=== PATIENT | male | born 1960 | race African-American/Black ===

== ENCOUNTER 2016-07-03 08:18 | Emergency (ER) | payer OTHER ==
[~2016-07-03] VITALS: Ht 182.9 cm; Wt 104.3 kg
[~2016-07-03 08:18] MED LIST: LEVO500T38 PO
[2016-07-03] MEDS ORDERED: MORPHINE SULFATE 4 MG/ML DISP.SYRIN. IV ONE (08:45)
[2016-07-03] MEDS ORDERED: IV NORMAL SALINE 1000ML BAG 1,000 ML IV ONE (08:45)
--- NOTE | 2016-07-03 08:49 | PHYS DOC ---
Past Medical History Past Medical History: Other Additional Past Medical Histor: ? diebetes Past Surgical History: No Surgical History Alcohol Use: None Drug Use: Cocaine Adult General Chief Complaint Chief Complaint: rash, chest pain HPI HPI Patient is a 56 year old male who presents with rash and chest pain of 2 days. Feels "hot" but hasn't taken temperature. Pt states rash is painful and the chest pain is constant in nature. No increased sob, no cough. Pt denies CAD. Rash wraps from midline anterior and left to midline on the back. he states the pain is all across the chest. No h/o PE or dvt. Review of Systems Review of Systems Constitutional:per hpi Eyes: Denies change in visual acuity, redness, or eye pain [] HENT: Denies nasal congestion or sore throat [] Respiratory: Denies cough or shortness of breath [] Cardiovascular: No additional information not addressed in HPI [] GI: Denies abdominal pain, nausea, vomiting, bloody stools or diarrhea [] : Denies dysuria or hematuria [] Musculoskeletal: Denies back pain or joint pain [] Integument: per hpi Neurologic: Denies headache, focal weakness or sensory changes [] Current Medications Current Medications Current Medications Medications (Trade) Dose Ordered Sig/Sushma Start Time Stop Time Status Last Admin Dose Admin Morphine Sulfate 4 mg 1X ONCE 07/03/16 08:45 07/03/16 08:46 DC 07/03/16 09:03 4 MG Sodium Chloride 1,000 ml @ 1,000 mls/hr 1X ONCE 07/03/16 08:45 07/03/16 09:44 DC 07/03/16 09:03 1,000 MLS/HR Allergies Allergies Allergies Coded Allergies Type Severity Reaction Last Updated Verified No Known Drug Allergies 10/14/13 No Physical Exam Physical Exam Constitutional: Well developed, well nourished, no acute distress, non-toxic appearance. [] HENT: Normocephalic, atraumatic, bilateral external ears normal, oropharynx moist, no oral exudates, nose normal. [] Eyes: PERRLA, EOMI, conjunctiva normal, no discharge. [] Neck: Normal range of motion, no tenderness, supple, no stridor. [] Cardiovascular:Heart rate regular with regular rhythm, no murmur [] Lungs & Thorax: Bilateral breath sounds clear to auscultation, no wheeze or crackles Abdomen: Bowel sounds normal, soft, no tenderness, no masses, no pulsatile masses. [] Skin: vesicular erythematous rash along left torso dermatome from midline to midline, consistent with herpes zoster. Back: No tenderness, no CVA tenderness. [] Extremities: No tenderness, no cyanosis, no clubbing, ROM intact, no edema. [] Neurologic: Alert and oriented X 3, normal motor function, normal sensory function, no focal deficits noted. [] Psychologic: Affect normal, judgement normal, mood normal. [] Current Patient Data Vital Signs Vital Signs Date Time Temp Pulse Resp B/P (MAP) Pulse Ox O2 Delivery O2 Flow Rate FiO2 07/03/16 08:26 99.9 102 18 151/89 (109) 94 Room Air 99.9 Lab Values Laboratory Tests Test 07/03/16 08:47 White Blood Count 4.4 x10^3/uL (4.0-11.0) Red Blood Count 4.68 x10^6/uL (4.30-5.70) Hemoglobin 13.5 g/dL (13.0-17.5) Hematocrit 39.6 % (39.0-53.0) Mean Corpuscular Volume 85 fL (79-100) Mean Corpuscular Hemoglobin 29 pg (25-35) Mean Corpuscular Hemoglobin Concent 34 g/dL (31-37) Red Cell Distribution Width 14.1 % (11.5-14.5) Platelet Count 236 x10^3/uL (140-400) Neutrophils (%) (Auto) 64 % (31-73) Lymphocytes (%) (Auto) 22 % (24-48) L Monocytes (%) (Auto) 12 % (0-9) H Eosinophils (%) (Auto) 1 % (0-3) Basophils (%) (Auto) 1 % (0-3) Neutrophils # (Auto) 2.8 x10^3uL (1.8-7.7) Lymphocytes # (Auto) 1.0 x10^3/uL (1.0-4.8) Monocytes # (Auto) 0.5 x10^3/uL (0.0-1.1) Eosinophils # (Auto) 0.1 x10^3/uL (0.0-0.7) Basophils # (Auto) 0.0 x10^3/uL (0.0-0.2) Sodium Level 132 mmol/L (136-145) L Potassium Level 4.1 mmol/L (3.5-5.1) Chloride Level 99 mmol/L (98-107) Carbon Dioxide Level 27 mmol/L (21-32) Anion Gap 6 (6-14) Blood Urea Nitrogen 12 mg/dL (8-26) Creatinine 1.4 mg/dL (0.7-1.3) H Estimated GFR (Cockcroft-Gault) 63.2 BUN/Creatinine Ratio 9 (6-20) Glucose Level 101 mg/dL (70-99) H Calcium Level 9.0 mg/dL (8.5-10.1) Total Bilirubin 0.5 mg/dL (0.2-1.0) Aspartate Amino Transferase (AST) 29 U/L (15-37) Alanine Aminotransferase (ALT) 31 U/L (16-63) Alkaline Phosphatase 79 U/L (46-116) Troponin I Quantitative < 0.017 ng/mL (0.000-0.055) Total Protein 9.6 g/dL (6.4-8.2) H Albumin 3.7 g/dL (3.4-5.0) Albumin/Globulin Ratio 0.6 (1.0-1.7) L Laboratory Tests 07/03/16 08:47 Laboratory Tests 07/03/16 08:47 EKG EKG [] 97 bpm, sinus, normal axis, normal intervals, no ST elevation or depression, nonischemic T waves, interpreted by me Radiology/Procedures Radiology/Procedures Chest x-ray: Left basilar subsegmental atelectasis per Dr. Weeks, I was unable to view the images [] Course & Med Decision Making Course & Med Decision Making Pertinent Labs and Imaging studies reviewed. (See chart for details) Pt given morphine, labs obtained, CXR, ekg. Pt's tetanus updated 2 years ago. Symptoms very consistent with zoster. Will check for possible ACS, but pain more likely related to the rash. No significant findings on ED workup. Creatinine is 1.4, baseline is 1.3. Patient's blood pressure slightly elevated and I instructed patient follow-up with primary care physician. We'll discharge with foul acyclovir 3 times a day for 7 days, Ledbetter tablets as needed for breakthrough pain. If you ibuprofen tablets for mild pain. Patient to follow-up with Dr. Taylor Lugo Disclaimer Brittney Disclaimer This electronic medical record was generated, in whole or in part, using a voice recognition dictation system. Departure Departure Impression: Primary Impression: Herpes zoster Disposition: HOME, SELF-CARE Condition: STABLE Referrals: MORAIMA VERMA (PCP) Scripts Hydrocodone/Apap 5-325 (NORCO 5-325 TABLET) 1 Each Tablet 1-2 EACH PO PRN Q6HRS Y for PAIN, #24 TAB as needed for pain Prov: JOSEPH COLUNGA MD 07/03/16 Ibuprofen (IBUPROFEN) 400 Mg Tablet 400 MG PO PRN Q6HRS Y for PAIN, #20 TAB take with food or milk Prov: JOSEPH COLUNGA MD 07/03/16 Valacyclovir Hcl (VALACYCLOVIR) 1,000 Mg Tablet 1 TAB PO TID, #21 TAB Prov: JOSEPH COLUNGA MD 07/03/16 JOSEPH COLUNGA MD July 03, 2016 08:49
[2016-07-03 09:02] LABS: CREATININE 1.4 mg/dL (0.7-1.3); GFR 63.2; POTASSIUM 4.1 mmol/L (3.5-5.1)
[2016-07-03 09:10] LABS: ALBUMIN 3.7 g/dL (3.4-5.0); ALBUMIN/GLOBULIN RATIO 0.6 (1.0-1.7); BASO % 1 % (0-3); EOS % 1 % (0-3); HEMATOCRIT 39.6 % (39.0-53.0); HEMOGLOBIN 13.5 g/dL (13.0-17.5); LYMPH % 22 % (24-48); MEAN CORPUSCULAR HEMOGLOBIN 29 pg (25-35); MEAN CORPUSCULAR HGB CONC 34 g/dL (31-37); MEAN CORPUSCULAR VOLUME 85 fL (79-100); MONO % 12 % (0-9); NEUT % 64 % (31-73); PLATELET COUNT 236 x10^3/uL (140-400); RED BLOOD COUNT 4.68 x10^6/uL (4.30-5.70); RED CELL DISTRIBUTION WIDTH 14.1 % (11.5-14.5); TOTAL BILIRUBIN 0.5 mg/dL (0.2-1.0); TOTAL PROTEIN 9.6 g/dL (6.4-8.2); WHITE BLOOD COUNT 4.4 x10^3/uL (4.0-11.0)
[2016-07-03 09:30] VITALS: BP 161/90
[2016-07-03] MEDS ORDERED: VALA1000 PO (10:00)
[2016-07-03] MEDS ORDERED: IBUP-1027 PO (10:00)
[2016-07-03] MEDS ORDERED: HYDR-971 PO (10:00)
--- NOTE | 2016-07-03 10:20 | EKG ---
[facility] [address] [place] [address] Test Date: 2016-07-03 Test Time: 09:06:03 Pat Name: TAWNY MEDINA Department: Room: Gender: [employer] Facilitator: : 1960 Requested By: JOSEPH COLUNGA Order Number: [id number] Reading MD: Angel Agee Measurements Intervals [place] Rate: 97 P: 37 MI: 162 QRS: -23 QRSD: 96 T: 43 QT: 352 QTc: 451 Interpretive Statements SINUS RHYTHM Electronically Signed On 07-07-2016 9:30:31 CDT by Angel Agee
--- NOTE | 2016-07-03 13:05 | RAD ---
Ti Kush 2 View Chest on 07/03/2016 0852 hours Indication: Chest and upper back pain. Correlation is made with prior exam from 10/16/2013. The heart size is stable. There is subsegmental atelectasis in the lingula. Lungs are hyperinflated consistent with COPD. No infiltrate, effusion or pneumothorax is detected. Impression: Lingular subsegmental atelectasis and COPD. MTDD
== END 2016-07-03 10:20 | disposition home or self-care (01) ==
LOC: ER 08:18
DX: B02.9 Zoster without complications (principal); F14.10 Cocaine abuse, uncomplicated
CPT/HCPCS: 36415; 71020; 80053; 84484; 85027; 93005; 96361; 96374; 99285; J2270; J7030

== ENCOUNTER 2018-01-20 08:31 | Emergency (ER) | payer SELFPAY ==
[~2018-01-20] VITALS: Ht 177.8 cm; Wt 104.3 kg
[~2018-01-20 08:31] MED LIST changes: +HYDR-3164 PO; +IBUP-1027 PO; -LEVO500T38 PO; +LEVO500T59 PO; +VALA1000 PO
[2018-01-20] MEDS ORDERED: FLUORESCEIN OPHTH TEST STRIP. OD ONE (08:45)
[2018-01-20] MEDS ORDERED: TETRACAINE 0.5% OPHTH SOLUTION 4ML BOTTLE. OD ONE (08:45)
[2018-01-20 09:00] VITALS: BP 181/88
[2018-01-20] MEDS ORDERED: ERYT1OIN6 OP (09:28)
--- NOTE | 2018-01-20 09:29 | PHYS DOC ---
Past Medical History Past Medical History: No Pertinent History, Other Additional Past Medical Histor: ? diabetes Past Surgical History: No Surgical History Alcohol Use: None Drug Use: Cocaine Social History Narrative: clean x 1 month Adult General Chief Complaint Chief Complaint: EYE PROBLEMS HPI HPI Patient is a 57 year old [f__sex] who presents with [] Review of Systems Review of Systems Constitutional: Denies fever or chills [] Eyes: Denies change in visual acuity, redness, or eye pain [] HENT: Denies nasal congestion or sore throat [] Respiratory: Denies cough or shortness of breath [] Cardiovascular: No additional information not addressed in HPI [] GI: Denies abdominal pain, nausea, vomiting, bloody stools or diarrhea [] : Denies dysuria or hematuria [] Musculoskeletal: Denies back pain or joint pain [] Integument: Denies rash or skin lesions [] Neurologic: Denies headache, focal weakness or sensory changes [] Endocrine: Denies polyuria or polydipsia [] All other systems were reviewed and found to be within normal limits, except as documented in this note. Current Medications Current Medications Current Medications Medications (Trade) Dose Ordered Sig/Sushma Start Time Stop Time Status Last Admin Dose Admin Fluorescein Sodium (Ful-Terri) 1 strip 1X ONCE 01/20/18 08:45 01/20/18 08:49 DC 01/20/18 08:58 1 STRIP Tetracaine HCl (Tetracaine) 1 drop 1X ONCE 01/20/18 08:45 01/20/18 08:49 DC 01/20/18 08:58 1 DROP Allergies Allergies Allergies Coded Allergies Type Severity Reaction Last Updated Verified No Known Drug Allergies 10/14/13 No Physical Exam Physical Exam Constitutional: Well developed, well nourished, no acute distress, non-toxic appearance. [] HENT: Normocephalic, atraumatic, bilateral external ears normal, oropharynx moist, no oral exudates, nose normal. [] Eyes: PERRLA, EOMI, conjunctiva normal, no discharge. [] Neck: Normal range of motion, no tenderness, supple, no stridor. [] Cardiovascular:Heart rate regular rhythm, no murmur [] Lungs & Thorax: Bilateral breath sounds clear to auscultation [] Abdomen: Bowel sounds normal, soft, no tenderness, no masses, no pulsatile masses. [] Skin: Warm, dry, no erythema, no rash. [] Back: No tenderness, no CVA tenderness. [] Extremities: No tenderness, no cyanosis, no clubbing, ROM intact, no edema. [] Neurologic: Alert and oriented X 3, normal motor function, normal sensory function, no focal deficits noted. [] Psychologic: Affect normal, judgement normal, mood normal. [] Current Patient Data Vital Signs Vital Signs Date Time Temp Pulse Resp B/P (MAP) Pulse Ox O2 Delivery O2 Flow Rate FiO2 01/20/18 09:00 98.2 63 18 181/88 (119) 96 Room Air 98.2 Lab Values Laboratory Tests Test 01/20/18 09:15 Glucose (Fingerstick) 114 mg/dL (70-99) H EKG EKG [] Radiology/Procedures Radiology/Procedures Eye Exam w/ childers lamp: Visual Acuity: See nurse's notes Visual Massey: Intact in all four quadrants bilaterally Lac ducts/glands: No swelling Lids w/ evertion: Swelling to upper right eyelid, no foreign body Conj/Conley: Clear, negative Fluorescein Course & Med Decision Making Course & Med Decision Making Pertinent Labs and Imaging studies reviewed. (See chart for details) [] Dragon Disclaimer Dragon Disclaimer This electronic medical record was generated, in whole or in part, using a voice recognition dictation system. Departure Departure Impression: Primary Impression: Conjunctivitis Disposition: 01 HOME, SELF-CARE Condition: STABLE Referrals: MORAIMA VERMA (PCP) Patient Instructions: Conjunctivitis (Viral and Bacterial) Additional Instructions: Cool compress every 3-4 hours for 20-30 minutes to right eye- avoid rubbing eye. Follow-up with laborer airport maintenance in 2-3 days if symptoms persist or with any concerns. Your blood sugar was 114. Scripts Erythromycin Base (Erythromycin) 1 Gm Oint...g. 1 GM OP QID, #1 MISC 0 Refills 0.5% 1/2" ribbon to lower eyelid x7 days Prov: XUAN VILCHIS APRN 01/20/18 XUAN VILCHIS APRN Jan 20, 2018 09:29
[2018-01-20] MEDS ORDERED: ERYTHROMYCIN 0.5% OPHTH OINTMENT 1GM TUBE. OD ONE (09:30)
== END 2018-01-20 09:35 | disposition home or self-care (01) ==
LOC: ER 08:31
DX: H10.89 Other conjunctivitis (principal); E11.9 Type 2 diabetes mellitus without complications
CPT/HCPCS: 82962; 99283

== ENCOUNTER 2018-07-19 06:50 | Inpatient (IN) | payer BC, SELFPAY ==
[2018-07-18] MEDS: IV NORMAL SALINE 1000ML BAG 1,000 ML IV SCH (00:45)
[~2018-07-19] VITALS: Ht 182.9 cm; Wt 83.6 kg
[~2018-07-19 06:50] MED LIST changes: +ERYT1OIN6 OP
[2018-07-19] MEDS ORDERED: NITROGLYCERIN SUBLINGUAL 0.4 MG BOTTLE OF 25. SL PRN (07:15)
[2018-07-19] MEDS ORDERED: ASPIRIN CHEWABLE 81 MG TABLET. PO ONE (07:15)
[2018-07-19 07:33] LABS: BASO # 0.1 x10^3/uL (0.0-0.2); BASO % 1 % (0-3); EOS % 0 % (0-3); HEMATOCRIT 28.4 % (39.0-53.0); HEMOGLOBIN 9.1 g/dL (13.0-17.5); LYMPH % 16 % (24-48); MEAN CORPUSCULAR HEMOGLOBIN 25 pg (25-35); MEAN CORPUSCULAR HGB CONC 32 g/dL (31-37); MEAN CORPUSCULAR VOLUME 77 fL (79-100); MONO # 0.8 x10^3/uL (0.0-1.1); MONO % 12 % (0-9); NEUT # 4.6 x10^3uL (1.8-7.7); NEUT % 71 % (31-73); PLATELET COUNT 431 x10^3/uL (140-400); RED BLOOD COUNT 3.67 x10^6/uL (4.30-5.70); RED CELL DISTRIBUTION WIDTH 16.9 % (11.5-14.5); WHITE BLOOD COUNT 6.5 x10^3/uL (4.0-11.0)
--- NOTE | 2018-07-19 07:41 | PHYS DOC ---
Past Medical History Past Medical History: No Pertinent History, Hypertension, Other Additional Past Medical Histor: ? diabetes Past Surgical History: No Surgical History Alcohol Use: None Drug Use: Cocaine Adult General Chief Complaint Chief Complaint: CHEST PAIN [facility] HPI Patient is a 58 year old male who presents with complaining of chest pain. Patient complaining of gradual onset of substernal sharp chest pain 3 weeks ago as a constant pain that gradually getting worse. Patient states the pain radiated to his back and associated with shortness of breath and productive cough with clear sputum. Patient states the shortness of breath getting worse with supine position and light activity. Patient denies palpitation, fever and chills, sick contact, recent immobilization or history of DVT and PE, nausea and vomiting patient complaining of constipation and states he did not have any bowel movement for the last 5 days and usually he has had a bowel movement every day. Patient states he smoked 2 cigarettes a day and smoked cocaine 3 weeks ago. Patient denies using alcohol. Patient rated his pain 10 over 10 and states he took [id number] Tylenol and and Advil without change of his pain. Patient did not seek medical attention for his chest pain and states the pain became worse today and he decided to come to ER. Patient has history of hypertension and diabetes mellitus and denies coronary artery disease or family history of coronary artery disease. Review of Systems Review of Systems Constitutional: Denies fever or chills [] Eyes: Denies change in visual acuity, redness, or eye pain [] HENT: Denies nasal congestion or sore throat [] Respiratory: Reports cough and shortness of breath Cardiovascular: No additional information not addressed in HPI [] GI: Denies abdominal pain, nausea, vomiting, bloody stools or diarrhea [] : Denies dysuria or hematuria [] Musculoskeletal: Denies back pain or joint pain [] Integument: Denies rash or skin lesions [] Neurologic: Denies headache, focal weakness or sensory changes [] Endocrine: Denies polyuria or polydipsia [] All other systems were reviewed and found to be within normal limits, except as documented in this note. Current Medications Current Medications Current Medications Medications (Trade) Dose Ordered Sig/Sushma Start Time Stop Time Status Last Admin Dose Admin Aspirin (Children'S Aspirin) 324 mg 1X ONCE 07/19/18 07:15 07/19/18 07:16 DC 07/19/18 07:31 324 MG Info (CONTRAST GIVEN -- Rx MONITORING) 1 each PRN DAILY PRN 07/19/18 08:15 07/21/18 08:14 Iohexol (Omnipaque 350 Mg/ml) 90 ml 1X ONCE 07/19/18 08:00 07/19/18 08:01 DC 07/19/18 08:24 90 ML Nitroglycerin (Nitrostat) 0.4 mg PRN Q5MIN PRN 07/19/18 07:15 07/20/18 07:14 07/19/18 07:32 0.4 MG Allergies Allergies Allergies Coded Allergies Type Severity Reaction Last Updated Verified No Known Drug Allergies 10/14/13 No Physical Exam Physical Exam Constitutional: Well developed, well nourished, moderate distress, non-toxic appearance. [] HENT: Normocephalic, atraumatic, oropharynx moist. Eyes: PERRLA, EOMI, conjunctiva normal, no discharge. [] Neck: Normal range of motion, no tenderness, supple, no stridor, bilateral JVD. [] Cardiovascular: Tachycardia, no murmur [] Lungs & Thorax: Bilateral breath sounds clear to auscultation [] Abdomen: Bowel sounds normal, soft, no tenderness, no masses, no pulsatile masses. [] Skin: Warm, dry, no erythema, no rash. [] Back: No tenderness, no CVA tenderness. [] Extremities: No tenderness, no cyanosis, no clubbing, ROM intact, no edema. [] Neurologic: Alert and oriented X 3, normal motor function, normal sensory function, no focal deficits noted. [] Psychologic: Affect anxious, judgement normal, mood normal. [] Current Patient Data Vital Signs Vital Signs Date Time Temp Pulse Resp B/P (MAP) Pulse Ox O2 Delivery O2 Flow Rate FiO2 07/19/18 07:57 110 30 96/53 (67) 92 Room Air 07/19/18 06:52 98.3 98.3 Lab Values Laboratory Tests Test 07/19/18 07:20 White Blood Count 6.5 x10^3/uL (4.0-11.0) Red Blood Count 3.67 x10^6/uL (4.30-5.70) L Hemoglobin 9.1 g/dL (13.0-17.5) L Hematocrit 28.4 % (39.0-53.0) L Mean Corpuscular Volume 77 fL (79-100) L Mean Corpuscular Hemoglobin 25 pg (25-35) Mean Corpuscular Hemoglobin Concent 32 g/dL (31-37) Red Cell Distribution Width 16.9 % (11.5-14.5) H Platelet Count 431 x10^3/uL (140-400) H Neutrophils (%) (Auto) 71 % (31-73) Lymphocytes (%) (Auto) 16 % (24-48) L Monocytes (%) (Auto) 12 % (0-9) H Eosinophils (%) (Auto) 0 % (0-3) Basophils (%) (Auto) 1 % (0-3) Neutrophils # (Auto) 4.6 x10^3uL (1.8-7.7) Lymphocytes # (Auto) 1.0 x10^3/uL (1.0-4.8) Monocytes # (Auto) 0.8 x10^3/uL (0.0-1.1) Eosinophils # (Auto) 0.0 x10^3/uL (0.0-0.7) Basophils # (Auto) 0.1 x10^3/uL (0.0-0.2) D-Dimer (Caryn) 1.77 ug/mlFEU (0.00-0.50) H Sodium Level 134 mmol/L (136-145) L Potassium Level 4.5 mmol/L (3.5-5.1) Chloride Level 98 mmol/L (98-107) Carbon Dioxide Level 28 mmol/L (21-32) Anion Gap 8 (6-14) Blood Urea Nitrogen 8 mg/dL (8-26) Creatinine 1.0 mg/dL (0.7-1.3) Estimated GFR (Cockcroft-Gault) 92.5 BUN/Creatinine Ratio 8 (6-20) Glucose Level 106 mg/dL (70-99) H Lactic Acid Level 0.9 mmol/L (0.4-2.0) Calcium Level 9.2 mg/dL (8.5-10.1) Magnesium Level 1.8 mg/dL (1.8-2.4) Total Bilirubin 0.3 mg/dL (0.2-1.0) Aspartate Amino Transferase (AST) 32 U/L (15-37) Alanine Aminotransferase (ALT) 30 U/L (16-63) Alkaline Phosphatase 69 U/L (46-116) Creatine Kinase 48 U/L (39-308) Troponin I Quantitative < 0.017 ng/mL (0.000-0.055) WR-Tvg-[id number]-Type Natriuretic Peptide 71 pg/mL (0-124) Total Protein 9.1 g/dL (6.4-8.2) H Albumin 2.5 g/dL (3.4-5.0) L Albumin/Globulin Ratio 0.4 (1.0-1.7) L Lipase 76 U/L (73-393) Ethyl Alcohol Level < 10 mg/dL (0-10) Laboratory Tests 07/19/18 07:20 Laboratory Tests 07/19/18 07:20 EKG EKG EKG interpreted by me. EKG at 0 658 showed sinus tachycardia at rate of 123, normal TN and QT intervals, poor R-wave progress in anteroseptal leads, abnormal T waves in anteroseptal leads, no acute ST and T-wave abnormalities. Radiology/Procedures Radiology/Procedures [][facility] [address] [place] [address] IMAGING REPORT Signed PATIENT: TAWNY MEDINA ACCOUNT: [id number] : 1960 LOCATION: [address] [place] [address] AGE: 58 SEX: M EXAM STATUS: ADM IN ORD. PHYSICIAN: MARIA EUGENIA URIOSTEGUI MD REASON: mediastinal mass;SOA; OMNI 350, 90ML PROCEDURE: CT ANGIO CHEST ABD PELVIS CTA of the chest, abdomen and pelvis with contrast 07/19/2018 CLINICAL HISTORY: Chest pain and shortness of breath. Mediastinal mass seen on chest radiograph from earlier today. TECHNIQUE: After the intravenous administration of 75 cc of Omnipaque 300, contiguous, 0.625 mm axial sections were obtained through the chest, abdomen and pelvis. One or more of the following individualized dose reduction techniques were utilized for this study: 1. Automated exposure control. 2. Adjustment of the mA and/or kV according to patient size. 3. Use of iterative reconstruction technique. FINDINGS: Comparison is made to a portable chest radiograph performed earlier today. A large mass is seen occupying the majority of the anterior and middle mediastinum. This measures 11.9 x 10.8 x 9.1 cm in craniocaudal, AP and transverse dimensions. This mass extrinsically compresses the superior vena cava, the main pulmonary arteries, right greater than left and the ascending thoracic aorta along with the thoracic aortic arch. It displaces these structures laterally. This extrinsically compresses the anterior aspect of the distal trachea near the zay along with the left main bronchus. This mass is consistent with a neoplastic process (lymphoma, lung cancer, etc.). An enlarged right hilar lymph node is seen which measures 2.4 cm in size. An enlarged partially calcified subcarinal lymph node is seen which measures 3.6 cm in size. Additional prominent mediastinal lymph nodes are seen which measure 5 mm to 1 cm in size. Although extrinsically compressed by the mass, the thoracic aorta is otherwise within normal limits. It tapers normally. There is a common origin of the brachiocephalic and left common carotid artery from the thoracic aortic arch. This is a normal variation. This origin is patent. The origin of the left subclavian artery is patent. The pulmonary arteries are suboptimally opacified with contrast. No obvious filling defect is seen. No axillary lymphadenopathy is noted. Mild bullous emphysematous changes are seen involving both lungs. Dependent subsegmental atelectasis is seen involving both lower lobes. No area of consolidation is seen. No pleural effusion or pneumothorax is noted. No pulmonary mass or nodule is seen. The liver, spleen, pancreas, adrenal glands and kidneys are within normal limits. The abdominal aorta tapers normally. The gallbladder is slightly contracted. No free fluid or free air is seen within the abdomen. Air and stool seen throughout the colon. Mildly enlarged retroperitoneal lymph nodes are seen adjacent to the abdominal aorta. These measure 1 cm to 1.7 cm in size. Images through the pelvis demonstrate the bladder distended with urine. The prostate gland is enlarged likely related to BPH. No free fluid is seen. Prominent pelvic/inguinal lymph nodes are seen, left greater than right, which measure 1 cm to 2.9 cm in size. Minimal S-shaped curvature of the thoracolumbar spine is seen. Degenerative changes are seen involving the thoracic and lumbar spine along with both hips. CTA images of the abdominal aorta demonstrate the abdominal aorta to taper normally. There is a solitary right renal artery which immediately bifurcates past its origin. These arteries are patent. 2 left renal arteries are seen. There are patent. The origins of the celiac trunk, superior mesenteric artery and inferior mesenteric artery are patent. The common iliac arteries and their branches are patent. IMPRESSION: 1. 11.9 cm mediastinal mass is seen consistent with a neoplastic process as discussed above. 2. Negative CTA of the chest, abdomen and pelvis. Electronically signed by: Cm Ordoñez MD (07/19/2018 8:57 AM) [facility] DICTATED and SIGNED BY: CM ORDOÑEZ MD DATE: 07/19/18 0857 Course & Med Decision Making Course & Med Decision Making Pertinent Labs and Imaging studies reviewed. (See chart for details) Evaluation of patient in ER showed 58-year-old male patient with complaining of constant shortness of breath and chest pain for 3 weeks that gradually getting worse. Patient had O2 sat of 94% at room and at arrival to ER with history of COPD without home oxygen. Patient had tachycardia at 120 that gradually improved to 110. Patient rated his pain 10 over 10 that resolved with nitroglycerin 1 and aspirin and was able to fall asleep. Patient had bilateral JVD more in the right side door extremity edema. Chest x-ray showed mediastinal enlargement and CT of chest and abdomen and pelvis showed an 0.9 cm mediastinal mass with lymphadenopathy and possible malignancy. Patient states that he lost about 30 pounds for the last 3 weeks. Patient requiring admission for further evaluation and treatment. Discussed with Dr. Saenz who is in agreement with admission. Discussed findings and plan with patient and family, who acknowledge understanding and agreement. Dragon Disclaimer Dragon Disclaimer This electronic medical record was generated, in whole or in part, using a voice recognition dictation system. Departure Departure Impression: Primary Impression: Mediastinal mass Additional Impressions: Chest pain Shortness of breath Anemia Tachycardia Weight loss Disposition: 09 ADMITTED INPATIENT (at 0 825) Admitting Physician: Yen Saenz (accepted admission at 0 824) Condition: GUARDED Referrals: MORAIMA VERMA (PCP) Critical Care Time Critical care time was 60 minutes exclusive of procedures. Problem Qualifiers Additional Impressions: Chest pain Chest pain type: unspecified Qualified Codes: R07.9 - Chest pain, unspecified Anemia Anemia type: unspecified type Qualified Codes: D64.9 - Anemia, unspecified MARIA EUGENIA URIOSTEGUI MD July 19, 2018 07:41
[2018-07-19 07:42] LABS: CALCIUM 9.2 mg/dL (8.5-10.1); GFR 92.5; POTASSIUM 4.5 mmol/L (3.5-5.1)
[2018-07-19 07:49] LABS: ALBUMIN 2.5 g/dL (3.4-5.0); ALBUMIN/GLOBULIN RATIO 0.4 (1.0-1.7); MAGNESIUM 1.8 mg/dL (1.8-2.4); TOTAL BILIRUBIN 0.3 mg/dL (0.2-1.0); TOTAL PROTEIN 9.1 g/dL (6.4-8.2)
[2018-07-19] MEDS ORDERED: IOHEXOL 350 MG/ML 100 ML VIAL. IV ONE (08:00)
[2018-07-19] MEDS ORDERED: CONTRAST GIVEN. MC PRN (08:15)
--- NOTE | 2018-07-19 08:47 | RAD ---
PORTABLE CHEST 1V Clinical indications: Chest pain and shortness of breath. COMPARISON: July 03, 2016. Findings: Chronic scarring is seen within the left lung base. No acute lung infiltrate or pleural effusion or pulmonary edema or lung mass or pneumothorax is seen. There is a new finding of enlargement of the upper right mediastinum extending to the level of the right hilum. This could be due to lymphadenopathy/mass or thoracic aortic dissection. Recommend chest CT with IV contrast for further evaluation. The heart size is stable. Pulmonary vasculature is unremarkable. IMPRESSION: New finding of enlargement of the right mediastinum extending to the right hilum. This may be due to mediastinal lymphadenopathy or mass or thoracic aortic dissection. Recommend chest CT with IV for further evaluation. Electronically signed by: Eduardo Mccartney MD (07/19/2018 8:44 AM) [facility]
--- NOTE | 2018-07-19 09:00 | RAD ---
CTA of the chest, abdomen and pelvis with contrast 07/19/2018 CLINICAL HISTORY: Chest pain and shortness of breath. Mediastinal mass seen on chest radiograph from earlier today. TECHNIQUE: After the intravenous administration of 75 cc of Omnipaque 300, contiguous, 0.625 mm axial sections were obtained through the chest, abdomen and pelvis. One or more of the following individualized dose reduction techniques were utilized for this study: 1. Automated exposure control. 2. Adjustment of the mA and/or kV according to patient size. 3. Use of iterative reconstruction technique. FINDINGS: Comparison is made to a portable chest radiograph performed earlier today. A large mass is seen occupying the majority of the anterior and middle mediastinum. This measures 11.9 x 10.8 x 9.1 cm in craniocaudal, AP and transverse dimensions. This mass extrinsically compresses the superior vena cava, the main pulmonary arteries, right greater than left and the ascending thoracic aorta along with the thoracic aortic arch. It displaces these structures laterally. This extrinsically compresses the anterior aspect of the distal trachea near the zay along with the left main bronchus. This mass is consistent with a neoplastic process (lymphoma, lung cancer, etc.). An enlarged right hilar lymph node is seen which measures 2.4 cm in size. An enlarged partially calcified subcarinal lymph node is seen which measures 3.6 cm in size. Additional prominent mediastinal lymph nodes are seen which measure 5 mm to 1 cm in size. Although extrinsically compressed by the mass, the thoracic aorta is otherwise within normal limits. It tapers normally. There is a common origin of the brachiocephalic and left common carotid artery from the thoracic aortic arch. This is a normal variation. This origin is patent. The origin of the left subclavian artery is patent. The pulmonary arteries are suboptimally opacified with contrast. No obvious filling defect is seen. No axillary lymphadenopathy is noted. Mild bullous emphysematous changes are seen involving both lungs. Dependent subsegmental atelectasis is seen involving both lower lobes. No area of consolidation is seen. No pleural effusion or pneumothorax is noted. No pulmonary mass or nodule is seen. The liver, spleen, pancreas, adrenal glands and kidneys are within normal limits. The abdominal aorta tapers normally. The gallbladder is slightly contracted. No free fluid or free air is seen within the abdomen. Air and stool seen throughout the colon. Mildly enlarged retroperitoneal lymph nodes are seen adjacent to the abdominal aorta. These measure 1 cm to 1.7 cm in size. Images through the pelvis demonstrate the bladder distended with urine. The prostate gland is enlarged likely related to BPH. No free fluid is seen. Prominent pelvic/inguinal lymph nodes are seen, left greater than right, which measure 1 cm to 2.9 cm in size. Minimal S-shaped curvature of the thoracolumbar spine is seen. Degenerative changes are seen involving the thoracic and lumbar spine along with both hips. CTA images of the abdominal aorta demonstrate the abdominal aorta to taper normally. There is a solitary right renal artery which immediately bifurcates past its origin. These arteries are patent. 2 left renal arteries are seen. There are patent. The origins of the celiac trunk, superior mesenteric artery and inferior mesenteric artery are patent. The common iliac arteries and their branches are patent. IMPRESSION: 1. 11.9 cm mediastinal mass is seen consistent with a neoplastic process as discussed above. 2. Negative CTA of the chest, abdomen and pelvis. Electronically signed by: Cm Ordoñez MD (07/19/2018 8:57 AM) [facility]
--- NOTE | 2018-07-19 09:25 | NUR ---
The patient, TAWNY MEDINA, 58 y/o, M admitted by BARRY CARLIN MD, was given written information regarding hospital policies, unit procedures and contact persons. Valuables were checked and taken home with . Pt arrived to unit from ER via gurney. Pt ambulated to bed. at bedside. Pt c/o chest pain, back pain, and gas. Pt states no SOB at this time. VS stable. Pt resting in bed. Call light within reach. Will continue to monitor.
[2018-07-19 09:38] VITALS: BP 128/66
[2018-07-19] MEDS: IV NORMAL SALINE 1000ML BAG 1,000 ML IV SCH ×2 (09:53→16:49)
[2018-07-19] MEDS ORDERED: LISI1TAB3 PO (10:51)
[2018-07-19] MEDS ORDERED: RANI150T2 PO (10:51)
[2018-07-19 11:04] VITALS: BP 103/55
--- NOTE | 2018-07-19 12:22 | PDOC ---
Provider Note Provider Note 58 year old male, presented with chest pain. CT chest reviewed. Large anterior mediastinal mass encompassing ascending aorta, PA, SVC and airway. Given radiological findings, this is most likely a lymphoma, less likely non seminomatous germ cell tumor. Germ cell tumor can be excluded by obtaining serum a-FP, b-HCG and LDH. He will need radiation and chemotherapy. There is no role for surgical resection. Biopsy may not be needed, al least to begin radiation, but will leave this up to oncologist and radiation oncologist. Biopsy with mediastinoscopy is technically easy to perform but there would be a risk of circulatory collapse on induction of general anesthesia, given the significant compression of major vessels. Transbronchial biopsy or CT guides biopsy would be safer as an initial option. Full consult to follow. TARUN KING MD July 19, 2018 12:22
--- NOTE | 2018-07-19 12:33 | EKG ---
[facility] [address] [place] [address] Test Date: 2018-07-19 Test Time: 06:56:26 Pat Name: TAWNY MEDINA Department: Room: Gender: M Emergency Management System Director: : 1960 Requested By: MARIA EUGENIA URIOSTEGUI Order Number: [id number] Reading MD: Measurements Intervals Dorsey Rate: 123 P: 53 LA: 138 QRS: 4 QRSD: 94 T: 78 QT: 312 QTc: 452 Interpretive Statements SINUS TACHYCARDIA QRS(T) CONTOUR ABNORMALITY CONSISTENT WITH ANTEROSEPTAL INFARCT AGE UNDETERMINED T ABNORMALITY IN HIGH LATERAL LEADS NON SPECIFIC ST DEPRESSION ABNORMAL ECG No previous ECG available for comparison
[2018-07-19 13:07] LABS: BILIRUBIN,URINE NEGATIVE (NEG); CLARITY,URINE CLEAR; COLOR,URINE YELLOW; NITRITE,URINE NEGATIVE (NEG); PROTEIN,URINE NEGATIVE (NEG-TRACE); UROBILINOGEN,URINE 0.2 mg/dL (0.2 mg/dL)
[2018-07-19 13:15] LABS: AMPHETAMINE/METHAMPHETAMINE NEG (NEG); BARBITURATES NEG (NEG); BENZODIAZEPINES NEG (NEG); CANNABINOIDS NEG (NEG); COCAINE POS (NEG); METHADONE NEG (NEG); OPIATES NEG (NEG); PHENCYCLIDINE NEG (NEG)
[2018-07-19 13:26] LABS: HYALINE CASTS, URINE FEW /HPF; SQUAMOUS EPITHELIAL CELL,UR FEW /LPF
[2018-07-19 13:27] LABS: BACTERIA,URINE 0 /HPF (0-FEW); WBC,URINE 0 /HPF (0-4)
--- NOTE | 2018-07-19 14:38 | PDOC1 ---
History and Physical Date of Admission Date of Admission DATE: 07/19/18 TIME: 14:37 Identification/Chief Complaint Chief Complaint chest pain Source Source: Chart review, Patient History of Present Illness History of Present Illness Mr. Currie is a 58 year old male admit with chest pain and worsening chest pain. 3 weeks ago he first noticed a constant pain that gradually getting worse. P he complains of gas pain and constipation, and has not stooled for days, no cough, no new wheezing, Patient states the shortness of breath getting worse with supine position and light activity. Patient denies palpitation, fever and chills, sick contact, recent immobilization or history of DVT and PE, nausea and vomiting patient complaining of constipation and states he did not have any bowel movement for the last 5 days and usually he has had a bowel movement every day. Patient denies using alcohol. Patient rated his pain 10 over 10, but is better after meds givenin the ER a Past Medical History Cardiovascular: HTN Pulmonary: No pertinent hx GI: No pertinent hx Psych: Anxiety, Addictions Musculoskeletal: low back pain Rheumatologic: No pertinent hx Infectious disease: No pertinent hx Social History Smoke: <1 pack per day ALCOHOL: social Drugs: Cocaine, Marijuana Current Problem List Problem List Problems Medical Problems: (1) Anemia Status: Acute (2) Chest pain Status: Acute (3) Mediastinal mass Status: Acute (4) Shortness of breath Status: Acute (5) Tachycardia Status: Acute (6) Weight loss Status: Acute Current Medications Current Medications Current Medications Aspirin (Children'S Aspirin) 324 mg 1X ONCE PO Last administered on 07/19/18at 07:31; Start 07/19/18 at 07:15; Stop 07/19/18 at 07:16; Status DC Nitroglycerin (Nitrostat) 0.4 mg PRN Q5MIN PRN SL CP RATING > 1/10 Last administered on 07/19/18at 07:32; Start 07/19/18 at 07:15; Stop 07/20/18 at 07:14 Iohexol (Omnipaque 350 Mg/ml) 90 ml 1X ONCE IV Last administered on 07/19/18at 08:24; Start 07/19/18 at 08:00; Stop 07/19/18 at 08:01; Status DC Info (CONTRAST GIVEN -- Rx MONITORING) 1 each PRN DAILY PRN MC SEE COMMENTS; Start 07/19/18 at 08:15; Stop 07/21/18 at 08:14 Sodium Chloride 1,000 ml @ 150 mls/hr Q6H40M IV Last administered on 07/19/18at 09:53; Start 07/19/18 at 09:30; Stop 07/20/18 at 09:29 Active Scripts Active Erythromycin (Erythromycin Base) 1 Gm Oint...g. 1 Gm OP QID 0.5% 1/2" ribbon to lower eyelid x7 days Eagle 5-325 Tablet (Acetaminophen/Hydrocodone Bitart) 1 Each Tablet 1-2 Each PO PRN Q6HRS PRN as needed for pain Ibuprofen 400 Mg Tablet 400 Mg PO PRN Q6HRS PRN take with food or milk Valacyclovir (Valacyclovir Hcl) 1,000 Mg Tablet 1 Tab PO TID Reported Ranitidine Hcl 150 Mg Tablet 1 Tab PO BID Lisinopril-Hctz 10-12.5 Mg Tab (Lisinopril/Hydrochlorothiazide) 1 Each Tablet 1 Tab PO DAILY Allergies Allergies: Coded Allergies: No Known Drug Allergies (Unverified , 10/14/13) Physical Exam General: Alert, Oriented X3, Cooperative, mild distress HEENT: PERRLA, EOMI, Mucous membr. moist/pink Lungs: Clear to auscultation Heart: S1S2, RRR, no gallops, no murmurs Abdomen: Normal bowel sounds, Soft Extremities: No clubbing, No cyanosis, No edema, Normal pulses Skin: No breakdown, No significant lesion Neuro: Normal speech, Sensation intact, Cranial nerves 3-12 NL Psych/Mental Status: Mental status NL, Mood NL Vitals Vitals Vital Signs Date Time Temp Pulse Resp B/P (MAP) Pulse Ox O2 Delivery O2 Flow Rate FiO2 07/19/18 11:04 99.5 110 18 103/55 (71) 98 Room Air 99.5 Labs Labs Laboratory Tests Test 07/19/18 07:20 07/19/18 12:00 07/19/18 12:12 07/19/18 12:58 White Blood Count 6.5 x10^3/uL (4.0-11.0) Red Blood Count 3.67 x10^6/uL (4.30-5.70) Hemoglobin 9.1 g/dL (13.0-17.5) Hematocrit 28.4 % (39.0-53.0) Mean Corpuscular Volume 77 fL (79-100) Mean Corpuscular Hemoglobin 25 pg (25-35) Mean Corpuscular Hemoglobin Concent 32 g/dL (31-37) Red Cell Distribution Width 16.9 % (11.5-14.5) Platelet Count 431 x10^3/uL (140-400) Neutrophils (%) (Auto) 71 % (31-73) Lymphocytes (%) (Auto) 16 % (24-48) Monocytes (%) (Auto) 12 % (0-9) Eosinophils (%) (Auto) 0 % (0-3) Basophils (%) (Auto) 1 % (0-3) Neutrophils # (Auto) 4.6 x10^3uL (1.8-7.7) Lymphocytes # (Auto) 1.0 x10^3/uL (1.0-4.8) Monocytes # (Auto) 0.8 x10^3/uL (0.0-1.1) Eosinophils # (Auto) 0.0 x10^3/uL (0.0-0.7) Basophils # (Auto) 0.1 x10^3/uL (0.0-0.2) D-Dimer (Caryn) 1.77 ug/mlFEU (0.00-0.50) Sodium Level 134 mmol/L (136-145) Potassium Level 4.5 mmol/L (3.5-5.1) Chloride Level 98 mmol/L (98-107) Carbon Dioxide Level 28 mmol/L (21-32) Anion Gap 8 (6-14) Blood Urea Nitrogen 8 mg/dL (8-26) Creatinine 1.0 mg/dL (0.7-1.3) Estimated GFR (Cockcroft-Gault) 92.5 BUN/Creatinine Ratio 8 (6-20) Glucose Level 106 mg/dL (70-99) Lactic Acid Level 0.9 mmol/L (0.4-2.0) Calcium Level 9.2 mg/dL (8.5-10.1) Magnesium Level 1.8 mg/dL (1.8-2.4) Total Bilirubin 0.3 mg/dL (0.2-1.0) Aspartate Amino Transf (AST/SGOT) 32 U/L (15-37) Alanine Aminotransferase (ALT/SGPT) 30 U/L (16-63) Alkaline Phosphatase 69 U/L (46-116) Lactate Dehydrogenase 496 U/L (85-227) Creatine Kinase 48 U/L (39-308) Troponin I Quantitative < 0.017 ng/mL (0.000-0.055) < 0.017 ng/mL (0.000-0.055) HO-Nlt-N-Type Natriuretic Peptide 71 pg/mL (0-124) Total Protein 9.1 g/dL (6.4-8.2) Albumin 2.5 g/dL (3.4-5.0) Albumin/Globulin Ratio 0.4 (1.0-1.7) Lipase 76 U/L (73-393) Ethyl Alcohol Level < 10 mg/dL (0-10) Glucose (Fingerstick) 82 mg/dL (70-99) Urine Collection Type Unknown Urine Color Yellow Urine Clarity Clear Urine pH 7.0 Urine Specific [place] >=1.030 Urine Protein Negative mg/dL (NEG-TRACE) Urine Glucose (UA) Negative mg/dL (NEG) Urine Ketones (Stick) Negative mg/dL (NEG) Urine Blood Negative (NEG) Urine Nitrite Negative (NEG) Urine Bilirubin Negative (NEG) Urine Urobilinogen Dipstick 0.2 mg/dL (0.2 mg/dL) Urine Leukocyte Esterase Negative (NEG) Urine RBC 1-2 /HPF (0-2) Urine WBC 0 /HPF (0-4) Urine Squamous Epithelial Cells Few /LPF Urine Bacteria 0 /HPF (0-FEW) Urine Hyaline Casts Few /HPF Urine Mucus Slight /LPF Urine Opiates Screen Neg (NEG) Urine Methadone Screen Neg (NEG) Urine Barbiturates Neg (NEG) Urine Phencyclidine Screen Neg (NEG) Urine Amphetamine/Methamphetamine Neg (NEG) Urine Benzodiazepines Screen Neg (NEG) Urine Cocaine Screen Pos (NEG) Urine Cannabinoids Screen Neg (NEG) Urine Ethyl Alcohol Neg (NEG) Laboratory Tests Test 07/19/18 07:20 07/19/18 12:00 07/19/18 12:12 07/19/18 12:58 White Blood Count 6.5 x10^3/uL (4.0-11.0) Red Blood Count 3.67 x10^6/uL (4.30-5.70) Hemoglobin 9.1 g/dL (13.0-17.5) Hematocrit 28.4 % (39.0-53.0) Mean Corpuscular Volume 77 fL (79-100) Mean Corpuscular Hemoglobin 25 pg (25-35) Mean Corpuscular Hemoglobin Concent 32 g/dL (31-37) Red Cell Distribution Width 16.9 % (11.5-14.5) Platelet Count 431 x10^3/uL (140-400) Neutrophils (%) (Auto) 71 % (31-73) Lymphocytes (%) (Auto) 16 % (24-48) Monocytes (%) (Auto) 12 % (0-9) Eosinophils (%) (Auto) 0 % (0-3) Basophils (%) (Auto) 1 % (0-3) Neutrophils # (Auto) 4.6 x10^3uL (1.8-7.7) Lymphocytes # (Auto) 1.0 x10^3/uL (1.0-4.8) Monocytes # (Auto) 0.8 x10^3/uL (0.0-1.1) Eosinophils # (Auto) 0.0 x10^3/uL (0.0-0.7) Basophils # (Auto) 0.1 x10^3/uL (0.0-0.2) D-Dimer (Caryn) 1.77 ug/mlFEU (0.00-0.50) Sodium Level 134 mmol/L (136-145) Potassium Level 4.5 mmol/L (3.5-5.1) Chloride Level 98 mmol/L (98-107) Carbon Dioxide Level 28 mmol/L (21-32) Anion Gap 8 (6-14) Blood Urea Nitrogen 8 mg/dL (8-26) Creatinine 1.0 mg/dL (0.7-1.3) Estimated GFR (Cockcroft-Gault) 92.5 BUN/Creatinine Ratio 8 (6-20) Glucose Level 106 mg/dL (70-99) Lactic Acid Level 0.9 mmol/L (0.4-2.0) Calcium Level 9.2 mg/dL (8.5-10.1) Magnesium Level 1.8 mg/dL (1.8-2.4) Total Bilirubin 0.3 mg/dL (0.2-1.0) Aspartate Amino Transf (AST/SGOT) 32 U/L (15-37) Alanine Aminotransferase (ALT/SGPT) 30 U/L (16-63) Alkaline Phosphatase 69 U/L (46-116) Lactate Dehydrogenase 496 U/L (85-227) Creatine Kinase 48 U/L (39-308) Troponin I Quantitative < 0.017 ng/mL (0.000-0.055) < 0.017 ng/mL (0.000-0.055) CM-Axs-R-Type Natriuretic Peptide 71 pg/mL (0-124) Total Protein 9.1 g/dL (6.4-8.2) Albumin 2.5 g/dL (3.4-5.0) Albumin/Globulin Ratio 0.4 (1.0-1.7) Lipase 76 U/L (73-393) Ethyl Alcohol Level < 10 mg/dL (0-10) Glucose (Fingerstick) 82 mg/dL (70-99) Urine Collection Type Unknown Urine Color Yellow Urine Clarity Clear Urine pH 7.0 Urine Specific [place] >=1.030 Urine Protein Negative mg/dL (NEG-TRACE) Urine Glucose (UA) Negative mg/dL (NEG) Urine Ketones (Stick) Negative mg/dL (NEG) Urine Blood Negative (NEG) Urine Nitrite Negative (NEG) Urine Bilirubin Negative (NEG) Urine Urobilinogen Dipstick 0.2 mg/dL (0.2 mg/dL) Urine Leukocyte Esterase Negative (NEG) Urine RBC 1-2 /HPF (0-2) Urine WBC 0 /HPF (0-4) Urine Squamous Epithelial Cells Few /LPF Urine Bacteria 0 /HPF (0-FEW) Urine Hyaline Casts Few /HPF Urine Mucus Slight /LPF Urine Opiates Screen Neg (NEG) Urine Methadone Screen Neg (NEG) Urine Barbiturates Neg (NEG) Urine Phencyclidine Screen Neg (NEG) Urine Amphetamine/Methamphetamine Neg (NEG) Urine Benzodiazepines Screen Neg (NEG) Urine Cocaine Screen Pos (NEG) Urine Cannabinoids Screen Neg (NEG) Urine Ethyl Alcohol Neg (NEG) VTE Prophylaxis Ordered VTE Prophylaxis Devices: No VTE Pharmacological Prophylaxi: Yes Assessment/Plan Assessment/Plan chest pain chest wall mass - 11.9 cm mediastinal mass is seen consistent with a neoplastic process , likely ymphoma consult radonc and onc, CT surg has been called already mod/severe malnutrition substance abuse, cocaine constipation htn BARRY CARLIN MD July 19, 2018 14:38
[2018-07-19 15:02] VITALS: BP 114/70
[2018-07-19] MEDS: SIMETHICONE 80 MG TAB.CHEW PO PRN (15:27)
[2018-07-19] MEDS: HYDROcodone/APAP 5/325MG 1 TAB TABLET PO PRN (18:22)
[2018-07-19 19:29] VITALS: BP 122/69
[2018-07-19] MEDS: FAMOTIDINE 20 MG TABLET. PO SCH (22:19)
[2018-07-19] MEDS: ZOLPIDEM 5 MG TABLET. PO SCH (22:20)
[2018-07-19] MEDS: ENOXAPARIN 40 MG/0.4 ML SYRINGE. SQ SCH (22:20)
[2018-07-19 22:33] VITALS: BP 124/69
[2018-07-20 03:15] VITALS: BP 127/72
[2018-07-20 04:38] LABS: BASO % 1 % (0-3); EOS % 0 % (0-3); HEMATOCRIT 27.8 % (39.0-53.0); HEMOGLOBIN 8.8 g/dL (13.0-17.5); LYMPH % 15 % (24-48); MEAN CORPUSCULAR HEMOGLOBIN 25 pg (25-35); MEAN CORPUSCULAR HGB CONC 32 g/dL (31-37); MEAN CORPUSCULAR VOLUME 78 fL (79-100); MONO # 0.8 x10^3/uL (0.0-1.1); MONO % 12 % (0-9); NEUT # 4.7 x10^3uL (1.8-7.7); NEUT % 72 % (31-73); PLATELET COUNT 425 x10^3/uL (140-400); RED BLOOD COUNT 3.58 x10^6/uL (4.30-5.70); RED CELL DISTRIBUTION WIDTH 17.3 % (11.5-14.5); WHITE BLOOD COUNT 6.5 x10^3/uL (4.0-11.0)
[2018-07-20 04:56] LABS: CREATININE 0.8 mg/dL (0.7-1.3); GFR 119.7; POTASSIUM 4.3 mmol/L (3.5-5.1)
[2018-07-20 07:00] VITALS: BP 124/66
--- NOTE | 2018-07-20 08:14 | PDOC ---
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 possible SVC stenting per IR Trachea impingement - airway could be imminently compromised, appreciate pulm input mod/severe malnutrition substance abuse, cocaine constipation htn History of Present Illness History of Present Illness Mr. Currie is a 58 year old male admit with chest pain and worsening chest pain. 3 weeks ago he first noticed a constant pain that gradually getting worse. Also complains of gas pain and constipation, and has not stooled for days, new cough, stable wheezing, Patient states the shortness of breath getting worse with supine position and light activity. Patient denies palpitation, fever and chills, sick contact, recent immobilization or history of DVT and PE, nausea and vomiting patient complaining of constipation and states he did not have any bowel movement for the last 5 days and usually he has had a bowel movement every day. He notes some swelling of his neck as well. Discussed his large mediastinal mass and need for urgent biopsy as this is likely malignancy and is causing SVC syndrome as well as trachea impingement. Vitals Vitals Vital Signs Date Time Temp Pulse Resp B/P (MAP) Pulse Ox O2 Delivery O2 Flow Rate FiO2 07/20/18 07:00 98.0 115 12 124/66 (85) 94 Room Air 98.0 Physical Exam General: Alert, Oriented X3, Cooperative, mild distress Lungs: Wheezing Abdomen: Normal bowel sounds, Soft Extremities: No clubbing, No cyanosis, No edema, Normal pulses Skin: No breakdown, No significant lesion Labs LABS Laboratory Tests Test 07/19/18 12:00 07/19/18 12:12 07/19/18 12:58 07/19/18 15:05 Troponin I Quantitative < 0.017 ng/mL (0.000-0.055) < 0.017 ng/mL (0.000-0.055) Glucose (Fingerstick) 82 mg/dL (70-99) Urine Collection Type Unknown Urine Color Yellow Urine Clarity Clear Urine pH 7.0 Urine Specific [place] >=1.030 Urine Protein Negative mg/dL (NEG-TRACE) Urine Glucose (UA) Negative mg/dL (NEG) Urine Ketones (Stick) Negative mg/dL (NEG) Urine Blood Negative (NEG) Urine Nitrite Negative (NEG) Urine Bilirubin Negative (NEG) Urine Urobilinogen Dipstick 0.2 mg/dL (0.2 mg/dL) Urine Leukocyte Esterase Negative (NEG) Urine RBC 1-2 /HPF (0-2) Urine WBC 0 /HPF (0-4) Urine Squamous Epithelial Cells Few /LPF Urine Bacteria 0 /HPF (0-FEW) Urine Hyaline Casts Few /HPF Urine Mucus Slight /LPF Urine Opiates Screen Neg (NEG) Urine Methadone Screen Neg (NEG) Urine Barbiturates Neg (NEG) Urine Phencyclidine Screen Neg (NEG) Urine Amphetamine/Methamphetamine Neg (NEG) Urine Benzodiazepines Screen Neg (NEG) Urine Cocaine Screen Pos (NEG) Urine Cannabinoids Screen Neg (NEG) Urine Ethyl Alcohol Neg (NEG) Test 07/20/18 04:05 White Blood Count 6.5 x10^3/uL (4.0-11.0) Red Blood Count 3.58 x10^6/uL (4.30-5.70) Hemoglobin 8.8 g/dL (13.0-17.5) Hematocrit 27.8 % (39.0-53.0) Mean Corpuscular Volume 78 fL (79-100) Mean Corpuscular Hemoglobin 25 pg (25-35) Mean Corpuscular Hemoglobin Concent 32 g/dL (31-37) Red Cell Distribution Width 17.3 % (11.5-14.5) Platelet Count 425 x10^3/uL (140-400) Neutrophils (%) (Auto) 72 % (31-73) Lymphocytes (%) (Auto) 15 % (24-48) Monocytes (%) (Auto) 12 % (0-9) Eosinophils (%) (Auto) 0 % (0-3) Basophils (%) (Auto) 1 % (0-3) Neutrophils # (Auto) 4.7 x10^3uL (1.8-7.7) Lymphocytes # (Auto) 1.0 x10^3/uL (1.0-4.8) Monocytes # (Auto) 0.8 x10^3/uL (0.0-1.1) Eosinophils # (Auto) 0.0 x10^3/uL (0.0-0.7) Basophils # (Auto) 0.0 x10^3/uL (0.0-0.2) Sodium Level 133 mmol/L (136-145) Potassium Level 4.3 mmol/L (3.5-5.1) Chloride Level 98 mmol/L (98-107) Carbon Dioxide Level 26 mmol/L (21-32) Anion Gap 9 (6-14) Blood Urea Nitrogen 7 mg/dL (8-26) Creatinine 0.8 mg/dL (0.7-1.3) Estimated GFR (Cockcroft-Gault) 119.7 Glucose Level 89 mg/dL (70-99) Calcium Level 9.0 mg/dL (8.5-10.1) Iron Level 12 ug/dL (65-175) Total Iron Binding Capacity 153 ug/dL (250-450) Iron Saturation 8 % (15-34) Assessment and Plan Assessmemt and Plan Problems Medical Problems: (1) Anemia Status: Acute (2) Chest pain Status: Acute (3) Mediastinal mass Status: Acute (4) Shortness of breath Status: Acute (5) Tachycardia Status: Acute (6) Weight loss Status: Acute Comment Review of Relevant I have reviewed the following items karina (where applicable) has been applied. Labs Laboratory Tests Test 07/19/18 07:20 07/19/18 12:00 07/19/18 12:12 07/19/18 12:58 White Blood Count 6.5 x10^3/uL (4.0-11.0) Red Blood Count 3.67 x10^6/uL (4.30-5.70) Hemoglobin 9.1 g/dL (13.0-17.5) Hematocrit 28.4 % (39.0-53.0) Mean Corpuscular Volume 77 fL (79-100) Mean Corpuscular Hemoglobin 25 pg (25-35) Mean Corpuscular Hemoglobin Concent 32 g/dL (31-37) Red Cell Distribution Width 16.9 % (11.5-14.5) Platelet Count 431 x10^3/uL (140-400) Neutrophils (%) (Auto) 71 % (31-73) Lymphocytes (%) (Auto) 16 % (24-48) Monocytes (%) (Auto) 12 % (0-9) Eosinophils (%) (Auto) 0 % (0-3) Basophils (%) (Auto) 1 % (0-3) Neutrophils # (Auto) 4.6 x10^3uL (1.8-7.7) Lymphocytes # (Auto) 1.0 x10^3/uL (1.0-4.8) Monocytes # (Auto) 0.8 x10^3/uL (0.0-1.1) Eosinophils # (Auto) 0.0 x10^3/uL (0.0-0.7) Basophils # (Auto) 0.1 x10^3/uL (0.0-0.2) D-Dimer (Caryn) 1.77 ug/mlFEU (0.00-0.50) Sodium Level 134 mmol/L (136-145) Potassium Level 4.5 mmol/L (3.5-5.1) Chloride Level 98 mmol/L (98-107) Carbon Dioxide Level 28 mmol/L (21-32) Anion Gap 8 (6-14) Blood Urea Nitrogen 8 mg/dL (8-26) Creatinine 1.0 mg/dL (0.7-1.3) Estimated GFR (Cockcroft-Gault) 92.5 BUN/Creatinine Ratio 8 (6-20) Glucose Level 106 mg/dL (70-99) Lactic Acid Level 0.9 mmol/L (0.4-2.0) Calcium Level 9.2 mg/dL (8.5-10.1) Magnesium Level 1.8 mg/dL (1.8-2.4) Total Bilirubin 0.3 mg/dL (0.2-1.0) Aspartate Amino Transf (AST/SGOT) 32 U/L (15-37) Alanine Aminotransferase (ALT/SGPT) 30 U/L (16-63) Alkaline Phosphatase 69 U/L (46-116) Lactate Dehydrogenase 496 U/L (85-227) Creatine Kinase 48 U/L (39-308) Troponin I Quantitative < 0.017 ng/mL (0.000-0.055) < 0.017 ng/mL (0.000-0.055) QH-Fle-L-Type Natriuretic Peptide 71 pg/mL (0-124) Total Protein 9.1 g/dL (6.4-8.2) Albumin 2.5 g/dL (3.4-5.0) Albumin/Globulin Ratio 0.4 (1.0-1.7) Lipase 76 U/L (73-393) Tumor Marker HCG <1 mIU/mL (0-3) Ethyl Alcohol Level < 10 mg/dL (0-10) Glucose (Fingerstick) 82 mg/dL (70-99) Urine Collection Type Unknown Urine Color Yellow Urine Clarity Clear Urine pH 7.0 Urine Specific [place] >=1.030 Urine Protein Negative mg/dL (NEG-TRACE) Urine Glucose (UA) Negative mg/dL (NEG) Urine Ketones (Stick) Negative mg/dL (NEG) Urine Blood Negative (NEG) Urine Nitrite Negative (NEG) Urine Bilirubin Negative (NEG) Urine Urobilinogen Dipstick 0.2 mg/dL (0.2 mg/dL) Urine Leukocyte Esterase Negative (NEG) Urine RBC 1-2 /HPF (0-2) Urine WBC 0 /HPF (0-4) Urine Squamous Epithelial Cells Few /LPF Urine Bacteria 0 /HPF (0-FEW) Urine Hyaline Casts Few /HPF Urine Mucus Slight /LPF Urine Opiates Screen Neg (NEG) Urine Methadone Screen Neg (NEG) Urine Barbiturates Neg (NEG) Urine Phencyclidine Screen Neg (NEG) Urine Amphetamine/Methamphetamine Neg (NEG) Urine Benzodiazepines Screen Neg (NEG) Urine Cocaine Screen Pos (NEG) Urine Cannabinoids Screen Neg (NEG) Urine Ethyl Alcohol Neg (NEG) Test 07/19/18 15:05 07/20/18 04:05 Troponin I Quantitative < 0.017 ng/mL (0.000-0.055) White Blood Count 6.5 x10^3/uL (4.0-11.0) Red Blood Count 3.58 x10^6/uL (4.30-5.70) Hemoglobin 8.8 g/dL (13.0-17.5) Hematocrit 27.8 % (39.0-53.0) Mean Corpuscular Volume 78 fL (79-100) Mean Corpuscular Hemoglobin 25 pg (25-35) Mean Corpuscular Hemoglobin Concent 32 g/dL (31-37) Red Cell Distribution Width 17.3 % (11.5-14.5) Platelet Count 425 x10^3/uL (140-400) Neutrophils (%) (Auto) 72 % (31-73) Lymphocytes (%) (Auto) 15 % (24-48) Monocytes (%) (Auto) 12 % (0-9) Eosinophils (%) (Auto) 0 % (0-3) Basophils (%) (Auto) 1 % (0-3) Neutrophils # (Auto) 4.7 x10^3uL (1.8-7.7) Lymphocytes # (Auto) 1.0 x10^3/uL (1.0-4.8) Monocytes # (Auto) 0.8 x10^3/uL (0.0-1.1) Eosinophils # (Auto) 0.0 x10^3/uL (0.0-0.7) Basophils # (Auto) 0.0 x10^3/uL (0.0-0.2) Sodium Level 133 mmol/L (136-145) Potassium Level 4.3 mmol/L (3.5-5.1) Chloride Level 98 mmol/L (98-107) Carbon Dioxide Level 26 mmol/L (21-32) Anion Gap 9 (6-14) Blood Urea Nitrogen 7 mg/dL (8-26) Creatinine 0.8 mg/dL (0.7-1.3) Estimated GFR (Cockcroft-Gault) 119.7 Glucose Level 89 mg/dL (70-99) Calcium Level 9.0 mg/dL (8.5-10.1) Iron Level 12 ug/dL (65-175) Total Iron Binding Capacity 153 ug/dL (250-450) Iron Saturation 8 % (15-34) Laboratory Tests Test 07/19/18 12:00 07/19/18 12:12 07/19/18 12:58 07/19/18 15:05 Troponin I Quantitative < 0.017 ng/mL (0.000-0.055) < 0.017 ng/mL (0.000-0.055) Glucose (Fingerstick) 82 mg/dL (70-99) Urine Collection Type Unknown Urine Color Yellow Urine Clarity Clear Urine pH 7.0 Urine Specific [place] >=1.030 Urine Protein Negative mg/dL (NEG-TRACE) Urine Glucose (UA) Negative mg/dL (NEG) Urine Ketones (Stick) Negative mg/dL (NEG) Urine Blood Negative (NEG) Urine Nitrite Negative (NEG) Urine Bilirubin Negative (NEG) Urine Urobilinogen Dipstick 0.2 mg/dL (0.2 mg/dL) Urine Leukocyte Esterase Negative (NEG) Urine RBC 1-2 /HPF (0-2) Urine WBC 0 /HPF (0-4) Urine Squamous Epithelial Cells Few /LPF Urine Bacteria 0 /HPF (0-FEW) Urine Hyaline Casts Few /HPF Urine Mucus Slight /LPF Urine Opiates Screen Neg (NEG) Urine Methadone Screen Neg (NEG) Urine Barbiturates Neg (NEG) Urine Phencyclidine Screen Neg (NEG) Urine Amphetamine/Methamphetamine Neg (NEG) Urine Benzodiazepines Screen Neg (NEG) Urine Cocaine Screen Pos (NEG) Urine Cannabinoids Screen Neg (NEG) Urine Ethyl Alcohol Neg (NEG) Test 07/20/18 04:05 White Blood Count 6.5 x10^3/uL (4.0-11.0) Red Blood Count 3.58 x10^6/uL (4.30-5.70) Hemoglobin 8.8 g/dL (13.0-17.5) Hematocrit 27.8 % (39.0-53.0) Mean Corpuscular Volume 78 fL (79-100) Mean Corpuscular Hemoglobin 25 pg (25-35) Mean Corpuscular Hemoglobin Concent 32 g/dL (31-37) Red Cell Distribution Width 17.3 % (11.5-14.5) Platelet Count 425 x10^3/uL (140-400) Neutrophils (%) (Auto) 72 % (31-73) Lymphocytes (%) (Auto) 15 % (24-48) Monocytes (%) (Auto) 12 % (0-9) Eosinophils (%) (Auto) 0 % (0-3) Basophils (%) (Auto) 1 % (0-3) Neutrophils # (Auto) 4.7 x10^3uL (1.8-7.7) Lymphocytes # (Auto) 1.0 x10^3/uL (1.0-4.8) Monocytes # (Auto) 0.8 x10^3/uL (0.0-1.1) Eosinophils # (Auto) 0.0 x10^3/uL (0.0-0.7) Basophils # (Auto) 0.0 x10^3/uL (0.0-0.2) Sodium Level 133 mmol/L (136-145) Potassium Level 4.3 mmol/L (3.5-5.1) Chloride Level 98 mmol/L (98-107) Carbon Dioxide Level 26 mmol/L (21-32) Anion Gap 9 (6-14) Blood Urea Nitrogen 7 mg/dL (8-26) Creatinine 0.8 mg/dL (0.7-1.3) Estimated GFR (Cockcroft-Gault) 119.7 Glucose Level 89 mg/dL (70-99) Calcium Level 9.0 mg/dL (8.5-10.1) Iron Level 12 ug/dL (65-175) Total Iron Binding Capacity 153 ug/dL (250-450) Iron Saturation 8 % (15-34) Microbiology 07/19/18 Blood Culture - Preliminary, Resulted NO GROWTH AFTER 1 DAY Medications Current Medications Aspirin (Children'S Aspirin) 324 mg 1X ONCE PO Last administered on 07/19/18at 07:31; Start 07/19/18 at 07:15; Stop 07/19/18 at 07:16; Status DC Nitroglycerin (Nitrostat) 0.4 mg PRN Q5MIN PRN SL CP RATING > 1/10 Last ad ministered on 07/19/18at 07:32; Start 07/19/18 at 07:15; Stop 07/20/18 at 07:14; Status DC Iohexol (Omnipaque 350 Mg/ml) 90 ml 1X ONCE IV Last administered on 07/19/18at 08:24; Start 07/19/18 at 08:00; Stop 07/19/18 at 08:01; Status DC Info (CONTRAST GIVEN -- Rx MONITORING) 1 each PRN DAILY PRN MC SEE COMMENTS; Start 07/19/18 at 08:15; Stop 07/21/18 at 08:14 Sodium Chloride 1,000 ml @ 150 mls/hr Q6H40M IV Last administered on 07/19/18at 16:49; Start 07/19/18 at 09:30; Stop 07/20/18 at 09:29 Simethicone (Gas-X) 80 mg PRN AFTMEALHC PRN PO GAS / BLOATING Last administered on 07/19/18at 15:27; Start 07/19/18 at 14:45 Docusate Sodium (Colace) 100 mg DAILY PO ; Start 07/20/18 at 09:00 Polyethylene Glycol (miraLAX PACKET) 17 gm PRN DAILY PRN PO CONSTIPATION; Start 07/19/18 at 14:45 Zolpidem Tartrate (Ambien) 5 mg HS PO Last administered on 07/19/18at 22:20; Start 07/19/18 at 21:00 Acetaminophen/ Hydrocodone Bitart (Lortab 5/325) 1 tab PRN Q6HRS PRN PO MODERATE-SEVERE PAIN Last administered on 07/19/18at 18:22; Start 07/19/18 at 14:45 Ibuprofen (Motrin) 400 mg PRN Q6HRS PRN PO MILD PAIN 1-3; Start 07/19/18 at 14:45 Famotidine (Pepcid) 20 mg BID PO Last administered on 07/19/18at 22:19; Start 07/19/18 at 21:00 Enoxaparin Sodium (Lovenox 40mg Syringe) 40 mg Q24H SQ Last administered on 07/19/18at 22:20; Start 07/19/18 at 21:00 Active Scripts Active Erythromycin (Erythromycin Base) 1 Gm Oint...g. 1 Gm OP QID 0.5% 1/2" ribbon to lower eyelid x7 days [place] 5-325 Tablet (Acetaminophen/Hydrocodone Bitart) 1 Each Tablet 1-2 Each PO PRN Q6HRS PRN as needed for pain Ibuprofen 400 Mg Tablet 400 Mg PO PRN Q6HRS PRN take with food or milk Valacyclovir (Valacyclovir Hcl) 1,000 Mg Tablet 1 Tab PO TID Reported Ranitidine Hcl 150 Mg Tablet 1 Tab PO BID Lisinopril-Hctz 10-12.5 Mg Tab (Lisinopril/Hydrochlorothiazide) 1 Each Tablet 1 Tab PO DAILY Vitals/I & O Vital Sign - Last 24 Hours 07/19/18 07/19/18 07/19/18 07/19/18 08:27 09:38 10:13 11:04 Temp 98.8 99.5 98.8 99.5 Pulse 110 112 110 Resp 21 18 18 B/P (MAP) 90/54 (66) 128/66 (86) 103/55 (71) Pulse Ox 94 96 98 O2 Delivery Room Air Room Air Room Air Room Air 07/19/18 07/19/18 07/19/18 07/19/18 15:02 18:22 19:29 20:00 Temp 98.4 97.8 98.4 97.8 Pulse 120 121 Resp 20 19 B/P (MAP) 114/70 (85) 122/69 (86) Pulse Ox 96 96 96 O2 Delivery Room Air Room Air Room Air Room Air 07/19/18 07/20/18 07/20/18 22:33 03:15 07:00 Temp 98.2 98.5 98.0 98.2 98.5 98.0 Pulse 109 116 115 Resp 19 18 12 B/P (MAP) 124/69 (87) 127/72 (90) 124/66 (85) Pulse Ox 97 94 94 O2 Delivery Room Air Room Air Room Air Intake and Output 07/19/18 07/19/18 07/20/18 15:00 23:00 07:00 Intake Total 240 ml 1240 ml 1300 ml Output Total 300 ml 250 ml 325 ml Balance -60 ml 990 ml [address] Chest - 1. 11.9 cm mediastinal mass is seen consistent with a neoplastic process as discussed above. 2. Negative CTA of the chest, abdomen and pelvis. ROLAND JACOBS MD July 20, 2018 08:14
[2018-07-20] MEDS: DOCUSATE SODIUM 100 MG CAPSULE. PO SCH (09:01)
[2018-07-20] MEDS: FAMOTIDINE 20 MG TABLET. PO SCH ×2 (09:01→21:21)
[2018-07-20] MEDS: IV NORMAL SALINE 1000ML BAG 1,000 ML IV SCH (09:01)
[2018-07-20] MEDS: HYDROcodone/APAP 5/325MG 1 TAB TABLET PO PRN (09:04)
--- NOTE | 2018-07-20 09:23 | PDOC2 ---
CONSULT Date of Consult Date of Consult DATE: 07/20/18 TIME: 09:09 Reason for consultation: Mediastinal mass Consult: Hematology oncology, Dr. 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 Past medical history: Drug abuse Anemia Diabetes mellitus Polyclonal gammopathy B12 deficiency Asthma COPD Hypertension Hyperlipidemia Osteoarthritis GERD Mediastinal mass Past surgical history: Ortho injection Allergies: No known drug allergies Medications: See attached list Social history: Single, never , one son in [place] [facility] [place], cares for parents, works at [employer], quit tobacco February 2018, cocaine positive on admit, history of marijuana, tells me he's done with drugs, and alcohol Family history: Breast and lung cancer Review of systems: shoulder and chest pain, dyspnea, night sweats at night, weight loss about 30 pounds since he's seen me in May, constipation, gas, otherwise rest of 10 point review of systems including headaches and other neurologic symptoms and syncope and dizziness were negative Physical exam: Vitals reviewed Gen.: Well-nourished and well-developed in no acute distress, sitting in chair, not on O2 HEENT: mucous membranes moist, head normocephalic atraumatic Neck: Supple, no lymphadenopathy apprec Lymph nodes: No palpable lymphadenopathy neck or axilla or groin apprec Lungs: Breathing rather comfortably on room air, no respiratory distress Heart: Regular rate and rhythm Abdomen: Soft, nontender, nondistended Extremities: No cyanosis or edema Skin: No obvious rashes or skin breakdown Neuro: Alert and oriented 3 Psych: Normal mood and affect Testicular: He tells me recent exam was negative for any suspicious findings Lab reviewed: White count 6.5, hemoglobin 8.8, platelets 425 Blood culture neg 19 July UDS positive for cocaine D-dimer 1.77 Creatinine 0.8 iron sat 8% with recent ferritin of 519 and low TIBC LDH 496 elevated, hCG negative, alpha-fetoprotein ordered Rads reviewed: CTA c/a/p: no clots, 11.9 cm mediastinal mass, RP LNs to 1.7cm Case discussed with: Patient, his nurse, records reviewed in [facility] and [facility], including labs and radiology, please see note for summary details. Assessment and Plan: He is a 58-year-old man with a mediastinal mass concerning for lymphoma with elevated LDH, with anemia. 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: Clinically mild symptoms, do not think steroids needed now (could inhibit dx), would recommend biopsy first to make sure we know what we're dealing with, CT surgery has evaluated him and he is at risk for general anesthesia based on the mass encompassing his airway and ascending aorta and pulmonary artery and SVC, will order IR consult for biopsy of mediastinal mass and bone marrow for staging with anemia, can get treatment started as soon as diagnosis confirmed, radiation oncology consult pending, and alpha-fetoprotein has been ordered as well Anemia: Consistent with anemia of chronic disease, bone marrow biopsy for staging and to see if possible lymphoma in marrow contributing to anemia Shoulder pain: he can follow-up with Ortho as needed B12 deficiency: Ordered B12, he can continue oral replacement Polysubstance abuse: Have recommended avoiding all drugs tobacco and alcohol and he would like to be compliant Prophylaxis: On Lovenox 40 mg given nightly Disposition: After diagnosis made and treatment plan initiated Thank you kindly for this consultation, and please don't hesitate to call with any further questions. Past Medical History Cardiovascular: HTN Pulmonary: No pertinent hx GI: No pertinent hx Psych: Anxiety, Addictions Musculoskeletal: low back pain Rheumatologic: No pertinent hx Infectious disease: No pertinent hx Social History <1 pack per day ALCOHOL: social Drugs: Cocaine, Marijuana Current Problem List Problem List Problems Medical Problems: (1) Anemia Status: Acute (2) Chest pain Status: Acute (3) Mediastinal mass Status: Acute (4) Shortness of breath Status: Acute (5) Tachycardia Status: Acute (6) Weight loss Status: Acute Current Medications Current Medications Current Medications Aspirin (Children'S Aspirin) 324 mg 1X ONCE PO Last administered on 07/19/18at 07:31; Start 07/19/18 at 07:15; Stop 07/19/18 at 07:16; Status DC Nitroglycerin (Nitrostat) 0.4 mg PRN Q5MIN PRN SL CP RATING > 1/10 Last administered on 07/19/18at 07:32; Start 07/19/18 at 07:15; Stop 07/20/18 at 07:14; Status DC Iohexol (Omnipaque 350 Mg/ml) 90 ml 1X ONCE IV Last administered on 07/19/18at 08:24; Start 07/19/18 at 08:00; Stop 07/19/18 at 08:01; Status DC Info (CONTRAST GIVEN -- Rx MONITORING) 1 each PRN DAILY PRN MC SEE COMMENTS; Start 07/19/18 at 08:15; Stop 07/21/18 at 08:14 Sodium Chloride 1,000 ml @ 150 mls/hr Q6H40M IV Last administered on 07/20/18at 09:01; Start 07/19/18 at 09:30; Stop 07/20/18 at 09:29 Simethicone (Gas-X) 80 mg PRN AFTMEALHC PRN PO GAS / BLOATING Last administered on 07/19/18at 15:27; Start 07/19/18 at 14:45 Docusate Sodium (Colace) 100 mg DAILY PO Last administered on 07/20/18at 09:01; Start 07/20/18 at 09:00 Polyethylene Glycol (miraLAX PACKET) 17 gm PRN DAILY PRN PO CONSTIPATION; Start 07/19/18 at 14:45 Zolpidem Tartrate (Ambien) 5 mg HS PO Last administered on 07/19/18at 22:20; Start 07/19/18 at 21:00 Acetaminophen/ Hydrocodone Bitart (Lortab 5/325) 1 tab PRN Q6HRS PRN PO MODERATE-SEVERE PAIN Last administered on 07/20/18at 09:04; Start 07/19/18 at 14:45 Ibuprofen (Motrin) 400 mg PRN Q6HRS PRN PO MILD PAIN 1-3; Start 07/19/18 at 14:45 Famotidine (Pepcid) 20 mg BID PO Last administered on 07/20/18at 09:01; Start 07/19/18 at 21:00 Enoxaparin Sodium (Lovenox 40mg Syringe) 40 mg Q24H SQ Last administered on 07/19/18at 22:20; Start 07/19/18 at 21:00 Cyanocobalamin (Vitamin B-12) 1,000 mcg DAILY PO ; Start 07/21/18 at 09:00; Status UNV Active Scripts Active Erythromycin (Erythromycin Base) 1 Gm Oint...g. 1 Gm OP QID 0.5% 1/2" ribbon to lower eyelid x7 days Wilson 5-325 Tablet (Acetaminophen/Hydrocodone Bitart) 1 Each Tablet 1-2 Each PO PRN Q6HRS PRN as needed for pain Ibuprofen 400 Mg Tablet 400 Mg PO PRN Q6HRS PRN take with food or milk Valacyclovir (Valacyclovir Hcl) 1,000 Mg Tablet 1 Tab PO TID Reported Ranitidine Hcl 150 Mg Tablet 1 Tab PO BID Lisinopril-Hctz 10-12.5 Mg Tab (Lisinopril/Hydrochlorothiazide) 1 Each Tablet 1 Tab PO DAILY Allergies Allergies: Coded Allergies: No Known Drug Allergies (Unverified , 10/14/13) Vitals VITALS Vital Signs Date Time Temp Pulse Resp B/P (MAP) Pulse Ox O2 Delivery O2 Flow Rate FiO2 07/20/18 09:04 15 94 Room Air 07/20/18 07:00 98.0 115 124/66 (85) 98.0 Labs Labs Laboratory Tests Test 07/19/18 07:20 07/19/18 12:00 07/19/18 12:12 07/19/18 12:58 White Blood Count 6.5 x10^3/uL (4.0-11.0) Red Blood Count 3.67 x10^6/uL (4.30-5.70) Hemoglobin 9.1 g/dL (13.0-17.5) Hematocrit 28.4 % (39.0-53.0) Mean Corpuscular Volume 77 fL (79-100) Mean Corpuscular Hemoglobin 25 pg (25-35) Mean Corpuscular Hemoglobin Concent 32 g/dL (31-37) Red Cell Distribution Width 16.9 % (11.5-14.5) Platelet Count 431 x10^3/uL (140-400) Neutrophils (%) (Auto) 71 % (31-73) Lymphocytes (%) (Auto) 16 % (24-48) Monocytes (%) (Auto) 12 % (0-9) Eosinophils (%) (Auto) 0 % (0-3) Basophils (%) (Auto) 1 % (0-3) Neutrophils # (Auto) 4.6 x10^3uL (1.8-7.7) Lymphocytes # (Auto) 1.0 x10^3/uL (1.0-4.8) Monocytes # (Auto) 0.8 x10^3/uL (0.0-1.1) Eosinophils # (Auto) 0.0 x10^3/uL (0.0-0.7) Basophils # (Auto) 0.1 x10^3/uL (0.0-0.2) D-Dimer (Caryn) 1.77 ug/mlFEU (0.00-0.50) Sodium Level 134 mmol/L (136-145) Potassium Level 4.5 mmol/L (3.5-5.1) Chloride Level 98 mmol/L (98-107) Carbon Dioxide Level 28 mmol/L (21-32) Anion Gap 8 (6-14) Blood Urea Nitrogen 8 mg/dL (8-26) Creatinine 1.0 mg/dL (0.7-1.3) Estimated GFR (Cockcroft-Gault) 92.5 BUN/Creatinine Ratio 8 (6-20) Glucose Level 106 mg/dL (70-99) Lactic Acid Level 0.9 mmol/L (0.4-2.0) Calcium Level 9.2 mg/dL (8.5-10.1) Magnesium Level 1.8 mg/dL (1.8-2.4) Total Bilirubin 0.3 mg/dL (0.2-1.0) Aspartate Amino Transf (AST/SGOT) 32 U/L (15-37) Alanine Aminotransferase (ALT/SGPT) 30 U/L (16-63) Alkaline Phosphatase 69 U/L (46-116) Lactate Dehydrogenase 496 U/L (85-227) Creatine Kinase 48 U/L (39-308) Troponin I Quantitative < 0.017 ng/mL (0.000-0.055) < 0.017 ng/mL (0.000-0.055) FU-Chz-T-Type Natriuretic Peptide 71 pg/mL (0-124) Total Protein 9.1 g/dL (6.4-8.2) Albumin 2.5 g/dL (3.4-5.0) Albumin/Globulin Ratio 0.4 (1.0-1.7) Lipase 76 U/L (73-393) Tumor Marker HCG <1 mIU/mL (0-3) Ethyl Alcohol Level < 10 mg/dL (0-10) Glucose (Fingerstick) 82 mg/dL (70-99) Urine Collection Type Unknown Urine Color Yellow Urine Clarity Clear Urine pH 7.0 Urine Specific [place] >=1.030 Urine Protein Negative mg/dL (NEG-TRACE) Urine Glucose (UA) Negative mg/dL (NEG) Urine Ketones (Stick) Negative mg/dL (NEG) Urine Blood Negative (NEG) Urine Nitrite Negative (NEG) Urine Bilirubin Negative (NEG) Urine Urobilinogen Dipstick 0.2 mg/dL (0.2 mg/dL) Urine Leukocyte Esterase Negative (NEG) Urine RBC 1-2 /HPF (0-2) Urine WBC 0 /HPF (0-4) Urine Squamous Epithelial Cells Few /LPF Urine Bacteria 0 /HPF (0-FEW) Urine Hyaline Casts Few /HPF Urine Mucus Slight /LPF Urine Opiates Screen Neg (NEG) Urine Methadone Screen Neg (NEG) Urine Barbiturates Neg (NEG) Urine Phencyclidine Screen Neg (NEG) Urine Amphetamine/Methamphetamine Neg (NEG) Urine Benzodiazepines Screen Neg (NEG) Urine Cocaine Screen Pos (NEG) Urine Cannabinoids Screen Neg (NEG) Urine Ethyl Alcohol Neg (NEG) Test 07/19/18 15:05 07/20/18 04:05 Troponin I Quantitative < 0.017 ng/mL (0.000-0.055) White Blood Count 6.5 x10^3/uL (4.0-11.0) Red Blood Count 3.58 x10^6/uL (4.30-5.70) Hemoglobin 8.8 g/dL (13.0-17.5) Hematocrit 27.8 % (39.0-53.0) Mean Corpuscular Volume 78 fL (79-100) Mean Corpuscular Hemoglobin 25 pg (25-35) Mean Corpuscular Hemoglobin Concent 32 g/dL (31-37) Red Cell Distribution Width 17.3 % (11.5-14.5) Platelet Count 425 x10^3/uL (140-400) Neutrophils (%) (Auto) 72 % (31-73) Lymphocytes (%) (Auto) 15 % (24-48) Monocytes (%) (Auto) 12 % (0-9) Eosinophils (%) (Auto) 0 % (0-3) Basophils (%) (Auto) 1 % (0-3) Neutrophils # (Auto) 4.7 x10^3uL (1.8-7.7) Lymphocytes # (Auto) 1.0 x10^3/uL (1.0-4.8) Monocytes # (Auto) 0.8 x10^3/uL (0.0-1.1) Eosinophils # (Auto) 0.0 x10^3/uL (0.0-0.7) Basophils # (Auto) 0.0 x10^3/uL (0.0-0.2) Sodium Level 133 mmol/L (136-145) Potassium Level 4.3 mmol/L (3.5-5.1) Chloride Level 98 mmol/L (98-107) Carbon Dioxide Level 26 mmol/L (21-32) Anion Gap 9 (6-14) Blood Urea Nitrogen 7 mg/dL (8-26) Creatinine 0.8 mg/dL (0.7-1.3) Estimated GFR (Cockcroft-Gault) 119.7 Glucose Level 89 mg/dL (70-99) Calcium Level 9.0 mg/dL (8.5-10.1) Iron Level 12 ug/dL (65-175) Total Iron Binding Capacity 153 ug/dL (250-450) Iron Saturation 8 % (15-34) Laboratory Tests Test 07/19/18 12:00 07/19/18 12:12 07/19/18 12:58 07/19/18 15:05 Troponin I Quantitative < 0.017 ng/mL (0.000-0.055) < 0.017 ng/mL (0.000-0.055) Glucose (Fingerstick) 82 mg/dL (70-99) Urine Collection Type Unknown Urine Color Yellow Urine Clarity Clear Urine pH 7.0 Urine Specific [place] >=1.030 Urine Protein Negative mg/dL (NEG-TRACE) Urine Glucose (UA) Negative mg/dL (NEG) Urine Ketones (Stick) Negative mg/dL (NEG) Urine Blood Negative (NEG) Urine Nitrite Negative (NEG) Urine Bilirubin Negative (NEG) Urine Urobilinogen Dipstick 0.2 mg/dL (0.2 mg/dL) Urine Leukocyte Esterase Negative (NEG) Urine RBC 1-2 /HPF (0-2) Urine WBC 0 /HPF (0-4) Urine Squamous Epithelial Cells Few /LPF Urine Bacteria 0 /HPF (0-FEW) Urine Hyaline Casts Few /HPF Urine Mucus Slight /LPF Urine Opiates Screen Neg (NEG) Urine Methadone Screen Neg (NEG) Urine Barbiturates Neg (NEG) Urine Phencyclidine Screen Neg (NEG) Urine Amphetamine/Methamphetamine Neg (NEG) Urine Benzodiazepines Screen Neg (NEG) Urine Cocaine Screen Pos (NEG) Urine Cannabinoids Screen Neg (NEG) Urine Ethyl Alcohol Neg (NEG) Test 07/20/18 04:05 White Blood Count 6.5 x10^3/uL (4.0-11.0) Red Blood Count 3.58 x10^6/uL (4.30-5.70) Hemoglobin 8.8 g/dL (13.0-17.5) Hematocrit 27.8 % (39.0-53.0) Mean Corpuscular Volume 78 fL (79-100) Mean Corpuscular Hemoglobin 25 pg (25-35) Mean Corpuscular Hemoglobin Concent 32 g/dL (31-37) Red Cell Distribution Width 17.3 % (11.5-14.5) Platelet Count 425 x10^3/uL (140-400) Neutrophils (%) (Auto) 72 % (31-73) Lymphocytes (%) (Auto) 15 % (24-48) Monocytes (%) (Auto) 12 % (0-9) Eosinophils (%) (Auto) 0 % (0-3) Basophils (%) (Auto) 1 % (0-3) Neutrophils # (Auto) 4.7 x10^3uL (1.8-7.7) Lymphocytes # (Auto) 1.0 x10^3/uL (1.0-4.8) Monocytes # (Auto) 0.8 x10^3/uL (0.0-1.1) Eosinophils # (Auto) 0.0 x10^3/uL (0.0-0.7) Basophils # (Auto) 0.0 x10^3/uL (0.0-0.2) Sodium Level 133 mmol/L (136-145) Potassium Level 4.3 mmol/L (3.5-5.1) Chloride Level 98 mmol/L (98-107) Carbon Dioxide Level 26 mmol/L (21-32) Anion Gap 9 (6-14) Blood Urea Nitrogen 7 mg/dL (8-26) Creatinine 0.8 mg/dL (0.7-1.3) Estimated GFR (Cockcroft-Gault) 119.7 Glucose Level 89 mg/dL (70-99) Calcium Level 9.0 mg/dL (8.5-10.1) Iron Level 12 ug/dL (65-175) Total Iron Binding Capacity 153 ug/dL (250-450) Iron Saturation 8 % (15-34) AYSHA ALANIZ MD July 20, 2018 09:23
[2018-07-20] MEDS: CYANOCOBALAMIN (VITAMIN B-12) 1,000 MCG TABLET. PO SCH (09:26)
[2018-07-20 11:00] VITALS: BP 144/80
--- NOTE | 2018-07-20 12:53 | CONS ---
DATE OF CONSULTATION: ATTENDING PHYSICIAN: Dr. Saenz. REASON FOR CONSULTATION: Large mediastinal mass. HISTORY OF PRESENT ILLNESS: The patient is a 58-year-old -[place] male who has a history of anemia and polyclonal gammopathy. He also has history of tobacco use for 20 years. He presented to the hospital with a 2-month history of progressive mid chest pain and also some increasing shortness of breath. The pain was radiating to his back. He has some dysphagia with solid food as well. The patient has a cough which has been nonproductive. He was seen in the Emergency Room where a CT angiogram was performed, which was reviewed by me. The patient has 11.9 cm large mediastinal mass, which is causing extrinsic compression of the trachea and also the left mainstem. An enlarged right hilar lymph node is also seen. There is also a partially calcified subcarinal lymph node is seen as well, which is 3.6 cm in size. The thoracic aorta is also extrinsically compressed. The patient has no obvious filling defects consistent with pulmonary emboli. There are some mild bullous emphysematous changes. The patient's CT abdomen and pelvis was negative. I have been asked to see him for further evaluation. PAST MEDICAL HISTORY: Significant for history of tobacco use, suspect underlying chronic obstructive pulmonary disease, history of diabetes, history of polyclonal gammopathy, history of B12 deficiency, history of suspected COPD, hypertension, hyperlipidemia; osteoarthritis, GERD and now an enlarging mediastinal mass. PAST SURGICAL HISTORY: Ortho injections. ALLERGIES: None. MEDICATIONS: All reviewed as listed in the [facility] including Lovenox for DVT prophylaxis. REVIEW OF SYSTEMS: Twelve-point system obtained. Pertinent positives discussed in my history of present illness, otherwise noncontributory. All systems that were negative were reviewed as well. He has lost 30 pounds in the last 2 months. SOCIAL HISTORY: Smoker for 20 years, half pack per day. PHYSICAL EXAMINATION: VITAL SIGNS: Stable. Pulse ox 95% on room air. NECK: Supple. LUNGS: Slightly diminished breath sounds at the bases. CARDIOVASCULAR: Regular rate and rhythm. ABDOMEN: Soft, nontender. EXTREMITIES: With no pitting edema. LABORATORY DATA: Reviewed. White cell count 6.5, hemoglobin 8.8 and platelets are 425. BUN and creatinine 7 and 0.8. IMPRESSION: 1. Patient with 11.9 cm large mediastinal mass with extrinsic compression of the distal trachea and left mainstem bronchus. The mass is also extrinsically compressing the superior vena cava, main pulmonary arteries and also ascending thoracic aorta. This finding is highly suspicious for either lymphoma or a small cell lung cancer. There is no other pathological adenopathy seen in the abdomen and pelvis. 2. Tobaccoism, suspect underlying chronic obstructive pulmonary disease. 3. History of polyclonal gammopathy. RECOMMENDATIONS: 1. Discussed with RN. Discussed with Dr. Yee. At this time, there is no obvious endobronchial lesion and it is all extrinsic compression, as such bronchoscopy would not be helpful. I am also concerned that if we sedated for bronchoscopy the airway can collapse, which is significantly compressed by the tumor. I would recommend consulting Interventional Radiology for a CT-guided biopsy and if that cannot be done, the mediastinoscopy would be the next step. 2. Follow Hematology and Oncology. 3. The Radiation Oncology recommendation. 4. Further recommendations to follow after review of the biopsy. 5. Discussed with Dr. Yee./ IR and Thoracic surgery ALFONSO RUANO MD DR: IBLLY/andie JOB#: [id number] / [id number] MEGHAN
[2018-07-20 13:43] LABS: PROTHROMBIN TIME PATIENT 15.1 SEC (11.7-14.0)
--- NOTE | 2018-07-20 13:52 | NUR ---
SS following for discharge planning. SS reviewed pt chart. Pt is from home and is currently on room air. No discharge needs noted at this time. SS will continue to follow for discharge planning.
--- NOTE | 2018-07-20 14:05 | PDOC2 ---
CONSULT Date of Consult Date of Consult DATE: 07/20/18 TIME: 14:04 Reason for Consult Reason for Consult: Mediastinal mass Referring Physician Referring Physician: Dr Saenz Identification/Chief Complaint Chief Complaint Chest pain Source Source: Chart review, Patient History of Present Illness Reason for Visit: 58-year-old male with a history of lifelong heavy smoking, anemia/Polyclonal gammopathy and family history of lung cancer, who presents with worsening chest pain for several months, in conjunction with significant weight loss and night sweats. CT of the chest with IV contrast demonstrated a large anterior mediastinal mass which compresses the ascending aorta, SVC, pulmonary artery and airway. The CT chest findings are consistent with an early SVC syndrome, although clinically he does not have any obvious SVC syndrome symptoms. The tumor and the anterior chest wall are surrounded by an extensive vascular network of collaterals. Alpha-fetoprotein and beta hCG are negative. Past Medical History Cardiovascular: HTN Pulmonary: No pertinent hx GI: No pertinent hx Psych: Anxiety, Addictions Musculoskeletal: low back pain Rheumatologic: No pertinent hx Infectious disease: No pertinent hx Family History Family History: Cancer (Lung) Social History <1 pack per day ALCOHOL: social Drugs: Cocaine, Marijuana Current Problem List Problem List Problems Medical Problems: (1) Anemia Status: Acute (2) Chest pain Status: Acute (3) Mediastinal mass Status: Acute (4) Shortness of breath Status: Acute (5) Tachycardia Status: Acute (6) Weight loss Status: Acute Current Medications Current Medications Current Medications Aspirin (Children'S Aspirin) 324 mg 1X ONCE PO Last administered on 07/19/18at 07:31; Start 07/19/18 at 07:15; Stop 07/19/18 at 07:16; Status DC Nitroglycerin (Nitrostat) 0.4 mg PRN Q5MIN PRN SL CP RATING > 1/10 Last administered on 07/19/18at 07:32; Start 07/19/18 at 07:15; Stop 07/20/18 at 07:14; Status DC Iohexol (Omnipaque 350 Mg/ml) 90 ml 1X ONCE IV Last administered on 07/19/18at 08:24; Start 07/19/18 at 08:00; Stop 07/19/18 at 08:01; Status DC Info (CONTRAST GIVEN -- Rx MONITORING) 1 each PRN DAILY PRN MC SEE COMMENTS; Start 07/19/18 at 08:15; Stop 07/21/18 at 08:14 Sodium Chloride 1,000 ml @ 150 mls/hr Q6H40M IV Last administered on 07/20/18 09:01; Start 07/19/18 at 09:30; Stop 07/20/18 at 09:29; Status DC Simethicone (Gas-X) 80 mg PRN AFTMEALHC PRN PO GAS / BLOATING Last administered on 07/19/18at 15:27; Start 07/19/18 at 14:45 Docusate Sodium (Colace) 100 mg DAILY PO Last administered on 07/20/18 09:01; Start 07/20/18 at 09:00 Polyethylene Glycol (miraLAX PACKET) 17 gm PRN DAILY PRN PO CONSTIPATION; Start 07/19/18 at 14:45 Zolpidem Tartrate (Ambien) 5 mg HS PO Last administered on 07/19/18at 22:20; Start 07/19/18 at 21:00 Acetaminophen/ Hydrocodone Bitart (Lortab 5/325) 1 tab PRN Q6HRS PRN PO MODERATE-SEVERE PAIN Last administered on 07/20/18 09:04; Start 07/19/18 at 14:45 Ibuprofen (Motrin) 400 mg PRN Q6HRS PRN PO MILD PAIN 1-3; Start 07/19/18 at 14:45 Famotidine (Pepcid) 20 mg BID PO Last administered on 07/20/18 09:01; Start 07/19/18 at 21:00 Enoxaparin Sodium (Lovenox 40mg Syringe) 40 mg Q24H SQ Last administered on 07/19/18at 22:20; Start 07/19/18 at 21:00 Cyanocobalamin (Vitamin B-12) 1,000 mcg DAILY PO Last administered on 07/20/18at 09:26; Start 07/20/18 at 10:00 Albuterol/ Ipratropium (Duoneb) 3 ml PRN QID NEB ; Start 07/20/18 at 14:00; Status UNV Active Scripts Active Erythromycin (Erythromycin Base) 1 Gm Oint...g. 1 Gm OP QID 0.5% 1/2" ribbon to lower eyelid x7 days [place] 5-325 Tablet (Acetaminophen/Hydrocodone Bitart) 1 Each Tablet 1-2 Each PO PRN Q6HRS PRN as needed for pain Ibuprofen 400 Mg Tablet 400 Mg PO PRN Q6HRS PRN take with food or milk Valacyclovir (Valacyclovir Hcl) 1,000 Mg Tablet 1 Tab PO TID Reported Ranitidine Hcl 150 Mg Tablet 1 Tab PO BID Lisinopril-Hctz 10-12.5 Mg Tab (Lisinopril/Hydrochlorothiazide) 1 Each Tablet 1 Tab PO DAILY Allergies Allergies: Coded Allergies: No Known Drug Allergies (Unverified , 10/14/13) ROS General: YES: Night Sweats, Malaise; No: Chills, Fatigue, Appetite PSYCHOLOGICAL ROS: No: Anxiety, Behavioral Disorder, Concentration difficultie, Decreased libido, Depression, Disorientation, Hallucinations, Hostility, Irritablity, Memory difficulties, Mood Swings, Obsessive thoughts, Physical abuse, Sexual abuse, Sleep disturbances, Suicidal ideation Eyes: No Blurry vision, No Decreased vision, No Double vision, No Dry eyes, No Excessive tearing, No Eye Pain, No Itchy Eyes, No Loss of vision, No Photophobia, No Scotomata, No Uses contacts, No Uses glasses HEENT: No: Heacaches, Visual Changes, Hearing change, Nasal congestion, Nasal discharge, Oral lesions, Sinus pain, Sore Throat, Epistaxis, Sneezing, Snoring, Tinnitus, Vertigo, Vocal changes ALLERGY AND IMMUNOLOGY: No: Hives, Insect Bite Sensitivity, Itchy/Watery Eyes, Nasal Congestion, Post Nasal Drip, Seasonal Allergies Hematological and Lymphatic: YES: Night Sweats, Swollen Lymph Nodes; No: Bleeding Problems, Blood Clots, Blood Transfusions, Brusing, Pallor ENDOCRINE: YES: Unexpected Weight Changes; No: Breast Changes, Galactorrhea, Hair Pattern Changes, Hot Flashes, Malaise/lethargy, Mood Swings, Palpitations, Polydipsia/polyuria, Skin Changes, Temperature Intolerance Respiratory: No: Cough, Hemoptysis, Orthopnea, Pleuritic Pain, Shortness of b reath, SOB with excertion, Sputum Changes, Stridor, Tachypnea, Wheezing Cardiovascular: yes Chest Pain; No Palpitations, No Orthopnea, No Paroxysmal Noc. Dyspnea, No Edema, No Lt Headedness Gastrointestinal: No Nausea, No Vomiting, No Abdominal Pain, No Diarrhea, No Constipation, No Melena, No Hematochezia Genitourinary: No Dysuria, No Frequency, No Incontinence, No Hematuria, No Retention, No Discharge, No Urgency, No Pain, No Flank Pain Musculoskeletal: No Gait Disturbance, No Joint Pain, No Joint Stiffness, No Joint Swelling, No Muscle Pain, No Muscular Weakness, No Pain In:, No Swelling In: Neurological: No Behavorial Changes, No Bowel/Bladder ControlChng, No Confusion, No Dizziness, No Gait Disturbance, No Headaches, No Impaired Coord/balance, No Memory Loss, No Numbness/Tingling, No Seizures, No Speech Problems, No Tremors, No Visual Changes, No Weakness Skin: No Dry Skin, No Eczema, No Hair Changes, No Lumps, No Mole Changes, No Mottling, No Nail Changes, No Pruritus, No Rash, No Skin Lesion Changes, No Acne Physical Exam General: Alert, Oriented X3, Other (dilated venous network on the anterior chest wall) HEENT: Atraumatic, PERRLA Lungs: Other (wheeze) Heart: Regular rate, Normal S1, Normal S2 Abdomen: Soft, No tenderness Extremities: No edema Skin: No significant lesion Neuro: Normal gait, Normal speech, Strength at 5/5 X4 ext, Normal tone, Sensation intact, Cranial nerves 3-12 NL, Reflexes 2+ Psych/Mental Status: Mental status NL MUSCULOSKELETAL: No deformity Vitals VITALS Vital Signs Date Time Temp Pulse Resp B/P (MAP) Pulse Ox O2 Delivery O2 Flow Rate FiO2 07/20/18 11:00 97.9 117 16 144/80 (101) 95 Room Air 97.9 Labs Labs Laboratory Tests Test 07/19/18 07:20 07/19/18 12:00 07/19/18 12:12 07/19/18 12:58 White Blood Count 6.5 x10^3/uL (4.0-11.0) Red Blood Count 3.67 x10^6/uL (4.30-5.70) Hemoglobin 9.1 g/dL (13.0-17.5) Hematocrit 28.4 % (39.0-53.0) Mean Corpuscular Volume 77 fL (79-100) Mean Corpuscular Hemoglobin 25 pg (25-35) Mean Corpuscular Hemoglobin Concent 32 g/dL (31-37) Red Cell Distribution Width 16.9 % (11.5-14.5) Platelet Count 431 x10^3/uL (140-400) Neutrophils (%) (Auto) 71 % (31-73) Lymphocytes (%) (Auto) 16 % (24-48) Monocytes (%) (Auto) 12 % (0-9) Eosinophils (%) (Auto) 0 % (0-3) Basophils (%) (Auto) 1 % (0-3) Neutrophils # (Auto) 4.6 x10^3uL (1.8-7.7) Lymphocytes # (Auto) 1.0 x10^3/uL (1.0-4.8) Monocytes # (Auto) 0.8 x10^3/uL (0.0-1.1) Eosinophils # (Auto) 0.0 x10^3/uL (0.0-0.7) Basophils # (Auto) 0.1 x10^3/uL (0.0-0.2) D-Dimer (Caryn) 1.77 ug/mlFEU (0.00-0.50) Sodium Level 134 mmol/L (136-145) Potassium Level 4.5 mmol/L (3.5-5.1) Chloride Level 98 mmol/L (98-107) Carbon Dioxide Level 28 mmol/L (21-32) Anion Gap 8 (6-14) Blood Urea Nitrogen 8 mg/dL (8-26) Creatinine 1.0 mg/dL (0.7-1.3) Estimated GFR (Cockcroft-Gault) 92.5 BUN/Creatinine Ratio 8 (6-20) Glucose Level 106 mg/dL (70-99) Lactic Acid Level 0.9 mmol/L (0.4-2.0) Calcium Level 9.2 mg/dL (8.5-10.1) Magnesium Level 1.8 mg/dL (1.8-2.4) Total Bilirubin 0.3 mg/dL (0.2-1.0) Aspartate Amino Transf (AST/SGOT) 32 U/L (15-37) Alanine Aminotransferase (ALT/SGPT) 30 U/L (16-63) Alkaline Phosphatase 69 U/L (46-116) Lactate Dehydrogenase 496 U/L (85-227) Creatine Kinase 48 U/L (39-308) Troponin I Quantitative < 0.017 ng/mL (0.000-0.055) < 0.017 ng/mL (0.000-0.055) IE-Tty-B-Type Natriuretic Peptide 71 pg/mL (0-124) Total Protein 9.1 g/dL (6.4-8.2) Albumin 2.5 g/dL (3.4-5.0) Albumin/Globulin Ratio 0.4 (1.0-1.7) Lipase 76 U/L (73-393) Tumor Marker HCG <1 mIU/mL (0-3) Ethyl Alcohol Level < 10 mg/dL (0-10) Glucose (Fingerstick) 82 mg/dL (70-99) Urine Collection Type Unknown Urine Color Yellow Urine Clarity Clear Urine pH 7.0 Urine Specific [place] >=1.030 Urine Protein Negative mg/dL (NEG-TRACE) Urine Glucose (UA) Negative mg/dL (NEG) Urine Ketones (Stick) Negative mg/dL (NEG) Urine Blood Negative (NEG) Urine Nitrite Negative (NEG) Urine Bilirubin Negative (NEG) Urine Urobilinogen Dipstick 0.2 mg/dL (0.2 mg/dL) Urine Leukocyte Esterase Negative (NEG) Urine RBC 1-2 /HPF (0-2) Urine WBC 0 /HPF (0-4) Urine Squamous Epithelial Cells Few /LPF Urine Bacteria 0 /HPF (0-FEW) Urine Hyaline Casts Few /HPF Urine Mucus Slight /LPF Urine Opiates Screen Neg (NEG) Urine Methadone Screen Neg (NEG) Urine Barbiturates Neg (NEG) Urine Phencyclidine Screen Neg (NEG) Urine Amphetamine/Methamphetamine Neg (NEG) Urine Benzodiazepines Screen Neg (NEG) Urine Cocaine Screen Pos (NEG) Urine Cannabinoids Screen Neg (NEG) Urine Ethyl Alcohol Neg (NEG) Test 07/19/18 15:05 07/20/18 04:05 Troponin I Quantitative < 0.017 ng/mL (0.000-0.055) Tumor Marker Alpha Fetoprotein 1.5 ng/mL (0.0-8.3) White Blood Count 6.5 x10^3/uL (4.0-11.0) Red Blood Count 3.58 x10^6/uL (4.30-5.70) Hemoglobin 8.8 g/dL (13.0-17.5) Hematocrit 27.8 % (39.0-53.0) Mean Corpuscular Volume 78 fL (79-100) Mean Corpuscular Hemoglobin 25 pg (25-35) Mean Corpuscular Hemoglobin Concent 32 g/dL (31-37) Red Cell Distribution Width 17.3 % (11.5-14.5) Platelet Count 425 x10^3/uL (140-400) Neutrophils (%) (Auto) 72 % (31-73) Lymphocytes (%) (Auto) 15 % (24-48) Monocytes (%) (Auto) 12 % (0-9) Eosinophils (%) (Auto) 0 % (0-3) Basophils (%) (Auto) 1 % (0-3) Neutrophils # (Auto) 4.7 x10^3uL (1.8-7.7) Lymphocytes # (Auto) 1.0 x10^3/uL (1.0-4.8) Monocytes # (Auto) 0.8 x10^3/uL (0.0-1.1) Eosinophils # (Auto) 0.0 x10^3/uL (0.0-0.7) Basophils # (Auto) 0.0 x10^3/uL (0.0-0.2) Prothrombin Time 15.1 SEC (11.7-14.0) Prothromb Time International Ratio 1.2 (0.8-1.1) Activated Partial Thromboplast Time 46 SEC (24-38) Sodium Level 133 mmol/L (136-145) Potassium Level 4.3 mmol/L (3.5-5.1) Chloride Level 98 mmol/L (98-107) Carbon Dioxide Level 26 mmol/L (21-32) Anion Gap 9 (6-14) Blood Urea Nitrogen 7 mg/dL (8-26) Creatinine 0.8 mg/dL (0.7-1.3) Estimated GFR (Cockcroft-Gault) 119.7 Glucose Level 89 mg/dL (70-99) Calcium Level 9.0 mg/dL (8.5-10.1) Iron Level 12 ug/dL (65-175) Total Iron Binding Capacity 153 ug/dL (250-450) Iron Saturation 8 % (15-34) Laboratory Tests Test 07/19/18 15:05 07/20/18 04:05 Troponin I Quantitative < 0.017 ng/mL (0.000-0.055) Tumor Marker Alpha Fetoprotein 1.5 ng/mL (0.0-8.3) White Blood Count 6.5 x10^3/uL (4.0-11.0) Red Blood Count 3.58 x10^6/uL (4.30-5.70) Hemoglobin 8.8 g/dL (13.0-17.5) Hematocrit 27.8 % (39.0-53.0) Mean Corpuscular Volume 78 fL (79-100) Mean Corpuscular Hemoglobin 25 pg (25-35) Mean Corpuscular Hemoglobin Concent 32 g/dL (31-37) Red Cell Distribution Width 17.3 % (11.5-14.5) Platelet Count 425 x10^3/uL (140-400) Neutrophils (%) (Auto) 72 % (31-73) Lymphocytes (%) (Auto) 15 % (24-48) Monocytes (%) (Auto) 12 % (0-9) Eosinophils (%) (Auto) 0 % (0-3) Basophils (%) (Auto) 1 % (0-3) Neutrophils # (Auto) 4.7 x10^3uL (1.8-7.7) Lymphocytes # (Auto) 1.0 x10^3/uL (1.0-4.8) Monocytes # (Auto) 0.8 x10^3/uL (0.0-1.1) Eosinophils # (Auto) 0.0 x10^3/uL (0.0-0.7) Basophils # (Auto) 0.0 x10^3/uL (0.0-0.2) Prothrombin Time 15.1 SEC (11.7-14.0) Prothromb Time International Ratio 1.2 (0.8-1.1) Activated Partial Thromboplast Time 46 SEC (24-38) Sodium Level 133 mmol/L (136-145) Potassium Level 4.3 mmol/L (3.5-5.1) Chloride Level 98 mmol/L (98-107) Carbon Dioxide Level 26 mmol/L (21-32) Anion Gap 9 (6-14) Blood Urea Nitrogen 7 mg/dL (8-26) Creatinine 0.8 mg/dL (0.7-1.3) Estimated GFR (Cockcroft-Gault) 119.7 Glucose Level 89 mg/dL (70-99) Calcium Level 9.0 mg/dL (8.5-10.1) Iron Level 12 ug/dL (65-175) Total Iron Binding Capacity 153 ug/dL (250-450) Iron Saturation 8 % (15-34) Images Images CT chest with iv contrast: A large mass is seen occupying the majority of the anterior and middle mediastinum. This measures 11.9 x 10.8 x 9.1 cm in craniocaudal, AP and transverse dimensions. This mass extrinsically compresses the superior vena cava, the main pulmonary arteries, right greater than left and the ascending thoracic aorta along with the thoracic aortic arch. It displaces these structures laterally. This extrinsically compresses the anterior aspect of the distal trachea near the zay along with the left main bronchus. This mass is consistent with a neoplastic process (lymphoma, lung cancer, etc.). An enlarged right hilar lymph node is seen which measures 2.4 cm in size. An enlarged partially calcified subcarinal lymph node is seen which measures 3.6 cm in size. Additional prominent mediastinal lymph nodes are seen which measure 5 mm to 1 cm in size. Although extrinsically compressed by the mass, the thoracic aorta is otherwise within normal limits. It tapers normally. There is a common origin of the brachiocephalic and left common carotid artery from the thoracic aortic arch. This is a normal variation. This origin is patent. The origin of the left subclavian artery is patent. The pulmonary arteries are suboptimally opacified with contrast. No obvious filling defect is seen. No axillary lymphadenopathy is noted. Assessment/Plan Assessment/Plan 58-year-old male with a history of lifelong heavy smoking, anemia/Polyclonal gammopathy and family history of lung cancer, who presents with worsening chest pain for several months, in conjunction with significant weight loss and night sweats. CT of the chest with IV contrast demonstrated a large anterior mediastinal mass which compresses the ascending aorta, SVC, pulmonary artery and airway. The CT chest findings are consistent with an early SVC syndrome, although clinically he does not have any obvious SVC syndrome symptoms. The tumor and the anterior chest wall are surrounded by an extensive vascular network of collaterals. Alpha-fetoprotein and beta hCG are negative. Differential diagnosis includes lymphoma versus small cell lung cancer. Given that alpha-fetoprotein and beta hCG are negative, nonseminomatous germ cell tumor is excluded. Finally the tumor does not have radiological features of a thymoma. Given the extensive vascular network of the anterior chest wall and around the tumor, a surgical biopsy would be extremely risky for hemorrhage. I would also be concerned about giving him a general anesthetic which may result in complete circulatory collapse and inability to resuscitate. I think the safest option would be to proceed with a percutaneous CT-guided biopsy. No role for surgery. Treatment will be chemotherapy and radiation-based. TARUN KING MD July 20, 2018 14:05
[2018-07-20 15:00] VITALS: BP 117/75
[2018-07-20] MEDS: ALBUTEROL SULFATE 2.5 MG/3 ML NEBU. NEB PRN ×2 (15:49→20:36)
--- NOTE | 2018-07-20 17:17 | PDOC ---
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 2 to 3 mo difficulty with food stuck in central chest and 24 pound weight loss, 1 mo hx of severe constant chest pain. No headaches, breathing ok. able to lay down supine with no SOB. PE Alert appropriate in NAD. Facial fullness, no distended neck or chest veins. No adenopathy. No arm swelling. Impression: Large central mediastinal mass with narrowing of SVC, SVC syndrome is mild and fairly well compensated. 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 Agree with bronch and possible SVC stenting pre bronch. If NHL, I would consider obtaining completion of staging with PET/CT following DC. If Stage I disease with disease confined to the chest, then there may be a role for involved site consolidative radiation treatment following the conclusion of chemo. KAYLA WHEAT MD July 20, 2018 17:17
[2018-07-20 20:19] VITALS: BP 129/73
[2018-07-20] MEDS: ZOLPIDEM 5 MG TABLET. PO SCH (21:21)
[2018-07-20] MEDS: ENOXAPARIN 40 MG/0.4 ML SYRINGE. SQ SCH (21:21)
[2018-07-20 22:45] VITALS: BP 108/66
[2018-07-21] VITALS (15 sets, daily range): BP systolic 106–155; BP diastolic 52–84
[2018-07-21] MEDS: ALBUTEROL SULFATE 2.5 MG/3 ML NEBU. NEB PRN ×3 (07:27→16:45)
--- NOTE | 2018-07-21 08:05 | PDOC ---
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 possible SVC stenting per IR Trachea impingement - airway could be imminently compromised, appreciate pulm input mod/severe malnutrition substance abuse, cocaine constipation htn Shoulder pain History of Present Illness History of Present Illness Mr. Currie is a 58 year old male admit with chest pain and worsening chest pain. 3 weeks ago he first noticed a constant pain that gradually getting worse. Also complains of gas pain and constipation, and has not stooled for days, new cough, stable wheezing, Patient states the shortness of breath getting worse with supine position and light activity. Patient denies palpitation, fever and chills, sick contact, recent immobilization or history of DVT and PE, nausea and vomiting patient complaining of constipation and states he did not have any bowel movement for the last 5 days and usually he has had a bowel movement every day. He notes some swelling of his neck as well. Discussed his large mediastinal mass and need for urgent biopsy as this is likely malignancy and is causing SVC syndrome as well as trachea impingement. Has some right shoulder pain today. Feels a bit better after breathing treatments. S/p echo in anticipation of anthracycline treatment. Going for SVC stenting and bone marrow bx today. Vitals Vitals Vital Signs Date Time Temp Pulse Resp B/P (MAP) Pulse Ox O2 Delivery O2 Flow Rate FiO2 07/21/18 07:29 98 Room Air 07/21/18 03:25 98.4 123 18 124/79 (94) 3.0 98.4 Physical Exam General: Alert, Oriented X3, Other (dilated venous network on the anterior ches t wall) Heart: Regular rate, Normal S1, Normal S2 Lungs: Wheezing Abdomen: Soft, No tenderness Extremities: No edema Skin: No significant lesion Assessment and Plan Assessmemt and Plan Problems Medical Problems: (1) Anemia Status: Acute (2) Chest pain Status: Acute (3) Mediastinal mass Status: Acute (4) Shortness of breath Status: Acute (5) Tachycardia Status: Acute (6) Weight loss Status: Acute Comment Review of Relevant I have reviewed the following items karina (where applicable) has been applied. Labs Laboratory Tests Test 5/27/19 12:00 07/19/18 12:12 07/19/18 12:58 07/19/18 15:05 Troponin I Quantitative < 0.017 ng/mL (0.000-0.055) < 0.017 ng/mL (0.000-0.055) Glucose (Fingerstick) 82 mg/dL (70-99) Urine Collection Type Unknown Urine Color Yellow Urine Clarity Clear Urine pH 7.0 Urine Specific [place] >=1.030 Urine Protein Negative mg/dL (NEG-TRACE) Urine Glucose (UA) Negative mg/dL (NEG) Urine Ketones (Stick) Negative mg/dL (NEG) Urine Blood Negative (NEG) Urine Nitrite Negative (NEG) Urine Bilirubin Negative (NEG) Urine Urobilinogen Dipstick 0.2 mg/dL (0.2 mg/dL) Urine Leukocyte Esterase Negative (NEG) Urine RBC 1-2 /HPF (0-2) Urine WBC 0 /HPF (0-4) Urine Squamous Epithelial Cells Few /LPF Urine Bacteria 0 /HPF (0-FEW) Urine Hyaline Casts Few /HPF Urine Mucus Slight /LPF Urine Opiates Screen Neg (NEG) Urine Methadone Screen Neg (NEG) Urine Barbiturates Neg (NEG) Urine Phencyclidine Screen Neg (NEG) Urine Amphetamine/Methamphetamine Neg (NEG) Urine Benzodiazepines Screen Neg (NEG) Urine Cocaine Screen Pos (NEG) Urine Cannabinoids Screen Neg (NEG) Urine Ethyl Alcohol Neg (NEG) Tumor Marker Alpha Fetoprotein 1.5 ng/mL (0.0-8.3) Test 07/20/18 04:05 White Blood Count 6.5 x10^3/uL (4.0-11.0) Red Blood Count 3.58 x10^6/uL (4.30-5.70) Hemoglobin 8.8 g/dL (13.0-17.5) Hematocrit 27.8 % (39.0-53.0) Mean Corpuscular Volume 78 fL (79-100) Mean Corpuscular Hemoglobin 25 pg (25-35) Mean Corpuscular Hemoglobin Concent 32 g/dL (31-37) Red Cell Distribution Width 17.3 % (11.5-14.5) Platelet Count 425 x10^3/uL (140-400) Neutrophils (%) (Auto) 72 % (31-73) Lymphocytes (%) (Auto) 15 % (24-48) Monocytes (%) (Auto) 12 % (0-9) Eosinophils (%) (Auto) 0 % (0-3) Basophils (%) (Auto) 1 % (0-3) Neutrophils # (Auto) 4.7 x10^3uL (1.8-7.7) Lymphocytes # (Auto) 1.0 x10^3/uL (1.0-4.8) Monocytes # (Auto) 0.8 x10^3/uL (0.0-1.1) Eosinophils # (Auto) 0.0 x10^3/uL (0.0-0.7) Basophils # (Auto) 0.0 x10^3/uL (0.0-0.2) Prothrombin Time 15.1 SEC (11.7-14.0) Prothromb Time International Ratio 1.2 (0.8-1.1) Activated Partial Thromboplast Time 46 SEC (24-38) Sodium Level 133 mmol/L (136-145) Potassium Level 4.3 mmol/L (3.5-5.1) Chloride Level 98 mmol/L (98-107) Carbon Dioxide Level 26 mmol/L (21-32) Anion Gap 9 (6-14) Blood Urea Nitrogen 7 mg/dL (8-26) Creatinine 0.8 mg/dL (0.7-1.3) Estimated GFR (Cockcroft-Gault) 119.7 Glucose Level 89 mg/dL (70-99) Calcium Level 9.0 mg/dL (8.5-10.1) Iron Level 12 ug/dL (65-175) Total Iron Binding Capacity 153 ug/dL (250-450) Iron Saturation 8 % (15-34) Microbiology 07/19/18 Blood Culture - Preliminary, Resulted NO GROWTH AFTER 2 DAYS Medications Current Medications Aspirin (Children'S Aspirin) 324 mg 1X ONCE PO Last administered on 07/19/18at 07:31; Start 07/19/18 at 07:15; Stop 07/19/18 at 07:16; Status DC Nitroglycerin (Nitrostat) 0.4 mg PRN Q5MIN PRN SL CP RATING > 1/10 Last administered on 07/19/18at 07:32; Start 07/19/18 at 07:15; Stop 07/20/18 at 07:14; Status DC Iohexol (Omnipaque 350 Mg/ml) 90 ml 1X ONCE IV Last administered on 07/19/18 08:24; Start 07/19/18 at 08:00; Stop 07/19/18 at 08:01; Status DC Info (CONTRAST GIVEN -- Rx MONITORING) 1 each PRN DAILY PRN MC SEE COMMENTS; Start 07/19/18 at 08:15; Stop 07/21/18 at 08:14 Sodium Chloride 1,000 ml @ 150 mls/hr Q6H40M IV Last administered on 07/20/18 09:01; Start 07/19/18 at 09:30; Stop 07/20/18 at 09:29; Status DC Simethicone (Gas-X) 80 mg PRN AFTMEALHC PRN PO GAS / BLOATING Last administered on 07/19/18at 15:27; Start 07/19/18 at 14:45 Docusate Sodium (Colace) 100 mg DAILY PO Last administered on 07/20/18at 09:01; Start 07/20/18 at 09:00 Polyethylene Glycol (miraLAX PACKET) 17 gm PRN DAILY PRN PO CONSTIPATION; Start 07/19/18 at 14:45 Zolpidem Tartrate (Ambien) 5 mg HS PO Last administered on 07/20/18at 21:21; Start 07/19/18 at 21:00 Acetaminophen/ Hydrocodone Bitart (Lortab 5/325) 1 tab PRN Q6HRS PRN PO MODERATE-SEVERE PAIN Last administered on 07/20/18at 09:04; Start 07/19/18 at 14:45 Ibuprofen (Motrin) 400 mg PRN Q6HRS PRN PO MILD PAIN 1-3; Start 07/19/18 at 14:45 Famotidine (Pepcid) 20 mg BID PO Last administered on 07/20/18 21:21; Start 07/19/18 at 21:00 Enoxaparin Sodium (Lovenox 40mg Syringe) 40 mg Q24H SQ Last administered on 07/20/18 21:21; Start 07/19/18 at 21:00 Cyanocobalamin (Vitamin B-12) 1,000 mcg DAILY PO Last administered on 07/20/18 09:26; Start 07/20/18 at 10:00 Albuterol Sulfate (Ventolin Neb Soln) 2.5 mg PRN Q6HRS PRN NEB SHORTNESS OF BREATH Last administered on 07/21/18 07:27; Start 07/20/18 at 14:00 Active Scripts Active Erythromycin (Erythromycin Base) 1 Gm Oint...g. 1 Gm OP QID 0.5% 1/2" ribbon to lower eyelid x7 days [place] 5-325 Tablet (Acetaminophen/Hydrocodone Bitart) 1 Each Tablet 1-2 Each PO PRN Q6HRS PRN as needed for pain Ibuprofen 400 Mg Tablet 400 Mg PO PRN Q6HRS PRN take with food or milk Valacyclovir (Valacyclovir Hcl) 1,000 Mg Tablet 1 Tab PO TID Reported Ranitidine Hcl 150 Mg Tablet 1 Tab PO BID Lisinopril-Hctz 10-12.5 Mg Tab (Lisinopril/Hydrochlorothiazide) 1 Each Tablet 1 Tab PO DAILY Vitals/I & O Vital Sign - Last 24 Hours 07/20/18 07/20/18 07/20/18 07/20/18 09:04 10:41 11:00 15:00 Temp 97.9 98.0 97.9 98.0 Pulse 117 114 Resp 15 16 18 B/P (MAP) 144/80 (101) 117/75 (89) Pulse Ox 94 94 95 96 O2 Delivery Room Air Room Air Room Air Room Air 07/20/18 07/20/18 07/20/18 07/20/18 15:52 20:00 20:19 20:37 Temp 98.4 98.4 Pulse 113 Resp 18 B/P (MAP) 129/73 (91) Pulse Ox 95 94 O2 Delivery Room Air Room Air Room Air Room Air 07/20/18 07/21/18 07/21/18 22:45 03:25 07:29 Temp 98.0 98.4 98.0 98.4 Pulse 115 123 Resp 16 18 B/P (MAP) 108/66 (80) 124/79 (94) Pulse Ox 96 100 98 O2 Delivery Room Air Nasal Cannula Room Air O2 Flow Rate 3.0 Intake and Output 07/20/18 07/20/18 07/21/18 15:00 23:00 07:00 Intake Total 400 ml 200 ml Output Total 400 ml Balance -400 ml 400 ml 200 ml ROLAND JACOBS MD July 21, 2018 08:04
--- NOTE | 2018-07-21 08:19 | PDOC ---
SUBJECTIVE Subjective S: thirsty, o/duarte breathing fine O: Gen: NAD, resting in chair Psych: pleasant mood and affect Labs: HCG and AFP neg, LDH sl high A/P: He is a 58-year-old man with a mediastinal mass concerning for lymphoma with elevated LDH, with anemia. 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: pending SVC stent prior to IR biopsy and bone marrow for staging, can get treatment started as soon as diagnosis confirmed, radiation oncology/pulm/CTS opinions apprec, checking labs for poss lymphoma and ordering TTE for anticipated need for anthracycline Anemia: Consistent with anemia of chronic disease, bone marrow biopsy for staging and to see if possible lymphoma in marrow contributing to anemia Shoulder pain: he can follow-up with Ortho as needed B12 deficiency: he can continue oral replacement Polysubstance abuse: Have recommended avoiding all drugs tobacco and alcohol and he would like to be compliant Prophylaxis: On Lovenox 40 mg given nightly Disposition: After diagnosis made and treatment plan initiated Thank you kindly and please don't hesitate to call w/ ?s. OBJECTIVE Vital Signs Vital Signs Date Time Temp Pulse Resp B/P (MAP) Pulse Ox O2 Delivery O2 Flow Rate FiO2 07/21/18 07:29 98 Room Air 07/21/18 07:00 99.5 127 14 106/62 (77) 94 Room Air 99.5 07/21/18 03:25 98.4 123 18 124/79 (94) 100 Nasal Cannula 3.0 98.4 07/20/18 22:45 98.0 115 16 108/66 (80) 96 Room Air 98.0 07/20/18 20:37 Room Air 07/20/18 20:19 98.4 113 18 129/73 (91) 94 Room Air 98.4 07/20/18 20:00 Room Air 07/20/18 15:52 95 Room Air 07/20/18 15:00 98.0 114 18 117/75 (89) 96 Room Air 98.0 07/20/18 11:00 97.9 117 16 144/80 (101) 95 Room Air 97.9 07/20/18 10:41 94 Room Air 07/20/18 09:04 15 94 Room Air I & O Intake and Output 07/21/18 07:00 Intake Total 600 ml Output Total 400 ml Balance 200 ml Intake Oral 600 ml Output Urine Total 400 ml # Voids 1 AYSHA BERRY MD July 21, 2018 08:19
[2018-07-21] MEDS: HYDROcodone/APAP 5/325MG 1 TAB TABLET PO PRN ×2 (08:51→21:36)
[2018-07-21] MEDS: DOCUSATE SODIUM 100 MG CAPSULE. PO SCH (09:00)
--- NOTE | 2018-07-21 09:53 | CARD ---
MR#: [id number] Date of Study: 07/21/2018 Ordering Physician: AYSHA BERRY, Referring Physician: BARRY CARLIN Tech: Amanda Garcia RDCS APPROVED REPORT EXAM: Two-dimensional and M-mode echocardiogram with Doppler and color Doppler. Other Information Quality : Technically LimitedHR: 130bpm Rhythm : TachycardiaTechnically limited study due to heart rate. INDICATION Chest Pain 2D DIMENSIONS RVDd3.4 (2.9-3.5cm)Left Atrium(2D)3.9 (1.6-4.0cm) IVSd1.3 (0.7-1.1cm)Aortic Root(2D)3.2 (2.0-3.7cm) LVDd4.1 (3.9-5.9cm)LVOT Diameter2.3 (1.8-2.4cm) PWd1.0 (0.7-1.1cm)LVDs3.2 (2.5-4.0cm) FS (%) 22.1 %SV34.3 ml LVEF(%)45.0 (>50%) M-Mode DIMENSIONS Left Atrium(MM)3.24 (2.5-4.0cm)Aortic Root3.19 (2.2-3.7cm) Aortic Valve AoV Peak Edmundo.120.7cm/sAoV VTI13.6cm AO Peak GR.5.8mmHgLVOT Peak Edmundo.103.5cm/s AO Mean GR.3mmHgAVA (VMAX)3.56cm2 MASON (VTI)3.50cm2 Mitral Valve MV E Zxhmpdmz51.4cm/sMV DECEL QORF82xj MV A Jroyqcsv41.7cm/sE/A Ratio0.5 Pulmonary Valve PV Peak Emsbpuhd315.8cm/s Tricuspid Valve TR P. Wkzkxmlz246fk/sRAP AVCVRTXD3hxAj TR Peak Gr.39deAhGCAH14afCn LEFT VENTRICLE The left ventricle is normal size. Proximal septal thickening is noted. Left ventricle systolic funct ion is low normal. The Ejection Fraction is 45-50%. Likely related to tachycardia. Septal motion cons istent with conduction abnormality. Otherwise, grossly normal. Transmitral Doppler flow pattern is ab normal. RIGHT VENTRICLE The right ventricle is normal size. There is normal right ventricular wall thickness. The right ventr icular systolic function is normal. ATRIA The left atrium size is normal. The right atrium size is normal. The interatrial septum is intact wit h no evidence for an atrial septal defect or patent foramen ovale as noted on 2-D or Doppler imaging. AORTIC VALVE The aortic valve is normal in structure and function. The aortic valve is trileaflet. Doppler and Col or Flow revealed no significant aortic regurgitation. There is no significant aortic valvular stenosi s. There is no aortic valvular vegetation. MITRAL VALVE The mitral valve is normal in structure and function. There is no evidence of mitral valve prolapse. There is no mitral valve stenosis. Doppler and Color Flow revealed no mitral valve regurgitation note d. TRICUSPID VALVE The tricuspid valve is normal in structure and function. Doppler and Color Flow revealed trace to mil d tricuspid regurgitation. The PA pressure was estimated at 40 mmHg. There is no tricuspid valve prol apse or vegetation. There is no tricuspid valve stenosis. PULMONIC VALVE The pulmonic valve is not well visualized. GREAT VESSELS The aortic root is normal in size. The ascending aorta is normal in size. The IVC is normal in size a nd collapses >50% with inspiration. PERICARDIAL EFFUSION There is no evidence of significant pericardial effusion. Critical Notification Critical Value: No <Conclusion> Left ventricle systolic function is low normal. The Ejection Fraction is 45-50%. Likely related to ta chycardia. Septal motion consistent with conduction abnormality. Otherwise, grossly normal. Doppler and Color Flow revealed trace to mild tricuspid regurgitation. The PA pressure was estimated at 40 mmHg. Signed by : Angel Agee, Electronically Approved : 07/21/2018 09:52:39
--- NOTE | 2018-07-21 11:47 | PDOC ---
PULMONARY PROGRESS NOTES Subjective no soa Vitals Vital Signs Date Time Temp Pulse Resp B/P (MAP) Pulse Ox O2 Delivery O2 Flow Rate FiO2 07/21/18 11:24 Room Air 07/21/18 11:00 98.4 125 18 118/71 (87) 98 98.4 07/21/18 03:25 3.0 General: Alert, Oriented X4 Lungs: Clear Cardiovascular: S1, S2 Abdomen: Soft Neuro Exam: Alert Extremities: No Edema Labs Laboratory Tests Test 07/19/18 12:00 07/19/18 12:12 07/19/18 12:58 07/19/18 15:05 Troponin I Quantitative < 0.017 ng/mL (0.000-0.055) < 0.017 ng/mL (0.000-0.055) Glucose (Fingerstick) 82 mg/dL (70-99) Urine Collection Type Unknown Urine Color Yellow Urine Clarity Clear Urine pH 7.0 Urine Specific [place] >=1.030 Urine Protein Negative mg/dL (NEG-TRACE) Urine Glucose (UA) Negative mg/dL (NEG) Urine Ketones (Stick) Negative mg/dL (NEG) Urine Blood Negative (NEG) Urine Nitrite Negative (NEG) Urine Bilirubin Negative (NEG) Urine Urobilinogen Dipstick 0.2 mg/dL (0.2 mg/dL) Urine Leukocyte Esterase Negative (NEG) Urine RBC 1-2 /HPF (0-2) Urine WBC 0 /HPF (0-4) Urine Squamous Epithelial Cells Few /LPF Urine Bacteria 0 /HPF (0-FEW) Urine Hyaline Casts Few /HPF Urine Mucus Slight /LPF Urine Opiates Screen Neg (NEG) Urine Methadone Screen Neg (NEG) Urine Barbiturates Neg (NEG) Urine Phencyclidine Screen Neg (NEG) Urine Amphetamine/Methamphetamine Neg (NEG) Urine Benzodiazepines Screen Neg (NEG) Urine Cocaine Screen Pos (NEG) Urine Cannabinoids Screen Neg (NEG) Urine Ethyl Alcohol Neg (NEG) Tumor Marker Alpha Fetoprotein 1.5 ng/mL (0.0-8.3) Test 07/20/18 04:05 07/21/18 09:00 White Blood Count 6.5 x10^3/uL (4.0-11.0) Red Blood Count 3.58 x10^6/uL (4.30-5.70) Hemoglobin 8.8 g/dL (13.0-17.5) Hematocrit 27.8 % (39.0-53.0) Mean Corpuscular Volume 78 fL (79-100) Mean Corpuscular Hemoglobin 25 pg (25-35) Mean Corpuscular Hemoglobin Concent 32 g/dL (31-37) Red Cell Distribution Width 17.3 % (11.5-14.5) Platelet Count 425 x10^3/uL (140-400) Neutrophils (%) (Auto) 72 % (31-73) Lymphocytes (%) (Auto) 15 % (24-48) Monocytes (%) (Auto) 12 % (0-9) Eosinophils (%) (Auto) 0 % (0-3) Basophils (%) (Auto) 1 % (0-3) Neutrophils # (Auto) 4.7 x10^3uL (1.8-7.7) Lymphocytes # (Auto) 1.0 x10^3/uL (1.0-4.8) Monocytes # (Auto) 0.8 x10^3/uL (0.0-1.1) Eosinophils # (Auto) 0.0 x10^3/uL (0.0-0.7) Basophils # (Auto) 0.0 x10^3/uL (0.0-0.2) Prothrombin Time 15.1 SEC (11.7-14.0) Prothromb Time International Ratio 1.2 (0.8-1.1) Activated Partial Thromboplast Time 46 SEC (24-38) Sodium Level 133 mmol/L (136-145) Potassium Level 4.3 mmol/L (3.5-5.1) Chloride Level 98 mmol/L (98-107) Carbon Dioxide Level 26 mmol/L (21-32) Anion Gap 9 (6-14) Blood Urea Nitrogen 7 mg/dL (8-26) Creatinine 0.8 mg/dL (0.7-1.3) Estimated GFR (Cockcroft-Gault) 119.7 Glucose Level 89 mg/dL (70-99) Calcium Level 9.0 mg/dL (8.5-10.1) Iron Level 12 ug/dL (65-175) Total Iron Binding Capacity 153 ug/dL (250-450) Iron Saturation 8 % (15-34) Uric Acid 4.0 mg/dL (3.5-7.2) Laboratory Tests Test 07/21/18 09:00 Uric Acid 4.0 mg/dL (3.5-7.2) Medications Active Scripts Medications Dose Route/Sig Max Daily Dose Days Date Category Dose Instructions Ranitidine Hcl 150 Mg Tablet 1 Tab PO BID 07/19/18 Reported Lisinopril-Hctz 10-12.5 Mg Tab (Lisinopril/Hydrochlorothiazide) 1 Each Tablet 1 Tab PO DAILY 07/19/18 Reported Erythromycin (Erythromycin Base) 1 Gm Oint...g. 1 Gm OP QID 01/20/18 Rx 0.5% 1/2" ribbon to lower eyelid x7 days [place] 5-325 Tablet (Acetaminophen/Hydrocodone Bitart) 1 Each Tablet 1-2 Each PO PRN Q6HRS PRN 07/03/16 Rx as needed for pain Ibuprofen 400 Mg Tablet 400 Mg PO PRN Q6HRS PRN 07/03/16 Rx take with food or milk Valacyclovir (Valacyclovir Hcl) 1,000 Mg Tablet 1 Tab PO TID 07/03/16 Rx Impression . 1. Patient with 11.9 cm large mediastinal mass with extrinsic compression of the distal trachea and left mainstem bronchus. The mass is also extrinsically compressing the superior vena cava, main pulmonary arteries and also ascending thoracic aorta. This finding is highly suspicious for either lymphoma or a small cell lung cancer. There is no other pathological adenopathy seen in the abdomen and pelvis. 2. Tobaccoism, suspect underlying chronic obstructive pulmonary disease. 3. History of polyclonal gammopathy. Plan . 1. Discussed with RN. Discussed with Dr. Yee. At this time, there is no obvious endobronchial lesion and it is all extrinsic compression, as such bronchoscopy would not be helpful. I am also concerned that if we sedated for bronchoscopy the airway can collapse, which is significantly compressed by the tumor. I would recommend consulting Interventional Radiology for a CT-guided biopsy and if that cannot be done, the mediastinoscopy would be the next step. 2. Follow Hematology and Oncology. 3. The Radiation Oncology recommendation. 4. Further recommendations to follow after review of the biopsy. 5. Discussed with Dr. Yee./ IR and Thoracic surgery 6. Stenting of SVC today and bx in ALFONSO Hussein MD July 21, 2018 11:47
[2018-07-21] MEDS ORDERED: IOHEXOL 300 MG/ML 100ML VIAL. ONE (13:00)
[2018-07-21] MEDS ORDERED: LIDOCAINE WITH 8.4% SOD BICARB 3 ML DISP.SYRIN. ONE (13:01)
[2018-07-21] MEDS ORDERED: fentaNYL PF VIAL 100 MCG/2 ML VIAL ONE (13:07)
[2018-07-21] MEDS ORDERED: MIDAZOLAM HCL/PF 2 MG/2 ML VIAL. ONE (13:07)
[2018-07-21] MEDS ORDERED: IOHEXOL 240 MG/ML 50ML VIAL. ONE (13:09)
[2018-07-21] MEDS ORDERED: fentaNYL PF VIAL 100 MCG/2 ML VIAL IV ONE (14:15)
[2018-07-21] MEDS ORDERED: IODIXANOL 320 MG/ML 100 ML VIAL. IART ONE (14:15)
[2018-07-21] MEDS ORDERED: MIDAZOLAM HCL/PF 2 MG/2 ML VIAL. IV ONE (14:15)
[2018-07-21] MEDS ORDERED: LIDOCAINE WITH 8.4% SOD BICARB 3 ML DISP.SYRIN. IJ ONE (14:15)
[2018-07-21] MEDS ORDERED: HEPARIN for IV BOLUS 10,000 UNIT/10 ML VIAL. IV ONE (14:15)
[2018-07-21] MEDS ORDERED: CONTRAST GIVEN. MC PRN (14:30)
[2018-07-21] MEDS: FAMOTIDINE 20 MG TABLET. PO SCH ×2 (15:13→20:54)
[2018-07-21] MEDS: CYANOCOBALAMIN (VITAMIN B-12) 1,000 MCG TABLET. PO SCH (15:13)
--- NOTE | 2018-07-21 15:53 | RAD ---
Procedure: Superior venacavogram, superior vena cava stent placement Clinical Indication: 58-year-old with large mediastinal mass resulting in SVC compression and clinical SVC syndrome. Sedation: Conscious sedation was administered with a total intraprocedural ovva-pw-rdfw time of 41 minutes. The patient was monitored by a qualified independent observer throughout the time of sedation. Please refer to the medical record for exact doses of medications utilized to achieve moderate sedation. Antibiotics: None Exposure: Kerma-Area Product: 60 Gycm2 Contrast: 60 cc of Omnipaque 320 contrast media Sterility: All elements of maximal sterile barrier technique including the use of a cap, mask, sterile gown, sterile gloves, large sterile sheet, appropriate hand hygiene, and 2% chlorhexidine for cutaneous antisepsis (or acceptable alternative antiseptic per current guidelines) were followed for this procedure. If ultrasound guidance was utilized, sterile ultrasound techniques were followed including use of a sterile probe cover. Consent: The procedure was explained in its entirety to the patient or the patients designated architectural representative by a member of the treatment team, including a discussion of the risks, benefits and commonly accepted alternatives to the procedure, as well as the expected consequences of no therapy whatsoever. Discussion of the risks included, but was not limited to, those that are most frequent and those that are rare but possibly severe or life-threatening, as well as the possibility of unforeseen complications. Technique and Findings: Following informed consent, the patient was prepped and draped in usual sterile fashion. Ultrasound interrogation the right groin revealed patency of the right common femoral vein. A hardcopy ultrasound image was recorded as a 21-gauge micropuncture needle was used to gain access to this vessel. The needle was exchanged over wire for 5 [place] sheath. An angled catheter and Glidewire were then advanced into the right atrium and used to negotiate the severe SVC stenosis to gain access to the proximal SVC. Contrast venography was performed demonstrating a high-grade SVC stenosis, with a small amount of its proximal thrombus. The left innominate vein is entirely occluded. The patient was given 5000 units of heparin intravenously. The catheter and 5 [place] sheath were then exchanged for 10 [place] long sheath which was advanced to the right atrium. A 14 mm x 60 mm self-expanding nitinol bare-metal stent (VICI, [employer]) was then deployed across the area of stenosis. This was then postdilated using a 12 mm x 40 mm angioplasty balloon. A completion venogram demonstrated excellent radiographic appearance. The balloon and sheath were then removed and hemostasis was achieved with manual compression. Complications: No immediate Impression: 1. Severe SVC stenosis due to extrinsic compression from a mediastinal mass. 2. SVC stent placement resulting in markedly improved angiographic flow through the SVC.
[2018-07-21] MEDS: ZOLPIDEM 5 MG TABLET. PO SCH (20:54)
[2018-07-21] MEDS: ENOXAPARIN 40 MG/0.4 ML SYRINGE. SQ SCH (20:54)
--- NOTE | 2018-07-21 20:55 | NUR ---
Did not administer Ambien this evening because patient refusing med. Holding 2100 dose of Lovenox this evening for schedule biopsy procedures in the morning.
[2018-07-22] VITALS (23 sets, daily range): BP systolic 93–135; BP diastolic 54–81
[2018-07-22] MEDS: IBUPROFEN 400 MG TABLET. PO PRN (00:37)
--- NOTE | 2018-07-22 04:26 | CONS ---
DATE OF CONSULTATION: 07/20/2018 REFERRING PHYSICIAN: Zackary Yee MD. DIAGNOSIS: Large mediastinal mass with compromise of the SVC and mild compensated SVC syndrome. We were asked to see him regarding the role of radiation treatment in his care. He is scheduled to undergo bronchoscopy and biopsy for diagnosis. Clinically, this is most suggestive for primary lymphoma. ICD 10 C85.98 The patient is a 58-year-old gentleman who has noted a 2-3 month history of food getting hung up in his central chest and as a result, he would eat less and has lost weight from 234, down to 208 pounds. At that time, he also noted fatigue and then developed severe central chest pain over the last month. In the past, he was smoking modestly and using cocaine, both of which he has now stopped. His mother noted facial swelling. He did not notice this. He has had no significant headaches, nausea, vomiting. He is breathing well with no significant cough and no hemoptysis. He underwent CT scan of the chest, abdomen and pelvis on 07/19/2018. This revealed a large central mediastinal mass measuring up to 12 cm in size with extrinsic compression of the superior vena cava, which maintained some minimal patency, central pulmonary arteries, ascending thoracic aorta, distal trachea showed narrowing. There was right hilar adenopathy and small mediastinal lymph nodes associated with this. There were prominent pelvic and inguinal lymph nodes measuring up to 2.9 cm. Liver and adrenal glands were clear of any disease involvement. Currently, he is able to lie down and able to eat modestly. At this time, Interventional Radiology is considering possible superior vena cava stenting in possibly in combination with bronchoscopy on 07/21/2018 with biopsy to secure diagnosis. PAST MEDICAL HISTORY: Remarkable for hypertension and anxiety. anemia and polyclonal gammopathy followed by Dr. Alaniz in the past. He also has a history of COPD, hyperlipidemia, diabetes mellitus. ALLERGIES: No known allergies. MEDICATIONS: See hospital list. FAMILY HISTORY: Mother has had breast cancer, treated here in the past one year ago. Sister has had a history of breast cancer. 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 Quit at diagnosis. No alcohol use, cocaine use in the past. PHYSICAL EXAMINATION: GENERAL: Revealed a pleasant, minimally hoarse, conversant, somewhat teary eyed gentleman in no acute distress. HEENT: Revealed poor dentition. He had modest facial fullness and fullness of his neck. No distended veins seen. LYMPH NODES: He had no palpable cervical or supraclavicular adenopathy. LUNGS: Clear to auscultation. HEART: Regular, without murmur or gallop. ABDOMEN: Unremarkable. EXTREMITIES: Revealed no arm swelling. No clubbing, no cyanosis. LABORATORY STUDIES: In 07/20/2018, hemoglobin 8.8, white count 6500, platelet count 425,000. Chemistry panel from that date, sodium 133, creatinine 0.8, alpha fetoprotein normal at 1.5. Beta hCG less than 1. ASSESSMENT AND PLAN: In summary, my impression is that of a large mediastinal mass with compensated SVC syndrome. This appears most consistent with non-Hodgkin's lymphoma. Secondary diagnosis would be small cell carcinoma. Bronchoscopy and biopsy is planned, which is appropriate. Anticipating this is non-Hodgkin's lymphoma, it would be reasonable to pursue his first cycle of chemotherapy here and then following discharge consider PET CT scanning to confirm stage of disease. In the event, he has stage 1 non-Hodgkin's lymphoma with disease confined the mediastinum and right hilar regions, we would consider involved site mediastinal and hilar radiation following chemotherapy. I had a thorough discussion with the patient and reviewed this in general with Dr. Alaniz as well. Thank you for allowing us to participate in his evaluation. KAYLA WHEAT MD DR: PREETHI/andie JOB#: [id number] / [id number] Michell Reyes MD, Aman MD Tsiouris, Athanasios MD MTDD
[2018-07-22] MEDS: ALBUTEROL SULFATE 2.5 MG/3 ML NEBU. NEB PRN (07:15)
--- NOTE | 2018-07-22 07:49 | PDOC ---
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 possible SVC stenting per IR Trachea impingement - airway could be imminently compromised, appreciate pulm input mod/severe malnutrition substance abuse, cocaine constipation htn Shoulder pain History of Present Illness History of Present Illness Mr. Currie is a 58 year old male admit with chest pain and worsening chest pain. 3 weeks ago he first noticed a constant pain that gradually getting worse. Also complains of gas pain and constipation, and has not stooled for days, new cough, stable wheezing, Patient states the shortness of breath getting worse with supine position and light activity. Patient denies palpitation, fever and chills, sick contact, recent immobilization or history of DVT and PE, nausea and vomiting patient complaining of constipation and states he did not have any bowel movement for the last 5 days and usually he has had a bowel movement every day. S/P SVC stenting, bone marrow biopsy and left groin biopsy. He notes some swelling of his neck as well. Discussed his large mediastinal mass and need for urgent biopsy as this is likely malignancy and is causing SVC syndrome as well as trachea impingement. Has some right shoulder pain today. Feels a bit better after breathing treatments. S/p echo in anticipation of anthracycline treatment. Feeling better after SVC stenting and bone marrow bx. Vitals Vitals Vital Signs Date Time Temp Pulse Resp B/P (MAP) Pulse Ox O2 Delivery O2 Flow Rate FiO2 07/22/18 07:16 96 Room Air 07/22/18 06:26 98.8 128 22 96/60 (72) 98.8 07/21/18 22:36 2.0 Physical Exam General: Alert, Oriented X3, Other (dilated venous network on the anterior chest wall) Heart: Regular rate, Normal S1, Normal S2 Lungs: Clear Abdomen: Soft, No tenderness Extremities: No edema Skin: No significant lesion Labs LABS Laboratory Tests Test 07/21/18 09:00 Uric Acid 4.0 mg/dL (3.5-7.2) Hepatitis B Surface Antigen Nonreactive (Nonreactive) Hepatitis B Surface Antibody Nonreactive Hepatitis C IgG Antibody Nonreactive (Nonreactive) HIV (1&2) Antibody Screen Nonreactive (Nonreactive) Assessment and Plan Assessmemt and Plan Problems Medical Problems: (1) Anemia Status: Acute (2) Chest pain Status: Acute (3) Mediastinal mass Status: Acute (4) Shortness of breath Status: Acute (5) Tachycardia Status: Acute (6) Weight loss Status: Acute Comment Review of Relevant I have reviewed the following items karina (where applicable) has been applied. Labs Laboratory Tests Test 07/21/18 09:00 Uric Acid 4.0 mg/dL (3.5-7.2) Hepatitis B Surface Antigen Nonreactive (Nonreactive) Hepatitis B Surface Antibody Nonreactive Hepatitis C IgG Antibody Nonreactive (Nonreactive) HIV (1&2) Antibody Screen Nonreactive (Nonreactive) Laboratory Tests Test 07/21/18 09:00 Uric Acid 4.0 mg/dL (3.5-7.2) Hepatitis B Surface Antigen Nonreactive (Nonreactive) Hepatitis B Surface Antibody Nonreactive Hepatitis C IgG Antibody Nonreactive (Nonreactive) HIV (1&2) Antibody Screen Nonreactive (Nonreactive) Microbiology 07/19/18 Blood Culture - Preliminary, Resulted NO GROWTH AFTER 3 DAYS Medications Current Medications Aspirin (Children'S Aspirin) 324 mg 1X ONCE PO Last administered on 07/19/18at 07:31; Start 07/19/18 at 07:15; Stop 07/19/18 at 07:16; Status DC Nitroglycerin (Nitrostat) 0.4 mg PRN Q5MIN PRN SL CP RATING > 1/10 Last administered on 07/19/18at 07:32; Start 07/19/18 at 07:15; Stop 07/20/18 at 07:14; Status DC Iohexol (Omnipaque 350 Mg/ml) 90 ml 1X ONCE IV Last administered on 07/19/18at 08:24; Start 07/19/18 at 08:00; Stop 07/19/18 at 08:01; Status DC Info (CONTRAST GIVEN -- Rx MONITORING) 1 each PRN DAILY PRN MC SEE COMMENTS; Start 07/19/18 at 08:15; Stop 07/21/18 at 08:14; Status DC Sodium Chloride 1,000 ml @ 150 mls/hr Q6H40M IV Last administered on 07/20/18at 09:01; Start 07/19/18 at 09:30; Stop 07/20/18 at 09:29; Status DC Simethicone (Gas-X) 80 mg PRN AFTMEALHC PRN PO GAS / BLOATING Last administered on 07/19/18at 15:27; Start 07/19/18 at 14:45 Docusate Sodium (Colace) 100 mg DAILY PO Last administered on 07/20/18 09:01; Start 07/20/18 at 09:00 Polyethylene Glycol (miraLAX PACKET) 17 gm PRN DAILY PRN PO CONSTIPATION; Start 07/19/18 at 14:45 Zolpidem Tartrate (Ambien) 5 mg HS PO Last administered on 07/20/18 21:21; Start 07/19/18 at 21:00 Acetaminophen/ Hydrocodone Bitart (Lortab 5/325) 1 tab PRN Q6HRS PRN PO MODERATE-SEVERE PAIN Last administered on 07/21/18 21:36; Start 07/19/18 at 14:45 Ibuprofen (Motrin) 400 mg PRN Q6HRS PRN PO MILD PAIN 1-3 Last administered on 07/22/18 00:37; Start 07/19/18 at 14:45 Famotidine (Pepcid) 20 mg BID PO Last administered on 07/21/18 20:54; Start 07/19/18 at 21:00 Enoxaparin Sodium (Lovenox 40mg Syringe) 40 mg Q24H SQ Last administered on 07/20/18 21:21; Start 07/19/18 at 21:00 Cyanocobalamin (Vitamin B-12) 1,000 mcg DAILY PO Last administered on 07/21/18at 15:13; Start 07/20/18 at 10:00 Albuterol Sulfate (Ventolin Neb Soln) 2.5 mg PRN Q6HRS PRN NEB SHORTNESS OF BREATH Last administered on 07/22/18 07:15; Start 07/20/18 at 14:00 Iohexol (Omnipaque 300 Mg/ml) 100 ml STK-MED ONCE .ROUTE ; Start 07/21/18 at 13:00; Stop 07/21/18 at 13:01; Status DC Heparin Sodium/ Sodium Chloride 500 ml @ As Directed STK-MED ONCE .ROUTE ; Start 07/21/18 at 13:00; Stop 07/21/18 at 13:01; Status DC Lidocaine/Sodium Bicarbonate (Buffered Lidocaine 1%) 3 ml STK-MED ONCE .ROUTE ; Start 07/21/18 at 13:01; Stop 07/21/18 at 13:02; Status DC Midazolam HCl (Versed) 2 mg STK-MED ONCE .ROUTE ; Start 07/21/18 at 13:07; Stop 07/21/18 at 13:08; Status DC Fentanyl Citrate (Fentanyl 2ml Vial) 100 mcg STK-MED ONCE .ROUTE ; Start 07/21/18 at 13:07; Stop 07/21/18 at 13:08; Status DC Iohexol (Omnipaque 240 Mg/ml) 50 ml STK-MED ONCE .ROUTE ; Start 07/21/18 at 13:09; Stop 07/21/18 at 13:10; Status DC Heparin Sodium/ Sodium Chloride 500 ml @ As Directed STK-MED ONCE .ROUTE ; Start 07/21/18 at 13:32; Stop 07/21/18 at 13:33; Status DC Heparin Sodium/ Sodium Chloride (HEPARIN for ARTERIAL LINE FLUSH) 3,000 unit 1X ONCE IART Last administered on 07/21/18at 14:15; Start 07/21/18 at 14:15; Stop 07/21/18 at 14:21; Status DC Lidocaine/Sodium Bicarbonate (Buffered Lidocaine 1%) 4 ml 1X ONCE IJ Last administered on 07/21/18at 14:15; Start 07/21/18 at 14:15; Stop 07/21/18 at 14:22; Status DC Midazolam HCl (Versed) 2 mg 1X ONCE IV Last administered on 07/21/18at 14:16; Start 07/21/18 at 14:15; Stop 07/21/18 at 14:21; Status DC Fentanyl Citrate (Fentanyl 2ml Vial) 50 mcg 1X ONCE IV Last administered on 07/21/18at 14:16; Start 07/21/18 at 14:15; Stop 07/21/18 at 14:21; Status DC Iodixanol (Visipaque 320) 60 ml 1X ONCE IART Last administered on 07/21/18at 14:15; Start 07/21/18 at 14:15; Stop 07/21/18 at 14:21; Status DC Heparin Sodium (Porcine) (Heparin Sodium) 5,000 unit 1X ONCE IV Last administered on 07/21/18at 14:17; Start 07/21/18 at 14:15; Stop 07/21/18 at 14:21; Status DC Info (CONTRAST GIVEN -- Rx MONITORING) 1 each PRN DAILY PRN MC SEE COMMENTS; Start 07/21/18 at 14:30; Stop 07/23/18 at 14:29 Active Scripts Active Erythromycin (Erythromycin Base) 1 Gm Oint...g. 1 Gm OP QID 0.5% 1/2" ribbon to lower eyelid x7 days [place] 5-325 Tablet (Acetaminophen/Hydrocodone Bitart) 1 Each Tablet 1-2 Each PO PRN Q6HRS PRN as needed for pain Ibuprofen 400 Mg Tablet 400 Mg PO PRN Q6HRS PRN take with food or milk Valacyclovir (Valacyclovir Hcl) 1,000 Mg Tablet 1 Tab PO TID Reported Ranitidine Hcl 150 Mg Tablet 1 Tab PO BID Lisinopril-Hctz 10-12.5 Mg Tab (Lisinopril/Hydrochlorothiazide) 1 Each Tablet 1 Tab PO DAILY Vitals/I & O Vital Sign - Last 24 Hours 07/21/18 07/21/18 07/21/18 07/21/18 08:00 08:51 11:00 11:24 Temp 98.4 98.4 Pulse 125 Resp 12 18 B/P (MAP) 118/71 (87) Pulse Ox 98 98 O2 Delivery Room Air Room Air Room Air Room Air 07/21/18 07/21/18 07/21/18 07/21/18 14:16 14:18 14:28 14:45 Pulse 120 139 116 Resp 22 20 20 20 O2 Delivery Nasal Cannula Nasal Cannula Nasal Cannula O2 Flow Rate 2.0 2.0 2.0 07/21/18 07/21/18 07/21/18 07/21/18 14:58 15:00 15:13 15:38 Temp 97.9 97.9 Pulse 118 117 120 Resp 20 16 18 B/P (MAP) 139/83 (101) Pulse Ox 96 98 O2 Delivery Nasal Cannula Room Air Room Air Room Air O2 Flow Rate 2.0 2.0 07/21/18 07/21/18 07/21/18 07/21/18 15:43 16:13 16:46 17:13 Pulse 120 118 122 Resp 18 19 19 Pulse Ox 96 O2 Delivery Room Air Room Air Room Air Room Air 07/21/18 07/21/18 07/21/18 07/21/18 18:13 19:04 20:00 21:36 Temp 99.1 99.1 Pulse 124 123 Resp B/P (MAP) 115/59 (77) Pulse Ox 92 98 O2 Delivery Room Air Room Air Nasal Cannula Nasal Cannula O2 Flow Rate 2.0 2.0 07/21/18 07/21/18 07/22/18 07/22/18 22:34 22:36 03:44 06:26 Temp 99.0 98.8 98.8 99.0 98.8 98.8 Pulse 128 126 128 Resp 22 B/P (MAP) 112/55 (74) 113/69 (84) 96/60 (72) Pulse Ox 98 96 93 97 O2 Delivery Room Air Nasal Cannula Nasal Cannula Room Air O2 Flow Rate 2.0 07/22/18 07:16 Pulse Ox 96 O2 Delivery Room Air Intake and Output 07/21/18 07/21/18 07/22/18 14:59 22:59 06:59 Output Total 300 ml Balance -300 ml Nutrition Consultation Dietary Evaluation: Recommendations by RD: Increase Calorie Intake, Protein supplementation Comments: Continue w/cardiac/ADA diet as ordered, honor food preferences, and provide snacks as requested REC glucerna (strawberry) BID w/lunch and dinner Expected Outcomes/Goals: PO intake to meet >75% est needs Interpretation of weight loss: >7.5% in 3 months Malnutrition Findings: Food and Nutrition Intake (Mod: <75% est energy req 7days Weight Status: Overweight ROLAND JACBOS MD July 22, 2018 07:49
[2018-07-22] MEDS: HYDROcodone/APAP 5/325MG 1 TAB TABLET PO PRN ×2 (08:43→17:19)
[2018-07-22] MEDS ORDERED: LIDOCAINE WITH 8.4% SOD BICARB 3 ML DISP.SYRIN. ONE (09:06)
[2018-07-22] MEDS ORDERED: MIDAZOLAM HCL/PF 2 MG/2 ML VIAL. ONE ×2 (09:21→09:30)
[2018-07-22] MEDS ORDERED: fentaNYL PF VIAL 100 MCG/2 ML VIAL ONE ×2 (09:21→09:30)
[2018-07-22] MEDS ORDERED: LIDOCAINE WITH 8.4% SOD BICARB 3 ML DISP.SYRIN. IJ ONE (10:00)
[2018-07-22] MEDS ORDERED: MIDAZOLAM HCL/PF 2 MG/2 ML VIAL. IV ONE (10:00)
[2018-07-22] MEDS ORDERED: fentaNYL PF VIAL 100 MCG/2 ML VIAL IV ONE (10:00)
[2018-07-22 10:23] LABS: BASO # 0.1 x10^3/uL (0.0-0.2); BASO % 1 % (0-3); EOS % 0 % (0-3); HEMATOCRIT 28.1 % (39.0-53.0); HEMOGLOBIN 9.1 g/dL (13.0-17.5); LYMPH # 0.9 x10^3/uL (1.0-4.8); LYMPH % 11 % (24-48); MEAN CORPUSCULAR HEMOGLOBIN 25 pg (25-35); MEAN CORPUSCULAR HGB CONC 32 g/dL (31-37); MEAN CORPUSCULAR VOLUME 77 fL (79-100); MONO # 0.9 x10^3/uL (0.0-1.1); MONO % 11 % (0-9); NEUT # 6.6 x10^3uL (1.8-7.7); NEUT % 78 % (31-73); PLATELET COUNT 389 x10^3/uL (140-400); RED BLOOD COUNT 3.65 x10^6/uL (4.30-5.70); WHITE BLOOD COUNT 8.5 x10^3/uL (4.0-11.0)
--- NOTE | 2018-07-22 10:25 | NUR ---
Patient to IR for Bone Biopsy and Lymph node biopsy. Patient o2 sat decreased when laying flat, changed from 2 L/NC to 100% Non-rebreather with increase of 02 sat. Heart rate remained in 120's throughout case, patient has non-productive cough. Vitals remained stable through case. Report called to ANNMARIE Lan on .
--- NOTE | 2018-07-22 10:40 | PDOC ---
MODERATE SEDATION ASSESSMENT RISKS/ALTERNATIVES Risks/Alternatives Risks and alternatives of this type of sedation and procedure discussed with: RISK/ALTERNATIVES: Patient H & P ON CHART H & P H & P on chart and reviewed for co-morbid conditions and appropriate labs. H&P ON CHART: Yes STATUS PREG STATUS ASSESSED: Yes MEDS/ALLERGIES REVIEWED Meds/Allergies Reviewed Medications and Allergies including time and route of recently administered narcotics and sedatives. MEDS/ALLERGIES REVIEWED: Yes ASA RATING ASA RATING: III AIRWAY ASSESSMENT Airway Assessment Airway patency, oral function limitations, presence of caps, crowns, dentures, partials, and ability to extend neck assessed. AIRWAY ASSESSMENT: Yes MALLAMPATI SCORE MALLAMPATI SCORE: II PRE-SEDATION ASSESSMENT PRE-SEDATION ASSESSMENT: Yes RADHA ALANIZ MD July 22, 2018 10:40
--- NOTE | 2018-07-22 10:43 | PDOC ---
BRIEF OPERATIVE NOTE Pre-Op Diagnosis mediastinal mass and inginual lymphadenopathy Post-Op Diagnosis same Procedure Performed CT bone marrow biopsy and CT left inginual lymph node biopsy Surgeon Nisha Anesthesia Type: Conscious Sedation Specimens Obtained 2 x 3cc bone marrow aspirates and 1 x 10g bone marrow core. 6 x 20g lynph node cores divided between RPMI and formalin Complications No immediate RADHA ALANIZ MD July 22, 2018 10:43
[2018-07-22] MEDS: CYANOCOBALAMIN (VITAMIN B-12) 1,000 MCG TABLET. PO SCH (11:05)
[2018-07-22] MEDS: FAMOTIDINE 20 MG TABLET. PO SCH ×2 (11:05→21:01)
[2018-07-22] MEDS: DOCUSATE SODIUM 100 MG CAPSULE. PO SCH (11:05)
--- NOTE | 2018-07-22 13:46 | PDOC ---
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 2 to 3 mo difficulty with food stuck in central chest and 24 pound weight loss, 1 mo hx of severe constant chest pain. No headaches, breathing ok. Now s/p SVC stent , inguinal LN and BM biopsy done today. Feeling better overall. Tolerated biopsies well. PE Alert appropriate in NAD. Facial fullness now improved , no distended neck or chest veins. No adenopathy. No arm swelling. Impression: Large central mediastinal mass with narrowing of SVC, SVC syndrome is mild and fairly well compensated. 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 Now doing better following SVC stent placement. BMBX and inguinal LN bx just done with results likely by 07/26/2018. KAYLA WHEAT MD July 22, 2018 13:46
--- NOTE | 2018-07-22 15:54 | NUR ---
SS following up with discharge planning. Pt currently requiring oxygen. No orders for PT/OT at this time. SS will continue to follow for discharge planning.
[2018-07-22] MEDS: DICLOFENAC SODIUM 1% TOPICAL GEL 100GM TUBE. TP PRN ×2 (16:35→21:03)
--- NOTE | 2018-07-22 16:49 | RAD ---
Procedure: CT-guided bone marrow aspiration and biopsy Clinical Indication: Adult male with metastatic malignancy Sedation: Conscious sedation was administered with a total intraprocedural [id number] time of 32 minutes. The patient was monitored by a qualified independent observer throughout the time of sedation. Please refer to the medical record for exact doses of medications utilized to achieve moderate sedation. Antibiotics: None Fluoro Time: Not applicable Contrast: None Sterility: The procedure was performed in its entirety using appropriate elements of sterile technique. Consent: The procedure was explained in its entirety to the patient or the patients designated leasing representative by a member of the treatment team, including a discussion of the risks, benefits and commonly accepted alternatives to the procedure, as well as the expected consequences of no therapy whatsoever. Discussion of the risks included, but was not limited to, those that are most frequent and those that are rare but possibly severe or life-threatening, as well as the possibility of unforeseen complications. Technique and Findings: Following informed consent, the patient was prepped and draped in usual sterile fashion. Preliminary CT scan of the area of interest was performed. 1% Lidocaine was used to achieve local anesthesia. Under periodic CT surveillance, an 11-gauge needle was advanced through the cortex of the posterior superior iliac spine and 2 separate 2 mL marrow aspirates were obtained and preserved on site by the middle school assistant principal. A single 11-gauge core biopsy specimen was then obtained and preserved in formalin. The needle was then removed and hemostasis was achieved with manual compression. Complications: No immediate Impression: 1. CT-guided bone marrow aspiration and biopsy as described PQRS Compliance Statement: One or more of the following individualized dose reduction techniques were utilized for this examination: 1. Automated exposure control 2. Adjustment of the mA and/or kV according to patient size 3. Use of iterative reconstruction technique
--- NOTE | 2018-07-22 16:53 | RAD ---
Procedure: Ultrasound-guided left inguinal lymph node biopsy Clinical Indication: 58-year-old with metastatic cancer, left inguinal lymph nodes. Sedation: Conscious sedation was administered with a total intraprocedural [id number] time of 8 minutes. The patient was monitored by a qualified independent observer throughout the time of sedation. Please refer to the medical record for exact doses of medications utilized to achieve moderate sedation. Antibiotics: None Consent: The procedure was explained in its entirety to the patient or the patients designated arborist representative by a member of the treatment team, including a discussion of the risks, benefits and commonly accepted alternatives to the procedure, as well as the expected consequences of no therapy whatsoever. Discussion of the risks included, but was not limited to, those that are most frequent and those that are rare but possibly severe or life-threatening, as well as the possibility of unforeseen complications. Technique and Findings: Following informed consent, the patient was prepped and draped in usual sterile fashion. Ultrasound interrogation of the left groin revealed several lymph nodes, without discrete suspicious features. The largest lymph node was targeted. 1% lidocaine was used to achieve local anesthesia. A small dermatotomy was made. Under ultrasound guidance, a 17-gauge needle guide was advanced to the margin of this lymph node and 5 separate 18-gauge core biopsy specimens were obtained and divided between RPMI and formalin. The needle was removed and hemostasis was achieved with manual compression. Complications: No immediate Impression: 1. Ultrasound-guided left inguinal lymph node biopsy as described
[2018-07-22] MEDS: ZOLPIDEM 5 MG TABLET. PO SCH ×2 (21:00→21:01)
[2018-07-22] MEDS: ACETAMINOPHEN 325 MG TABLET. PO PRN (21:01)
[2018-07-22] MEDS: ENOXAPARIN 40 MG/0.4 ML SYRINGE. SQ SCH (21:01)
[2018-07-22] MEDS: cefTRIAXone IV Push 1 GM VIAL. IVP SCH (21:02)
--- NOTE | 2018-07-22 21:16 | NUR ---
TEMP 101, NOTIFIED DR CHARLES, CONSULTED A AUTUMN. ORDERS FROM BOTH. PT HAS MODERATE COUGH, CLEAR SPUTUM. RT TX ARE Q 6. RT GIVING AN RT TREATMENT. LCRN
--- NOTE | 2018-07-22 21:18 | NUR ---
PT DOESNT WANT HIS AMBIEN. LCRN
[2018-07-23 03:14] VITALS: BP 100/55
[2018-07-23 07:00] VITALS: BP 110/64
[2018-07-23] MEDS: HYDROcodone/APAP 5/325MG 1 TAB TABLET PO PRN ×3 (07:34→23:40)
[2018-07-23] MEDS: DICLOFENAC SODIUM 1% TOPICAL GEL 100GM TUBE. TP PRN ×2 (07:37→20:38)
--- NOTE | 2018-07-23 08:06 | PDOC ---
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 possible SVC stenting per IR Trachea impingement - airway could be imminently compromised, appreciate pulm input mod/severe malnutrition substance abuse, cocaine constipation htn Shoulder pain History of Present Illness History of Present Illness Mr. Currie is a 58 year old male admit with chest pain and worsening chest pain. 3 weeks ago he first noticed a constant pain that gradually getting worse. Also complains of gas pain and constipation, and has not stooled for days, new cough, stable wheezing, Patient states the shortness of breath getting worse with supine position and light activity. Patient denies palpitation, fever and chills, sick contact, recent immobilization or history of DVT and PE, nausea and vomiting patient complaining of constipation and states he did not have any bowel movement for the last 5 days and usually he has had a bowel movement every day. S/P SVC stenting, bone marrow biopsy and left groin biopsy. He notes some swelling of his neck as well. Discussed his large mediastinal mass and need for urgent biopsy as this is likely malignancy and is causing SVC syndrome as well as trachea impingement. Has some right shoulder pain today. Feels a bit better after breathing treatments. S/p echo in anticipation of anthracycline treatment. Feeling better after SVC stenting and bone marrow bx. ECHO with 45% EF, likely 2/2 tachycardia/cocaine use. BB should not be given with positive cocaine. He is asking for cough syrup. Spiked a fever, started on antibiotics. Vitals Vitals Vital Signs Date Time Temp Pulse Resp B/P (MAP) Pulse Ox O2 Delivery O2 Flow Rate FiO2 07/23/18 07:34 13 97 Nasal Cannula 2.0 07/23/18 03:14 99.5 109 100/55 (70) 99.5 Physical Exam General: Alert, Oriented X3, Other (dilated venous network on the anterior chest wall) Heart: Regular rate, Normal S1, Normal S2 Lungs: Clear Abdomen: Soft, No tenderness Extremities: No edema Skin: No significant lesion Labs LABS Laboratory Tests Test 07/22/18 09:25 White Blood Count 8.5 x10^3/uL (4.0-11.0) Red Blood Count 3.65 x10^6/uL (4.30-5.70) Hemoglobin 9.1 g/dL (13.0-17.5) Hematocrit 28.1 % (39.0-53.0) Mean Corpuscular Volume 77 fL (79-100) Mean Corpuscular Hemoglobin 25 pg (25-35) Mean Corpuscular Hemoglobin Concent 32 g/dL (31-37) Red Cell Distribution Width 17.0 % (11.5-14.5) Platelet Count 389 x10^3/uL (140-400) Neutrophils (%) (Auto) 78 % (31-73) Lymphocytes (%) (Auto) 11 % (24-48) Monocytes (%) (Auto) 11 % (0-9) Eosinophils (%) (Auto) 0 % (0-3) Basophils (%) (Auto) 1 % (0-3) Neutrophils # (Auto) 6.6 x10^3uL (1.8-7.7) Lymphocytes # (Auto) 0.9 x10^3/uL (1.0-4.8) Monocytes # (Auto) 0.9 x10^3/uL (0.0-1.1) Eosinophils # (Auto) 0.0 x10^3/uL (0.0-0.7) Basophils # (Auto) 0.1 x10^3/uL (0.0-0.2) Assessment and Plan Assessmemt and Plan Problems Medical Problems: (1) Anemia Status: Acute (2) Chest pain Status: Acute (3) Mediastinal mass Status: Acute (4) Shortness of breath Status: Acute (5) Tachycardia Status: Acute (6) Weight loss Status: Acute Comment Review of Relevant I have reviewed the following items karina (where applicable) has been applied. Labs Laboratory Tests Test 07/21/18 09:00 07/22/18 09:25 Uric Acid 4.0 mg/dL (3.5-7.2) [id number] 2.1 mg/L (0.6-2.4) Hepatitis B Surface Antigen Nonreactive (Nonreactive) Hepatitis B Surface Antibody Nonreactive Hepatitis B Core Total Antibody Negative (Negative) Hepatitis C IgG Antibody Nonreactive (Nonreactive) HIV (1&2) Antibody Screen Nonreactive (Nonreactive) White Blood Count 8.5 x10^3/uL (4.0-11.0) Red Blood Count 3.65 x10^6/uL (4.30-5.70) Hemoglobin 9.1 g/dL (13.0-17.5) Hematocrit 28.1 % (39.0-53.0) Mean Corpuscular Volume 77 fL (79-100) Mean Corpuscular Hemoglobin 25 pg (25-35) Mean Corpuscular Hemoglobin Concent 32 g/dL (31-37) Red Cell Distribution Width 17.0 % (11.5-14.5) Platelet Count 389 x10^3/uL (140-400) Neutrophils (%) (Auto) 78 % (31-73) Lymphocytes (%) (Auto) 11 % (24-48) Monocytes (%) (Auto) 11 % (0-9) Eosinophils (%) (Auto) 0 % (0-3) Basophils (%) (Auto) 1 % (0-3) Neutrophils # (Auto) 6.6 x10^3uL (1.8-7.7) Lymphocytes # (Auto) 0.9 x10^3/uL (1.0-4.8) Monocytes # (Auto) 0.9 x10^3/uL (0.0-1.1) Eosinophils # (Auto) 0.0 x10^3/uL (0.0-0.7) Basophils # (Auto) 0.1 x10^3/uL (0.0-0.2) Laboratory Tests Test 07/22/18 09:25 White Blood Count 8.5 x10^3/uL (4.0-11.0) Red Blood Count 3.65 x10^6/uL (4.30-5.70) Hemoglobin 9.1 g/dL (13.0-17.5) Hematocrit 28.1 % (39.0-53.0) Mean Corpuscular Volume 77 fL (79-100) Mean Corpuscular Hemoglobin 25 pg (25-35) Mean Corpuscular Hemoglobin Concent 32 g/dL (31-37) Red Cell Distribution Width 17.0 % (11.5-14.5) Platelet Count 389 x10^3/uL (140-400) Neutrophils (%) (Auto) 78 % (31-73) Lymphocytes (%) (Auto) 11 % (24-48) Monocytes (%) (Auto) 11 % (0-9) Eosinophils (%) (Auto) 0 % (0-3) Basophils (%) (Auto) 1 % (0-3) Neutrophils # (Auto) 6.6 x10^3uL (1.8-7.7) Lymphocytes # (Auto) 0.9 x10^3/uL (1.0-4.8) Monocytes # (Auto) 0.9 x10^3/uL (0.0-1.1) Eosinophils # (Auto) 0.0 x10^3/uL (0.0-0.7) Basophils # (Auto) 0.1 x10^3/uL (0.0-0.2) Microbiology 07/19/18 Blood Culture - Preliminary, Resulted NO GROWTH AFTER 4 DAYS Medications Current Medications Aspirin (Children'S Aspirin) 324 mg 1X ONCE PO Last administered on 07/19/18at 07:31; Start 07/19/18 at 07:15; Stop 07/19/18 at 07:16; Status DC Nitroglycerin (Nitrostat) 0.4 mg PRN Q5MIN PRN SL CP RATING > 1/10 Last administered on 07/19/18at 07:32; Start 07/19/18 at 07:15; Stop 07/20/18 at 07:14; Status DC Iohexol (Omnipaque 350 Mg/ml) 90 ml 1X ONCE IV Last administered on 07/19/18at 08:24; Start 07/19/18 at 08:00; Stop 07/19/18 at 08:01; Status DC Info (CONTRAST GIVEN -- Rx MONITORING) 1 each PRN DAILY PRN MC SEE COMMENTS; Start 07/19/18 at 08:15; Stop 07/21/18 at 08:14; Status DC Sodium Chloride 1,000 ml @ 150 mls/hr Q6H40M IV Last administered on 07/20/18at 09:01; Start 07/19/18 at 09:30; Stop 07/20/18 at 09:29; Status DC Simethicone (Gas-X) 80 mg PRN AFTMEALHC PRN PO GAS / BLOATING Last administered on 07/19/18at 15:27; Start 07/19/18 at 14:45 Docusate Sodium (Colace) 100 mg DAILY PO Last administered on 07/22/18 11:05; Start 07/20/18 at 09:00 Polyethylene Glycol (miraLAX PACKET) 17 gm PRN DAILY PRN PO CONSTIPATION; Start 07/19/18 at 14:45 Zolpidem Tartrate (Ambien) 5 mg HS PO Last administered on 07/20/18at 21:21; Start 07/19/18 at 21:00 Acetaminophen/ Hydrocodone Bitart (Lortab 5/325) 1 tab PRN Q6HRS PRN PO MODER ATE-SEVERE PAIN Last administered on 07/23/18 07:34; Start 07/19/18 at 14:45 Ibuprofen (Motrin) 400 mg PRN Q6HRS PRN PO MILD PAIN 1-3 Last administered on 07/22/18 00:37; Start 07/19/18 at 14:45 Famotidine (Pepcid) 20 mg BID PO Last administered on 07/22/18at 21:01; Start 07/19/18 at 21:00 Enoxaparin Sodium (Lovenox 40mg Syringe) 40 mg Q24H SQ Last administered on 07/22/18 21:01; Start 07/19/18 at 21:00 Cyanocobalamin (Vitamin B-12) 1,000 mcg DAILY PO Last administered on 07/22/18 11:05; Start 07/20/18 at 10:00 Albuterol Sulfate (Ventolin Neb Soln) 2.5 mg PRN Q6HRS PRN NEB SHORTNESS OF BREATH Last administered on 07/22/18at 07:15; Start 07/20/18 at 14:00 Iohexol (Omnipaque 300 Mg/ml) 100 ml STK-MED ONCE .ROUTE ; Start 07/21/18 at 13:00; Stop 07/21/18 at 13:01; Status DC Heparin Sodium/ Sodium Chloride 500 ml @ As Directed STK-MED ONCE .ROUTE ; Start 07/21/18 at 13:00; Stop 07/21/18 at 13:01; Status DC Lidocaine/Sodium Bicarbonate (Buffered Lidocaine 1%) 3 ml STK-MED ONCE .ROUTE ; Start 07/21/18 at 13:01; Stop 07/21/18 at 13:02; Status DC Midazolam HCl (Versed) 2 mg STK-MED ONCE .ROUTE ; Start 07/21/18 at 13:07; Stop 07/21/18 at 13:08; Status DC Fentanyl Citrate (Fentanyl 2ml Vial) 100 mcg STK-MED ONCE .ROUTE ; Start 07/21/18 at 13:07; Stop 07/21/18 at 13:08; Status DC Iohexol (Omnipaque 240 Mg/ml) 50 ml STK-MED ONCE .ROUTE ; Start 07/21/18 at 13:09; Stop 07/21/18 at 13:10; Status DC Heparin Sodium/ Sodium Chloride 500 ml @ As Directed STK-MED ONCE .ROUTE ; Start 07/21/18 at 13:32; Stop 07/21/18 at 13:33; Status DC Heparin Sodium/ Sodium Chloride (HEPARIN for ARTERIAL LINE FLUSH) 3,000 unit 1X ONCE IART Last administered on 07/21/18at 14:15; Start 07/21/18 at 14:15; Stop 07/21/18 at 14:21; Status DC Lidocaine/Sodium Bicarbonate (Buffered Lidocaine 1%) 4 ml 1X ONCE IJ Last administered on 07/21/18at 14:15; Start 07/21/18 at 14:15; Stop 07/21/18 at 14:22; Status DC Midazolam HCl (Versed) 2 mg 1X ONCE IV Last administered on 07/21/18 14:16; Start 07/21/18 at 14:15; Stop 07/21/18 at 14:21; Status DC Fentanyl Citrate (Fentanyl 2ml Vial) 50 mcg 1X ONCE IV Last administered on 07/21/18at 14:16; Start 07/21/18 at 14:15; Stop 07/21/18 at 14:21; Status DC Iodixanol (Visipaque 320) 60 ml 1X ONCE IART Last administered on 07/21/18at 14:15; Start 07/21/18 at 14:15; Stop 07/21/18 at 14:21; Status DC Heparin Sodium (Porcine) (Heparin Sodium) 5,000 unit 1X ONCE IV Last adminis tered on 07/21/18at 14:17; Start 07/21/18 at 14:15; Stop 07/21/18 at 14:21; Status DC Info (CONTRAST GIVEN -- Rx MONITORING) 1 each PRN DAILY PRN MC SEE COMMENTS; Start 07/21/18 at 14:30; Stop 07/23/18 at 14:29 Lidocaine/Sodium Bicarbonate (Buffered Lidocaine 1%) 3 ml STK-MED ONCE .ROUTE ; Start 07/22/18 at 09:06; Stop 07/22/18 at 09:07; Status DC Midazolam HCl (Versed) 2 mg STK-MED ONCE .ROUTE ; Start 07/22/18 at 09:21; Stop 07/22/18 at 09:22; Status DC Fentanyl Citrate (Fentanyl 2ml Vial) 100 mcg STK-MED ONCE .ROUTE ; Start 07/22/18 at 09:21; Stop 07/22/18 at 09:22; Status DC Midazolam HCl (Versed) 2 mg STK-MED ONCE .ROUTE ; Start 07/22/18 at 09:30; Stop 07/22/18 at 09:31; Status DC Fentanyl Citrate (Fentanyl 2ml Vial) 100 mcg STK-MED ONCE .ROUTE ; Start 07/22/18 at 09:30; Stop 07/22/18 at 09:31; Status DC Lidocaine/Sodium Bicarbonate (Buffered Lidocaine 1%) 3 ml 1X ONCE IJ Last administered on 07/22/18at 10:00; Start 07/22/18 at 10:00; Stop 07/22/18 at 10:01; Status DC Midazolam HCl (Versed) 2 mg 1X ONCE IV Last administered on 07/22/18at 10:00; Start 07/22/18 at 10:00; Stop 07/22/18 at 10:01; Status DC Fentanyl Citrate (Fentanyl 2ml Vial) 100 mcg 1X ONCE IV Last administered on 07/22/18at 10:00; Start 07/22/18 at 10:00; Stop 07/22/18 at 10:01; Status DC Diclofenac Sodium (Voltaren) 1 estephanie PRN BID PRN TP PAIN Last administered on 07/23/18at 07:37; Start 07/22/18 at 16:00 Ceftriaxone Sodium (Rocephin) 1 gm Q24H IVP Last administered on 07/22/18at 21:02; Start 07/22/18 at 21:00 Acetaminophen (Tylenol) 650 mg PRN Q6HRS PRN PO FEVER Last administered on 07/22/18at 21:01; Start 07/22/18 at 19:45 Active Scripts Active Erythromycin (Erythromycin Base) 1 Gm Oint...g. 1 Gm OP QID 0.5% 1/2" ribbon to lower eyelid x7 days [place] 5-325 Tablet (Acetaminophen/Hydrocodone Bitart) 1 Each Tablet 1-2 Each PO PRN Q6HRS PRN as needed for pain Ibuprofen 400 Mg Tablet 400 Mg PO PRN Q6HRS PRN take with food or milk Valacyclovir (Valacyclovir Hcl) 1,000 Mg Tablet 1 Tab PO TID Reported Ranitidine Hcl 150 Mg Tablet 1 Tab PO BID Lisinopril-Hctz 10-12.5 Mg Tab (Lisinopril/Hydrochlorothiazide) 1 Each Tablet 1 Tab PO DAILY Vitals/I & O Vital Sign - Last 24 Hours 07/22/18 07/22/18 07/22/18 07/22/18 08:43 09:40 09:45 09:50 Pulse 123 121 125 Resp 20 20 18 24 Pulse Ox 100 100 90 O2 Delivery Room Air Nasal Cannula Nasal Cannula Nasal Cannula O2 Flow Rate 2.0 2.0 5.0 07/22/18 07/22/18 07/22/18 07/22/18 09:55 10:00 10:00 10:05 Pulse 124 124 123 Resp 17 19 22 26 Pulse Ox 100 99 98 95 O2 Delivery NonRebreather Mask NonRebreather Mask NonRebreather Mask NonRebreather Mask O2 Flow Rate 10.0 10.0 10.0 10.0 07/22/18 07/22/18 07/22/18 07/22/18 10:10 10:15 10:20 10:20 Pulse 122 123 125 123 Resp 18 26 26 26 Pulse Ox 93 96 91 92 O2 Delivery NonRebreather Mask NonRebreather Mask NonRebreather Mask NonRebreather Mask O2 Flow Rate 10.0 10.0 10.0 10.0 07/22/18 07/22/18 07/22/18 07/22/18 10:43 10:58 11:00 11:13 Temp 98.5 98.5 Pulse 118 118 119 114 Resp 18 18 18 18 B/P (MAP) 132/76 (94) 127/81 (96) 132/76 (94) 126/73 (90) Pulse Ox 94 94 100 100 O2 Delivery Nasal Cannula Nasal Cannula Nasal Cannula Nasal Cannula O2 Flow Rate 2.0 2.0 2.0 2.0 07/22/18 07/22/18 07/22/18 07/22/18 11:28 11:58 12:28 13:28 Pulse 116 116 117 113 Resp 18 18 18 18 B/P (MAP) 118/69 (85) 115/59 (77) 93/54 (67) 117/60 (79) Pulse Ox 100 98 97 98 O2 Delivery Nasal Cannula Nasal Cannula Nasal Cannula Nasal Cannula O2 Flow Rate 2.0 2.0 2.0 2.0 07/22/18 07/22/18 07/22/18 07/22/18 14:28 15:00 17:19 19:29 Temp 98.5 101.0 98.5 101.0 Pulse 113 115 125 Resp 18 14 18 20 B/P (MAP) 119/74 (89) 135/80 (98) 111/64 (80) Pulse Ox 98 97 93 O2 Delivery Nasal Cannula Nasal Cannula Nasal Cannula Room Air O2 Flow Rate 2.0 2.0 2.0 07/22/18 07/22/18 07/23/18 07/23/18 20:00 22:47 03:14 07:34 Temp 98.9 99.5 98.9 99.5 Pulse 111 109 Resp 18 18 13 B/P (MAP) 105/55 (72) 100/55 (70) Pulse Ox 95 97 97 O2 Delivery Nasal Cannula Room Air Room Air Nasal Cannula O2 Flow Rate 2.0 2.0 Intake and Output 07/22/18 07/22/18 07/23/18 14:59 22:59 06:59 Intake Total 180 ml 700 ml 250 ml Output Total 225 ml 500 ml Balance -45 ml 200 ml 250 ml Nutrition Consultation Dietary Evaluation: Recommendations by RD: Increase Calorie Intake, Protein supplementation Comments: Continue w/cardiac/ADA diet as ordered, honor food preferences, and provide snacks as requested REC glucerna (strawberry) BID w/lunch and dinner Expected Outcomes/Goals: PO intake to meet >75% est needs Interpretation of weight loss: >7.5% in 3 months Malnutrition Findings: Food and Nutrition Intake (Mod: <75% est energy req 7days Weight Status: Overweight ROLAND JACOBS MD July 23, 2018 08:06
[2018-07-23] MEDS: ALBUTEROL SULFATE 2.5 MG/3 ML NEBU. NEB PRN ×4 (08:34→19:51)
--- NOTE | 2018-07-23 09:05 | PDOC ---
SUBJECTIVE Subjective S: doing better after SVC stent, path pending, though Temp to 101, started on Abx O: Gen: NAD, resting in bed, decreased facial plethora Psych: pleasant mood and affect Labs: HCG and AFP neg, LDH sl high BMBx and ing LN bx pending path Hb 9.1 uric ac 4.0 b2mg 2.1 hep ABC neg HIV neg TTE: EF 45-50% 2/2 tachy likely A/P: He is a 58-year-old man with a mediastinal mass concerning for lymphoma with elevated LDH, with anemia, s/p BMBx and inguinal LN bx (safer than mediastinal). SVC syndrome: better post SVC stent, ing and bone marrow bx's pending, can get treatment started as soon as diagnosis confirmed, radiation oncology/pulm/CTS opinions apprec, will start allopurinol to prevent poss TLS once tx is initiated tachycardia: defer to primary, may benefit from low dose beta blockade? w/ sl dec EF (but ok for chemo) (apprec primary assistance) fever: on Abx Anemia: Consistent with anemia of chronic disease, bone marrow biopsy for staging pending Shoulder pain: he can follow-up with Ortho as needed B12 deficiency: he can continue oral replacement Polysubstance abuse: Have recommended avoiding all drugs tobacco and alcohol and he would like to be compliant Prophylaxis: On Lovenox 40 mg given nightly Disposition: After diagnosis made and treatment plan initiated, would prefer to keep in house til dx confirmed (maybe Thursday?) and poss 1st cycle of chemo Thank you kindly and please don't hesitate to call w/ ?s over the weekend. OBJECTIVE Vital Signs Vital Signs Date Time Temp Pulse Resp B/P (MAP) Pulse Ox O2 Delivery O2 Flow Rate FiO2 07/23/18 08:34 94 Room Air 07/23/18 07:34 13 97 Nasal Cannula 2.0 07/23/18 07:00 99.4 114 18 110/64 (79) 95 Room Air 99.4 07/23/18 03:14 99.5 109 18 100/55 (70) 97 Room Air 99.5 07/22/18 22:47 98.9 111 18 105/55 (72) 95 Room Air 98.9 07/22/18 20:00 Nasal Cannula 2.0 07/22/18 19:29 101.0 125 20 111/64 (80) 93 Room Air 101.0 07/22/18 17:19 18 Nasal Cannula 2.0 07/22/18 15:00 98.5 115 14 135/80 (98) 97 Nasal Cannula 2.0 98.5 07/22/18 14:28 113 18 119/74 (89) 98 Nasal Cannula 2.0 07/22/18 13:28 113 18 117/60 (79) 98 Nasal Cannula 2.0 07/22/18 12:28 117 18 93/54 (67) 97 Nasal Cannula 2.0 07/22/18 11:58 116 18 115/59 (77) 98 Nasal Cannula 2.0 07/22/18 11:28 116 18 118/69 (85) 100 Nasal Cannula 2.0 07/22/18 11:13 114 18 126/73 (90) 100 Nasal Cannula 2.0 07/22/18 11:00 98.5 119 18 132/76 (94) 100 Nasal Cannula 2.0 98.5 07/22/18 10:58 118 18 127/81 (96) 94 Nasal Cannula 2.0 07/22/18 10:43 118 18 132/76 (94) 94 Nasal Cannula 2.0 07/22/18 10:20 123 26 92 NonRebreather Mask 10.0 07/22/18 10:20 125 26 91 NonRebreather Mask 10.0 07/22/18 10:15 123 26 96 NonRebreather Mask 10.0 07/22/18 10:10 122 18 93 NonRebreather Mask 10.0 07/22/18 10:05 123 26 95 NonRebreather Mask 10.0 07/22/18 10:00 124 22 98 NonRebreather Mask 10.0 07/22/18 10:00 19 99 NonRebreather Mask 10.0 07/22/18 09:55 124 17 100 NonRebreather Mask 10.0 07/22/18 09:50 125 24 90 Nasal Cannula 5.0 07/22/18 09:45 121 18 100 Nasal Cannula 2.0 07/22/18 09:40 123 20 100 Nasal Cannula 2.0 I & O Intake and Output 07/23/18 06:59 Intake Total 1130 ml Output Total 725 ml Balance 405 ml Intake Oral 1130 ml Output Urine Total 725 ml # Voids 2 # Bowel Movements 1 COMMENT Lab Laboratory Tests Test 07/22/18 09:25 White Blood Count 8.5 x10^3/uL (4.0-11.0) Red Blood Count 3.65 x10^6/uL (4.30-5.70) Hemoglobin 9.1 g/dL (13.0-17.5) Hematocrit 28.1 % (39.0-53.0) Mean Corpuscular Volume 77 fL (79-100) Mean Corpuscular Hemoglobin 25 pg (25-35) Mean Corpuscular Hemoglobin Concent 32 g/dL (31-37) Red Cell Distribution Width 17.0 % (11.5-14.5) Platelet Count 389 x10^3/uL (140-400) Neutrophils (%) (Auto) 78 % (31-73) Lymphocytes (%) (Auto) 11 % (24-48) Monocytes (%) (Auto) 11 % (0-9) Eosinophils (%) (Auto) 0 % (0-3) Basophils (%) (Auto) 1 % (0-3) Neutrophils # (Auto) 6.6 x10^3uL (1.8-7.7) Lymphocytes # (Auto) 0.9 x10^3/uL (1.0-4.8) Monocytes # (Auto) 0.9 x10^3/uL (0.0-1.1) Eosinophils # (Auto) 0.0 x10^3/uL (0.0-0.7) Basophils # (Auto) 0.1 x10^3/uL (0.0-0.2) Nutrition Consultation Dietary Evaluation: Recommendations by RD: Increase Calorie Intake, Protein supplementation Comments: Continue w/cardiac/ADA diet as ordered, honor food preferences, and provide snacks as requested REC glucerna (strawberry) BID w/lunch and dinner Expected Outcomes/Goals: PO intake to meet >75% est needs Interpretation of weight loss: >7.5% in 3 months Malnutrition Findings: Food and Nutrition Intake (Mod: <75% est energy req 7days Weight Status: Overweight AYSHA BERRY MD July 23, 2018 09:05
--- NOTE | 2018-07-23 09:05 | PDOC ---
Infectious Disease Note Vital Signs: Vital Signs Vital Signs Date Time Temp Pulse Resp B/P (MAP) Pulse Ox O2 Delivery O2 Flow Rate FiO2 07/23/18 08:34 94 Room Air 07/23/18 07:34 13 2.0 07/23/18 07:00 99.4 114 110/64 (79) 99.4 Medications: Inpatient Meds: Current Medications Medications (Trade) Dose Ordered Sig/Sushma Start Time Stop Time Status Last Admin Dose Admin Acetaminophen (Tylenol) 650 mg PRN Q6HRS PRN 07/22/18 19:45 07/22/18 21:01 650 MG Acetaminophen/ Hydrocodone Bitart (Lortab 5/325) 1 tab PRN Q6HRS PRN 07/19/18 14:45 07/23/18 07:34 1 TAB Albuterol Sulfate (Ventolin Neb Soln) 2.5 mg PRN Q6HRS PRN 07/20/18 14:00 07/23/18 08:34 2.5 MG Aspirin (Children'S Aspirin) 324 mg 1X ONCE 07/19/18 07:15 07/19/18 07:16 DC 07/19/18 07:31 324 MG Ceftriaxone Sodium (Rocephin) 1 gm Q24H 07/22/18 21:00 07/22/18 21:02 1 GM Cyanocobalamin (Vitamin B-12) 1,000 mcg DAILY 07/20/18 10:00 07/22/18 11:05 1,000 MCG Diclofenac Sodium (Voltaren) 1 estephanie PRN BID PRN 07/22/18 16:00 07/23/18 07:37 1 ESTEPHANIE Docusate Sodium (Colace) 100 mg DAILY 07/20/18 09:00 07/22/18 11:05 100 MG Enoxaparin Sodium (Lovenox 40mg Syringe) 40 mg Q24H 07/19/18 21:00 07/22/18 21:01 40 MG Famotidine (Pepcid) 20 mg BID 07/19/18 21:00 07/22/18 21:01 20 MG Fentanyl Citrate (Fentanyl 2ml Vial) 100 mcg 1X ONCE 07/22/18 10:00 07/22/18 10:01 DC 07/22/18 10:00 50 MCG Heparin Sodium (Porcine) (Heparin Sodium) 5,000 unit 1X ONCE 07/21/18 14:15 07/21/18 14:21 DC 07/21/18 14:17 5,000 UNIT Heparin Sodium/ Sodium Chloride (HEPARIN for ARTERIAL LINE FLUSH) 3,000 unit 1X ONCE 07/21/18 14:15 07/21/18 14:21 DC 07/21/18 14:15 3,000 UNIT Ibuprofen (Motrin) 400 mg PRN Q6HRS PRN 07/19/18 14:45 07/22/18 00:37 400 MG Info (CONTRAST GIVEN -- Rx MONITORING) 1 each PRN DAILY PRN 07/21/18 14:30 07/23/18 14:29 Iodixanol (Visipaque 320) 60 ml 1X ONCE 07/21/18 14:15 07/21/18 14:21 DC 07/21/18 14:15 60 ML Iohexol (Omnipaque 240 Mg/ml) 50 ml STK-MED ONCE 07/21/18 13:09 07/21/18 13:10 DC Iohexol (Omnipaque 300 Mg/ml) 100 ml STK-MED ONCE 07/21/18 13:00 07/21/18 13:01 DC Iohexol (Omnipaque 350 Mg/ml) 90 ml 1X ONCE 07/19/18 08:00 07/19/18 08:01 DC 07/19/18 08:24 90 ML Lidocaine/Sodium Bicarbonate (Buffered Lidocaine 1%) 3 ml 1X ONCE 07/22/18 10:00 07/22/18 10:01 DC 07/22/18 10:00 8 ML Midazolam HCl (Versed) 2 mg 1X ONCE 07/22/18 10:00 07/22/18 10:01 DC 07/22/18 10:00 1 MG Nitroglycerin (Nitrostat) 0.4 mg PRN Q5MIN PRN 07/19/18 07:15 07/20/18 07:14 DC 07/19/18 07:32 0.4 MG Polyethylene Glycol (miraLAX PACKET) 17 gm PRN DAILY PRN 07/19/18 14:45 Simethicone (Gas-X) 80 mg PRN AFTMEALHC PRN 07/19/18 14:45 07/19/18 15:27 80 MG Sodium Chloride 1,000 ml @ 150 mls/hr Q6H40M 07/19/18 09:30 07/20/18 09:29 DC 07/20/18 09:01 150 MLS/HR Zolpidem Tartrate (Ambien) 5 mg HS 07/19/18 21:00 07/20/18 21:21 5 MG Labs: Lab Laboratory Tests Test 07/22/18 09:25 White Blood Count 8.5 x10^3/uL (4.0-11.0) Red Blood Count 3.65 x10^6/uL (4.30-5.70) Hemoglobin 9.1 g/dL (13.0-17.5) Hematocrit 28.1 % (39.0-53.0) Mean Corpuscular Volume 77 fL (79-100) Mean Corpuscular Hemoglobin 25 pg (25-35) Mean Corpuscular Hemoglobin Concent 32 g/dL (31-37) Red Cell Distribution Width 17.0 % (11.5-14.5) Platelet Count 389 x10^3/uL (140-400) Neutrophils (%) (Auto) 78 % (31-73) Lymphocytes (%) (Auto) 11 % (24-48) Monocytes (%) (Auto) 11 % (0-9) Eosinophils (%) (Auto) 0 % (0-3) Basophils (%) (Auto) 1 % (0-3) Neutrophils # (Auto) 6.6 x10^3uL (1.8-7.7) Lymphocytes # (Auto) 0.9 x10^3/uL (1.0-4.8) Monocytes # (Auto) 0.9 x10^3/uL (0.0-1.1) Eosinophils # (Auto) 0.0 x10^3/uL (0.0-0.7) Basophils # (Auto) 0.1 x10^3/uL (0.0-0.2) Objective: Assessment: Fever ? could be from underlying mediastinal mass Large mediastinal mass suspect NHL SVC s/p stent S/P BM bx Polyclonal gammopathy Plan: Plan of Care zosyn f/u bc results f/u labs in am thank you [id number] BRENDEN LEYVA MD July 23, 2018 09:05
[2018-07-23] MEDS: CYANOCOBALAMIN (VITAMIN B-12) 1,000 MCG TABLET. PO SCH (09:43)
[2018-07-23] MEDS: FAMOTIDINE 20 MG TABLET. PO SCH ×2 (09:44→20:41)
[2018-07-23] MEDS: DOCUSATE SODIUM 100 MG CAPSULE. PO SCH (09:44)
[2018-07-23] MEDS: ALLOPURINOL 300 MG TABLET. PO SCH (10:28)
[2018-07-23 11:22] VITALS: BP 92/56
--- NOTE | 2018-07-23 12:12 | PDOC ---
PULMONARY PROGRESS NOTES Subjective no soa s/p SVC stent fever Vitals Vital Signs Date Time Temp Pulse Resp B/P (MAP) Pulse Ox O2 Delivery O2 Flow Rate FiO2 07/23/18 11:43 94 Room Air 07/23/18 11:22 99.0 99 18 92/56 (68) 99.0 07/23/18 09:43 2.0 General: Alert, Oriented X4 Lungs: Clear Cardiovascular: S1, S2 Abdomen: Soft Neuro Exam: Alert Extremities: No Edema Labs Laboratory Tests Test 07/22/18 09:25 White Blood Count 8.5 x10^3/uL (4.0-11.0) Red Blood Count 3.65 x10^6/uL (4.30-5.70) Hemoglobin 9.1 g/dL (13.0-17.5) Hematocrit 28.1 % (39.0-53.0) Mean Corpuscular Volume 77 fL (79-100) Mean Corpuscular Hemoglobin 25 pg (25-35) Mean Corpuscular Hemoglobin Concent 32 g/dL (31-37) Red Cell Distribution Width 17.0 % (11.5-14.5) Platelet Count 389 x10^3/uL (140-400) Neutrophils (%) (Auto) 78 % (31-73) Lymphocytes (%) (Auto) 11 % (24-48) Monocytes (%) (Auto) 11 % (0-9) Eosinophils (%) (Auto) 0 % (0-3) Basophils (%) (Auto) 1 % (0-3) Neutrophils # (Auto) 6.6 x10^3uL (1.8-7.7) Lymphocytes # (Auto) 0.9 x10^3/uL (1.0-4.8) Monocytes # (Auto) 0.9 x10^3/uL (0.0-1.1) Eosinophils # (Auto) 0.0 x10^3/uL (0.0-0.7) Basophils # (Auto) 0.1 x10^3/uL (0.0-0.2) Medications Active Scripts Medications Dose Route/Sig Max Daily Dose Days Date Category Dose Instructions Ranitidine Hcl 150 Mg Tablet 1 Tab PO BID 07/19/18 Reported Lisinopril-Hctz 10-12.5 Mg Tab (Lisinopril/Hydrochlorothiazide) 1 Each Tablet 1 Tab PO DAILY 07/19/18 Reported Erythromycin (Erythromycin Base) 1 Gm Oint...g. 1 Gm OP QID 01/20/18 Rx 0.5% 1/2" ribbon to lower eyelid x7 days [place] 5-325 Tablet (Acetaminophen/Hydrocodone Bitart) 1 Each Tablet 1-2 Each PO PRN Q6HRS PRN 07/03/16 Rx as needed for pain Ibuprofen 400 Mg Tablet 400 Mg PO PRN Q6HRS PRN 07/03/16 Rx take with food or milk Valacyclovir (Valacyclovir Hcl) 1,000 Mg Tablet 1 Tab PO TID 07/03/16 Rx Impression . 1. Patient with 11.9 cm large mediastinal mass with extrinsic compression of the distal trachea and left mainstem bronchus. The mass is also extrinsically compressing the superior vena cava, main pulmonary arteries and also ascending thoracic aorta. This finding is highly suspicious for either lymphoma or a small cell lung cancer. There is no other pathological adenopathy seen in the abdomen and pelvis. 2. Tobaccoism, suspect underlying chronic obstructive pulmonary disease. 3. History of polyclonal gammopathy. 4. New fever post SVC stent, on Abx Plan . 1. Discussed with RN. Discussed with Dr. Yee. At this time, there is no obvious endobronchial lesion and it is all extrinsic compression, as such bronchoscopy would not be helpful. I am also concerned that if we sedated for bronchoscopy the airway can collapse, which is significantly compressed by the tumor. 2. Follow Hematology rec 3. The Radiation Oncology recommendation. 4. Further recommendations to follow after review of the BM biopsy. If non- diagnostic, Interventional Radiology will proceed with CT-guided biopsy and if that cannot be done, the mediastinoscopy would be the next step. 5. Discussed with Dr. Yee./ IR and Thoracic surgery 6. Stenting of SVC done 7. ALFONSO Ty MD July 23, 2018 12:12
[2018-07-23 15:00] VITALS: BP 116/59
[2018-07-23] MEDS: guaiFENesin DM 200MG/20MG 10 ML SYRUP PO PRN ×2 (15:40→23:39)
[2018-07-23] MEDS: ACETAMINOPHEN 325 MG TABLET. PO PRN (15:40)
[2018-07-23 19:15] VITALS: BP 104/64
[2018-07-23] MEDS: ZOLPIDEM 5 MG TABLET. PO SCH (20:36)
[2018-07-23] MEDS: cefTRIAXone IV Push 1 GM VIAL. IVP SCH (20:36)
[2018-07-23] MEDS: ENOXAPARIN 40 MG/0.4 ML SYRINGE. SQ SCH (20:37)
[2018-07-23 23:33] VITALS: BP 137/67
--- NOTE | 2018-07-24 03:18 | CONS ---
DATE OF CONSULTATION: 07/23/2018 REFERRING PHYSICIAN: Dr. Jade. REASON FOR CONSULTATION: Fever. HISTORY OF PRESENT ILLNESS: A 58-year-old male who presented to the ER on 07/19/2018 with complaints of chest pain, which gradually got worse, 3 weeks prior to admission, becoming constant, associated with shortness of breath, pain over the back, left shoulder with productive cough, clear sputum, no hemoptysis. The patient denied any fevers, chills, sick contact, recent hospitalization. He took tsuy-pxr-yjeuana pain medication without any relief. White count was normal with normal lactate. He had a chest x-ray, which showed enlargement of right mediastinum extending to the right hilum. This may be due to mediastinal lymphadenopathy or mass or thoracic aortic dissection. The patient underwent CT abdomen and pelvis, which showed a 11.9 cm mediastinal mass consistent with neoplastic process, negative CTA otherwise. 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 Pulmonary was consulted. He is not a candidate for bronchoscopy due to tracheal impingement and airway being imminently compromised. The patient underwent a bone marrow biopsy, has also been followed by Radiation Oncology and Oncology. The patient has history of substance abuse with cocaine, no IVDU, has ybjhhtjk-vv-euvbxc malnutrition. The patient had a fever of 101 last night. He denied any symptoms of fever, chills, has intermittent night sweats. The patient has lost about 20 pounds for the last couple of months. He also continues to have back pain, shoulder pain. He continues to have cough, but no hemoptysis. No colored sputum. He denies any symptoms, headache, sore throat, rash. He has complaints of constipation with some gas. PAST MEDICAL HISTORY: Hypertension, anxiety, chronic low back pain, substance dependence. SOCIAL HISTORY: He smokes less than 1 pack per day. Alcohol, social. Drugs, cocaine and marijuana. No IVDU. Lives with his parents. CURRENT MEDICATIONS: Zosyn. Other medications reviewed in medication list. ALLERGIES: No known drug allergies. REVIEW OF SYSTEMS: Negative except for above in HPI. PHYSICAL EXAMINATION: VITAL SIGNS: Temperature 99.4, T-max 101, pulse 114, respiratory rate 18, blood pressure 110/64, oxygen saturation 97% on 2 liters. GENERAL: Alert, oriented x 3 male sitting in bed, in no acute distress. HEENT: Normocephalic, atraumatic, anicteric. No thrush. Oral mucosa moist. NECK: Supple. LUNGS: Decreased breath sounds at bases. HEART: S1, S2, tachycardia. No murmurs. ABDOMEN: Soft, nontender, nondistended. EXTREMITIES: No edema, no cyanosis. DERMATOLOGIC: Warm, dry, no generalized rash. CENTRAL NERVOUS SYSTEM: Alert and oriented x 3. Grossly nonfocal. PSYCHIATRIC: Cooperative, appropriate mood and affect. LABORATORY DATA: WBC 8.5, hemoglobin 9.1, hematocrit 28.1, platelets 389. Sodium 134, potassium 4.5, chloride 98, bicarbonate 28, BUN 8, creatinine 1.0, glucose 106, lactate 0.9, calcium 9.2, magnesium 1.8. LFTs within normal limits. Total protein 9.1, albumin 2.5, lipase 76. BNP 71. Troponin within normal limits. UA negative. Hepatitis profile negative. HIV negative. IMAGING: CT chest, abdomen and pelvis as above. Chest x-ray as above. Status post bone marrow biopsy. Status post stent placement, IVC by IR. [place], blood culture 07/19/2018 negative. IMPRESSION: 1. Fever, etiology unclear, could be post-procedural. 2. A 11.9 cm large mediastinal mass with extrinsic compression of distal trachea and left mainstem bronchus, extrinsic status post stent placement in superior vena cava. 3. SVC syndrome. 4. Anemia. 5. Chronic back pain. 6. Shoulder pain. 7. History of substance use. 8. Human immunodeficiency virus, hepatitis panel negative. 9. Bupgztog-pt-hujnsg malnutrition. 10. Polyclonal gammopathy. 11. Tobaccoism. RECOMMENDATIONS: 1. Continue empiric Zosyn. 2. Follow up blood culture results. 3. Follow up labs in a.m. and cultures. 4. Continue supportive care. Thank you, Dr. Jade for consulting Infectious Disease. We will follow along with you. BRENDEN LEYVA MD DR: SARAH/andie JOB#: [id number] / [id number]
[2018-07-24 03:28] VITALS: BP 139/61
[2018-07-24] MEDS: ALBUTEROL SULFATE 2.5 MG/3 ML NEBU. NEB PRN ×4 (07:15→20:00)
[2018-07-24 07:50] VITALS: BP 109/75
[2018-07-24] MEDS: ALLOPURINOL 300 MG TABLET. PO SCH (08:04)
[2018-07-24] MEDS: FAMOTIDINE 20 MG TABLET. PO SCH ×2 (08:04→20:56)
[2018-07-24] MEDS: DOCUSATE SODIUM 100 MG CAPSULE. PO SCH (08:04)
[2018-07-24] MEDS: CYANOCOBALAMIN (VITAMIN B-12) 1,000 MCG TABLET. PO SCH (08:04)
[2018-07-24] MEDS: HYDROcodone/APAP 5/325MG 1 TAB TABLET PO PRN ×3 (08:05→21:44)
[2018-07-24 10:38] VITALS: BP 106/60
--- NOTE | 2018-07-24 11:11 | PDOC ---
Infectious Disease Note Subjective Subjective Feeling a little hungry + cough No fever since yesterday Denies pain/N/V/D/SOA ROS ROS per HPI otherwise neg Vital Sign Vital Signs Vital Signs Date Time Temp Pulse Resp B/P (MAP) Pulse Ox O2 Delivery O2 Flow Rate FiO2 07/24/18 10:38 98.7 85 18 106/60 (75) 97 Room Air 98.7 07/24/18 00:40 2.0 Physical Exam PHYSICAL EXAM GENERAL: Sitting in the chair, alert, NAD HEENT: left pupil dilated, oral mucosa moist. NECK: Supple. LUNGS: Decreased breath sounds at bases. Harsh cough HEART: S1, S2 ABDOMEN: Soft, nontender, nondistended. EXTREMITIES: No edema, no cyanosis. DERMATOLOGIC: Warm, dry, no generalized rash. CENTRAL NERVOUS SYSTEM: Alert and oriented x 3. Grossly nonfocal. PIV Labs Micro Microbiology 07/22/18 Blood Culture - Preliminary, Resulted NO GROWTH AFTER 1 DAY Objective Assessment Fever ? could be from underlying mediastinal mass Large mediastinal mass suspect NHL SVC s/p stent, 07/21 S/P BM bx, 07/22 Polyclonal gammopathy Plan Plan of Care Rocephin BC neg so far Monitor temp/labs Has Reflux currently . D/w nursing - will check with primary Attending Co-Sign Attending Co-Sign The patient was seen and interviewed as well as examined at the bedside. The chart was reviewed. The case was discussed. Agree with the plan of care. GABI MCMILLAN APRN Jul 24, 2018 11:11 MARIAJOSE OLIVEIRA MD Jul 24, 2018 18:28
--- NOTE | 2018-07-24 11:18 | PDOC ---
PULMONARY PROGRESS NOTES Subjective no soa s/p SVC stent fever RESOLVED Vitals Vital Signs Date Time Temp Pulse Resp B/P (MAP) Pulse Ox O2 Delivery O2 Flow Rate FiO2 07/24/18 10:38 98.7 85 18 106/60 (75) 97 Room Air 98.7 07/24/18 00:40 2.0 General: Alert, Oriented X4 Lungs: Clear Cardiovascular: S1, S2 Abdomen: Soft Neuro Exam: Alert Extremities: No Edema Medications Active Scripts Medications Dose Route/Sig Max Daily Dose Days Date Category Dose Instructions Ranitidine Hcl 150 Mg Tablet 1 Tab PO BID 07/19/18 Reported Lisinopril-Hctz 10-12.5 Mg Tab (Lisinopril/Hydrochlorothiazide) 1 Each Tablet 1 Tab PO DAILY 07/19/18 Reported Erythromycin (Erythromycin Base) 1 Gm Oint...g. 1 Gm OP QID 01/20/18 Rx 0.5% 1/2" ribbon to lower eyelid x7 days [place] 5-325 Tablet (Acetaminophen/Hydrocodone Bitart) 1 Each Tablet 1-2 Each PO PRN Q6HRS PRN 07/03/16 Rx as needed for pain Ibuprofen 400 Mg Tablet 400 Mg PO PRN Q6HRS PRN 07/03/16 Rx take with food or milk Valacyclovir (Valacyclovir Hcl) 1,000 Mg Tablet 1 Tab PO TID 07/03/16 Rx Impression . 1. Patient with 11.9 cm large mediastinal mass with extrinsic compression of the distal trachea and left mainstem bronchus. The mass is also extrinsically compressing the superior vena cava, main pulmonary arteries and also ascending thoracic aorta. This finding is highly suspicious for either lymphoma or a small cell lung cancer. There is no other pathological adenopathy seen in the abdomen and pelvis. 2. Tobaccoism, suspect underlying chronic obstructive pulmonary disease. 3. History of polyclonal gammopathy. 4. New fever post SVC stent, on Abx, Fever resolved Plan . 1. Discussed with RN. Discussed with Dr. Yee. At this time, there is no obvious endobronchial lesion and it is all extrinsic compression, as such bronchoscopy would not be helpful. I am also concerned that if we sedated for bronchoscopy the airway can collapse, which is significantly compressed by the tumor. 2. Follow Hematology rec 3. The Radiation Oncology recommendation. 4. d/w pathologist . review of the BM biopsy and LN non-diagnostic, I nterventional Radiology will proceed with CT-guided biopsy Thursday. Moderate risk for mediastinoscopy 5. Discussed with Dr. Yee./ IR and Thoracic surgery 6. Stenting of SVC done 7. ALFONSO Ty MD Jul 24, 2018 11:18
[2018-07-24] MEDS: guaiFENesin DM 200MG/20MG 10 ML SYRUP PO PRN (12:30)
--- NOTE | 2018-07-24 12:57 | PDOC ---
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 possible SVC stenting per IR Trachea impingement - airway could be imminently compromised, appreciate pulm input mod/severe malnutrition substance abuse, cocaine constipation htn Shoulder pain History of Present Illness History of Present Illness Mr. Currie is a 58 year old male admit with chest pain and worsening chest pain. 3 weeks prior to admission he first noticed a constant pain that gradually getting worse. Also complains of gas pain and constipation, and has not stooled for days, new cough, stable wheezing, Patient states the shortness of breath getting worse with supine position and light activity. Patient denies palpitation, fever and chills, sick contact, recent immobilization or history of DVT and PE, nausea and vomiting patient complaining of constipation and states he did not have any bowel movement for the 5 days preceding his ED visit and usually he has had a bowel movement every day. He was notably positive for cocaine and found with 11.9 CM mediastinal mass on CT chest. See by pulm, CT surgery, IR, Heme/Onc, RadOnc S/P SVC stenting, bone marrow biopsy and left groin biopsy. D/w pathologist - the review of the BM biopsy and LN non-diagnostic. Neck swelling improved, still with strong cough. Has some right shoulder pain today. Feels a bit better after breathing treatments. S/p echo in anticipation of anthracycline treatment. Feeling better after SVC stenting and bone marrow bx. ECHO with 45% EF, likely 2/2 tachycardia/cocaine use. BB should not be given with positive cocaine. He is asking for cough syrup. Spiked a fever, started on antibiotics, seen by ID now as well. Plan: Interventional Radiology will proceed with CT-guided biopsy Wednesday 07/26. Moderate risk for mediastinoscopy post-procedure, likely will have left pneum othorax as well. He is aware Vitals Vitals Vital Signs Date Time Temp Pulse Resp B/P (MAP) Pulse Ox O2 Delivery O2 Flow Rate FiO2 07/24/18 11:56 Room Air 07/24/18 10:38 98.7 85 18 106/60 (75) 97 98.7 07/24/18 00:40 2.0 Physical Exam Physical Exam GENERAL: Sitting in the chair, alert, NAD HEENT: left pupil dilated, oral mucosa moist. NECK: Supple. LUNGS: Decreased breath sounds at bases. Harsh cough HEART: S1, S2 ABDOMEN: Soft, nontender, nondistended. EXTREMITIES: No edema, no cyanosis. DERMATOLOGIC: Warm, dry, no generalized rash. CENTRAL NERVOUS SYSTEM: Alert and oriented x 3. Grossly nonfocal. PIV General: Alert, Oriented X3, Other (dilated venous network on the anterior chest wall) Heart: Regular rate, Normal S1, Normal S2 Lungs: Clear Abdomen: Soft, No tenderness Extremities: No edema Skin: No significant lesion Assessment and Plan Assessmemt and Plan Problems Medical Problems: (1) Anemia Status: Acute (2) Chest pain Status: Acute (3) Mediastinal mass Status: Acute (4) Shortness of breath Status: Acute (5) Tachycardia Status: Acute (6) Weight loss Status: Acute Comment Review of Relevant I have reviewed the following items karina (where applicable) has been applied. Labs Microbiology 07/22/18 Blood Culture - Preliminary, Resulted NO GROWTH AFTER 1 DAY Medications Current Medications Aspirin (Children'S Aspirin) 324 mg 1X ONCE PO Last administered on 07/19/18at 07:31; Start 07/19/18 at 07:15; Stop 07/19/18 at 07:16; Status DC Nitroglycerin (Nitrostat) 0.4 mg PRN Q5MIN PRN SL CP RATING > 1/10 Last administered on 07/19/18at 07:32; Start 07/19/18 at 07:15; Stop 07/20/18 at 07:1 4; Status DC Iohexol (Omnipaque 350 Mg/ml) 90 ml 1X ONCE IV Last administered on 07/19/18at 08:24; Start 07/19/18 at 08:00; Stop 07/19/18 at 08:01; Status DC Info (CONTRAST GIVEN -- Rx MONITORING) 1 each PRN DAILY PRN MC SEE COMMENTS; Start 07/19/18 at 08:15; Stop 07/21/18 at 08:14; Status DC Sodium Chloride 1,000 ml @ 150 mls/hr Q6H40M IV Last administered on 07/20/18at 09:01; Start 07/19/18 at 09:30; Stop 07/20/18 at 09:29; Status DC Simethicone (Gas-X) 80 mg PRN AFTMEALHC PRN PO GAS / BLOATING Last administered on 07/19/18 15:27; Start 07/19/18 at 14:45 Docusate Sodium (Colace) 100 mg DAILY PO Last administered on 07/24/18 08:04; Start 07/20/18 at 09:00 Polyethylene Glycol (miraLAX PACKET) 17 gm PRN DAILY PRN PO CONSTIPATION; Start 07/19/18 at 14:45 Zolpidem Tartrate (Ambien) 5 mg HS PO Last administered on 07/20/18 21:21; Start 07/19/18 at 21:00 Acetaminophen/ Hydrocodone Bitart (Lortab 5/325) 1 tab PRN Q6HRS PRN PO MODERATE-SEVERE PAIN Last administered on 07/24/18 08:05; Start 07/19/18 at 14:45 Ibuprofen (Motrin) 400 mg PRN Q6HRS PRN PO MILD PAIN 1-3 Last administered on 07/22/18 00:37; Start 07/19/18 at 14:45 Famotidine (Pepcid) 20 mg BID PO Last administered on 07/24/18 08:04; Start 07/19/18 at 21:00 Enoxaparin Sodium (Lovenox 40mg Syringe) 40 mg Q24H SQ Last administered on 07/23/18 20:37; Start 07/19/18 at 21:00 Cyanocobalamin (Vitamin B-12) 1,000 mcg DAILY PO Last administered on 07/24/18 08:04; Start 07/20/18 at 10:00 Albuterol Sulfate (Ventolin Neb Soln) 2.5 mg PRN Q6HRS PRN NEB SHORTNESS OF BREATH Last administered on 07/24/18 11:54; Start 07/20/18 at 14:00 Iohexol (Omnipaque 300 Mg/ml) 100 ml STK-MED ONCE .ROUTE ; Start 07/21/18 at 13:00; Stop 07/21/18 at 13:01; Status DC Heparin Sodium/ Sodium Chloride 500 ml @ As Directed STK-MED ONCE .ROUTE ; Start 07/21/18 at 13:00; Stop 07/21/18 at 13:01; Status DC Lidocaine/Sodium Bicarbonate (Buffered Lidocaine 1%) 3 ml STK-MED ONCE .ROUTE ; Start 07/21/18 at 13:01; Stop 07/21/18 at 13:02; Status DC Midazolam HCl (Versed) 2 mg STK-MED ONCE .ROUTE ; Start 07/21/18 at 13:07; Stop 07/21/18 at 13:08; Status DC Fentanyl Citrate (Fentanyl 2ml Vial) 100 mcg STK-MED ONCE .ROUTE ; Start 07/21/18 at 13:07; Stop 07/21/18 at 13:08; Status DC Iohexol (Omnipaque 240 Mg/ml) 50 ml STK-MED ONCE .ROUTE ; Start 07/21/18 at 13:09; Stop 07/21/18 at 13:10; Status DC Heparin Sodium/ Sodium Chloride 500 ml @ As Directed STK-MED ONCE .ROUTE ; Start 07/21/18 at 13:32; Stop 07/21/18 at 13:33; Status DC Heparin Sodium/ Sodium Chloride (HEPARIN for ARTERIAL LINE FLUSH) 3,000 unit 1X ONCE IART Last administered on 07/21/18at 14:15; Start 07/21/18 at 14:15; Stop 07/21/18 at 14:21; Status DC Lidocaine/Sodium Bicarbonate (Buffered Lidocaine 1%) 4 ml 1X ONCE IJ Last administered on 07/21/18at 14:15; Start 07/21/18 at 14:15; Stop 07/21/18 at 14:22; Status DC Midazolam HCl (Versed) 2 mg 1X ONCE IV Last administered on 07/21/18at 14:16; Start 07/21/18 at 14:15; Stop 07/21/18 at 14:21; Status DC Fentanyl Citrate (Fentanyl 2ml Vial) 50 mcg 1X ONCE IV Last administered on 07/21/18at 14:16; Start 07/21/18 at 14:15; Stop 07/21/18 at 14:21; Status DC Iodixanol (Visipaque 320) 60 ml 1X ONCE IART Last administered on 07/21/18at 14:15; Start 07/21/18 at 14:15; Stop 07/21/18 at 14:21; Status DC Heparin Sodium (Porcine) (Heparin Sodium) 5,000 unit 1X ONCE IV Last administered on 07/21/18at 14:17; Start 07/21/18 at 14:15; Stop 07/21/18 at 14:21; Status DC Info (CONTRAST GIVEN -- Rx MONITORING) 1 each PRN DAILY PRN MC SEE COMMENTS; Start 07/21/18 at 14:30; Stop 07/23/18 at 14:29; Status DC Lidocaine/Sodium Bicarbonate (Buffered Lidocaine 1%) 3 ml STK-MED ONCE .ROUTE ; Start 07/22/18 at 09:06; Stop 07/22/18 at 09:07; Status DC Midazolam HCl (Versed) 2 mg STK-MED ONCE .ROUTE ; Start 07/22/18 at 09:21; Stop 07/22/18 at 09:22; Status DC Fentanyl Citrate (Fentanyl 2ml Vial) 100 mcg STK-MED ONCE .ROUTE ; Start 07/22/18 at 09:21; Stop 07/22/18 at 09:22; Status DC Midazolam HCl (Versed) 2 mg STK-MED ONCE .ROUTE ; Start 07/22/18 at 09:30; Stop 07/22/18 at 09:31; Status DC Fentanyl Citrate (Fentanyl 2ml Vial) 100 mcg STK-MED ONCE .ROUTE ; Start 07/22/18 at 09:30; Stop 07/22/18 at 09:31; Status DC Lidocaine/Sodium Bicarbonate (Buffered Lidocaine 1%) 3 ml 1X ONCE IJ Last administered on 07/22/18at 10:00; Start 07/22/18 at 10:00; Stop 07/22/18 at 10:01; Status DC Midazolam HCl (Versed) 2 mg 1X ONCE IV Last administered on 07/22/18at 10:00; Start 07/22/18 at 10:00; Stop 07/22/18 at 10:01; Status DC Fentanyl Citrate (Fentanyl 2ml Vial) 100 mcg 1X ONCE IV Last administered on 07/22/18at 10:00; Start 07/22/18 at 10:00; Stop 07/22/18 at 10:01; Status DC Diclofenac Sodium (Voltaren) 1 estephanie PRN BID PRN TP PAIN Last administered on 07/23/18at 20:38; Start 07/22/18 at 16:00 Ceftriaxone Sodium (Rocephin) 1 gm Q24H IVP Last administered on 07/23/18at 20:36; Start 07/22/18 at 21:00 Acetaminophen (Tylenol) 650 mg PRN Q6HRS PRN PO FEVER Last administered on 07/23/18at 15:40; Start 07/22/18 at 19:45 Allopurinol (Zyloprim) 300 mg DAILY PO Last administered on 07/24/18at 08:04; Start 07/23/18 at 09:15 Guaifenesin (Robitussin Dm) 10 ml PRN Q6HRS PRN PO COUGH Last administered on 07/24/18at 12:30; Start 07/23/18 at 11:45 Active Scripts Active Erythromycin (Erythromycin Base) 1 Gm Oint...g. 1 Gm OP QID 0.5% 1/2" ribbon to lower eyelid x7 days [place] 5-325 Tablet (Acetaminophen/Hydrocodone Bitart) 1 Each Tablet 1-2 Each PO PRN Q6HRS PRN as needed for pain Ibuprofen 400 Mg Tablet 400 Mg PO PRN Q6HRS PRN take with food or milk Valacyclovir (Valacyclovir Hcl) 1,000 Mg Tablet 1 Tab PO TID Reported Ranitidine Hcl 150 Mg Tablet 1 Tab PO BID Lisinopril-Hctz 10-12.5 Mg Tab (Lisinopril/Hydrochlorothiazide) 1 Each Tablet 1 Tab PO DAILY Vitals/I & O Vital Sign - Last 24 Hours 07/23/18 07/23/18 07/23/18 07/23/18 15:00 16:07 18:01 19:15 Temp 101.3 97.4 101.3 97.4 Pulse 119 101 Resp 18 16 17 B/P (MAP) 116/59 (78) 104/64 (77) Pulse Ox 96 96 96 O2 Delivery Room Air Room Air Room Air Room Air O2 Flow Rate 2.0 07/23/18 07/23/18 07/23/18 07/24/18 20:00 23:33 23:40 00:40 Temp 99.1 99.1 Pulse 108 Resp 16 18 B/P (MAP) 137/67 (90) Pulse Ox 96 96 96 O2 Delivery Room Air Room Air Room Air O2 Flow Rate 2.0 2.0 2.0 07/24/18 07/24/18 07/24/18 07/24/18 03:28 07:15 07:50 08:00 Temp 98.7 98.6 98.7 98.6 Pulse 103 114 Resp 16 24 B/P (MAP) 139/61 (87) 109/75 (86) Pulse Ox 96 94 100 O2 Delivery Room Air Room Air Room Air Room Air 07/24/18 07/24/18 07/24/18 07/24/18 08:05 10:38 10:38 11:56 Temp 98.7 98.7 Pulse 85 Resp 18 B/P (MAP) 106/60 (75) Pulse Ox 97 O2 Delivery Room Air Room Air Room Air Room Air Intake and Output 07/23/18 07/23/18 07/24/18 15:00 23:00 07:00 Intake Total 360 ml 640 ml Output Total 350 ml Balance 10 ml 640 ml Nutrition Consultation Dietary Evaluation: Recommendations by RD: Increase Calorie Intake, Protein supplementation Comments: Continue w/cardiac/ADA diet as ordered, honor food preferences, and provide snacks as requested REC glucerna (strawberry) BID w/lunch and dinner Expected Outcomes/Goals: PO intake to meet >75% est needs Interpretation of weight loss: >7.5% in 3 months Malnutrition Findings: Food and Nutrition Intake (Mod: <75% est energy req 7days Weight Status: Overweight ROLAND JACOBS MD Jul 24, 2018 12:57
[2018-07-24 15:04] VITALS: BP 120/66
[2018-07-24 18:40] VITALS: BP 133/69
[2018-07-24] MEDS: LIDO:MAALOX 1:1 20 ML SINGLE DOSE. PO PRN (18:45)
[2018-07-24] MEDS: ZOLPIDEM 5 MG TABLET. PO SCH (20:56)
[2018-07-24] MEDS: cefTRIAXone IV Push 1 GM VIAL. IVP SCH (20:56)
[2018-07-24] MEDS: DICLOFENAC SODIUM 1% TOPICAL GEL 100GM TUBE. TP PRN (20:57)
[2018-07-24] MEDS: ENOXAPARIN 40 MG/0.4 ML SYRINGE. SQ SCH (20:57)
[2018-07-24 22:52] VITALS: BP 116/87
--- NOTE | 2018-07-25 01:00 | NUR ---
Patient used call light to notify RN he was vomiting. RN checked patient & MAR for prn meds. Paged Dr Yee reproductive surgeon. New orders received.
[2018-07-25] MEDS ORDERED: ONDANSETRON PF 4 MG/2 ML VIAL. IV PRN (01:15)
[2018-07-25] MEDS: METOCLOPRAMIDE HCL 10 MG/2 ML VIAL. IV PRN (01:39)
[2018-07-25 02:50] VITALS: BP 137/67
[2018-07-25] MEDS: guaiFENesin DM 200MG/20MG 10 ML SYRUP PO PRN ×3 (03:48→17:03)
[2018-07-25] MEDS: HYDROcodone/APAP 5/325MG 1 TAB TABLET PO PRN ×3 (03:49→17:03)
[2018-07-25 07:00] VITALS: BP 133/86
--- NOTE | 2018-07-25 07:59 | PDOC ---
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 possible SVC stenting per IR Trachea impingement - airway could be imminently compromised, appreciate pulm input mod/severe malnutrition substance abuse, cocaine constipation htn Shoulder pain History of Present Illness History of Present Illness Mr. Currie is a 58 year old male admit with chest pain and worsening chest pain. 3 weeks prior to admission he first noticed a constant pain that gradually getting worse. Also complains of gas pain and constipation, and has not stooled for days, new cough, stable wheezing, Patient states the shortness of breath getting worse with supine position and light activity. Patient denies palpitation, fever and chills, sick contact, recent immobilization or history of DVT and PE, nausea and vomiting patient complaining of constipation and states he did not have any bowel movement for the 5 days preceding his ED visit and usually he has had a bowel movement every day. He was notably positive for cocaine and found with 11.9 CM mediastinal mass on CT chest. See by pulm, CT surgery, IR, Heme/Onc, RadOnc S/P SVC stenting, bone marrow biopsy and left groin biopsy. D/w pathologist - the review of the BM biopsy and LN non-diagnostic. 07/24: Neck swelling improved, still with strong cough. Has some right shoulder pain today. Feels a bit better after breathing treatments. S/p echo in anticipation of anthracycline treatment. Feeling better after SVC stenting and bone marrow bx. ECHO with 45% EF, likely 2/2 tachycardia/cocaine use. BB should not be given with positive cocaine. He is asking for cough syrup. Spiked a fever, started on antibiotics, seen by ID now as well. Vomiting overnight, now with a sore throat. He is a bit anxious about biopsy tomorrow. No fevers, still on rocephin. Still with violent sounding cough. Plan: Interventional Radiology will proceed with CT-guided biopsy Wednesday 07/26. Moderate risk for mediastinoscopy post-procedure, likely will have left pneumothorax as well. He is aware Vitals Vitals Vital Signs Date Time Temp Pulse Resp B/P (MAP) Pulse Ox O2 Delivery O2 Flow Rate FiO2 07/25/18 04:49 18 98 Room Air 2.0 07/25/18 02:50 98.1 106 137/67 (90) 98.1 Physical Exam Physical Exam GENERAL: Sitting in the chair, alert, NAD HEENT: left pupil dilated, oral mucosa moist. NECK: Supple. LUNGS: Decreased breath sounds at bases. Harsh cough HEART: S1, S2 ABDOMEN: Soft, nontender, nondistended. EXTREMITIES: No edema, no cyanosis. DERMATOLOGIC: Warm, dry, no generalized rash. CENTRAL NERVOUS SYSTEM: Alert and oriented x 3. Grossly nonfocal. PIV General: Alert, Oriented X3, Other (dilated venous network on the anterior chest wall) Heart: Regular rate, Normal S1, Normal S2 Lungs: Clear Abdomen: Soft, No tenderness Extremities: No edema Skin: No significant lesion Assessment and Plan Assessmemt and Plan Problems Medical Problems: (1) Anemia Status: Acute (2) Chest pain Status: Acute (3) Mediastinal mass Status: Acute (4) Shortness of breath Status: Acute (5) Tachycardia Status: Acute (6) Weight loss Status: Acute Comment Review of Relevant I have reviewed the following items karina (where applicable) has been applied. Labs Microbiology 07/22/18 Blood Culture - Preliminary, Resulted NO GROWTH AFTER 2 DAYS Medications Current Medications Aspirin (Children'S Aspirin) 324 mg 1X ONCE PO Last administered on 07/19/18at 07:31; Start 07/19/18 at 07:15; Stop 07/19/18 at 07:16; Status DC Nitroglycerin (Nitrostat) 0.4 mg PRN Q5MIN PRN SL CP RATING > 1/10 Last administered on 07/19/18at 07:32; Start 07/19/18 at 07:15; Stop 07/20/18 at 07:14; Status DC Iohexol (Omnipaque 350 Mg/ml) 90 ml 1X ONCE IV Last administered on 07/19/18at 08:24; Start 07/19/18 at 08:00; Stop 07/19/18 at 08:01; Status DC Info (CONTRAST GIVEN -- Rx MONITORING) 1 each PRN DAILY PRN MC SEE COMMENTS; Start 07/19/18 at 08:15; Stop 07/21/18 at 08:14; Status DC Sodium Chloride 1,000 ml @ 150 mls/hr Q6H40M IV Last administered on 07/20/18 09:01; Start 07/19/18 at 09:30; Stop 07/20/18 at 09:29; Status DC Simethicone (Gas-X) 80 mg PRN AFTMEALHC PRN PO GAS / BLOATING Last administered on 07/19/18 15:27; Start 07/19/18 at 14:45 Docusate Sodium (Colace) 100 mg DAILY PO Last administered on 07/24/18 08:04; Start 07/20/18 at 09:00 Polyethylene Glycol (miraLAX PACKET) 17 gm PRN DAILY PRN PO CONSTIPATION; Start 07/19/18 at 14:45 Zolpidem Tartrate (Ambien) 5 mg HS PO Last administered on 07/20/18 21:21; Start 07/19/18 at 21:00 Acetaminophen/ Hydrocodone Bitart (Lortab 5/325) 1 tab PRN Q6HRS PRN PO MODERATE-SEVERE PAIN Last administered on 07/25/18 03:49; Start 07/19/18 at 14:45 Ibuprofen (Motrin) 400 mg PRN Q6HRS PRN PO MILD PAIN 1-3 Last administered on 07/22/18 00:37; Start 07/19/18 at 14:45 Famotidine (Pepcid) 20 mg BID PO Last administered on 07/24/18 20:56; Start 07/19/18 at 21:00 Enoxaparin Sodium (Lovenox 40mg Syringe) 40 mg Q24H SQ Last administered on 07/24/18 20:57; Start 07/19/18 at 21:00 Cyanocobalamin (Vitamin B-12) 1,000 mcg DAILY PO Last administered on 07/24/18 08:04; Start 07/20/18 at 10:00 Albuterol Sulfate (Ventolin Neb Soln) 2.5 mg PRN Q6HRS PRN NEB SHORTNESS OF BREATH Last administered on 07/24/18 20:00; Start 07/20/18 at 14:00 Iohexol (Omnipaque 300 Mg/ml) 100 ml STK-MED ONCE .ROUTE ; Start 07/21/18 at 13:00; Stop 07/21/18 at 13:01; Status DC Heparin Sodium/ Sodium Chloride 500 ml @ As Directed STK-MED ONCE .ROUTE ; Start 07/21/18 at 13:00; Stop 07/21/18 at 13:01; Status DC Lidocaine/Sodium Bicarbonate (Buffered Lidocaine 1%) 3 ml STK-MED ONCE .ROUTE ; Start 07/21/18 at 13:01; Stop 07/21/18 at 13:02; Status DC Midazolam HCl (Versed) 2 mg STK-MED ONCE .ROUTE ; Start 07/21/18 at 13:07; Stop 07/21/18 at 13:08; Status DC Fentanyl Citrate (Fentanyl 2ml Vial) 100 mcg STK-MED ONCE .ROUTE ; Start 07/21/18 at 13:07; Stop 07/21/18 at 13:08; Status DC Iohexol (Omnipaque 240 Mg/ml) 50 ml STK-MED ONCE .ROUTE ; Start 07/21/18 at 13:09; Stop 07/21/18 at 13:10; Status DC Heparin Sodium/ Sodium Chloride 500 ml @ As Directed STK-MED ONCE .ROUTE ; Start 07/21/18 at 13:32; Stop 07/21/18 at 13:33; Status DC Heparin Sodium/ Sodium Chloride (HEPARIN for ARTERIAL LINE FLUSH) 3,000 unit 1X ONCE IART Last administered on 07/21/18at 14:15; Start 07/21/18 at 14:15; Stop 07/21/18 at 14:21; Status DC Lidocaine/Sodium Bicarbonate (Buffered Lidocaine 1%) 4 ml 1X ONCE IJ Last administered on 07/21/18at 14:15; Start 07/21/18 at 14:15; Stop 07/21/18 at 14:22; Status DC Midazolam HCl (Versed) 2 mg 1X ONCE IV Last administered on 07/21/18at 14:16; Start 07/21/18 at 14:15; Stop 07/21/18 at 14:21; Status DC Fentanyl Citrate (Fentanyl 2ml Vial) 50 mcg 1X ONCE IV Last administered on 07/21/18at 14:16; Start 07/21/18 at 14:15; Stop 07/21/18 at 14:21; Status DC Iodixanol (Visipaque 320) 60 ml 1X ONCE IART Last administered on 07/21/18at 14:15; Start 07/21/18 at 14:15; Stop 07/21/18 at 14:21; Status DC Heparin Sodium (Porcine) (Heparin Sodium) 5,000 unit 1X ONCE IV Last administered on 07/21/18at 14:17; Start 07/21/18 at 14:15; Stop 07/21/18 at 14:21; Status DC Info (CONTRAST GIVEN -- Rx MONITORING) 1 each PRN DAILY PRN MC SEE COMMENTS; Start 07/21/18 at 14:30; Stop 07/23/18 at 14:29; Status DC Lidocaine/Sodium Bicarbonate (Buffered Lidocaine 1%) 3 ml STK-MED ONCE .ROUTE ; Start 07/22/18 at 09:06; Stop 07/22/18 at 09:07; Status DC Midazolam HCl (Versed) 2 mg STK-MED ONCE .ROUTE ; Start 07/22/18 at 09:21; Stop 07/22/18 at 09:22; Status DC Fentanyl Citrate (Fentanyl 2ml Vial) 100 mcg STK-MED ONCE .ROUTE ; Start 07/22/18 at 09:21; Stop 07/22/18 at 09:22; Status DC Midazolam HCl (Versed) 2 mg STK-MED ONCE .ROUTE ; Start 07/22/18 at 09:30; Stop 07/22/18 at 09:31; Status DC Fentanyl Citrate (Fentanyl 2ml Vial) 100 mcg STK-MED ONCE .ROUTE ; Start 07/22/18 at 09:30; Stop 07/22/18 at 09:31; Status DC Lidocaine/Sodium Bicarbonate (Buffered Lidocaine 1%) 3 ml 1X ONCE IJ Last administered on 07/22/18at 10:00; Start 07/22/18 at 10:00; Stop 07/22/18 at 10:01; Status DC Midazolam HCl (Versed) 2 mg 1X ONCE IV Last administered on 07/22/18at 10:00; Start 07/22/18 at 10:00; Stop 07/22/18 at 10:01; Status DC Fentanyl Citrate (Fentanyl 2ml Vial) 100 mcg 1X ONCE IV Last administered on 07/22/18at 10:00; Start 07/22/18 at 10:00; Stop 07/22/18 at 10:01; Status DC Diclofenac Sodium (Voltaren) 1 estephanie PRN BID PRN TP PAIN Last administered on 07/24/18at 20:57; Start 07/22/18 at 16:00 Ceftriaxone Sodium (Rocephin) 1 gm Q24H IVP Last administered on 07/24/18at 20:56; Start 07/22/18 at 21:00 Acetaminophen (Tylenol) 650 mg PRN Q6HRS PRN PO FEVER Last administered on at 15:40; Start 07/22/18 at 19:45 Allopurinol (Zyloprim) 300 mg DAILY PO Last administered on 07/24/18at 08:04; Start 07/23/18 at 09:15 Guaifenesin (Robitussin Dm) 10 ml PRN Q6HRS PRN PO COUGH Last administered on 07/25/18at 03:48; Start 07/23/18 at 11:45 Multi-Ingredient Mouthwash/Gargle (Gi Cocktail) 20 ml PRN QID PRN PO CHEST PAIN Last administered on 07/24/18at 18:45; Start 07/24/18 at 18:45 Ondansetron HCl (Zofran) 8 mg PRN Q6HRS PRN IV NAUSEA/VOMITING, 1ST CHOICE; Start 07/25/18 at 01:15 Metoclopramide HCl (Reglan Vial) 5 mg PRN Q6HRS PRN IV NAUSEA/VOMITING, 2ND CHOICE Last administered on 07/25/18at 01:39; Start 07/25/18 at 01:15 Active Scripts Active Erythromycin (Erythromycin Base) 1 Gm Oint...g. 1 Gm OP QID 0.5% 1/2" ribbon to lower eyelid x7 days [place] 5-325 Tablet (Acetaminophen/Hydrocodone Bitart) 1 Each Tablet 1-2 Each PO PRN Q6HRS PRN as needed for pain Ibuprofen 400 Mg Tablet 400 Mg PO PRN Q6HRS PRN take with food or milk Valacyclovir (Valacyclovir Hcl) 1,000 Mg Tablet 1 Tab PO TID Reported Ranitidine Hcl 150 Mg Tablet 1 Tab PO BID Lisinopril-Hctz 10-12.5 Mg Tab (Lisinopril/Hydrochlorothiazide) 1 Each Tablet 1 Tab PO DAILY Vitals/I & O Vital Sign - Last 24 Hours 07/24/18 07/24/18 07/24/18 07/24/18 08:00 08:05 10:38 11:56 Temp 98.7 98.7 Pulse 85 Resp 18 B/P (MAP) 106/60 (75) Pulse Ox 97 O2 Delivery Room Air Room Air Room Air Room Air 07/24/18 07/24/18 07/24/18 07/24/18 15:04 15:33 15:36 18:40 Temp 99.0 98.7 99.0 98.7 Pulse 113 112 Resp 16 16 B/P (MAP) 120/66 (84) 133/69 (90) Pulse Ox 93 97 O2 Delivery Room Air Room Air Room Air Room Air 07/24/18 07/24/18 07/24/18 07/24/18 20:01 20:18 21:44 22:52 Temp 98.3 98.3 Pulse 112 Resp 18 17 B/P (MAP) 116/87 (97) Pulse Ox 97 96 O2 Delivery Room Air Room Air Room Air Room Air O2 Flow Rate 2.0 2.0 07/25/18 07/25/18 07/25/18 02:50 03:49 04:49 Temp 98.1 98.1 Pulse 106 Resp 19 18 18 B/P (MAP) 137/67 (90) Pulse Ox 98 98 98 O2 Delivery Room Air Room Air Room Air O2 Flow Rate 2.0 2.0 Intake and Output 07/24/18 07/24/18 07/25/18 14:59 22:59 06:59 Intake Total 940 ml Output Total 250 ml 150 ml Balance 940 ml -250 ml -150 ml Nutrition Consultation Dietary Evaluation: Recommendations by RD: Increase Calorie Intake, Protein supplementation Comments: Continue w/cardiac/ADA diet as ordered, honor food preferences, and provide snacks as requested REC glucerna (strawberry) BID w/lunch and dinner Expected Outcomes/Goals: PO intake to meet >75% est needs Interpretation of weight loss: >7.5% in 3 months Malnutrition Findings: Food and Nutrition Intake (Mod: <75% est energy req 7days Weight Status: Overweight ROLAND JACOBS MD Jul 25, 2018 07:59
[2018-07-25] MEDS: ALLOPURINOL 300 MG TABLET. PO SCH (08:44)
[2018-07-25] MEDS: DOCUSATE SODIUM 100 MG CAPSULE. PO SCH (08:44)
[2018-07-25] MEDS: CYANOCOBALAMIN (VITAMIN B-12) 1,000 MCG TABLET. PO SCH (08:44)
[2018-07-25] MEDS: FAMOTIDINE 20 MG TABLET. PO SCH ×2 (08:44→21:52)
[2018-07-25 10:27] LABS: BASO % 0 % (0-3); EOS # 0.1 x10^3/uL (0.0-0.7); EOS % 1 % (0-3); HEMATOCRIT 26.9 % (39.0-53.0); HEMOGLOBIN 8.5 g/dL (13.0-17.5); LYMPH # 0.9 x10^3/uL (1.0-4.8); LYMPH % 16 % (24-48); MEAN CORPUSCULAR HEMOGLOBIN 24 pg (25-35); MEAN CORPUSCULAR HGB CONC 32 g/dL (31-37); MEAN CORPUSCULAR VOLUME 77 fL (79-100); MONO # 0.5 x10^3/uL (0.0-1.1); MONO % 10 % (0-9); NEUT % 73 % (31-73); PLATELET COUNT 369 x10^3/uL (140-400); WHITE BLOOD COUNT 5.5 x10^3/uL (4.0-11.0)
--- NOTE | 2018-07-25 10:27 | PDOC ---
Infectious Disease Note Subjective Subjective c/o sore throat and ongoing reflux Tired, didn't sleep too well last night N/V earlier Less cough No fevers last 24 hours No BM Vital Sign Vital Signs Vital Signs Date Time Temp Pulse Resp B/P (MAP) Pulse Ox O2 Delivery O2 Flow Rate FiO2 07/25/18 08:00 Room Air 07/25/18 07:00 98.7 103 19 133/86 (102) 98 98.7 07/25/18 04:49 2.0 Physical Exam PHYSICAL EXAM GENERAL: Sitting in the chair, alert, NAD HEENT: oral cavity clear NECK: Supple. LUNGS: Decreased breath sounds at bases. HEART: S1, S2 ABDOMEN: Soft, nontender EXTREMITIES: No edema, no cyanosis. DERMATOLOGIC: Warm, dry, no generalized rash. CENTRAL NERVOUS SYSTEM: Alert and oriented x 3. Grossly nonfocal. PIV Labs Micro Microbiology 07/22/18 Blood Culture - Preliminary, Resulted NO GROWTH AFTER 2 DAY Objective Assessment Fever ? could be from underlying mediastinal mass, better Large mediastinal mass suspect NHL SVC s/p stent, 07/21 S/P BM bx, 07/22 Polyclonal gammopathy Gastric reflux N/V Plan Plan of Care Rocephin BC neg so far Monitor temp/labs Awaiting biopsy report Antiemetic and Maalox as directed per primary D/w mother Attending Co-Sign Attending Co-Sign The patient was seen and interviewed as well as examined at the bedside. The chart was reviewed. The case was discussed. Agree with the plan of care. GABI MCMILLAN APRN Jul 25, 2018 10:27 MARIAJOSE OLIVEIRA MD Jul 25, 2018 15:09
[2018-07-25 10:29] LABS: ALBUMIN 2.1 g/dL (3.4-5.0); ALBUMIN/GLOBULIN RATIO 0.3 (1.0-1.7); CALCIUM 9.3 mg/dL (8.5-10.1); CREATININE 0.8 mg/dL (0.7-1.3); GFR 119.7; POTASSIUM 4.3 mmol/L (3.5-5.1); TOTAL BILIRUBIN 0.3 mg/dL (0.2-1.0)
[2018-07-25] MEDS: BENZOCAINE/MENTHOL LOZENGE. PO PRN (10:44)
[2018-07-25 11:00] VITALS: BP 125/72
[2018-07-25 15:00] VITALS: BP 134/77
[2018-07-25] MEDS: ALBUTEROL SULFATE 2.5 MG/3 ML NEBU. NEB PRN (15:34)
[2018-07-25] MEDS: DICLOFENAC SODIUM 1% TOPICAL GEL 100GM TUBE. TP PRN ×2 (17:04→21:53)
[2018-07-25] MEDS: LIDO:MAALOX 1:1 20 ML SINGLE DOSE. PO PRN (17:29)
[2018-07-25 19:30] VITALS: BP 130/89
[2018-07-25] MEDS: ZOLPIDEM 5 MG TABLET. PO SCH (21:00)
[2018-07-25] MEDS: IBUPROFEN 400 MG TABLET. PO PRN (21:51)
[2018-07-25] MEDS: ENOXAPARIN 40 MG/0.4 ML SYRINGE. SQ SCH (21:52)
[2018-07-25] MEDS: cefTRIAXone IV Push 1 GM VIAL. IVP SCH (21:53)
[2018-07-25 22:55] VITALS: BP 106/68
[2018-07-26 03:51] VITALS: BP 106/72
[2018-07-26 07:00] VITALS: BP 118/74
--- NOTE | 2018-07-26 08:14 | PDOC ---
Infectious Disease Note Subjective Subjective sore throat some better and less reflux Frustrated procedure was cancelled No N/V Less cough No fevers last 24 hours No BM Vital Sign Vital Signs Vital Signs Date Time Temp Pulse Resp B/P (MAP) Pulse Ox O2 Delivery O2 Flow Rate FiO2 07/26/18 07:00 97.5 99 18 118/74 (89) 100 Room Air 97.5 07/25/18 20:21 2.0 Physical Exam PHYSICAL EXAM GENERAL: Sitting on side of bed, alert, NAD HEENT: oral cavity clear NECK: Supple. LUNGS: Decreased breath sounds at bases. HEART: S1, S2 ABDOMEN: Soft, nontender EXTREMITIES: No edema, no cyanosis. DERMATOLOGIC: Warm, dry, no generalized rash. CENTRAL NERVOUS SYSTEM: Alert and oriented x 3. Grossly nonfocal. PIV Labs Lab Laboratory Tests Test 07/25/18 09:30 White Blood Count 5.5 x10^3/uL (4.0-11.0) Red Blood Count 3.50 x10^6/uL (4.30-5.70) Hemoglobin 8.5 g/dL (13.0-17.5) Hematocrit 26.9 % (39.0-53.0) Mean Corpuscular Volume 77 fL (79-100) Mean Corpuscular Hemoglobin 24 pg (25-35) Mean Corpuscular Hemoglobin Concent 32 g/dL (31-37) Red Cell Distribution Width 17.0 % (11.5-14.5) Platelet Count 369 x10^3/uL (140-400) Neutrophils (%) (Auto) 73 % (31-73) Lymphocytes (%) (Auto) 16 % (24-48) Monocytes (%) (Auto) 10 % (0-9) Eosinophils (%) (Auto) 1 % (0-3) Basophils (%) (Auto) 0 % (0-3) Neutrophils # (Auto) 4.0 x10^3uL (1.8-7.7) Lymphocytes # (Auto) 0.9 x10^3/uL (1.0-4.8) Monocytes # (Auto) 0.5 x10^3/uL (0.0-1.1) Eosinophils # (Auto) 0.1 x10^3/uL (0.0-0.7) Basophils # (Auto) 0.0 x10^3/uL (0.0-0.2) Sodium Level 132 mmol/L (136-145) Potassium Level 4.3 mmol/L (3.5-5.1) Chloride Level 95 mmol/L (98-107) Carbon Dioxide Level 29 mmol/L (21-32) Anion Gap 8 (6-14) Blood Urea Nitrogen 8 mg/dL (8-26) Creatinine 0.8 mg/dL (0.7-1.3) Estimated GFR (Cockcroft-Gault) 119.7 BUN/Creatinine Ratio 10 (6-20) Glucose Level 122 mg/dL (70-99) Calcium Level 9.3 mg/dL (8.5-10.1) Total Bilirubin 0.3 mg/dL (0.2-1.0) Aspartate Amino Transf (AST/SGOT) 108 U/L (15-37) Alanine Aminotransferase (ALT/SGPT) 125 U/L (16-63) Alkaline Phosphatase 70 U/L (46-116) Total Protein 9.0 g/dL (6.4-8.2) Albumin 2.1 g/dL (3.4-5.0) Albumin/Globulin Ratio 0.3 (1.0-1.7) Lipase 117 U/L (73-393) Micro Microbiology 07/22/18 Blood Culture - Preliminary, Resulted NO GROWTH AFTER 3 DAYS Objective Assessment Fever ? 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
--- NOTE | 2018-07-26 08:22 | PDOC ---
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 possible SVC stenting per IR Trachea impingement - airway could be imminently compromised, appreciate pulm input mod/severe malnutrition substance abuse, cocaine constipation htn Shoulder pain History of Present Illness History of Present Illness Mr. Currie is a 58 year old male admit with chest pain and worsening chest pain. 3 weeks prior to admission he first noticed a constant pain that gradually getting worse. Also complains of gas pain and constipation, and has not stooled for days, new cough, stable wheezing, Patient states the shortness of breath getting worse with supine position and light activity. Patient denies palpitation, fever and chills, sick contact, recent immobilization or history of DVT and PE, nausea and vomiting patient complaining of constipation and states he did not have any bowel movement for the 5 days preceding his ED visit and usually he has had a bowel movement every day. He was notably positive for cocaine and found with 11.9 CM mediastinal mass on CT chest. See by pulm, CT surgery, IR, Heme/Onc, RadOnc S/P SVC stenting, bone marrow biopsy and left groin biopsy. D/w pathologist - the review of the BM biopsy and LN non-diagnostic. 6: Neck swelling improved, still with strong cough. Has some right shoulder pain today. Feels a bit better after breathing treatments. S/p echo in anticipation of anthracycline treatment. Feeling better after SVC stenting and bone marrow bx. ECHO with 45% EF, likely 2/2 tachycardia/cocaine use. BB should not be given with positive cocaine. He is asking for cough syrup. Spiked a fever, started on antibiotics, seen by ID now as well. 07/25: Vomiting overnight, now with a sore throat. He is a bit anxious about biopsy tomorrow. No fevers, still on rocephin. Still with violent sounding cough. Apparently his lovenox was given late yesterday, will delay biopsy until tomorrow. Otherwise, still with cough Plan: Interventional Radiology will proceed with CT-guided biopsy tomorrow off anticoagulants. Moderate risk for mediastinoscopy post-procedure, likely will have left pneumothorax as well. He is aware Vitals Vitals Vital Signs Date Time Temp Pulse Resp B/P (MAP) Pulse Ox O2 Delivery O2 Flow Rate FiO2 07/26/18 07:00 97.5 99 18 118/74 (89) 100 Room Air 97.5 07/25/18 20:21 2.0 Physical Exam Physical Exam GENERAL: Sitting in the chair, alert, NAD HEENT: oral cavity clear NECK: Supple. LUNGS: Decreased breath sounds at bases. HEART: S1, S2 ABDOMEN: Soft, nontender EXTREMITIES: No edema, no cyanosis. DERMATOLOGIC: Warm, dry, no generalized rash. CENTRAL NERVOUS SYSTEM: Alert and oriented x 3. Grossly nonfocal. PIV General: Alert, Oriented X3, Other (dilated venous network on the anterior chest wall) Heart: Regular rate, Normal S1, Normal S2 Lungs: Clear Abdomen: Soft, No tenderness Extremities: No edema Skin: No significant lesion Labs LABS Laboratory Tests Test 07/25/18 09:30 White Blood Count 5.5 x10^3/uL (4.0-11.0) Red Blood Count 3.50 x10^6/uL (4.30-5.70) Hemoglobin 8.5 g/dL (13.0-17.5) Hematocrit 26.9 % (39.0-53.0) Mean Corpuscular Volume 77 fL (79-100) Mean Corpuscular Hemoglobin 24 pg (25-35) Mean Corpuscular Hemoglobin Concent 32 g/dL (31-37) Red Cell Distribution Width 17.0 % (11.5-14.5) Platelet Count 369 x10^3/uL (140-400) Neutrophils (%) (Auto) 73 % (31-73) Lymphocytes (%) (Auto) 16 % (24-48) Monocytes (%) (Auto) 10 % (0-9) Eosinophils (%) (Auto) 1 % (0-3) Basophils (%) (Auto) 0 % (0-3) Neutrophils # (Auto) 4.0 x10^3uL (1.8-7.7) Lymphocytes # (Auto) 0.9 x10^3/uL (1.0-4.8) Monocytes # (Auto) 0.5 x10^3/uL (0.0-1.1) Eosinophils # (Auto) 0.1 x10^3/uL (0.0-0.7) Basophils # (Auto) 0.0 x10^3/uL (0.0-0.2) Sodium Level 132 mmol/L (136-145) Potassium Level 4.3 mmol/L (3.5-5.1) Chloride Level 95 mmol/L (98-107) Carbon Dioxide Level 29 mmol/L (21-32) Anion Gap 8 (6-14) Blood Urea Nitrogen 8 mg/dL (8-26) Creatinine 0.8 mg/dL (0.7-1.3) Estimated GFR (Cockcroft-Gault) 119.7 BUN/Creatinine Ratio 10 (6-20) Glucose Level 122 mg/dL (70-99) Calcium Level 9.3 mg/dL (8.5-10.1) Total Bilirubin 0.3 mg/dL (0.2-1.0) Aspartate Amino Transf (AST/SGOT) 108 U/L (15-37) Alanine Aminotransferase (ALT/SGPT) 125 U/L (16-63) Alkaline Phosphatase 70 U/L (46-116) Total Protein 9.0 g/dL (6.4-8.2) Albumin 2.1 g/dL (3.4-5.0) Albumin/Globulin Ratio 0.3 (1.0-1.7) Lipase 117 U/L (73-393) Assessment and Plan Assessmemt and Plan Problems Medical Problems: (1) Anemia Status: Acute (2) Chest pain Status: Acute (3) Mediastinal mass Status: Acute (4) Shortness of breath Status: Acute (5) Tachycardia Status: Acute (6) Weight loss Status: Acute Comment Review of Relevant I have reviewed the following items karina (where applicable) has been applied. Labs Laboratory Tests Test 07/25/18 09:30 White Blood Count 5.5 x10^3/uL (4.0-11.0) Red Blood Count 3.50 x10^6/uL (4.30-5.70) Hemoglobin 8.5 g/dL (13.0-17.5) Hematocrit 26.9 % (39.0-53.0) Mean Corpuscular Volume 77 fL (79-100) Mean Corpuscular Hemoglobin 24 pg (25-35) Mean Corpuscular Hemoglobin Concent 32 g/dL (31-37) Red Cell Distribution Width 17.0 % (11.5-14.5) Platelet Count 369 x10^3/uL (140-400) Neutrophils (%) (Auto) 73 % (31-73) Lymphocytes (%) (Auto) 16 % (24-48) Monocytes (%) (Auto) 10 % (0-9) Eosinophils (%) (Auto) 1 % (0-3) Basophils (%) (Auto) 0 % (0-3) Neutrophils # (Auto) 4.0 x10^3uL (1.8-7.7) Lymphocytes # (Auto) 0.9 x10^3/uL (1.0-4.8) Monocytes # (Auto) 0.5 x10^3/uL (0.0-1.1) Eosinophils # (Auto) 0.1 x10^3/uL (0.0-0.7) Basophils # (Auto) 0.0 x10^3/uL (0.0-0.2) Sodium Level 132 mmol/L (136-145) Potassium Level 4.3 mmol/L (3.5-5.1) Chloride Level 95 mmol/L (98-107) Carbon Dioxide Level 29 mmol/L (21-32) Anion Gap 8 (6-14) Blood Urea Nitrogen 8 mg/dL (8-26) Creatinine 0.8 mg/dL (0.7-1.3) Estimated GFR (Cockcroft-Gault) 119.7 BUN/Creatinine Ratio 10 (6-20) Glucose Level 122 mg/dL (70-99) Calcium Level 9.3 mg/dL (8.5-10.1) Total Bilirubin 0.3 mg/dL (0.2-1.0) Aspartate Amino Transf (AST/SGOT) 108 U/L (15-37) Alanine Aminotransferase (ALT/SGPT) 125 U/L (16-63) Alkaline Phosphatase 70 U/L (46-116) Total Protein 9.0 g/dL (6.4-8.2) Albumin 2.1 g/dL (3.4-5.0) Albumin/Globulin Ratio 0.3 (1.0-1.7) Lipase 117 U/L (73-393) Laboratory Tests Test 07/25/18 09:30 White Blood Count 5.5 x10^3/uL (4.0-11.0) Red Blood Count 3.50 x10^6/uL (4.30-5.70) Hemoglobin 8.5 g/dL (13.0-17.5) Hematocrit 26.9 % (39.0-53.0) Mean Corpuscular Volume 77 fL (79-100) Mean Corpuscular Hemoglobin 24 pg (25-35) Mean Corpuscular Hemoglobin Concent 32 g/dL (31-37) Red Cell Distribution Width 17.0 % (11.5-14.5) Platelet Count 369 x10^3/uL (140-400) Neutrophils (%) (Auto) 73 % (31-73) Lymphocytes (%) (Auto) 16 % (24-48) Monocytes (%) (Auto) 10 % (0-9) Eosinophils (%) (Auto) 1 % (0-3) Basophils (%) (Auto) 0 % (0-3) Neutrophils # (Auto) 4.0 x10^3uL (1.8-7.7) Lymphocytes # (Auto) 0.9 x10^3/uL (1.0-4.8) Monocytes # (Auto) 0.5 x10^3/uL (0.0-1.1) Eosinophils # (Auto) 0.1 x10^3/uL (0.0-0.7) Basophils # (Auto) 0.0 x10^3/uL (0.0-0.2) Sodium Level 132 mmol/L (136-145) Potassium Level 4.3 mmol/L (3.5-5.1) Chloride Level 95 mmol/L (98-107) Carbon Dioxide Level 29 mmol/L (21-32) Anion Gap 8 (6-14) Blood Urea Nitrogen 8 mg/dL (8-26) Creatinine 0.8 mg/dL (0.7-1.3) Estimated GFR (Cockcroft-Gault) 119.7 BUN/Creatinine Ratio 10 (6-20) Glucose Level 122 mg/dL (70-99) Calcium Level 9.3 mg/dL (8.5-10.1) Total Bilirubin 0.3 mg/dL (0.2-1.0) Aspartate Amino Transf (AST/SGOT) 108 U/L (15-37) Alanine Aminotransferase (ALT/SGPT) 125 U/L (16-63) Alkaline Phosphatase 70 U/L (46-116) Total Protein 9.0 g/dL (6.4-8.2) Albumin 2.1 g/dL (3.4-5.0) Albumin/Globulin Ratio 0.3 (1.0-1.7) Lipase 117 U/L (73-393) Microbiology 07/22/18 Blood Culture - Preliminary, Resulted NO GROWTH AFTER 3 DAYS Medications Current Medications Aspirin (Children'S Aspirin) 324 mg 1X ONCE PO Last administered on 07/19/18at 07:31; Start 07/19/18 at 07:15; Stop 07/19/18 at 07:16; Status DC Nitroglycerin (Nitrostat) 0.4 mg PRN Q5MIN PRN SL CP RATING > 1/10 Last administered on 07/19/18at 07:32; Start 07/19/18 at 07:15; Stop 07/20/18 at 07:14; Status DC Iohexol (Omnipaque 350 Mg/ml) 90 ml 1X ONCE IV Last administered on 07/19/18at 08:24; Start 07/19/18 at 08:00; Stop 07/19/18 at 08:01; Status DC Info (CONTRAST GIVEN -- Rx MONITORING) 1 each PRN DAILY PRN MC SEE COMMENTS; Start 07/19/18 at 08:15; Stop 07/21/18 at 08:14; Status DC Sodium Chloride 1,000 ml @ 150 mls/hr Q6H40M IV Last administered on 07/20/18at 09:01; Start 07/19/18 at 09:30; Stop 07/20/18 at 09:29; Status DC Simethicone (Gas-X) 80 mg PRN AFTMEALHC PRN PO GAS / BLOATING Last administered on 07/19/18at 15:27; Start 07/19/18 at 14:45 Docusate Sodium (Colace) 100 mg DAILY PO Last administered on 07/25/18at 08:44; Start 07/20/18 at 09:00 Polyethylene Glycol (miraLAX PACKET) 17 gm PRN DAILY PRN PO CONSTIPATION; Start 07/19/18 at 14:45 Zolpidem Tartrate (Ambien) 5 mg HS PO Last administered on 07/20/18 21:21; Start 07/19/18 at 21:00 Acetaminophen/ Hydrocodone Bitart (Lortab 5/325) 1 tab PRN Q6HRS PRN PO MODERATE-SEVERE PAIN Last administered on 07/25/18 17:03; Start 07/19/18 at 14:45 Ibuprofen (Motrin) 400 mg PRN Q6HRS PRN PO MILD PAIN 1-3 Last administered on 07/25/18 21:51; Start 07/19/18 at 14:45 Famotidine (Pepcid) 20 mg BID PO Last administered on 07/25/18 21:52; Start 07/19/18 at 21:00 Enoxaparin Sodium (Lovenox 40mg Syringe) 40 mg Q24H SQ Last administered on 07/25 21:52; Start 07/19/18 at 21:00 Cyanocobalamin (Vitamin B-12) 1,000 mcg DAILY PO Last administered on 07/25/18 08:44; Start 07/20/18 at 10:00 Albuterol Sulfate (Ventolin Neb Soln) 2.5 mg PRN Q6HRS PRN NEB SHORTNESS OF BREATH Last administered on 07/25/18 15:34; Start 07/20/18 at 14:00 Iohexol (Omnipaque 300 Mg/ml) 100 ml STK-MED ONCE .ROUTE ; Start 07/21/18 at 13:00; Stop 07/21/18 at 13:01; Status DC Heparin Sodium/ Sodium Chloride 500 ml @ As Directed STK-MED ONCE .ROUTE ; Start 07/21/18 at 13:00; Stop 07/21/18 at 13:01; Status DC Lidocaine/Sodium Bicarbonate (Buffered Lidocaine 1%) 3 ml STK-MED ONCE .ROUTE ; Start 07/21/18 at 13:01; Stop 07/21/18 at 13:02; Status DC Midazolam HCl (Versed) 2 mg STK-MED ONCE .ROUTE ; Start 07/21/18 at 13:07; Stop 07/21/18 at 13:08; Status DC Fentanyl Citrate (Fentanyl 2ml Vial) 100 mcg STK-MED ONCE .ROUTE ; Start 07/21/18 at 13:07; Stop 07/21/18 at 13:08; Status DC Iohexol (Omnipaque 240 Mg/ml) 50 ml STK-MED ONCE .ROUTE ; Start 07/21/18 at 13:09; Stop 07/21/18 at 13:10; Status DC Heparin Sodium/ Sodium Chloride 500 ml @ As Directed STK-MED ONCE .ROUTE ; Start 07/21/18 at 13:32; Stop 07/21/18 at 13:33; Status DC Heparin Sodium/ Sodium Chloride (HEPARIN for ARTERIAL LINE FLUSH) 3,000 unit 1X ONCE IART Last administered on 07/21/18at 14:15; Start 07/21/18 at 14:15; Stop 07/21/18 at 14:21; Status DC Lidocaine/Sodium Bicarbonate (Buffered Lidocaine 1%) 4 ml 1X ONCE IJ Last administered on 07/21/18at 14:15; Start 07/21/18 at 14:15; Stop 07/21/18 at 14:22; Status DC Midazolam HCl (Versed) 2 mg 1X ONCE IV Last administered on 07/21/18at 14:16; Start 07/21/18 at 14:15; Stop 07/21/18 at 14:21; Status DC Fentanyl Citrate (Fentanyl 2ml Vial) 50 mcg 1X ONCE IV Last administered on 07/21/18at 14:16; Start 07/21/18 at 14:15; Stop 07/21/18 at 14:21; Status DC Iodixanol (Visipaque 320) 60 ml 1X ONCE IART Last administered on 07/21/18at 14:15; Start 07/21/18 at 14:15; Stop 07/21/18 at 14:21; Status DC Heparin Sodium (Porcine) (Heparin Sodium) 5,000 unit 1X ONCE IV Last administered on 07/21/18at 14:17; Start 07/21/18 at 14:15; Stop 07/21/18 at 14:21; Status DC Info (CONTRAST GIVEN -- Rx MONITORING) 1 each PRN DAILY PRN MC SEE COMMENTS; Start 07/21/18 at 14:30; Stop 07/23/18 at 14:29; Status DC Lidocaine/Sodium Bicarbonate (Buffered Lidocaine 1%) 3 ml STK-MED ONCE .ROUTE ; Start 07/22/18 at 09:06; Stop 07/22/18 at 09:07; Status DC Midazolam HCl (Versed) 2 mg STK-MED ONCE .ROUTE ; Start 07/22/18 at 09:21; Stop 07/22/18 at 09:22; Status DC Fentanyl Citrate (Fentanyl 2ml Vial) 100 mcg STK-MED ONCE .ROUTE ; Start 07/22/18 at 09:21; Stop 07/22/18 at 09:22; Status DC Midazolam HCl (Versed) 2 mg STK-MED ONCE .ROUTE ; Start 07/22/18 at 09:30; Stop 07/22/18 at 09:31; Status DC Fentanyl Citrate (Fentanyl 2ml Vial) 100 mcg STK-MED ONCE .ROUTE ; Start 07/22/18 at 09:30; Stop 07/22/18 at 09:31; Status DC Lidocaine/Sodium Bicarbonate (Buffered Lidocaine 1%) 3 ml 1X ONCE IJ Last administered on 07/22/18at 10:00; Start 07/22/18 at 10:00; Stop 07/22/18 at 10:01; Status DC Midazolam HCl (Versed) 2 mg 1X ONCE IV Last administered on 07/22/18at 10:00; Start 07/22/18 at 10:00; Stop 07/22/18 at 10:01; Status DC Fentanyl Citrate (Fentanyl 2ml Vial) 100 mcg 1X ONCE IV Last administered on 07/22/18at 10:00; Start 07/22/18 at 10:00; Stop 07/22/18 at 10:01; Status DC Diclofenac Sodium (Voltaren) 1 estephanie PRN BID PRN TP PAIN Last administered on 07/25/18 21:53; Start 07/22/18 at 16:00 Ceftriaxone Sodium (Rocephin) 1 gm Q24H IVP Last administered on 07/25/18at 21:53; Start 07/22/18 at 21:00 Acetaminophen (Tylenol) 650 mg PRN Q6HRS PRN PO FEVER Last administered on 07/23/18at 15:40; Start 07/22/18 at 19:45 Allopurinol (Zyloprim) 300 mg DAILY PO Last administered on 07/25/18 08:44; Start 07/23/18 at 09:15 Guaifenesin (Robitussin Dm) 10 ml PRN Q6HRS PRN PO COUGH Last administered on 07/25/18 17:03; Start 07/23/18 at 11:45 Multi-Ingredient Mouthwash/Gargle (Gi Cocktail) 20 ml PRN QID PRN PO CHEST PAIN Last administered on 07/25/18 17:29; Start 07/24/18 at 18:45 Ondansetron HCl (Zofran) 8 mg PRN Q6HRS PRN IV NAUSEA/VOMITING, 1ST CHOICE; Start 07/25/18 at 01:15 Metoclopramide HCl (Reglan Vial) 5 mg PRN Q6HRS PRN IV NAUSEA/VOMITING, 2ND CHOICE Last administered on 07/25/18at 01:39; Start 07/25/18 at 01:15 Throat Lozenges (Cepacol Sore Throat Lozenge) 1 gisselle PRN Q2HRS PRN PO SORE THROAT Last administered on 07/25/18at 10:44; Start 07/25/18 at 10:30 Active Scripts Active Erythromycin (Erythromycin Base) 1 Gm Oint...g. 1 Gm OP QID 0.5% 1/2" ribbon to lower eyelid x7 days Cunningham 5-325 Tablet (Acetaminophen/Hydrocodone Bitart) 1 Each Tablet 1-2 Each PO PRN Q6HRS PRN as needed for pain Ibuprofen 400 Mg Tablet 400 Mg PO PRN Q6HRS PRN take with food or milk Valacyclovir (Valacyclovir Hcl) 1,000 Mg Tablet 1 Tab PO TID Reported Ranitidine Hcl 150 Mg Tablet 1 Tab PO BID Lisinopril-Hctz 10-12.5 Mg Tab (Lisinopril/Hydrochlorothiazide) 1 Each Tablet 1 Tab PO DAILY Vitals/I & O Vital Sign - Last 24 Hours 07/25/18 07/25/18 07/25/18 07/25/18 10:44 11:00 11:50 15:00 Temp 99.4 98.7 99.4 98.7 Pulse 107 108 Resp 19 B/P (MAP) 125/72 (89) 134/77 (96) Pulse Ox 94 97 94 97 O2 Delivery Room Air Room Air Room Air 07/25/18 07/25/18 07/25/18 07/25/18 15:34 17:03 18:03 19:30 Temp 97.9 97.9 Pulse 111 Resp 20 20 B/P (MAP) 130/89 (103) Pulse Ox 94 98 O2 Delivery Room Air Room Air Room Air Room Air 07/25/18 07/25/18 07/26/18 07/26/18 20:21 22:55 03:51 07:00 Temp 98.9 97.9 97.5 98.9 97.9 97.5 Pulse 108 98 99 Resp 20 20 18 B/P (MAP) 106/68 (81) 106/72 (83) 118/74 (89) Pulse Ox 96 96 100 O2 Delivery Room Air Room Air Room Air Room Air O2 Flow Rate 2.0 Intake and Output 07/25/18 07/25/18 07/26/18 14:59 22:59 06:59 Intake Total 120 ml 200 ml Balance 120 ml 200 ml Nutrition Consultation Dietary Evaluation: Recommendations by RD: Increase Calorie Intake, Protein supplementation Comments: Continue w/cardiac/ADA diet as ordered, honor food preferences, and provide snacks as requested REC glucerna (strawberry) BID w/lunch and dinner Expected Outcomes/Goals: PO intake to meet >75% est needs Interpretation of weight loss: >7.5% in 3 months Malnutrition Findings: Food and Nutrition Intake (Mod: <75% est energy req 7days Weight Status: Overweight ROLAND JACOBS MD Jul 26, 2018 08:22
[2018-07-26] MEDS: FAMOTIDINE 20 MG TABLET. PO SCH ×2 (08:40→21:25)
[2018-07-26] MEDS: CYANOCOBALAMIN (VITAMIN B-12) 1,000 MCG TABLET. PO SCH (08:40)
[2018-07-26] MEDS: ALLOPURINOL 300 MG TABLET. PO SCH (08:40)
[2018-07-26] MEDS: DOCUSATE SODIUM 100 MG CAPSULE. PO SCH (08:40)
--- NOTE | 2018-07-26 08:50 | PDOC ---
SUBJECTIVE Subjective S: pending mediastinal bx today O: Gen: NAD, resting in bed, decreased facial plethora, voice a bit hoarse Psych: pleasant mood and affect Labs: HCG and AFP neg, LDH sl high BMBx and ing LN bx pending path but prelim neg uric ac 4.0 b2mg 2.1 hep ABC neg HIV neg TTE: EF 45-50% 2/2 tachy likely A/P: He is a 58-year-old man with a mediastinal mass concerning for lymphoma with elevated LDH, with anemia, s/p BMBx and inguinal LN bx non-dx'ic pending mediastinal bx today SVC syndrome: better post SVC stent, ing and bone marrow bx's neg, can get treatment started as soon as diagnosis confirmed, IR/radiation oncology/pulm/CTS opinions apprec, on allopurinol to prevent poss TLS once tx is initiated tachycardia: no beta blockade w/ h/o recent cocaine, w/ sl dec EF (but ok for chemo) (apprec primary assistance) fever: none recent, on Abx Anemia: Consistent with anemia of chronic disease, bone marrow biopsy for staging formal report pending Shoulder pain: he can follow-up with Ortho as needed B12 deficiency: he can continue oral replacement Polysubstance abuse: Have recommended avoiding all drugs tobacco and alcohol and he would like to be compliant Prophylaxis: On Lovenox 40 mg given nightly Disposition: After diagnosis made and treatment plan initiated, would prefer to keep in house til dx confirmed and poss 1st cycle of chemo Thank you kindly and please don't hesitate to call w/ ?s. OBJECTIVE Vital Signs Vital Signs Date Time Temp Pulse Resp B/P (MAP) Pulse Ox O2 Delivery O2 Flow Rate FiO2 07/26/18 07:00 97.5 99 18 118/74 (89) 100 Room Air 97.5 07/26/18 03:51 97.9 98 20 106/72 (83) 96 Room Air 97.9 07/25/18 22:55 98.9 108 20 106/68 (81) 96 Room Air 98.9 07/25/18 20:21 Room Air 2.0 07/25/18 19:30 97.9 111 20 130/89 (103) 98 Room Air 97.9 07/25/18 18:03 Room Air 07/25/18 17:03 20 94 Room Air 07/25/18 15:34 Room Air 07/25/18 15:00 98.7 108 19 134/77 (96) 97 Room Air 98.7 07/25/18 11:50 19 94 07/25/18 11:00 99.4 107 19 125/72 (89) 97 Room Air 99.4 07/25/18 10:44 19 94 Room Air I & O Intake and Output 07/26/18 06:59 Intake Total 320 ml Balance 320 ml Intake Oral 320 ml # Voids 2 COMMENT Lab Laboratory Tests Test 07/25/18 09:30 White Blood Count 5.5 x10^3/uL (4.0-11.0) Red Blood Count 3.50 x10^6/uL (4.30-5.70) Hemoglobin 8.5 g/dL (13.0-17.5) Hematocrit 26.9 % (39.0-53.0) Mean Corpuscular Volume 77 fL (79-100) Mean Corpuscular Hemoglobin 24 pg (25-35) Mean Corpuscular Hemoglobin Concent 32 g/dL (31-37) Red Cell Distribution Width 17.0 % (11.5-14.5) Platelet Count 369 x10^3/uL (140-400) Neutrophils (%) (Auto) 73 % (31-73) Lymphocytes (%) (Auto) 16 % (24-48) Monocytes (%) (Auto) 10 % (0-9) Eosinophils (%) (Auto) 1 % (0-3) Basophils (%) (Auto) 0 % (0-3) Neutrophils # (Auto) 4.0 x10^3uL (1.8-7.7) Lymphocytes # (Auto) 0.9 x10^3/uL (1.0-4.8) Monocytes # (Auto) 0.5 x10^3/uL (0.0-1.1) Eosinophils # (Auto) 0.1 x10^3/uL (0.0-0.7) Basophils # (Auto) 0.0 x10^3/uL (0.0-0.2) Sodium Level 132 mmol/L (136-145) Potassium Level 4.3 mmol/L (3.5-5.1) Chloride Level 95 mmol/L (98-107) Carbon Dioxide Level 29 mmol/L (21-32) Anion Gap 8 (6-14) Blood Urea Nitrogen 8 mg/dL (8-26) Creatinine 0.8 mg/dL (0.7-1.3) Estimated GFR (Cockcroft-Gault) 119.7 BUN/Creatinine Ratio 10 (6-20) Glucose Level 122 mg/dL (70-99) Calcium Level 9.3 mg/dL (8.5-10.1) Total Bilirubin 0.3 mg/dL (0.2-1.0) Aspartate Amino Transf (AST/SGOT) 108 U/L (15-37) Alanine Aminotransferase (ALT/SGPT) 125 U/L (16-63) Alkaline Phosphatase 70 U/L (46-116) Total Protein 9.0 g/dL (6.4-8.2) Albumin 2.1 g/dL (3.4-5.0) Albumin/Globulin Ratio 0.3 (1.0-1.7) Lipase 117 U/L (73-393) Nutrition Consultation Dietary Evaluation: Recommendations by RD: Increase Calorie Intake, Protein supplementation Comments: Continue w/cardiac/ADA diet as ordered, honor food preferences, and provide snacks as requested REC glucerna (strawberry) BID w/lunch and dinner Expected Outcomes/Goals: PO intake to meet >75% est needs Interpretation of weight loss: >7.5% in 3 months Malnutrition Findings: Food and Nutrition Intake (Mod: <75% est energy req 7days Weight Status: Overweight AYSHA BERRY MD Jul 26, 2018 08:50
[2018-07-26] MEDS: HYDROcodone/APAP 5/325MG 1 TAB TABLET PO PRN ×2 (10:00→18:13)
[2018-07-26] MEDS: SIMETHICONE 80 MG TAB.CHEW PO PRN ×2 (10:00→18:14)
[2018-07-26 10:50] VITALS: BP 137/73
--- NOTE | 2018-07-26 10:52 | PDOC ---
PULMONARY PROGRESS NOTES Subjective NOT SOA NO CHEST PAIN Vitals Vital Signs Date Time Temp Pulse Resp B/P (MAP) Pulse Ox O2 Delivery O2 Flow Rate FiO2 07/26/18 10:00 100 Room Air 07/26/18 07:00 97.5 99 18 118/74 (89) 97.5 07/25/18 20:21 2.0 ROS: No Nausea, No Chest Pain, No Abdominal Pain, No Increase Cough General: Alert, Oriented X4 Lungs: Clear Cardiovascular: S1, S2 Abdomen: Soft Neuro Exam: Alert Extremities: No Edema Labs Laboratory Tests Test 07/25/18 09:30 White Blood Count 5.5 x10^3/uL (4.0-11.0) Red Blood Count 3.50 x10^6/uL (4.30-5.70) Hemoglobin 8.5 g/dL (13.0-17.5) Hematocrit 26.9 % (39.0-53.0) Mean Corpuscular Volume 77 fL (79-100) Mean Corpuscular Hemoglobin 24 pg (25-35) Mean Corpuscular Hemoglobin Concent 32 g/dL (31-37) Red Cell Distribution Width 17.0 % (11.5-14.5) Platelet Count 369 x10^3/uL (140-400) Neutrophils (%) (Auto) 73 % (31-73) Lymphocytes (%) (Auto) 16 % (24-48) Monocytes (%) (Auto) 10 % (0-9) Eosinophils (%) (Auto) 1 % (0-3) Basophils (%) (Auto) 0 % (0-3) Neutrophils # (Auto) 4.0 x10^3uL (1.8-7.7) Lymphocytes # (Auto) 0.9 x10^3/uL (1.0-4.8) Monocytes # (Auto) 0.5 x10^3/uL (0.0-1.1) Eosinophils # (Auto) 0.1 x10^3/uL (0.0-0.7) Basophils # (Auto) 0.0 x10^3/uL (0.0-0.2) Sodium Level 132 mmol/L (136-145) Potassium Level 4.3 mmol/L (3.5-5.1) Chloride Level 95 mmol/L (98-107) Carbon Dioxide Level 29 mmol/L (21-32) Anion Gap 8 (6-14) Blood Urea Nitrogen 8 mg/dL (8-26) Creatinine 0.8 mg/dL (0.7-1.3) Estimated GFR (Cockcroft-Gault) 119.7 BUN/Creatinine Ratio 10 (6-20) Glucose Level 122 mg/dL (70-99) Calcium Level 9.3 mg/dL (8.5-10.1) Total Bilirubin 0.3 mg/dL (0.2-1.0) Aspartate Amino Transf (AST/SGOT) 108 U/L (15-37) Alanine Aminotransferase (ALT/SGPT) 125 U/L (16-63) Alkaline Phosphatase 70 U/L (46-116) Total Protein 9.0 g/dL (6.4-8.2) Albumin 2.1 g/dL (3.4-5.0) Albumin/Globulin Ratio 0.3 (1.0-1.7) Lipase 117 U/L (73-393) Medications Active Scripts Medications Dose Route/Sig Max Daily Dose Days Date Category Dose Instructions Ranitidine Hcl 150 Mg Tablet 1 Tab PO BID 07/19/18 Reported Lisinopril-Hctz 10-12.5 Mg Tab (Lisinopril/Hydrochlorothiazide) 1 Each Tablet 1 Tab PO DAILY 07/19/18 Reported Erythromycin (Erythromycin Base) 1 Gm Oint...g. 1 Gm OP QID 01/20/18 Rx 0.5% 1/2" ribbon to lower eyelid x7 days [place] 5-325 Tablet (Acetaminophen/Hydrocodone Bitart) 1 Each Tablet 1-2 Each PO PRN Q6HRS PRN 07/03/16 Rx as needed for pain Ibuprofen 400 Mg Tablet 400 Mg PO PRN Q6HRS PRN 07/03/16 Rx take with food or milk Valacyclovir (Valacyclovir Hcl) 1,000 Mg Tablet 1 Tab PO TID 07/03/16 Rx Impression . 1. Patient with 11.9 cm large mediastinal mass with extrinsic compression of the distal trachea and left mainstem bronchus. The mass is also extrinsically compressing the superior vena cava, main pulmonary arteries and also ascending thoracic aorta. 2. Tobaccoism, suspect underlying chronic obstructive pulmonary disease. 3. History of polyclonal gammopathy. 4. New fever post SVC stent, on Abx, Fever resolved Plan . AWAITING BX WILL CONTINUE SUPPORT RESP STATUS IS COMMENTATED 2. Follow Hematology rec 3. The Radiation Oncology recommendation. 4. BM biopsy and LN non-diagnostic, Interventional Radiology will proceed with CT-guided biopsy 5. Discussed with Dr. Yee./ IR and Thoracic surgery 6. Stenting of SVC done 7. Abx LALO LOZADA MD Jul 26, 2018 10:52
[2018-07-26] MEDS: ALBUTEROL SULFATE 2.5 MG/3 ML NEBU. NEB PRN ×2 (11:50→17:15)
[2018-07-26] MEDS: guaiFENesin DM 200MG/20MG 10 ML SYRUP PO PRN ×2 (14:12→21:25)
--- NOTE | 2018-07-26 14:55 | NUR ---
SS following up with discharge planning. No discharge needs noted at this time. SS will continue to follow for discharge planning.
[2018-07-26 15:00] VITALS: BP 122/66
--- NOTE | 2018-07-26 15:26 | PDOC ---
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 2 to 3 mo difficulty with food stuck in central chest and 24 pound weight loss, 1 mo hx of severe constant chest pain. No headaches, breathing ok. Now s/p SVC stent , inguinal LN and BM biopsy done 07/22/2018 Two episodes of vomiting over the weekend. Some hoarseness noted. PE Alert appropriate in NAD. Facial fullness now further improved now essentially absent , no distended neck or chest veins. No adenopathy. No arm swelling. BMBx and inguinal LN Bx both negative Impression: Large central mediastinal mass with narrowing of SVC, SVC syndrome markedly improved following stent placement. 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 Plan now to proceed with CT guided biopsy of mediastinal mass. If he now has Stage I or II NHL confined to mediastinum, consolidative mediastinal radiation should be a consideration. Ideally we would secure his diagnosis, initiate systemic treatment and obtain a staging PET/CT following DC. KAYLA WHEAT MD Jul 26, 2018 15:26
[2018-07-26] MEDS: DICLOFENAC SODIUM 1% TOPICAL GEL 100GM TUBE. TP PRN ×2 (18:15→21:35)
[2018-07-26 19:47] VITALS: BP 116/71
[2018-07-26] MEDS: ZOLPIDEM 5 MG TABLET. PO SCH (21:00)
[2018-07-26] MEDS: ENOXAPARIN 40 MG/0.4 ML SYRINGE. SQ SCH (21:00)
[2018-07-26] MEDS: METOCLOPRAMIDE HCL 10 MG/2 ML VIAL. IV PRN (21:25)
[2018-07-26] MEDS: cefTRIAXone IV Push 1 GM VIAL. IVP SCH (21:36)
[2018-07-26 23:10] VITALS: BP 110/69
[2018-07-27] VITALS (20 sets, daily range): BP systolic 103–146; BP diastolic 60–94
[2018-07-27] MEDS: HYDROcodone/APAP 5/325MG 1 TAB TABLET PO PRN ×4 (00:46→19:45)
[2018-07-27 06:14] LABS: BASO # 0.1 x10^3/uL (0.0-0.2); BASO % 2 % (0-3); EOS % 1 % (0-3); HEMATOCRIT 29.3 % (39.0-53.0); HEMOGLOBIN 9.6 g/dL (13.0-17.5); LYMPH % 19 % (24-48); MEAN CORPUSCULAR HEMOGLOBIN 25 pg (25-35); MEAN CORPUSCULAR HGB CONC 33 g/dL (31-37); MEAN CORPUSCULAR VOLUME 76 fL (79-100); MONO # 0.7 x10^3/uL (0.0-1.1); MONO % 13 % (0-9); NEUT # 3.5 x10^3uL (1.8-7.7); NEUT % 65 % (31-73); PLATELET COUNT 404 x10^3/uL (140-400); RED BLOOD COUNT 3.85 x10^6/uL (4.30-5.70); RED CELL DISTRIBUTION WIDTH 17.4 % (11.5-14.5); WHITE BLOOD COUNT 5.4 x10^3/uL (4.0-11.0)
[2018-07-27 06:30] LABS: ALBUMIN 2.2 g/dL (3.4-5.0); ALBUMIN/GLOBULIN RATIO 0.3 (1.0-1.7); CALCIUM 9.3 mg/dL (8.5-10.1); CREATININE 0.8 mg/dL (0.7-1.3); GFR 119.7; POTASSIUM 4.4 mmol/L (3.5-5.1); TOTAL BILIRUBIN 0.3 mg/dL (0.2-1.0); TOTAL PROTEIN 9.4 g/dL (6.4-8.2)
[2018-07-27] MEDS: ALBUTEROL SULFATE 2.5 MG/3 ML NEBU. NEB PRN (07:11)
--- NOTE | 2018-07-27 08:43 | PDOC ---
PULMONARY PROGRESS NOTES Subjective NOT SOA NO CHEST PAIN Vitals Vital Signs Date Time Temp Pulse Resp B/P (MAP) Pulse Ox O2 Delivery O2 Flow Rate FiO2 07/27/18 07:26 18 99 Room Air 2.0 07/27/18 07:00 97.6 105 109/73 (85) 97.6 ROS: No Nausea, No Chest Pain, No Abdominal Pain, No Increase Cough General: Alert, Oriented X4 Lungs: Clear Cardiovascular: S1, S2 Abdomen: Soft Neuro Exam: Alert Extremities: No Edema Labs Laboratory Tests Test 07/25/18 09:30 07/27/18 05:53 White Blood Count 5.5 x10^3/uL (4.0-11.0) 5.4 x10^3/uL (4.0-11.0) Red Blood Count 3.50 x10^6/uL (4.30-5.70) 3.85 x10^6/uL (4.30-5.70) Hemoglobin 8.5 g/dL (13.0-17.5) 9.6 g/dL (13.0-17.5) Hematocrit 26.9 % (39.0-53.0) 29.3 % (39.0-53.0) Mean Corpuscular Volume 77 fL (79-100) 76 fL (79-100) Mean Corpuscular Hemoglobin 24 pg (25-35) 25 pg (25-35) Mean Corpuscular Hemoglobin Concent 32 g/dL (31-37) 33 g/dL (31-37) Red Cell Distribution Width 17.0 % (11.5-14.5) 17.4 % (11.5-14.5) Platelet Count 369 x10^3/uL (140-400) 404 x10^3/uL (140-400) Neutrophils (%) (Auto) 73 % (31-73) 65 % (31-73) Lymphocytes (%) (Auto) 16 % (24-48) 19 % (24-48) Monocytes (%) (Auto) 10 % (0-9) 13 % (0-9) Eosinophils (%) (Auto) 1 % (0-3) 1 % (0-3) Basophils (%) (Auto) 0 % (0-3) 2 % (0-3) Neutrophils # (Auto) 4.0 x10^3uL (1.8-7.7) 3.5 x10^3uL (1.8-7.7) Lymphocytes # (Auto) 0.9 x10^3/uL (1.0-4.8) 1.0 x10^3/uL (1.0-4.8) Monocytes # (Auto) 0.5 x10^3/uL (0.0-1.1) 0.7 x10^3/uL (0.0-1.1) Eosinophils # (Auto) 0.1 x10^3/uL (0.0-0.7) 0.0 x10^3/uL (0.0-0.7) Basophils # (Auto) 0.0 x10^3/uL (0.0-0.2) 0.1 x10^3/uL (0.0-0.2) Sodium Level 132 mmol/L (136-145) 132 mmol/L (136-145) Potassium Level 4.3 mmol/L (3.5-5.1) 4.4 mmol/L (3.5-5.1) Chloride Level 95 mmol/L (98-107) 95 mmol/L (98-107) Carbon Dioxide Level 29 mmol/L (21-32) 27 mmol/L (21-32) Anion Gap 8 (6-14) 10 (6-14) Blood Urea Nitrogen 8 mg/dL (8-26) 8 mg/dL (8-26) Creatinine 0.8 mg/dL (0.7-1.3) 0.8 mg/dL (0.7-1.3) Estimated GFR (Cockcroft-Gault) 119.7 119.7 BUN/Creatinine Ratio 10 (6-20) 10 (6-20) Glucose Level 122 mg/dL (70-99) 103 mg/dL (70-99) Calcium Level 9.3 mg/dL (8.5-10.1) 9.3 mg/dL (8.5-10.1) Total Bilirubin 0.3 mg/dL (0.2-1.0) 0.3 mg/dL (0.2-1.0) Aspartate Amino Transf (AST/SGOT) 108 U/L (15-37) 65 U/L (15-37) Alanine Aminotransferase (ALT/SGPT) 125 U/L (16-63) 94 U/L (16-63) Alkaline Phosphatase 70 U/L (46-116) 70 U/L (46-116) Total Protein 9.0 g/dL (6.4-8.2) 9.4 g/dL (6.4-8.2) Albumin 2.1 g/dL (3.4-5.0) 2.2 g/dL (3.4-5.0) Albumin/Globulin Ratio 0.3 (1.0-1.7) 0.3 (1.0-1.7) Lipase 117 U/L (73-393) Laboratory Tests Test 07/27/18 05:53 White Blood Count 5.4 x10^3/uL (4.0-11.0) Red Blood Count 3.85 x10^6/uL (4.30-5.70) Hemoglobin 9.6 g/dL (13.0-17.5) Hematocrit 29.3 % (39.0-53.0) Mean Corpuscular Volume 76 fL (79-100) Mean Corpuscular Hemoglobin 25 pg (25-35) Mean Corpuscular Hemoglobin Concent 33 g/dL (31-37) Red Cell Distribution Width 17.4 % (11.5-14.5) Platelet Count 404 x10^3/uL (140-400) Neutrophils (%) (Auto) 65 % (31-73) Lymphocytes (%) (Auto) 19 % (24-48) Monocytes (%) (Auto) 13 % (0-9) Eosinophils (%) (Auto) 1 % (0-3) Basophils (%) (Auto) 2 % (0-3) Neutrophils # (Auto) 3.5 x10^3uL (1.8-7.7) Lymphocytes # (Auto) 1.0 x10^3/uL (1.0-4.8) Monocytes # (Auto) 0.7 x10^3/uL (0.0-1.1) Eosinophils # (Auto) 0.0 x10^3/uL (0.0-0.7) Basophils # (Auto) 0.1 x10^3/uL (0.0-0.2) Sodium Level 132 mmol/L (136-145) Potassium Level 4.4 mmol/L (3.5-5.1) Chloride Level 95 mmol/L (98-107) Carbon Dioxide Level 27 mmol/L (21-32) Anion Gap 10 (6-14) Blood Urea Nitrogen 8 mg/dL (8-26) Creatinine 0.8 mg/dL (0.7-1.3) Estimated GFR (Cockcroft-Gault) 119.7 BUN/Creatinine Ratio 10 (6-20) Glucose Level 103 mg/dL (70-99) Calcium Level 9.3 mg/dL (8.5-10.1) Total Bilirubin 0.3 mg/dL (0.2-1.0) Aspartate Amino Transf (AST/SGOT) 65 U/L (15-37) Alanine Aminotransferase (ALT/SGPT) 94 U/L (16-63) Alkaline Phosphatase 70 U/L (46-116) Total Protein 9.4 g/dL (6.4-8.2) Albumin 2.2 g/dL (3.4-5.0) Albumin/Globulin Ratio 0.3 (1.0-1.7) Medications Active Scripts Medications Dose Route/Sig Max Daily Dose Days Date Category Dose Instructions Ranitidine Hcl 150 Mg Tablet 1 Tab PO BID 07/19/18 Reported Lisinopril-Hctz 10-12.5 Mg Tab (Lisinopril/Hydrochlorothiazide) 1 Each Tablet 1 Tab PO DAILY 07/19/18 Reported Erythromycin (Erythromycin Base) 1 Gm Oint...g. 1 Gm OP QID 01/20/18 Rx 0.5% 1/2" ribbon to lower eyelid x7 days [place] 5-325 Tablet (Acetaminophen/Hydrocodone Bitart) 1 Each Tablet 1-2 Each PO PRN Q6HRS PRN 07/03/16 Rx as needed for pain Ibuprofen 400 Mg Tablet 400 Mg PO PRN Q6HRS PRN 07/03/16 Rx take with food or milk Valacyclovir (Valacyclovir Hcl) 1,000 Mg Tablet 1 Tab PO TID 07/03/16 Rx Impression . 1. Patient with 11.9 cm large mediastinal mass with extrinsic compression of the distal trachea and left mainstem bronchus. The mass is also extrinsically compressing the superior vena cava, main pulmonary arteries and also ascending thoracic aorta. 2. Tobaccoism, suspect underlying chronic obstructive pulmonary disease. 3. History of polyclonal gammopathy. 4. New fever post SVC stent, on Abx, Fever resolved Plan . AWAITING BX APPRECIATE MARLEEN BERRY AND JARRET INPUT WILL CONTINUE SUPPORT RESP STATUS IS COMMENTATED LALO LOZADA MD Jul 27, 2018 08:43
[2018-07-27] MEDS ORDERED: LIDOCAINE WITH 8.4% SOD BICARB 3 ML DISP.SYRIN. ONE (09:07)
--- NOTE | 2018-07-27 09:25 | PDOC ---
SUBJECTIVE Subjective S: pending mediastinal bx, did not get yesterday O: Gen: NAD, resting in chair, sl hoarse voice Psych: pleasant mood and affect Labs: HCG and AFP neg, LDH sl high BMBx and ing LN bx pending path prelim neg uric ac 4.0 b2mg 2.1 hep ABC neg HIV neg TTE: EF 45-50% 2/2 tachy likely A/P: He is a 58-year-old man with a mediastinal mass concerning for lymphoma with elevated LDH, with anemia, s/p BMBx and inguinal LN bx non-dx'ic pending mediastinal bx today SVC syndrome: better post SVC stent, ing and bone marrow bx's neg, can get treatment started as soon as diagnosis confirmed, IR/radiation oncology/pulm/CTS opinions apprec, on allopurinol to prevent poss TLS once tx is initiated tachycardia: no beta blockade w/ h/o recent cocaine, w/ sl dec EF (but ok for chemo) (apprec primary assistance) fever: none recent, on Abx Anemia: Consistent with anemia of chronic disease, bone marrow biopsy for staging formal report pending Shoulder pain: he can follow-up with Ortho as needed B12 deficiency: he can continue oral replacement Polysubstance abuse: Have recommended avoiding all drugs tobacco and alcohol and he would like to be compliant Prophylaxis: On Lovenox 40 mg given nightly Disposition: After diagnosis made and treatment plan initiated, would prefer to keep in house til dx confirmed and poss 1st cycle of chemo Thank you kindly and please don't hesitate to call w/ ?s. OBJECTIVE Vital Signs Vital Signs Date Time Temp Pulse Resp B/P (MAP) Pulse Ox O2 Delivery O2 Flow Rate FiO2 07/27/18 08:00 Room Air 07/27/18 07:26 18 99 Room Air 2.0 07/27/18 07:12 99 Room Air 07/27/18 07:00 97.6 105 18 109/73 (85) 99 Room Air 97.6 07/27/18 03:38 98.1 107 17 103/78 (86) 99 Room Air 98.1 07/27/18 01:46 18 98 Room Air 2.0 07/27/18 00:46 18 98 Room Air 2.0 07/26/18 23:10 99.6 110 17 110/69 (83) 98 Room Air 99.6 07/26/18 20:00 Room Air 2.0 07/26/18 19:47 98.8 98 19 116/71 (86) 96 Room Air 98.8 07/26/18 18:13 99 Room Air 07/26/18 17:15 Room Air 07/26/18 15:00 98.5 103 18 122/66 (84) 99 Room Air 98.5 07/26/18 11:52 99 Room Air 07/26/18 10:50 98.6 103 18 137/73 (94) 97 Room Air 98.6 07/26/18 10:00 100 Room Air I & O Intake and Output 07/27/18 07:00 Output Total 700 ml Balance -700 ml Output Urine Total 700 ml COMMENT Lab Laboratory Tests Test 07/27/18 05:53 White Blood Count 5.4 x10^3/uL (4.0-11.0) Red Blood Count 3.85 x10^6/uL (4.30-5.70) Hemoglobin 9.6 g/dL (13.0-17.5) Hematocrit 29.3 % (39.0-53.0) Mean Corpuscular Volume 76 fL (79-100) Mean Corpuscular Hemoglobin 25 pg (25-35) Mean Corpuscular Hemoglobin Concent 33 g/dL (31-37) Red Cell Distribution Width 17.4 % (11.5-14.5) Platelet Count 404 x10^3/uL (140-400) Neutrophils (%) (Auto) 65 % (31-73) Lymphocytes (%) (Auto) 19 % (24-48) Monocytes (%) (Auto) 13 % (0-9) Eosinophils (%) (Auto) 1 % (0-3) Basophils (%) (Auto) 2 % (0-3) Neutrophils # (Auto) 3.5 x10^3uL (1.8-7.7) Lymphocytes # (Auto) 1.0 x10^3/uL (1.0-4.8) Monocytes # (Auto) 0.7 x10^3/uL (0.0-1.1) Eosinophils # (Auto) 0.0 x10^3/uL (0.0-0.7) Basophils # (Auto) 0.1 x10^3/uL (0.0-0.2) Sodium Level 132 mmol/L (136-145) Potassium Level 4.4 mmol/L (3.5-5.1) Chloride Level 95 mmol/L (98-107) Carbon Dioxide Level 27 mmol/L (21-32) Anion Gap 10 (6-14) Blood Urea Nitrogen 8 mg/dL (8-26) Creatinine 0.8 mg/dL (0.7-1.3) Estimated GFR (Cockcroft-Gault) 119.7 BUN/Creatinine Ratio 10 (6-20) Glucose Level 103 mg/dL (70-99) Calcium Level 9.3 mg/dL (8.5-10.1) Total Bilirubin 0.3 mg/dL (0.2-1.0) Aspartate Amino Transf (AST/SGOT) 65 U/L (15-37) Alanine Aminotransferase (ALT/SGPT) 94 U/L (16-63) Alkaline Phosphatase 70 U/L (46-116) Total Protein 9.4 g/dL (6.4-8.2) Albumin 2.2 g/dL (3.4-5.0) Albumin/Globulin Ratio 0.3 (1.0-1.7) Nutrition Consultation Dietary Evaluation: Recommendations by RD: Increase Calorie Intake, Protein supplementation Comments: Continue w/cardiac/ADA diet as ordered, honor food preferences, and provide snacks as requested Expected Outcomes/Goals: PO intake to meet >75% est needs - met at times, goal ongoing Interpretation of weight loss: >7.5% in 3 months Malnutrition Findings: Food and Nutrition Intake (Mod: <75% est energy req 7days Weight Status: Overweight AYSHA BERRY MD Jul 27, 2018 09:25
[2018-07-27] MEDS ORDERED: MIDAZOLAM HCL/PF 2 MG/2 ML VIAL. ONE (09:37)
[2018-07-27] MEDS ORDERED: fentaNYL PF VIAL 100 MCG/2 ML VIAL ONE (09:37)
[2018-07-27] MEDS ORDERED: LIDOCAINE WITH 8.4% SOD BICARB 3 ML DISP.SYRIN. IJ ONE (10:15)
[2018-07-27] MEDS ORDERED: MIDAZOLAM HCL/PF 2 MG/2 ML VIAL. IV ONE (10:15)
[2018-07-27] MEDS ORDERED: fentaNYL PF VIAL 100 MCG/2 ML VIAL IV ONE (10:15)
[2018-07-27] MEDS ORDERED: IOHEXOL 300 MG/ML 100ML VIAL. ONE (10:29)
[2018-07-27] MEDS ORDERED: IOHEXOL 300 MG/ML 50 ML VIAL. IART ONE (10:30)
[2018-07-27] MEDS ORDERED: CONTRAST GIVEN. MC PRN (10:30)
--- NOTE | 2018-07-27 11:17 | PDOC ---
BRIEF OPERATIVE NOTE Pre-Op Diagnosis Mediastinal mass Post-Op Diagnosis same Procedure Performed CT Mediastinal Biopsy Surgeon Nisha Anesthesia Type: Conscious Sedation Specimens Obtained 6 x 20g cores Complications No immediate RADHA ALANIZ MD Jul 27, 2018 11:17
--- NOTE | 2018-07-27 11:36 | NUR ---
Patient arrived back to room after CT guided biopsy at 1115. VSS. 2L O2 NC placed on patient. Band aide on R upper back CDI. No complaints at this time. Will continue to monitor.
--- NOTE | 2018-07-27 12:15 | PDOC ---
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 possible SVC stenting per IR Trachea impingement - airway could be imminently compromised, appreciate pulm input mod/severe malnutrition substance abuse, cocaine constipation htn Shoulder pain History of Present Illness History of Present Illness Mr. Currie is a 58 year old male admit with chest pain and worsening chest pain. 3 weeks prior to admission he first noticed a constant pain that gradually getting worse. Also complains of gas pain and constipation, and has not stooled for days, new cough, stable wheezing, Patient states the shortness of breath getting worse with supine position and light activity. Patient denies palpitation, fever and chills, sick contact, recent immobilization or history of DVT and PE, nausea and vomiting patient complaining of constipation and states he did not have any bowel movement for the 5 days preceding his ED visit and usually he has had a bowel movement every day. He was notably positive for cocaine and found with 11.9 CM mediastinal mass on CT chest. See by pulm, CT surgery, IR, Heme/Onc, RadOnc S/P SVC stenting, bone marrow biopsy and left groin biopsy. D/w pathologist - the review of the BM biopsy and LN non-diagnostic. 07/24: Neck swelling improved, still with strong cough. Has some right shoulder pain today. Feels a bit better after breathing treatments. S/p echo in anticipation of anthracycline treatment. Feeling better after SVC stenting and bone marrow bx. ECHO with 45% EF, likely 2/2 tachycardia/cocaine use. BB should not be given with positive cocaine. He is asking for cough syrup. Spiked a fever, started on antibiotics, seen by ID now as well. 07/25: Vomiting overnight, now with a sore throat. He is a bit anxious about biopsy tomorrow. No fevers, still on rocephin. Still with violent sounding cough. 07/26: Apparently his lovenox was given late yesterday, will delay biopsy until tomorrow. Otherwise, still with cough To biopsy with IR this morning, feeling ok. A bit drowsy, not that short of breath. Relatively pain free Plan: Recovery from biopsy Vitals Vitals Vital Signs Date Time Temp Pulse Resp B/P (MAP) Pulse Ox O2 Delivery O2 Flow Rate FiO2 07/27/18 11:25 98.2 106 18 134/71 (92) 99 Room Air 98.2 07/27/18 10:55 10.0 Physical Exam Physical Exam GENERAL: Sitting on side of bed, alert, NAD HEENT: oral cavity clear NECK: Supple. LUNGS: Decreased breath sounds at bases. HEART: S1, S2 ABDOMEN: Soft, nontender EXTREMITIES: No edema, no cyanosis. DERMATOLOGIC: Warm, dry, no generalized rash. CENTRAL NERVOUS SYSTEM: Alert and oriented x 3. Grossly nonfocal. PIV General: Alert, Oriented X3, Other (dilated venous network on the anterior chest wall) Heart: Regular rate, Normal S1, Normal S2 Lungs: Clear Abdomen: Soft, No tenderness Extremities: No edema Skin: No significant lesion Labs LABS Laboratory Tests Test 07/27/18 05:53 White Blood Count 5.4 x10^3/uL (4.0-11.0) Red Blood Count 3.85 x10^6/uL (4.30-5.70) Hemoglobin 9.6 g/dL (13.0-17.5) Hematocrit 29.3 % (39.0-53.0) Mean Corpuscular Volume 76 fL (79-100) Mean Corpuscular Hemoglobin 25 pg (25-35) Mean Corpuscular Hemoglobin Concent 33 g/dL (31-37) Red Cell Distribution Width 17.4 % (11.5-14.5) Platelet Count 404 x10^3/uL (140-400) Neutrophils (%) (Auto) 65 % (31-73) Lymphocytes (%) (Auto) 19 % (24-48) Monocytes (%) (Auto) 13 % (0-9) Eosinophils (%) (Auto) 1 % (0-3) Basophils (%) (Auto) 2 % (0-3) Neutrophils # (Auto) 3.5 x10^3uL (1.8-7.7) Lymphocytes # (Auto) 1.0 x10^3/uL (1.0-4.8) Monocytes # (Auto) 0.7 x10^3/uL (0.0-1.1) Eosinophils # (Auto) 0.0 x10^3/uL (0.0-0.7) Basophils # (Auto) 0.1 x10^3/uL (0.0-0.2) Sodium Level 132 mmol/L (136-145) Potassium Level 4.4 mmol/L (3.5-5.1) Chloride Level 95 mmol/L (98-107) Carbon Dioxide Level 27 mmol/L (21-32) Anion Gap 10 (6-14) Blood Urea Nitrogen 8 mg/dL (8-26) Creatinine 0.8 mg/dL (0.7-1.3) Estimated GFR (Cockcroft-Gault) 119.7 BUN/Creatinine Ratio 10 (6-20) Glucose Level 103 mg/dL (70-99) Calcium Level 9.3 mg/dL (8.5-10.1) Total Bilirubin 0.3 mg/dL (0.2-1.0) Aspartate Amino Transf (AST/SGOT) 65 U/L (15-37) Alanine Aminotransferase (ALT/SGPT) 94 U/L (16-63) Alkaline Phosphatase 70 U/L (46-116) Total Protein 9.4 g/dL (6.4-8.2) Albumin 2.2 g/dL (3.4-5.0) Albumin/Globulin Ratio 0.3 (1.0-1.7) Assessment and Plan Assessmemt and Plan Problems Medical Problems: (1) Anemia Status: Acute (2) Chest pain Status: Acute (3) Mediastinal mass Status: Acute (4) Shortness of breath Status: Acute (5) Tachycardia Status: Acute (6) Weight loss Status: Acute Comment Review of Relevant I have reviewed the following items karina (where applicable) has been applied. Labs Laboratory Tests Test 07/27/18 05:53 White Blood Count 5.4 x10^3/uL (4.0-11.0) Red Blood Count 3.85 x10^6/uL (4.30-5.70) Hemoglobin 9.6 g/dL (13.0-17.5) Hematocrit 29.3 % (39.0-53.0) Mean Corpuscular Volume 76 fL (79-100) Mean Corpuscular Hemoglobin 25 pg (25-35) Mean Corpuscular Hemoglobin Concent 33 g/dL (31-37) Red Cell Distribution Width 17.4 % (11.5-14.5) Platelet Count 404 x10^3/uL (140-400) Neutrophils (%) (Auto) 65 % (31-73) Lymphocytes (%) (Auto) 19 % (24-48) Monocytes (%) (Auto) 13 % (0-9) Eosinophils (%) (Auto) 1 % (0-3) Basophils (%) (Auto) 2 % (0-3) Neutrophils # (Auto) 3.5 x10^3uL (1.8-7.7) Lymphocytes # (Auto) 1.0 x10^3/uL (1.0-4.8) Monocytes # (Auto) 0.7 x10^3/uL (0.0-1.1) Eosinophils # (Auto) 0.0 x10^3/uL (0.0-0.7) Basophils # (Auto) 0.1 x10^3/uL (0.0-0.2) Sodium Level 132 mmol/L (136-145) Potassium Level 4.4 mmol/L (3.5-5.1) Chloride Level 95 mmol/L (98-107) Carbon Dioxide Level 27 mmol/L (21-32) Anion Gap 10 (6-14) Blood Urea Nitrogen 8 mg/dL (8-26) Creatinine 0.8 mg/dL (0.7-1.3) Estimated GFR (Cockcroft-Gault) 119.7 BUN/Creatinine Ratio 10 (6-20) Glucose Level 103 mg/dL (70-99) Calcium Level 9.3 mg/dL (8.5-10.1) Total Bilirubin 0.3 mg/dL (0.2-1.0) Aspartate Amino Transf (AST/SGOT) 65 U/L (15-37) Alanine Aminotransferase (ALT/SGPT) 94 U/L (16-63) Alkaline Phosphatase 70 U/L (46-116) Total Protein 9.4 g/dL (6.4-8.2) Albumin 2.2 g/dL (3.4-5.0) Albumin/Globulin Ratio 0.3 (1.0-1.7) Laboratory Tests Test 07/27/18 05:53 White Blood Count 5.4 x10^3/uL (4.0-11.0) Red Blood Count 3.85 x10^6/uL (4.30-5.70) Hemoglobin 9.6 g/dL (13.0-17.5) Hematocrit 29.3 % (39.0-53.0) Mean Corpuscular Volume 76 fL (79-100) Mean Corpuscular Hemoglobin 25 pg (25-35) Mean Corpuscular Hemoglobin Concent 33 g/dL (31-37) Red Cell Distribution Width 17.4 % (11.5-14.5) Platelet Count 404 x10^3/uL (140-400) Neutrophils (%) (Auto) 65 % (31-73) Lymphocytes (%) (Auto) 19 % (24-48) Monocytes (%) (Auto) 13 % (0-9) Eosinophils (%) (Auto) 1 % (0-3) Basophils (%) (Auto) 2 % (0-3) Neutrophils # (Auto) 3.5 x10^3uL (1.8-7.7) Lymphocytes # (Auto) 1.0 x10^3/uL (1.0-4.8) Monocytes # (Auto) 0.7 x10^3/uL (0.0-1.1) Eosinophils # (Auto) 0.0 x10^3/uL (0.0-0.7) Basophils # (Auto) 0.1 x10^3/uL (0.0-0.2) Sodium Level 132 mmol/L (136-145) Potassium Level 4.4 mmol/L (3.5-5.1) Chloride Level 95 mmol/L (98-107) Carbon Dioxide Level 27 mmol/L (21-32) Anion Gap 10 (6-14) Blood Urea Nitrogen 8 mg/dL (8-26) Creatinine 0.8 mg/dL (0.7-1.3) Estimated GFR (Cockcroft-Gault) 119.7 BUN/Creatinine Ratio 10 (6-20) Glucose Level 103 mg/dL (70-99) Calcium Level 9.3 mg/dL (8.5-10.1) Total Bilirubin 0.3 mg/dL (0.2-1.0) Aspartate Amino Transf (AST/SGOT) 65 U/L (15-37) Alanine Aminotransferase (ALT/SGPT) 94 U/L (16-63) Alkaline Phosphatase 70 U/L (46-116) Total Protein 9.4 g/dL (6.4-8.2) Albumin 2.2 g/dL (3.4-5.0) Albumin/Globulin Ratio 0.3 (1.0-1.7) Microbiology 07/22/18 Blood Culture - Preliminary, Resulted NO GROWTH AFTER 4 DAYS Medications Current Medications Aspirin (Children'S Aspirin) 324 mg 1X ONCE PO Last administered on 07/19/18at 07:31; Start 07/19/18 at 07:15; Stop 07/19/18 at 07:16; Status DC Nitroglycerin (Nitrostat) 0.4 mg PRN Q5MIN PRN SL CP RATING > 1/10 Last ad ministered on 07/19/18at 07:32; Start 07/19/18 at 07:15; Stop 07/20/18 at 07:14; Status DC Iohexol (Omnipaque 350 Mg/ml) 90 ml 1X ONCE IV Last administered on 07/19/18at 08:24; Start 07/19/18 at 08:00; Stop 07/19/18 at 08:01; Status DC Info (CONTRAST GIVEN -- Rx MONITORING) 1 each PRN DAILY PRN MC SEE COMMENTS; Start 07/19/18 at 08:15; Stop 07/21/18 at 08:14; Status DC Sodium Chloride 1,000 ml @ 150 mls/hr Q6H40M IV Last administered on 07/20/18at 09:01; Start 07/19/18 at 09:30; Stop 07/20/18 at 09:29; Status DC Simethicone (Gas-X) 80 mg PRN AFTMEALHC PRN PO GAS / BLOATING Last administered on 07/26/18at 18:14; Start 07/19/18 at 14:45 Docusate Sodium (Colace) 100 mg DAILY PO Last administered on 07/26/18at 08:40; Start 07/20/18 at 09:00 Polyethylene Glycol (miraLAX PACKET) 17 gm PRN DAILY PRN PO CONSTIPATION; Start 07/19/18 at 14:45 Zolpidem Tartrate (Ambien) 5 mg HS PO Last administered on 07/20/18at 21:21; Start 07/19/18 at 21:00 Acetaminophen/ Hydrocodone Bitart (Lortab 5/325) 1 tab PRN Q6HRS PRN PO MODERATE-SEVERE PAIN Last administered on 07/27/18 07:26; Start 07/19/18 at 14:45 Ibuprofen (Motrin) 400 mg PRN Q6HRS PRN PO MILD PAIN 1-3 Last administered on 07/25/18 21:51; Start 07/19/18 at 14:45 Famotidine (Pepcid) 20 mg BID PO Last administered on 07/26/18 21:25; Start 07/19/18 at 21:00 Enoxaparin Sodium (Lovenox 40mg Syringe) 40 mg Q24H SQ Last administered on 07/25/18 21:52; Start 07/19/18 at 21:00 Cyanocobalamin (Vitamin B-12) 1,000 mcg DAILY PO Last administered on 07/26/18 08:40; Start 07/20/18 at 10:00 Albuterol Sulfate (Ventolin Neb Soln) 2.5 mg PRN Q6HRS PRN NEB SHORTNESS OF BREATH Last administered on 07/27/18 07:11; Start 07/20/18 at 14:00 Iohexol (Omnipaque 300 Mg/ml) 100 ml STK-MED ONCE .ROUTE ; Start 07/21/18 at 13:00; Stop 07/21/18 at 13:01; Status DC Heparin Sodium/ Sodium Chloride 500 ml @ As Directed STK-MED ONCE .ROUTE ; Start 07/21/18 at 13:00; Stop 07/21/18 at 13:01; Status DC Lidocaine/Sodium Bicarbonate (Buffered Lidocaine 1%) 3 ml STK-MED ONCE .ROUTE ; Start 07/21/18 at 13:01; Stop 07/21/18 at 13:02; Status DC Midazolam HCl (Versed) 2 mg STK-MED ONCE .ROUTE ; Start 07/21/18 at 13:07; Stop 07/21/18 at 13:08; Status DC Fentanyl Citrate (Fentanyl 2ml Vial) 100 mcg STK-MED ONCE .ROUTE ; Start 07/21/18 at 13:07; Stop 07/21/18 at 13:08; Status DC Iohexol (Omnipaque 240 Mg/ml) 50 ml STK-MED ONCE .ROUTE ; Start 07/21/18 at 13:09; Stop 07/21/18 at 13:10; Status DC Heparin Sodium/ Sodium Chloride 500 ml @ As Directed STK-MED ONCE .ROUTE ; Start 07/21/18 at 13:32; Stop 07/21/18 at 13:33; Status DC Heparin Sodium/ Sodium Chloride (HEPARIN for ARTERIAL LINE FLUSH) 3,000 unit 1X ONCE IART Last administered on 07/21/18at 14:15; Start 07/21/18 at 14:15; Stop 07/21/18 at 14:21; Status DC Lidocaine/Sodium Bicarbonate (Buffered Lidocaine 1%) 4 ml 1X ONCE IJ Last administered on 07/21/18at 14:15; Start 07/21/18 at 14:15; Stop 07/21/18 at 14:22; Status DC Midazolam HCl (Versed) 2 mg 1X ONCE IV Last administered on 07/21/18at 14:16; Start 07/21/18 at 14:15; Stop 07/21/18 at 14:21; Status DC Fentanyl Citrate (Fentanyl 2ml Vial) 50 mcg 1X ONCE IV Last administered on 07/21/18at 14:16; Start 07/21/18 at 14:15; Stop 07/21/18 at 14:21; Status DC Iodixanol (Visipaque 320) 60 ml 1X ONCE IART Last administered on 07/21/18at 14:15; Start 07/21/18 at 14:15; Stop 07/21/18 at 14:21; Status DC Heparin Sodium (Porcine) (Heparin Sodium) 5,000 unit 1X ONCE IV Last administ ered on 07/21/18at 14:17; Start 07/21/18 at 14:15; Stop 07/21/18 at 14:21; Status DC Info (CONTRAST GIVEN -- Rx MONITORING) 1 each PRN DAILY PRN MC SEE COMMENTS; Start 07/21/18 at 14:30; Stop 07/23/18 at 14:29; Status DC Lidocaine/Sodium Bicarbonate (Buffered Lidocaine 1%) 3 ml STK-MED ONCE .ROUTE ; Start 07/22/18 at 09:06; Stop 07/22/18 at 09:07; Status DC Midazolam HCl (Versed) 2 mg STK-MED ONCE .ROUTE ; Start 07/22/18 at 09:21; Stop 07/22/18 at 09:22; Status DC Fentanyl Citrate (Fentanyl 2ml Vial) 100 mcg STK-MED ONCE .ROUTE ; Start 07/22/18 at 09:21; Stop 07/22/18 at 09:22; Status DC Midazolam HCl (Versed) 2 mg STK-MED ONCE .ROUTE ; Start 07/22/18 at 09:30; Stop 07/22/18 at 09:31; Status DC Fentanyl Citrate (Fentanyl 2ml Vial) 100 mcg STK-MED ONCE .ROUTE ; Start 07/22/18 at 09:30; Stop 07/22/18 at 09:31; Status DC Lidocaine/Sodium Bicarbonate (Buffered Lidocaine 1%) 3 ml 1X ONCE IJ Last administered on 07/22/18at 10:00; Start 07/22/18 at 10:00; Stop 07/22/18 at 10:01; Status DC Midazolam HCl (Versed) 2 mg 1X ONCE IV Last administered on 07/22/18 10:00; Start 07/22/18 at 10:00; Stop 07/22/18 at 10:01; Status DC Fentanyl Citrate (Fentanyl 2ml Vial) 100 mcg 1X ONCE IV Last administered on 07/22/18at 10:00; Start 07/22/18 at 10:00; Stop 07/22/18 at 10:01; Status DC Diclofenac Sodium (Voltaren) 1 estephanie PRN BID PRN TP PAIN Last administered on 07/26/18 21:35; Start 07/22/18 at 16:00 Ceftriaxone Sodium (Rocephin) 1 gm Q24H IVP Last administered on 07/26/18 21:36; Start 07/22/18 at 21:00 Acetaminophen (Tylenol) 650 mg PRN Q6HRS PRN PO FEVER Last administered on 07/23/18at 15:40; Start 07/22/18 at 19:45 Allopurinol (Zyloprim) 300 mg DAILY PO Last administered on 07/26/18 08:40; Start 07/23/18 at 09:15 Guaifenesin (Robitussin Dm) 10 ml PRN Q6HRS PRN PO COUGH Last administered on 07/26/18 21:25; Start 07/23/18 at 11:45 Multi-Ingredient Mouthwash/Gargle (Gi Cocktail) 20 ml PRN QID PRN PO CHEST PAIN Last administered on 07/25/18at 17:29; Start 07/24/18 at 18:45 Ondansetron HCl (Zofran) 8 mg PRN Q6HRS PRN IV NAUSEA/VOMITING, 1ST CHOICE Last administered on 07/26/18 21:25; Start 07/25/18 at 01:15 Metoclopramide HCl (Reglan Vial) 5 mg PRN Q6HRS PRN IV NAUSEA/VOMITING, 2ND CHOICE Last administered on 07/26/18 21:25; Start 07/25/18 at 01:15 Throat Lozenges (Cepacol Sore Throat Lozenge) 1 gisselle PRN Q2HRS PRN PO SORE THROAT Last administered on 07/25/18 10:44; Start 07/25/18 at 10:30 Lidocaine/Sodium Bicarbonate (Buffered Lidocaine 1%) 3 ml 1X ONCE IJ Last administered on 07/27/18 10:15; Start 07/27/18 at 10:15; Stop 07/27/18 at 10:16; Status DC Midazolam HCl (Versed) 2 mg 1X ONCE IV Last administered on 07/27/18 10:15; Start 07/27/18 at 10:15; Stop 07/27/18 at 10:16; Status DC Fentanyl Citrate (Fentanyl 2ml Vial) 100 mcg 1X ONCE IV Last administered on 07/27/18 10:15; Start 07/27/18 at 10:15; Stop 07/27/18 at 10:16; Status DC Iohexol (Omnipaque 300 Mg/ml) 50 ml 1X ONCE IART Last administered on 07/27/18 10:30; Start 07/27/18 at 10:30; Stop 07/27/18 at 10:31; Status DC Info (CONTRAST GIVEN -- Rx MONITORING) 1 each PRN DAILY PRN MC SEE COMMENTS; Start 07/27/18 at 10:30; Stop 07/29/18 at 10:29 Active Scripts Active Erythromycin (Erythromycin Base) 1 Gm Oint...g. 1 Gm OP QID 0.5% 1/2" ribbon to lower eyelid x7 days [place] 5-325 Tablet (Acetaminophen/Hydrocodone Bitart) 1 Each Tablet 1-2 Each PO PRN Q6HRS PRN as needed for pain Ibuprofen 400 Mg Tablet 400 Mg PO PRN Q6HRS PRN take with food or milk Valacyclovir (Valacyclovir Hcl) 1,000 Mg Tablet 1 Tab PO TID Reported Ranitidine Hcl 150 Mg Tablet 1 Tab PO BID Lisinopril-Hctz 10-12.5 Mg Tab (Lisinopril/Hydrochlorothiazide) 1 Each Tablet 1 Tab PO DAILY Vitals/I & O Vital Sign - Last 24 Hours 07/26/18 07/26/18 07/26/18 07/26/18 15:00 17:15 18:13 19:47 Temp 98.5 98.8 98.5 98.8 Pulse 103 98 Resp B/P (MAP) 122/66 (84) 116/71 (86) Pulse Ox 99 99 96 O2 Delivery Room Air Room Air Room Air Room Air 07/26/18 07/26/18 07/27/18 07/27/18 20:00 23:10 00:46 01:46 Temp 99.6 99.6 Pulse 110 Resp 18 B/P (MAP) 110/69 (83) Pulse Ox 98 98 98 O2 Delivery Room Air Room Air Room Air O2 Flow Rate 2.0 2.0 2.0 07/27/18 07/27/18 07/27/18 07/27/18 03:38 07:00 07:12 07:26 Temp 98.1 97.6 98.1 97.6 Pulse 107 105 Resp 18 B/P (MAP) 103/78 (86) 109/73 (85) Pulse Ox 99 99 99 99 O2 Delivery Room Air Room Air Room Air Room Air O2 Flow Rate 2.0 07/27/18 07/27/18 07/27/18 07/27/18 08:00 08:26 10:15 10:30 Pulse 105 Resp 26 26 Pulse Ox 100 93 O2 Delivery Room Air Room Air NonRebreather Mask Nasal Cannula O2 Flow Rate 2.0 07/27/18 07/27/18 07/27/18 07/27/18 10:35 10:40 10:45 10:50 Pulse 102 104 102 106 Resp 26 27 28 28 Pulse Ox 100 100 100 100 O2 Delivery NonRebreather Mask NonRebreather Mask NonRebreather Mask NonRebreather Mask O2 Flow Rate 10.0 10.0 10.0 10.0 07/27/18 07/27/18 07/27/18 10:55 10:55 11:25 Temp 98.2 98.2 Pulse 107 107 106 Resp 26 26 18 B/P (MAP) 134/71 (92) Pulse Ox 100 100 99 O2 Delivery NonRebreather Mask NonRebreather Mask Room Air O2 Flow Rate 10.0 Intake and Output 07/26/18 07/26/18 07/27/18 15:00 23:00 07:00 Output Total 700 ml Balance -700 ml Nutrition Consultation Dietary Evaluation: Recommendations by RD: Increase Calorie Intake, Protein supplementation Comments: Continue w/cardiac/ADA diet as ordered, honor food preferences, and provide snacks as requested Expected Outcomes/Goals: PO intake to meet >75% est needs - met at times, goal ongoing Interpretation of weight loss: >7.5% in 3 months Malnutrition Findings: Food and Nutrition Intake (Mod: <75% est energy req 7days Weight Status: Overweight ROLAND JACOBS MD Jul 27, 2018 12:15
[2018-07-27] MEDS: CYANOCOBALAMIN (VITAMIN B-12) 1,000 MCG TABLET. PO SCH (14:21)
[2018-07-27] MEDS: FAMOTIDINE 20 MG TABLET. PO SCH ×2 (14:21→20:36)
[2018-07-27] MEDS: DOCUSATE SODIUM 100 MG CAPSULE. PO SCH (14:21)
[2018-07-27] MEDS: ALLOPURINOL 300 MG TABLET. PO SCH (14:22)
[2018-07-27] MEDS: DICLOFENAC SODIUM 1% TOPICAL GEL 100GM TUBE. TP PRN ×2 (14:25→20:37)
[2018-07-27] MEDS: guaiFENesin DM 200MG/20MG 10 ML SYRUP PO PRN ×2 (14:32→22:27)
--- NOTE | 2018-07-27 15:45 | RAD ---
Procedure: CT-guided mediastinal mass biopsy, transpulmonary Clinical Indication: 58-year-old with large mediastinal mass, SVC syndrome, numerous mediastinal vascular collaterals. Sedation: Conscious sedation was administered with a total intraprocedural [id number] time of 25 minutes. The patient was monitored by a qualified independent observer throughout the time of sedation. Please refer to the medical record for exact doses of medications utilized to achieve moderate sedation. Antibiotics: None Contrast: 75 cc of Omnipaque 320 contrast media Sterility: All elements of maximal sterile barrier technique including the use of a cap, mask, sterile gown, sterile gloves, large sterile sheet, appropriate hand hygiene, and 2% chlorhexidine for cutaneous antisepsis (or acceptable alternative antiseptic per current guidelines) were followed for this procedure. If ultrasound guidance was utilized, sterile ultrasound techniques were followed including use of a sterile probe cover. Consent: The procedure was explained in its entirety to the patient or the patients designated sales representative metals by a member of the treatment team, including a discussion of the risks, benefits and commonly accepted alternatives to the procedure, as well as the expected consequences of no therapy whatsoever. Discussion of the risks included, but was not limited to, those that are most frequent and those that are rare but possibly severe or life-threatening, as well as the possibility of unforeseen complications. Technique and Findings: Following informed consent, the patient was prepped and draped in usual sterile fashion. Primary CT scan of the area of interest was performed. 1% lidocaine was used to achieve local anesthesia over the area of interest. A small dermatotomy was made. Under periodic CT surveillance, a 19-gauge needle guide was advanced in a transthoracic, transpulmonic fashion into the mediastinal mass, and 6 separate 20-gauge core biopsy specimens were obtained and divided between formalin and RPMI. Blood patch was applied as the needle guide was removed and hemostasis was achieved with manual compression. Complications: No immediate Impression: 1. CT-guided percutaneous transpulmonic mediastinal biopsy as described. PQRS Compliance Statement: One or more of the following individualized dose reduction techniques were utilized for this examination: 1. Automated exposure control 2. Adjustment of the mA and/or kV according to patient size 3. Use of iterative reconstruction technique
--- NOTE | 2018-07-27 16:18 | RAD ---
EXAM: CHEST 1 VIEW. HISTORY: Status post mediastinal mass biopsy. COMPARISON: 07/19/2018. FINDINGS: A frontal view of the chest is obtained. There is a tiny right apical pneumothorax. A mediastinal mass is again noted. A stent has been placed within the superior vena cava in the interval. There is mild atelectasis in the bases. There is no clear pleural effusion. The heart is not enlarged. IMPRESSION: 1. Tiny right apical pneumothorax. 2. Large mediastinal mass again noted. Electronically signed by: Elian Chávez MD (07/27/2018 4:15 PM) [facility]
--- NOTE | 2018-07-27 19:46 | NUR ---
assume care pt up in chair at bedside, denies pt at this time. assessment complete, call light in place will monitor. pmrn
[2018-07-27] MEDS: ENOXAPARIN 40 MG/0.4 ML SYRINGE. SQ SCH (20:35)
[2018-07-27] MEDS: ZOLPIDEM 5 MG TABLET. PO SCH (20:36)
[2018-07-27] MEDS: cefTRIAXone IV Push 1 GM VIAL. IVP SCH (20:36)
--- NOTE | 2018-07-28 01:06 | PATHOLOGY ---
[facility] Accession Number: [id number] . 01 Material submitted: . PART A: bone - BONE MARROW BIOPSY PART B: bone - BONE MARROW CLOT PART C: bone - BONE MARROW ASPIRATE SLIDES PART D: bone - PERIPHERAL BLOOD SMEARS PART E: bone - BONE MARROW FLOW . 01 Clinical history: . The patient is a 58 year old male who is noted to have a mediastinal mass, as well as anemia and polyclonal gammopathy. A bone marrow biopsy is performed. . 02 Diagnosis: Bone marrow aspirate, biopsy, cell clot and peripheral blood: - Peripheral blood with moderate microcytic normochromic anemia, absolute neutrophilia, relative lymphocytosis and monocytosis. - Moderately hypercellular bone marrow with active hematopoiesis; negative for overt myelodysplastic changes or marrow infiltrative process. Please see comment. LBQ/07/28/2018 . 02 Comment: Overall, the bone marrow biopsy shows active hematopoiesis without overt myelodysplastic changes or marrow infiltrative process. A small benign lymphoid aggregate is noted in the biopsy. The microcytic anemia with increased storage iron suggest a component of anemia of chronic disease. Correlation with clinical findings is recommended. (JMQ/db; 07/26/18) . 02 Electronically signed: . Edita Logan MD, Pathologist NPI- [id number] . 01 Gross description: . . A. The specimen is received in formalin, labeled "Ti Currie, bone marrow BX" and consists of a kaur-brown bone core measuring measuring 1.9 cm in length and 0.3 cm in diameter which is entirely submitted in A1 following decalcification. . B. The specimen is received in formalin, labeled "Ti Currie, BM-clot-asp" and consists of blood clot measuring 2.5 x 1.2 x 0.3 cm which is entirely submitted in B1. (SDY; 07/22/2018) SYU/SYU . 02 Microscopic: . Bone Marrow Procedure Note: The bone marrow biopsy is performed by Dr. Cameron at [facility]. Specimens are submitted for morphology, flow cytometry and cytogenetic studies. . CBC Data (07/22/18): WBC 8.5, RBC 3.65, hemoglobin 9.1, hematocrit 28.1, MCV 77, RDW 17.0%, platelet count 389,000. White blood cell count differential: 78% segs, 11% lymphs, 11% monos, 1% basophils. . Peripheral Blood: Red blood cells are normochromic with minimal anisopoikilocytosis including a few microcytic and macrocytic forms and rare target cells. There are no schistocytes or morphologic evidence of a hemolytic process identified. Platelets are normal in number and morphology. White blood cells are normal in number with predominance of mature segmented neutrophils. The neutrophils show a few cytoplasmic vacuoles. There are no circulating blasts or myeloid left shift identified. The lymphocytes are relatively decreased and are mostly small and mature with few atypical reactive lymphocytes. . Bone Marrow Aspirate: Marrow spicules are adequate, hypercellular, and polymorphous. Megakaryocytes are present with normal morphology. Erythroid precursors show rare cytoplasmic vacuoles. Granulocytic precursors show full spectrum maturation. There is no increase in blasts or atypical lymphoid cells identified. 500 cell count: 1% blasts, 1% promyelocytes, 14% meta- and myelocytes, 47% segs and bands, 22% erythroid precursors, 8% lymphocytes, 1% monocytes, and 7% plasma cells. The M:E ratio is 2 to 3 is to 1. . Iron stain: Moderately increased marrow iron stores without ringed sideroblasts. . Bone Marrow Biopsy and Cell Clot: The bone marrow core biopsy averages 40-60% in cellularity. Megakaryocytes average 2-4/HPF. Abundant erythroid and granulocytic precursors are present without clusters of blasts. A small benign non-paratrabecular lymphoid aggregate is noted. The cell clot shows occasional clusters of hematopoietic elements and is similar to core biopsy morphologically. To confirm flow cytometric findings and further characterize the lymphoid cells in a tissue architectural context, immunohistochemical stains are performed with appropriate controls: (A1 and B1) CD20- highlights B ylmphois cells within the small lymphoid aggregates CD3- highlights admixed T lymphoid cells within the lymphoid aggregates . Iron stain (A1 and B1) - Moderately increased marrow iron stores without ringed sideroblasts Reticulin stain (A1) - Minimal to mild reticulin fibrosis (MF0-1) . Flow Cytometry: Immunophenotypic studies by flow cytometry reveal a mildly atypical myeloid maturation pattern in a hemodilute specimen. . Comment: The flow shows a mildly atypical myeloid maturation pattern with decreased side scatter among granulocytes, although granulocytes show right shifted maturation suggestive of specimen hemodilution and therefore results should be correlated in this context. The findings raise concern for myeloid neoplasm although they can also be seen in some reactive/infectious processes, or with drugs such as growth factor therapy. Correlation with manual blast count (gold standard)necessary for confirmation since flow cytometry may over or under estimate the blast count. There is no immunophenotypic evidence of a lymphoproliferative disorder or plasma cell neoplasm. (Please see separate flow cytometry report from [employer] *[id number]). . Professional and technical services performed by [employer]. . 02 CPT . 609441, 095686, 710612, 308626, 207264, 683908, 422997, 849343, 593386, Q36214, G69622 Specimen Comment: A courtesy copy of this report has been sent to Specimen Comment: [phone], , , . Specimen Comment: Report sent to ,DR BERRY,DR CARLIN / DR VERMA Performed at: 01 [facility] [address], [place], [place] [id number] MD Miguel Kaba MD Phone: [phone] Performed at: 02 [facility] [address] [id number] MD Edita Logan MD Phone: [phone]
--- NOTE | 2018-07-28 01:06 | PATHOLOGY ---
[facility] Accession Number: [id number] . 01 Material submitted: . lymph node - INGUINAL LYMPH NODE BIOPSY. Modifiers: inguinal . 01 Clinical history: . Possibe lymphoma . 02 Diagnosis: Lymph node, left inguinal, needle core biopsy: - Lymphoid tissue with fibrosis, admixed B and T cells and plasmacytosis. Please see comment. LBQ/07/28/2018 . 02 Comment: Examination of the left inguinal lymph node shows lymphoid cells with fibrosis and plasmacytosis. Rare apoptotic debris are noted. Definite Pablito-Wallace cells, metastatic carcinoma or granulomas are not identified. Immunophenotypic studies by flow cytometry reveal paucicellular specimen with no flow immunophenotypic evidence of non-Hodgkin lymphoma detected based on limited antibody panel (please see separate flow cytometry report from [employer] [id number]). To confirm flow cytometric findings and characterize the lymphoid cells and plasma cells in a tissue architectural context, immunohistochemical stains are performed with appropriate controls: . (Block A1) CD20 - Highlights occasional B lymphoid cells CD3 - Highlights admixed T lymphoid cells CD5 - Highlights admixed T lymphoid cells BCL6 - Negative CD10 - Negative BCL2 - Highlights B and T lymphoid cells CD138 - Highlights numerous plasma cells [place] and lambda RHIANNA - Polytypic . Based on the morphology, immunohistochemical staining pattern and flow cytometry, these findings suggest benign reactive lymph node. However, it should be noted that partially involved lymph node by malignancy or Hodgkin lymphoma in a background of reactive follicles cannot be totally excluded due to sampling artifact. Excision of the lymph node is recommended if clinically suspicious. (AMBERLY/jose; 07/26/18) . Co-review: Dr. Luis Panda . 02 Electronically signed: . Edita Logan MD, Pathologist NPI- [id number] . 01 Gross description: . The specimen is received in formalin, labeled "Ti Currie, left inguinal lymph node BX" and consists of 4 needle cores of pink-kaur tissue measuring between 0.3 cm and 1.3 cm in length and 0.1 cm or less each in diameter. They are entirely submitted in A1. (SDY; 07/22/2018) SYU/SYU . 02 Pathologist provided ICD-10: D72.822 . 02 CPT . 770773 Specimen Comment: A courtesy copy of this report has been sent to Specimen Comment: [phone], , , . Specimen Comment: Report sent to ,DR BERRY,DR CARLIN / DR VERMA Performed at: [address], [place] [id number] MD Miguel Kaba MD Phone: [phone] Performed at: [address] [id number] MD Edita Logan MD Phone: [phone]
[2018-07-28 03:10] VITALS: BP 110/79
[2018-07-28] MEDS: HYDROcodone/APAP 5/325MG 1 TAB TABLET PO PRN ×3 (03:25→17:58)
[2018-07-28 07:22] VITALS: BP 105/69
--- NOTE | 2018-07-28 08:01 | PDOC ---
Infectious Disease Note Subjective Subjective sore throat - better and less reflux Tolerated procedure No N/V Less cough No fevers last 24 hours No BM ROS ROS o/w neg Vital Sign Vital Signs Vital Signs Date Time Temp Pulse Resp B/P (MAP) Pulse Ox O2 Delivery O2 Flow Rate FiO2 07/28/18 07:22 97.4 105 18 105/69 (81) 97 Room Air 97.4 07/27/18 15:22 2.0 Physical Exam PHYSICAL EXAM GENERAL: Sitting on side of bed, alert, NAD HEENT: oral cavity clear NECK: Supple. LUNGS: Decreased breath sounds at bases. HEART: S1, S2 ABDOMEN: Soft, nontender EXTREMITIES: No edema, no cyanosis. DERMATOLOGIC: Warm, dry, no generalized rash. Biopsy site post right is clean CENTRAL NERVOUS SYSTEM: Alert and oriented x 3. Grossly nonfocal. PIV Labs Micro Microbiology 07/22/18 Blood Culture - Preliminary, Resulted NO GROWTH AFTER 3 DAYS Objective Assessment Fever ? could be from underlying mediastinal mass, better Large mediastinal mass suspect NHL s/p biopsy 07/27 SVC s/p stent, 07/21 S/P BM bx, 07/22 Polyclonal gammopathy Gastric reflux N/V Transaminitis - better Plan Plan of Care D/c Rocephin (07/22) begin Cefdinir BC neg so far Monitor temp/labs Awaiting biopsy results and Onc recs Antiemetic and Maalox as directed per primary D/w nursing MARIAJOSE OLIVEIRA MD Jul 28, 2018 08:01
--- NOTE | 2018-07-28 08:44 | PDOC ---
PULMONARY PROGRESS NOTES Subjective NOT SOA NO CHEST PAIN Vitals Vital Signs Date Time Temp Pulse Resp B/P (MAP) Pulse Ox O2 Delivery O2 Flow Rate FiO2 07/28/18 07:22 97.4 105 18 105/69 (81) 97 Room Air 97.4 07/27/18 15:22 2.0 ROS: No Nausea, No Chest Pain, No Abdominal Pain, No Increase Cough General: Alert, Oriented X4 Lungs: Clear Cardiovascular: S1, S2 Abdomen: Soft Neuro Exam: Alert Extremities: No Edema Labs Laboratory Tests Test 07/27/18 05:53 White Blood Count 5.4 x10^3/uL (4.0-11.0) Red Blood Count 3.85 x10^6/uL (4.30-5.70) Hemoglobin 9.6 g/dL (13.0-17.5) Hematocrit 29.3 % (39.0-53.0) Mean Corpuscular Volume 76 fL (79-100) Mean Corpuscular Hemoglobin 25 pg (25-35) Mean Corpuscular Hemoglobin Concent 33 g/dL (31-37) Red Cell Distribution Width 17.4 % (11.5-14.5) Platelet Count 404 x10^3/uL (140-400) Neutrophils (%) (Auto) 65 % (31-73) Lymphocytes (%) (Auto) 19 % (24-48) Monocytes (%) (Auto) 13 % (0-9) Eosinophils (%) (Auto) 1 % (0-3) Basophils (%) (Auto) 2 % (0-3) Neutrophils # (Auto) 3.5 x10^3uL (1.8-7.7) Lymphocytes # (Auto) 1.0 x10^3/uL (1.0-4.8) Monocytes # (Auto) 0.7 x10^3/uL (0.0-1.1) Eosinophils # (Auto) 0.0 x10^3/uL (0.0-0.7) Basophils # (Auto) 0.1 x10^3/uL (0.0-0.2) Sodium Level 132 mmol/L (136-145) Potassium Level 4.4 mmol/L (3.5-5.1) Chloride Level 95 mmol/L (98-107) Carbon Dioxide Level 27 mmol/L (21-32) Anion Gap 10 (6-14) Blood Urea Nitrogen 8 mg/dL (8-26) Creatinine 0.8 mg/dL (0.7-1.3) Estimated GFR (Cockcroft-Gault) 119.7 BUN/Creatinine Ratio 10 (6-20) Glucose Level 103 mg/dL (70-99) Calcium Level 9.3 mg/dL (8.5-10.1) Total Bilirubin 0.3 mg/dL (0.2-1.0) Aspartate Amino Transf (AST/SGOT) 65 U/L (15-37) Alanine Aminotransferase (ALT/SGPT) 94 U/L (16-63) Alkaline Phosphatase 70 U/L (46-116) Total Protein 9.4 g/dL (6.4-8.2) Albumin 2.2 g/dL (3.4-5.0) Albumin/Globulin Ratio 0.3 (1.0-1.7) Medications Active Scripts Medications Dose Route/Sig Max Daily Dose Days Date Category Dose Instructions Ranitidine Hcl 150 Mg Tablet 1 Tab PO BID 07/19/18 Reported Lisinopril-Hctz 10-12.5 Mg Tab (Lisinopril/Hydrochlorothiazide) 1 Each Tablet 1 Tab PO DAILY 07/19/18 Reported Erythromycin (Erythromycin Base) 1 Gm Oint...g. 1 Gm OP QID 01/20/18 Rx 0.5% 1/2" ribbon to lower eyelid x7 days [place] 5-325 Tablet (Acetaminophen/Hydrocodone Bitart) 1 Each Tablet 1-2 Each PO PRN Q6HRS PRN 07/03/16 Rx as needed for pain Ibuprofen 400 Mg Tablet 400 Mg PO PRN Q6HRS PRN 07/03/16 Rx take with food or milk Valacyclovir (Valacyclovir Hcl) 1,000 Mg Tablet 1 Tab PO TID 07/03/16 Rx Impression . 1. Patient with 11.9 cm large mediastinal mass with extrinsic compression of the distal trachea and left mainstem bronchus. The mass is also extrinsically compressing the superior vena cava, main pulmonary arteries and also ascending thoracic aorta. 2. Tobaccoism, suspect underlying chronic obstructive pulmonary disease. 3. History of polyclonal gammopathy. 4. New fever post SVC stent, on Abx, Fever resolved Plan . AWAITING BX APPRECIATE MARLEEN BERRY AND ROBINOW INPUT WILL CONTINUE SUPPORT RESP STATUS IS COMMENTATED LALO LOZADA MD Jul 28, 2018 08:43
[2018-07-28] MEDS: ALLOPURINOL 300 MG TABLET. PO SCH (09:06)
[2018-07-28] MEDS: DOCUSATE SODIUM 100 MG CAPSULE. PO SCH (09:06)
[2018-07-28] MEDS: FAMOTIDINE 20 MG TABLET. PO SCH ×2 (09:06→21:05)
[2018-07-28] MEDS: CYANOCOBALAMIN (VITAMIN B-12) 1,000 MCG TABLET. PO SCH (09:06)
[2018-07-28] MEDS: CEFDINIR 300 MG CAPSULE PO SCH ×2 (09:06→21:05)
[2018-07-28] MEDS: guaiFENesin DM 200MG/20MG 10 ML SYRUP PO PRN (09:26)
--- NOTE | 2018-07-28 09:37 | PDOC ---
SUBJECTIVE Subjective S: s/p mediastinal bx, no complications, awaiting path O: Gen: NAD, resting in bed, hoarse voice Psych: pleasant mood and affect Labs: HCG and AFP neg, LDH sl high BMBx and ing LN bx neg for malignancy uric ac 4.0 b2mg 2.1 hep ABC neg HIV neg TTE: EF 45-50% 2/2 tachy likely A/P: He is a 58-year-old man with a mediastinal mass concerning for lymphoma with elevated LDH, with anemia, s/p BMBx and inguinal LN bx non-dx'ic pending mediastinal bx path from 4 [facility] SVC syndrome: better post SVC stent, ing and bone marrow bx's neg, can get mynor atment started as soon as diagnosis confirmed, IR/radiation oncology/pulm/CTS opinions apprec, on allopurinol to prevent poss TLS once tx is initiated bland thrombus in SVC per imaging: discussed at TB yesterday and w/ IR today, likely some bland thrombus, better post stent, but will give full dose AC (w/ lovenox while in house) and likely transition to apix 5 bid at d/c, may stop AC post chemo complete tachycardia: no beta blockade w/ h/o recent cocaine, w/ sl dec EF (but ok for chemo) (apprec primary assistance) fever: none recent, on Abx Anemia: Consistent with anemia of chronic disease on bone marrow biopsy Shoulder pain: he can follow-up with Ortho as needed B12 deficiency: he can continue oral replacement Polysubstance abuse: Have recommended avoiding all drugs tobacco and alcohol and he would like to be compliant Prophylaxis: On Lovenox 40 mg given nightly Disposition: After diagnosis made and treatment plan initiated, would prefer to keep in house til dx confirmed and poss 1st cycle of chemo Thank you kindly and please don't hesitate to call w/ ?s. OBJECTIVE Vital Signs Vital Signs Date Time Temp Pulse Resp B/P (MAP) Pulse Ox O2 Delivery O2 Flow Rate FiO2 07/28/18 09:07 Room Air 07/28/18 07:22 97.4 105 18 105/69 (81) 97 Room Air 97.4 07/28/18 03:25 Room Air 07/28/18 03:10 98.7 115 20 110/79 (89) 94 Room Air 98.7 07/27/18 22:45 98.8 120 20 110/69 (83) 93 Room Air 98.8 07/27/18 22:26 Room Air 07/27/18 20:06 Room Air 07/27/18 19:45 Room Air 07/27/18 19:30 99.2 111 22 107/66 (80) 96 Room Air 99.2 07/27/18 15:22 2.0 07/27/18 14:50 112 112/60 (77) 07/27/18 14:22 Nasal Cannula 2.0 07/27/18 14:03 104 135/88 (104) 07/27/18 13:03 109 122/77 (92) 07/27/18 12:48 105 127/82 (97) 90 Nasal Cannula 2.0 07/27/18 12:33 109 146/86 (106) 91 Nasal Cannula 2.0 07/27/18 12:18 107 137/79 (98) Nasal Cannula 2.0 07/27/18 12:03 107 136/84 (101) 94 Nasal Cannula 2.0 07/27/18 11:48 105 138/79 (98) Nasal Cannula 2.0 07/27/18 11:38 106 139/77 (97) 97 Nasal Cannula 2.0 07/27/18 11:25 98.2 106 18 134/71 (92) 99 Room Air 98.2 07/27/18 10:55 107 26 100 NonRebreather Mask 10.0 07/27/18 10:55 107 26 100 NonRebreather Mask 07/27/18 10:50 106 28 100 NonRebreather Mask 10.0 07/27/18 10:45 102 28 100 NonRebreather Mask 10.0 07/27/18 10:40 104 27 100 NonRebreather Mask 10.0 07/27/18 10:35 102 26 100 NonRebreather Mask 10.0 07/27/18 10:30 105 26 93 Nasal Cannula 2.0 07/27/18 10:15 26 100 NonRebreather Mask I & O Intake and Output 07/28/18 07:00 Intake Total 700 ml Output Total 1175 ml Balance -475 ml Intake Oral 700 ml Output Urine Total 1175 ml # Voids 3 Nutrition Consultation Dietary Evaluation: Recommendations by RD: Increase Calorie Intake, Protein supplementation Comments: Continue w/cardiac/ADA diet as ordered, honor food preferences, and provide snacks as requested Expected Outcomes/Goals: PO intake to meet >75% est needs - met at times, goal ongoing Interpretation of weight loss: >7.5% in 3 months Malnutrition Findings: Food and Nutrition Intake (Mod: <75% est energy req 7days Weight Status: Overweight AYSHA BERRY MD Jul 28, 2018 09:37
[2018-07-28 10:31] VITALS: BP 104/70
[2018-07-28] MEDS: ALBUTEROL SULFATE 2.5 MG/3 ML NEBU. NEB PRN (11:33)
--- NOTE | 2018-07-28 12:31 | NUR ---
SS following up with discharge planning. No discharge needs noted at this time. Pt's current disposition is home. SS will continue to follow for discharge planning.
[2018-07-28] MEDS: DICLOFENAC SODIUM 1% TOPICAL GEL 100GM TUBE. TP PRN (12:58)
[2018-07-28 14:55] VITALS: BP 120/81
--- NOTE | 2018-07-28 16:34 | PDOC ---
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 mod/severe malnutrition substance abuse, cocaine constipation htn Shoulder pain History of Present Illness History of Present Illness Mr. Currie is a 58 year old male admit with chest pain and worsening chest pain. 3 weeks prior to admission he first noticed a constant pain that gradually getting worse. Also complains of gas pain and constipation, and has not stooled for days, new cough, stable wheezing, Patient states the shortness of breath getting worse with supine position and light activity. Patient denies palpitation, fever and chills, sick contact, recent immobilization or history of DVT and PE, nausea and vomiting patient complaining of constipation and states he did not have any bowel movement for the 5 days preceding his ED visit and usually he has had a bowel movement every day. He was notably positive for cocaine and found with 11.9 CM mediastinal mass on CT chest. See by pulm, CT surgery, IR, Heme/Onc, RadOnc S/P SVC stenting, bone marrow biopsy and left groin biopsy. - the review of the BM biopsy and LN non-diagnostic. 07/24: Neck swelling improved, still with strong cough. 07/25: Vomiting overnight, now with a sore throat. 64. Biopsy done 07/28, some flat affect, feels OK, eating a little better, no new complaint Plan: may start chemo this thursday, appreciate mult consulted, Vitals Vitals Vital Signs Date Time Temp Pulse Resp B/P (MAP) Pulse Ox O2 Delivery O2 Flow Rate FiO2 07/28/18 14:55 97.3 104 12 120/81 (94) 96 Room Air 97.3 07/27/18 15:22 2.0 Physical Exam Physical Exam GENERAL: Sitting on side of bed, alert, NAD HEENT: oral cavity clear NECK: Supple. LUNGS: Decreased breath sounds at bases. HEART: S1, S2 ABDOMEN: Soft, nontender EXTREMITIES: No edema, no cyanosis. DERMATOLOGIC: Warm, dry, no generalized rash. Biopsy site post right is clean CENTRAL NERVOUS SYSTEM: Alert and oriented x 3. Grossly nonfocal. PIV General: Alert, Oriented X3, Other (dilated venous network on the anterior chest wall) Heart: Regular rate, Normal S1, Normal S2 Lungs: Clear Abdomen: Soft, No tenderness Extremities: No edema Skin: No significant lesion Assessment and Plan Assessmemt and Plan Problems Medical Problems: (1) Anemia Status: Acute (2) Chest pain Status: Acute (3) Mediastinal mass Status: Acute (4) Shortness of breath Status: Acute (5) Tachycardia Status: Acute (6) Weight loss Status: Acute Comment Review of Relevant I have reviewed the following items karina (where applicable) has been applied. Labs Laboratory Tests Test 07/27/18 05:53 White Blood Count 5.4 x10^3/uL (4.0-11.0) Red Blood Count 3.85 x10^6/uL (4.30-5.70) Hemoglobin 9.6 g/dL (13.0-17.5) Hematocrit 29.3 % (39.0-53.0) Mean Corpuscular Volume 76 fL (79-100) Mean Corpuscular Hemoglobin 25 pg (25-35) Mean Corpuscular Hemoglobin Concent 33 g/dL (31-37) Red Cell Distribution Width 17.4 % (11.5-14.5) Platelet Count 404 x10^3/uL (140-400) Neutrophils (%) (Auto) 65 % (31-73) Lymphocytes (%) (Auto) 19 % (24-48) Monocytes (%) (Auto) 13 % (0-9) Eosinophils (%) (Auto) 1 % (0-3) Basophils (%) (Auto) 2 % (0-3) Neutrophils # (Auto) 3.5 x10^3uL (1.8-7.7) Lymphocytes # (Auto) 1.0 x10^3/uL (1.0-4.8) Monocytes # (Auto) 0.7 x10^3/uL (0.0-1.1) Eosinophils # (Auto) 0.0 x10^3/uL (0.0-0.7) Basophils # (Auto) 0.1 x10^3/uL (0.0-0.2) Sodium Level 132 mmol/L (136-145) Potassium Level 4.4 mmol/L (3.5-5.1) Chloride Level 95 mmol/L (98-107) Carbon Dioxide Level 27 mmol/L (21-32) Anion Gap 10 (6-14) Blood Urea Nitrogen 8 mg/dL (8-26) Creatinine 0.8 mg/dL (0.7-1.3) Estimated GFR (Cockcroft-Gault) 119.7 BUN/Creatinine Ratio 10 (6-20) Glucose Level 103 mg/dL (70-99) Calcium Level 9.3 mg/dL (8.5-10.1) Total Bilirubin 0.3 mg/dL (0.2-1.0) Aspartate Amino Transf (AST/SGOT) 65 U/L (15-37) Alanine Aminotransferase (ALT/SGPT) 94 U/L (16-63) Alkaline Phosphatase 70 U/L (46-116) Total Protein 9.4 g/dL (6.4-8.2) Albumin 2.2 g/dL (3.4-5.0) Albumin/Globulin Ratio 0.3 (1.0-1.7) Microbiology 07/22/18 Blood Culture - Final, Complete NO GROWTH AFTER 5 DAYS Medications Current Medications Aspirin (Children'S Aspirin) 324 mg 1X ONCE PO Last administered on 07/19/18at 07:31; Start 07/19/18 at 07:15; Stop 07/19/18 at 07:16; Status DC Nitroglycerin (Nitrostat) 0.4 mg PRN Q5MIN PRN SL CP RATING > 1/10 Last administered on 07/19/18at 07:32; Start 07/19/18 at 07:15; Stop 07/20/18 at 07:14; Status DC Iohexol (Omnipaque 350 Mg/ml) 90 ml 1X ONCE IV Last administered on 07/19/18at 08:24; Start 07/19/18 at 08:00; Stop 07/19/18 at 08:01; Status DC Info (CONTRAST GIVEN -- Rx MONITORING) 1 each PRN DAILY PRN MC SEE COMMENTS; Start 07/19/18 at 08:15; Stop 07/21/18 at 08:14; Status DC Sodium Chloride 1,000 ml @ 150 mls/hr Q6H40M IV Last administered on 07/20/18at 09:01; Start 07/19/18 at 09:30; Stop 07/20/18 at 09:29; Status DC Simethicone (Gas-X) 80 mg PRN AFTMEALHC PRN PO GAS / BLOATING Last administered on 07/26/18 18:14; Start 07/19/18 at 14:45 Docusate Sodium (Colace) 100 mg DAILY PO Last administered on 07/28/18 09:06; Start 07/20/18 at 09:00 Polyethylene Glycol (miraLAX PACKET) 17 gm PRN DAILY PRN PO CONSTIPATION; Start 07/19/18 at 14:45 Zolpidem Tartrate (Ambien) 5 mg HS PO Last administered on 07/20/18 21:21; Start 07/19/18 at 21:00 Acetaminophen/ Hydrocodone Bitart (Lortab 5/325) 1 tab PRN Q6HRS PRN PO MODERATE-SEVERE PAIN Last administered on 07/28/18 09:07; Start 07/19/18 at 14:45 Ibuprofen (Motrin) 400 mg PRN Q6HRS PRN PO MILD PAIN 1-3 Last administered on 07/25/18 21:51; Start 07/19/18 at 14:45 Famotidine (Pepcid) 20 mg BID PO Last administered on 07/28/18 09:06; Start 07/19/18 at 21:00 Enoxaparin Sodium (Lovenox 40mg Syringe) 40 mg Q24H SQ Last administered on 07/27/18 20:35; Start 07/19/18 at 21:00; Stop 07/28/18 at 09:45; Status DC Cyanocobalamin (Vitamin B-12) 1,000 mcg DAILY PO Last administered on 07/28/18 09:06; Start 07/20/18 at 10:00 Albuterol Sulfate (Ventolin Neb Soln) 2.5 mg PRN Q6HRS PRN NEB SHORTNESS OF BREATH Last administered on 07/28/18 11:33; Start 07/20/18 at 14:00 Iohexol (Omnipaque 300 Mg/ml) 100 ml STK-MED ONCE .ROUTE ; Start 07/21/18 at 13:00; Stop 07/21/18 at 13:01; Status DC Heparin Sodium/ Sodium Chloride 500 ml @ As Directed STK-MED ONCE .ROUTE ; Start 07/21/18 at 13:00; Stop 07/21/18 at 13:01; Status DC Lidocaine/Sodium Bicarbonate (Buffered Lidocaine 1%) 3 ml STK-MED ONCE .ROUTE ; Start 07/21/18 at 13:01; Stop 07/21/18 at 13:02; Status DC Midazolam HCl (Versed) 2 mg STK-MED ONCE .ROUTE ; Start 07/21/18 at 13:07; Stop 07/21/18 at 13:08; Status DC Fentanyl Citrate (Fentanyl 2ml Vial) 100 mcg STK-MED ONCE .ROUTE ; Start 07/21/18 at 13:07; Stop 07/21/18 at 13:08; Status DC Iohexol (Omnipaque 240 Mg/ml) 50 ml STK-MED ONCE .ROUTE ; Start 07/21/18 at 13:09; Stop 07/21/18 at 13:10; Status DC Heparin Sodium/ Sodium Chloride 500 ml @ As Directed STK-MED ONCE .ROUTE ; Start 07/21/18 at 13:32; Stop 07/21/18 at 13:33; Status DC Heparin Sodium/ Sodium Chloride (HEPARIN for ARTERIAL LINE FLUSH) 3,000 unit 1X ONCE IART Last administered on 07/21/18at 14:15; Start 07/21/18 at 14:15; Stop 07/21/18 at 14:21; Status DC Lidocaine/Sodium Bicarbonate (Buffered Lidocaine 1%) 4 ml 1X ONCE IJ Last administered on 07/21/18at 14:15; Start 07/21/18 at 14:15; Stop 07/21/18 at 14:22; Status DC Midazolam HCl (Versed) 2 mg 1X ONCE IV Last administered on 07/21/18at 14:16; Start 07/21/18 at 14:15; Stop 07/21/18 at 14:21; Status DC Fentanyl Citrate (Fentanyl 2ml Vial) 50 mcg 1X ONCE IV Last administered on 07/21/18at 14:16; Start 07/21/18 at 14:15; Stop 07/21/18 at 14:21; Status DC Iodixanol (Visipaque 320) 60 ml 1X ONCE IART Last administered on 07/21/18at 14:15; Start 07/21/18 at 14:15; Stop 07/21/18 at 14:21; Status DC Heparin Sodium (Porcine) (Heparin Sodium) 5,000 unit 1X ONCE IV Last administered on 07/21/18at 14:17; Start 07/21/18 at 14:15; Stop 07/21/18 at 14:21; Status DC Info (CONTRAST GIVEN -- Rx MONITORING) 1 each PRN DAILY PRN MC SEE COMMENTS; Start 07/21/18 at 14:30; Stop 07/23/18 at 14:29; Status DC Lidocaine/Sodium Bicarbonate (Buffered Lidocaine 1%) 3 ml STK-MED ONCE .ROUTE ; Start 07/22/18 at 09:06; Stop 07/22/18 at 09:07; Status DC Midazolam HCl (Versed) 2 mg STK-MED ONCE .ROUTE ; Start 07/22/18 at 09:21; Stop 07/22/18 at 09:22; Status DC Fentanyl Citrate (Fentanyl 2ml Vial) 100 mcg STK-MED ONCE .ROUTE ; Start 07/22/18 at 09:21; Stop 07/22/18 at 09:22; Status DC Midazolam HCl (Versed) 2 mg STK-MED ONCE .ROUTE ; Start 07/22/18 at 09:30; Stop 07/22/18 at 09:31; Status DC Fentanyl Citrate (Fentanyl 2ml Vial) 100 mcg STK-MED ONCE .ROUTE ; Start 07/22/18 at 09:30; Stop 07/22/18 at 09:31; Status DC Lidocaine/Sodium Bicarbonate (Buffered Lidocaine 1%) 3 ml 1X ONCE IJ Last administered on 07/22/18at 10:00; Start 07/22/18 at 10:00; Stop 07/22/18 at 10:01; Status DC Midazolam HCl (Versed) 2 mg 1X ONCE IV Last administered on 07/22/18at 10:00; Start 07/22/18 at 10:00; Stop 07/22/18 at 10:01; Status DC Fentanyl Citrate (Fentanyl 2ml Vial) 100 mcg 1X ONCE IV Last administered on 07/22/18at 10:00; Start 07/22/18 at 10:00; Stop 07/22/18 at 10:01; Status DC Diclofenac Sodium (Voltaren) 1 estephanie PRN BID PRN TP PAIN Last administered on 07/28/18at 12:58; Start 07/22/18 at 16:00 Ceftriaxone Sodium (Rocephin) 1 gm Q24H IVP Last administered on 07/27/18at 20:36; Start 07/22/18 at 21:00; Stop 07/28/18 at 08:28; Status DC Acetaminophen (Tylenol) 650 mg PRN Q6HRS PRN PO FEVER Last administered on 07/23/18 15:40; Start 07/22/18 at 19:45 Allopurinol (Zyloprim) 300 mg DAILY PO Last administered on 07/28/18 09:06; Start 07/23/18 at 09:15 Guaifenesin (Robitussin Dm) 10 ml PRN Q6HRS PRN PO COUGH Last administered on 07/28/18 09:26; Start 07/23/18 at 11:45 Multi-Ingredient Mouthwash/Gargle (Gi Cocktail) 20 ml PRN QID PRN PO CHEST PAIN Last administered on 07/25/18 17:29; Start 07/24/18 at 18:45 Ondansetron HCl (Zofran) 8 mg PRN Q6HRS PRN IV NAUSEA/VOMITING, 1ST CHOICE Last administered on 07/26/18 21:25; Start 07/25/18 at 01:15 Metoclopramide HCl (Reglan Vial) 5 mg PRN Q6HRS PRN IV NAUSEA/VOMITING, 2ND CHOICE Last administered on 07/26/18 21:25; Start 07/25/18 at 01:15 Throat Lozenges (Cepacol Sore Throat Lozenge) 1 gisselle PRN Q2HRS PRN PO SORE THROAT Last administered on 07/25/18 10:44; Start 07/25/18 at 10:30 Lidocaine/Sodium Bicarbonate (Buffered Lidocaine 1%) 3 ml 1X ONCE IJ Last administered on 07/27/18 10:15; Start 07/27/18 at 10:15; Stop 07/27/18 at 10:16; Status DC Midazolam HCl (Versed) 2 mg 1X ONCE IV Last administered on 07/27/18 10:15; Start 07/27/18 at 10:15; Stop 07/27/18 at 10:16; Status DC Fentanyl Citrate (Fentanyl 2ml Vial) 100 mcg 1X ONCE IV Last administered on 07/27/18 10:15; Start 07/27/18 at 10:15; Stop 07/27/18 at 10:16; Status DC Iohexol (Omnipaque 300 Mg/ml) 50 ml 1X ONCE IART Last administered on 6/4/19at 10:30; Start 07/27/18 at 10:30; Stop 07/27/18 at 10:31; Status DC Info (CONTRAST GIVEN -- Rx MONITORING) 1 each PRN DAILY PRN MC SEE COMMENTS; Start 07/27/18 at 10:30; Stop 07/29/18 at 10:29 Lidocaine/Sodium Bicarbonate (Buffered Lidocaine 1%) 3 ml STK-MED ONCE .ROUTE ; Start 07/27/18 at 09:07; Stop 07/27/18 at 17:57; Status DC Midazolam HCl (Versed) 2 mg STK-MED ONCE .ROUTE ; Start 07/27/18 at 09:37; Stop 07/27/18 at 17:58; Status DC Fentanyl Citrate (Fentanyl 2ml Vial) 100 mcg STK-MED ONCE .ROUTE ; Start 07/27/18 at 09:37; Stop 07/27/18 at 17:58; Status DC Iohexol (Omnipaque 300 Mg/ml) 100 ml STK-MED ONCE .ROUTE ; Start 07/27/18 at 10:29; Stop 07/27/18 at 17:59; Status DC Cefdinir (Omnicef) 300 mg BID PO Last administered on 07/28/18at 09:06; Start 07/28/18 at 09:00 Enoxaparin Sodium (Lovenox 120mg Syringe) 120 mg Q24H SQ ; Start 07/28/18 at 19:00 Active Scripts Active Erythromycin (Erythromycin Base) 1 Gm Oint...g. 1 Gm OP QID 0.5% 1/2" ribbon to lower eyelid x7 days [place] 5-325 Tablet (Acetaminophen/Hydrocodone Bitart) 1 Each Tablet 1-2 Each PO PRN Q6HRS PRN as needed for pain Ibuprofen 400 Mg Tablet 400 Mg PO PRN Q6HRS PRN take with food or milk Valacyclovir (Valacyclovir Hcl) 1,000 Mg Tablet 1 Tab PO TID Reported Ranitidine Hcl 150 Mg Tablet 1 Tab PO BID Lisinopril-Hctz 10-12.5 Mg Tab (Lisinopril/Hydrochlorothiazide) 1 Each Tablet 1 Tab PO DAILY Vitals/I & O Vital Sign - Last 24 Hours 07/27/18 07/27/18 07/27/18 07/27/18 19:30 19:45 20:06 22:45 Temp 99.2 98.8 99.2 98.8 Pulse 111 120 Resp 22 20 B/P (MAP) 107/66 (80) 110/69 (83) Pulse Ox 96 93 O2 Delivery Room Air Room Air Room Air Room Air 07/28/18 07/28/18 07/28/18 07/28/18 03:10 03:25 07:22 08:00 Temp 98.7 97.4 98.7 97.4 Pulse 115 105 Resp 20 18 B/P (MAP) 110/79 (89) 105/69 (81) Pulse Ox 94 97 O2 Delivery Room Air Room Air Room Air Room Air 07/28/18 07/28/18 07/28/18 07/28/18 09:07 10:07 10:31 11:33 Temp 97.6 97.6 Pulse 109 Resp 18 B/P (MAP) 104/70 (81) Pulse Ox 95 93 O2 Delivery Room Air Room Air Room Air Room Air 07/28/18 14:55 Temp 97.3 97.3 Pulse 104 Resp 12 B/P (MAP) 120/81 (94) Pulse Ox 96 O2 Delivery Room Air Intake and Output 07/27/18 07/27/18 07/28/18 15:00 23:00 07:00 Intake Total 700 ml Output Total 475 ml 550 ml 150 ml Balance -475 ml -550 ml 550 ml Nutrition Consultation Dietary Evaluation: Recommendations by RD: Increase Calorie Intake, Protein supplementation Comments: Continue w/cardiac/ADA diet as ordered, honor food preferences, and provide snacks as requested Expected Outcomes/Goals: PO intake to meet >75% est needs - met at times, goal ongoing Interpretation of weight loss: >7.5% in 3 months Malnutrition Findings: Food and Nutrition Intake (Mod: <75% est energy req 7days Weight Status: Overweight BARRY CARLIN MD Jul 28, 2018 16:34
[2018-07-28 19:37] VITALS: BP 102/62
[2018-07-28] MEDS: ZOLPIDEM 5 MG TABLET. PO SCH (21:05)
[2018-07-28] MEDS: POLYETHYLENE GLYCOL 3350 17 GM PACKET. PO PRN (21:05)
[2018-07-28 22:44] VITALS: BP 107/73
[2018-07-29 02:33] VITALS: BP 97/61
[2018-07-29] MEDS: HYDROcodone/APAP 5/325MG 1 TAB TABLET PO PRN ×2 (04:41→13:56)
[2018-07-29 07:34] VITALS: BP 101/74
[2018-07-29] MEDS: ALBUTEROL SULFATE 2.5 MG/3 ML NEBU. NEB PRN ×3 (08:26→19:23)
[2018-07-29] MEDS: CEFDINIR 300 MG CAPSULE PO SCH ×2 (08:50→20:37)
[2018-07-29] MEDS: IBUPROFEN 400 MG TABLET. PO PRN ×2 (08:50→17:50)
[2018-07-29] MEDS: FAMOTIDINE 20 MG TABLET. PO SCH ×2 (08:50→20:34)
[2018-07-29] MEDS: CYANOCOBALAMIN (VITAMIN B-12) 1,000 MCG TABLET. PO SCH (08:50)
[2018-07-29] MEDS: DOCUSATE SODIUM 100 MG CAPSULE. PO SCH (08:50)
[2018-07-29] MEDS: DICLOFENAC SODIUM 1% TOPICAL GEL 100GM TUBE. TP PRN ×2 (08:50→21:41)
[2018-07-29] MEDS: ALLOPURINOL 300 MG TABLET. PO SCH (08:50)
--- NOTE | 2018-07-29 08:51 | PDOC ---
Infectious Disease Note Subjective Subjective Feeling ok. Tolerating Cefdinir No N/V Less cough No fevers last 24 hours No BM Vital Sign Vital Signs Vital Signs Date Time Temp Pulse Resp B/P (MAP) Pulse Ox O2 Delivery O2 Flow Rate FiO2 07/29/18 08:28 94 Room Air 07/29/18 07:34 97.3 110 20 101/74 (83) 3.0 97.3 Physical Exam PHYSICAL EXAM GENERAL: Sitting on side of bed, alert, NAD HEENT: oral cavity clear NECK: Supple. LUNGS: Decreased breath sounds at bases. HEART: S1, S2 ABDOMEN: Soft, nontender EXTREMITIES: No edema, no cyanosis. DERMATOLOGIC: Warm, dry, no generalized rash. Biopsy site post right back is clean CENTRAL NERVOUS SYSTEM: Alert and oriented x 3. Grossly nonfocal. PIV Labs Micro Microbiology 07/22/18 Blood Culture - Preliminary, Resulted NO GROWTH AFTER 3 DAYS Objective Assessment Fever ? could be from underlying mediastinal mass, better Large mediastinal mass suspect NHL s/p biopsy 07/27 SVC s/p stent, 07/21 S/P BM bx, 07/22 Polyclonal gammopathy Gastric reflux N/V Transaminitis - better Plan Plan of Care D/c Rocephin (07/22) began Cefdinir 07/28 BC neg so far Monitor temp/labs Awaiting biopsy results and Onc recs Antiemetic and Maalox as directed per primary D/w nursing D/w mother MARIAJOSE OLIVEIRA MD Jul 29, 2018 08:51
--- NOTE | 2018-07-29 09:08 | PDOC ---
PULMONARY PROGRESS NOTES Subjective NOT SOA NO CHEST PAIN Vitals Vital Signs Date Time Temp Pulse Resp B/P (MAP) Pulse Ox O2 Delivery O2 Flow Rate FiO2 07/29/18 08:28 94 Room Air 07/29/18 07:34 97.3 110 20 101/74 (83) 3.0 97.3 ROS: No Nausea, No Chest Pain, No Abdominal Pain, No Increase Cough General: Alert, Oriented X4 Lungs: Clear Cardiovascular: S1, S2 Abdomen: Soft Neuro Exam: Alert Extremities: No Edema Medications Active Scripts Medications Dose Route/Sig Max Daily Dose Days Date Category Dose Instructions Ranitidine Hcl 150 Mg Tablet 1 Tab PO BID 07/19/18 Reported Lisinopril-Hctz 10-12.5 Mg Tab (Lisinopril/Hydrochlorothiazide) 1 Each Tablet 1 Tab PO DAILY 07/19/18 Reported Erythromycin (Erythromycin Base) 1 Gm Oint...g. 1 Gm OP QID 01/20/18 Rx 0.5% 1/2" ribbon to lower eyelid x7 days [place] 5-325 Tablet (Acetaminophen/Hydrocodone Bitart) 1 Each Tablet 1-2 Each PO PRN Q6HRS PRN 07/03/16 Rx as needed for pain Ibuprofen 400 Mg Tablet 400 Mg PO PRN Q6HRS PRN 07/03/16 Rx take with food or milk Valacyclovir (Valacyclovir Hcl) 1,000 Mg Tablet 1 Tab PO TID 07/03/16 Rx Impression . 1. Patient with 11.9 cm large mediastinal mass with extrinsic compression of the distal trachea and left mainstem bronchus. The mass is also extrinsically compressing the superior vena cava, main pulmonary arteries and also ascending thoracic aorta. 2. Tobaccoism, suspect underlying chronic obstructive pulmonary disease. 3. History of polyclonal gammopathy. 4. New fever post SVC stent, on Abx, Fever resolved Plan . AWAITING BX APPRECIATE MARLEEN BERRY AND JARRET INPUT WILL CONTINUE SUPPORT RESP STATUS IS COMMENTATED LALO LOZADA MD Jul 29, 2018 09:08
[2018-07-29 11:00] VITALS: BP 91/60
--- NOTE | 2018-07-29 14:50 | PDOC ---
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 mod/severe malnutrition substance abuse, cocaine constipation htn Shoulder pain History of Present Illness History of Present Illness Mr. Currie is a 58 year old male admit with chest pain and worsening chest pain. 3 weeks prior to admission he first noticed a constant pain that gradually getting worse. Also complains of gas pain and constipation, and has not stooled for days, new cough, stable wheezing, Patient states the shortness of breath getting worse with supine position and light activity. Patient denies palpitation, fever and chills, sick contact, recent immobilization or history of DVT and PE, nausea and vomiting patient complaining of constipation and states he did not have any bowel movement for the 5 days preceding his ED visit and usually he has had a bowel movement every day. He was notably positive for cocaine and found with 11.9 CM mediastinal mass on CT chest. See by pulm, CT surgery, IR, Heme/Onc, RadOnc S/P SVC stenting, bone marrow biopsy and left groin biopsy. - the review of the BM biopsy and LN non-diagnostic. 07/24: Neck swelling improved, still with strong cough. 07/25: Vomiting overnight, now with a sore throat. 64. Biopsy done 07/28, some flat affect, feels OK, eating a little better, no new complaint 07/29 reviewed imaging and path with Dr. Shane, called Path, may be small cell tumor, Plan: may start chemo soon, Vitals Vitals Vital Signs Date Time Temp Pulse Resp B/P (MAP) Pulse Ox O2 Delivery O2 Flow Rate FiO2 07/29/18 12:02 Room Air 07/29/18 11:00 98.0 107 16 91/60 (70) 92 98.0 07/29/18 07:34 3.0 Physical Exam Physical Exam GENERAL: Sitting on side of bed, alert, NAD HEENT: oral cavity clear NECK: Supple. LUNGS: Decreased breath sounds at bases. HEART: S1, S2 ABDOMEN: Soft, nontender EXTREMITIES: No edema, no cyanosis. DERMATOLOGIC: Warm, dry, no generalized rash. Biopsy site post right back is clean CENTRAL NERVOUS SYSTEM: Alert and oriented x 3. Grossly nonfocal. PIV General: Alert, Oriented X3, Other (dilated venous network on the anterior chest wall) Heart: Regular rate, Normal S1, Normal S2 Lungs: Clear Abdomen: Soft, No tenderness Extremities: No cyanosis, No edema Skin: No rashes, No significant lesion Assessment and Plan Assessmemt and Plan Problems Medical Problems: (1) Anemia Status: Acute (2) Chest pain Status: Acute (3) Mediastinal mass Status: Acute (4) Shortness of breath Status: Acute (5) Tachycardia Status: Acute (6) Weight loss Status: Acute Comment Review of Relevant I have reviewed the following items karina (where applicable) has been applied. Labs Microbiology 07/22/18 Blood Culture - Final, Complete NO GROWTH AFTER 5 DAYS Medications Current Medications Aspirin (Children'S Aspirin) 324 mg 1X ONCE PO Last administered on 07/19/18at 07:31; Start 07/19/18 at 07:15; Stop 07/19/18 at 07:16; Status DC Nitroglycerin (Nitrostat) 0.4 mg PRN Q5MIN PRN SL CP RATING > 1/10 Last administered on 07/19/18at 07:32; Start 07/19/18 at 07:15; Stop 07/20/18 at 0 7:14; Status DC Iohexol (Omnipaque 350 Mg/ml) 90 ml 1X ONCE IV Last administered on 07/19/18at 08:24; Start 07/19/18 at 08:00; Stop 07/19/18 at 08:01; Status DC Info (CONTRAST GIVEN -- Rx MONITORING) 1 each PRN DAILY PRN MC SEE COMMENTS; Start 07/19/18 at 08:15; Stop 07/21/18 at 08:14; Status DC Sodium Chloride 1,000 ml @ 150 mls/hr Q6H40M IV Last administered on 07/20/18at 09:01; Start 07/19/18 at 09:30; Stop 07/20/18 at 09:29; Status DC Simethicone (Gas-X) 80 mg PRN AFTMEALHC PRN PO GAS / BLOATING Last administered on 07/26/18at 18:14; Start 07/19/18 at 14:45 Docusate Sodium (Colace) 100 mg DAILY PO Last administered on 07/29/18at 08:50; Start 07/20/18 at 09:00 Polyethylene Glycol (miraLAX PACKET) 17 gm PRN DAILY PRN PO CONSTIPATION Last administered on 07/28/18 21:05; Start 07/19/18 at 14:45 Zolpidem Tartrate (Ambien) 5 mg HS PO Last administered on 07/28/18 21:05; Start 07/19/18 at 21:00 Acetaminophen/ Hydrocodone Bitart (Lortab 5/325) 1 tab PRN Q6HRS PRN PO MODERATE-SEVERE PAIN Last administered on 07/29/18 13:56; Start 07/19/18 at 14:45 Ibuprofen (Motrin) 400 mg PRN Q6HRS PRN PO MILD PAIN 1-3 Last administered on 07/29/18 08:50; Start 07/19/18 at 14:45 Famotidine (Pepcid) 20 mg BID PO Last administered on 07/29/18 08:50; Start 07/19/18 at 21:00 Enoxaparin Sodium (Lovenox 40mg Syringe) 40 mg Q24H SQ Last administered on 07/27/18 20:35; Start 07/19/18 at 21:00; Stop 07/28/18 at 09:45; Status DC Cyanocobalamin (Vitamin B-12) 1,000 mcg DAILY PO Last administered on 07/29/18 08:50; Start 07/20/18 at 10:00 Albuterol Sulfate (Ventolin Neb Soln) 2.5 mg PRN Q6HRS PRN NEB SHORTNESS OF BREATH Last administered on 07/29/18 12:01; Start 07/20/18 at 14:00 Iohexol (Omnipaque 300 Mg/ml) 100 ml STK-MED ONCE .ROUTE ; Start 07/21/18 at 13:00; Stop 07/21/18 at 13:01; Status DC Heparin Sodium/ Sodium Chloride 500 ml @ As Directed STK-MED ONCE .ROUTE ; Start 07/21/18 at 13:00; Stop 07/21/18 at 13:01; Status DC Lidocaine/Sodium Bicarbonate (Buffered Lidocaine 1%) 3 ml STK-MED ONCE .ROUTE ; Start 07/21/18 at 13:01; Stop 07/21/18 at 13:02; Status DC Midazolam HCl (Versed) 2 mg STK-MED ONCE .ROUTE ; Start 07/21/18 at 13:07; Stop 07/21/18 at 13:08; Status DC Fentanyl Citrate (Fentanyl 2ml Vial) 100 mcg STK-MED ONCE .ROUTE ; Start 07/21/18 at 13:07; Stop 07/21/18 at 13:08; Status DC Iohexol (Omnipaque 240 Mg/ml) 50 ml STK-MED ONCE .ROUTE ; Start 07/21/18 at 13:09; Stop 07/21/18 at 13:10; Status DC Heparin Sodium/ Sodium Chloride 500 ml @ As Directed STK-MED ONCE .ROUTE ; Start 07/21/18 at 13:32; Stop 07/21/18 at 13:33; Status DC Heparin Sodium/ Sodium Chloride (HEPARIN for ARTERIAL LINE FLUSH) 3,000 unit 1X ONCE IART Last administered on 07/21/18at 14:15; Start 07/21/18 at 14:15; Stop 07/21/18 at 14:21; Status DC Lidocaine/Sodium Bicarbonate (Buffered Lidocaine 1%) 4 ml 1X ONCE IJ Last administered on 07/21/18at 14:15; Start 07/21/18 at 14:15; Stop 07/21/18 at 14:22; Status DC Midazolam HCl (Versed) 2 mg 1X ONCE IV Last administered on 07/21/18at 14:16; Start 07/21/18 at 14:15; Stop 07/21/18 at 14:21; Status DC Fentanyl Citrate (Fentanyl 2ml Vial) 50 mcg 1X ONCE IV Last administered on 07/21/18at 14:16; Start 07/21/18 at 14:15; Stop 07/21/18 at 14:21; Status DC Iodixanol (Visipaque 320) 60 ml 1X ONCE IART Last administered on 07/21/18at 14:15; Start 07/21/18 at 14:15; Stop 07/21/18 at 14:21; Status DC Heparin Sodium (Porcine) (Heparin Sodium) 5,000 unit 1X ONCE IV Last administered on 07/21/18at 14:17; Start 07/21/18 at 14:15; Stop 07/21/18 at 14:21; Status DC Info (CONTRAST GIVEN -- Rx MONITORING) 1 each PRN DAILY PRN MC SEE COMMENTS; Start 07/21/18 at 14:30; Stop 07/23/18 at 14:29; Status DC Lidocaine/Sodium Bicarbonate (Buffered Lidocaine 1%) 3 ml STK-MED ONCE .ROUTE ; Start 07/22/18 at 09:06; Stop 07/22/18 at 09:07; Status DC Midazolam HCl (Versed) 2 mg STK-MED ONCE .ROUTE ; Start 07/22/18 at 09:21; Stop 07/22/18 at 09:22; Status DC Fentanyl Citrate (Fentanyl 2ml Vial) 100 mcg STK-MED ONCE .ROUTE ; Start 07/22/18 at 09:21; Stop 07/22/18 at 09:22; Status DC Midazolam HCl (Versed) 2 mg STK-MED ONCE .ROUTE ; Start 07/22/18 at 09:30; Stop 07/22/18 at 09:31; Status DC Fentanyl Citrate (Fentanyl 2ml Vial) 100 mcg STK-MED ONCE .ROUTE ; Start 07/22/18 at 09:30; Stop 07/22/18 at 09:31; Status DC Lidocaine/Sodium Bicarbonate (Buffered Lidocaine 1%) 3 ml 1X ONCE IJ Last administered on 07/22/18at 10:00; Start 07/22/18 at 10:00; Stop 07/22/18 at 10:01; Status DC Midazolam HCl (Versed) 2 mg 1X ONCE IV Last administered on 07/22/18at 10:00; Start 07/22/18 at 10:00; Stop 07/22/18 at 10:01; Status DC Fentanyl Citrate (Fentanyl 2ml Vial) 100 mcg 1X ONCE IV Last administered on 07/22/18at 10:00; Start 07/22/18 at 10:00; Stop 07/22/18 at 10:01; Status DC Diclofenac Sodium (Voltaren) 1 estephanie PRN BID PRN TP PAIN Last administered on 07/29/18 08:50; Start 07/22/18 at 16:00 Ceftriaxone Sodium (Rocephin) 1 gm Q24H IVP Last administered on 07/27/18at 20:36; Start 07/22/18 at 21:00; Stop 07/28/18 at 08:28; Status DC Acetaminophen (Tylenol) 650 mg PRN Q6HRS PRN PO FEVER Last administered on 07/23/18at 15:40; Start 07/22/18 at 19:45 Allopurinol (Zyloprim) 300 mg DAILY PO Last administered on 07/29/18 08:50; Start 07/23/18 at 09:15 Guaifenesin (Robitussin Dm) 10 ml PRN Q6HRS PRN PO COUGH Last administered on 07/28/18 09:26; Start 07/23/18 at 11:45 Multi-Ingredient Mouthwash/Gargle (Gi Cocktail) 20 ml PRN QID PRN PO CHEST PAIN Last administered on 07/25/18 17:29; Start 07/24/18 at 18:45 Ondansetron HCl (Zofran) 8 mg PRN Q6HRS PRN IV NAUSEA/VOMITING, 1ST CHOICE Last administered on 07/26/18 21:25; Start 07/25/18 at 01:15 Metoclopramide HCl (Reglan Vial) 5 mg PRN Q6HRS PRN IV NAUSEA/VOMITING, 2ND CHOICE Last administered on 07/26/18 21:25; Start 07/25/18 at 01:15 Throat Lozenges (Cepacol Sore Throat Lozenge) 1 gisselle PRN Q2HRS PRN PO SORE THROAT Last administered on 07/25/18 10:44; Start 07/25/18 at 10:30 Lidocaine/Sodium Bicarbonate (Buffered Lidocaine 1%) 3 ml 1X ONCE IJ Last administered on 07/27/18 10:15; Start 07/27/18 at 10:15; Stop 07/27/18 at 10:16; Status DC Midazolam HCl (Versed) 2 mg 1X ONCE IV Last administered on 07/27/18 10:15; Start 07/27/18 at 10:15; Stop 07/27/18 at 10:16; Status DC Fentanyl Citrate (Fentanyl 2ml Vial) 100 mcg 1X ONCE IV Last administered on 07/27/18 10:15; Start 07/27/18 at 10:15; Stop 07/27/18 at 10:16; Status DC Iohexol (Omnipaque 300 Mg/ml) 50 ml 1X ONCE IART Last administered on 07/27/18 10:30; Start 07/27/18 at 10:30; Stop 07/27/18 at 10:31; Status DC Info (CONTRAST GIVEN -- Rx MONITORING) 1 each PRN DAILY PRN MC SEE COMMENTS; Start 07/27/18 at 10:30; Stop 07/29/18 at 10:29; Status DC Lidocaine/Sodium Bicarbonate (Buffered Lidocaine 1%) 3 ml STK-MED ONCE .ROUTE ; Start 07/27/18 at 09:07; Stop 07/27/18 at 17:57; Status DC Midazolam HCl (Versed) 2 mg STK-MED ONCE .ROUTE ; Start 07/27/18 at 09:37; Stop 07/27/18 at 17:58; Status DC Fentanyl Citrate (Fentanyl 2ml Vial) 100 mcg STK-MED ONCE .ROUTE ; Start 07/27/18 at 09:37; Stop 07/27/18 at 17:58; Status DC Iohexol (Omnipaque 300 Mg/ml) 100 ml STK-MED ONCE .ROUTE ; Start 07/27/18 at 10:29; Stop 07/27/18 at 17:59; Status DC Cefdinir (Omnicef) 300 mg BID PO Last administered on 07/29/18at 08:50; Start 07/28/18 at 09:00 Enoxaparin Sodium (Lovenox 120mg Syringe) 120 mg Q24H SQ Last administered on 07/28/18at 18:46; Start 07/28/18 at 19:00 Active Scripts Active Erythromycin (Erythromycin Base) 1 Gm Oint...g. 1 Gm OP QID 0.5% 1/2" ribbon to lower eyelid x7 days [place] 5-325 Tablet (Acetaminophen/Hydrocodone Bitart) 1 Each Tablet 1-2 Each PO PRN Q6HRS PRN as needed for pain Ibuprofen 400 Mg Tablet 400 Mg PO PRN Q6HRS PRN take with food or milk Valacyclovir (Valacyclovir Hcl) 1,000 Mg Tablet 1 Tab PO TID Reported Ranitidine Hcl 150 Mg Tablet 1 Tab PO BID Lisinopril-Hctz 10-12.5 Mg Tab (Lisinopril/Hydrochlorothiazide) 1 Each Tablet 1 Tab PO DAILY Vitals/I & O Vital Sign - Last 24 Hours 07/28/18 07/28/18 07/28/18 07/28/18 14:55 17:58 19:37 20:01 Temp 97.3 99.0 97.3 99.0 Pulse 104 115 Resp 12 22 B/P (MAP) 120/81 (94) 102/62 (75) Pulse Ox 96 92 O2 Delivery Room Air Nasal Cannula Room Air Room Air O2 Flow Rate 2.0 07/28/18 07/29/18 07/29/18 07/29/18 22:44 02:33 04:41 07:34 Temp 98.6 98.5 97.3 98.6 98.5 97.3 Pulse 104 107 110 Resp 18 18 20 B/P (MAP) 107/73 (84) 97/61 (73) 101/74 (83) Pulse Ox 91 98 99 O2 Delivery Room Air Room Air Room Air Nasal Cannula O2 Flow Rate 3.0 07/29/18 07/29/18 07/29/18 07/29/18 08:10 08:28 11:00 12:02 Temp 98.0 98.0 Pulse 107 Resp 16 B/P (MAP) 91/60 (70) Pulse Ox 94 92 O2 Delivery Room Air Room Air Room Air Room Air Intake and Output 07/28/18 07/28/18 07/29/18 15:00 23:00 07:00 Intake Total 600 ml 100 ml 450 ml Output Total 175 ml 200 ml Balance 600 ml -75 ml 250 ml Nutrition Consultation Dietary Evaluation: Recommendations by RD: Increase Calorie Intake, Protein supplementation Comments: Continue w/cardiac/ADA diet as ordered, honor food preferences, and provide snacks as requested Expected Outcomes/Goals: PO intake to meet >75% est needs - met at times, goal ongoing Interpretation of weight loss: >7.5% in 3 months Malnutrition Findings: Food and Nutrition Intake (Mod: <75% est energy req 7days Weight Status: Overweight BARRY CARLIN MD Jul 29, 2018 14:50
[2018-07-29 15:03] VITALS: BP 99/67
[2018-07-29] MEDS: BENZOCAINE/MENTHOL LOZENGE. PO PRN (17:49)
[2018-07-29] MEDS ORDERED: TEMAZEPAM 15 MG CAPSULE PO PRN (18:30)
[2018-07-29 19:21] VITALS: BP 94/65
[2018-07-29] MEDS: POLYETHYLENE GLYCOL 3350 17 GM PACKET. PO PRN (20:34)
[2018-07-29] MEDS: ZOLPIDEM 5 MG TABLET. PO SCH (21:00)
[2018-07-29 23:44] VITALS: BP 96/64
[2018-07-30 03:24] VITALS: BP 96/63
[2018-07-30] MEDS: HYDROcodone/APAP 5/325MG 1 TAB TABLET PO PRN (04:32)
[2018-07-30 07:00] VITALS: BP 117/83
--- NOTE | 2018-07-30 08:35 | PDOC ---
SUBJECTIVE Subjective S: path pending, does not look like lymphoma or small cell, looks epithelioid, he cannot wait here any longer, wanting to go home O: Gen: NAD, resting in bed, hoarse voice Psych: pleasant mood and affect Labs: HCG and AFP neg, LDH sl high BMBx and ing LN bx neg for malignancy uric ac 4.0 b2mg 2.1 hep ABC neg HIV neg TTE: EF 45-50% 2/2 tachy likely A/P: He is a 58-year-old man with a mediastinal mass with elevated LDH, with anemia, s/p BMBx and inguinal LN bx non-dx'ic pending mediastinal bx path from 4 Jul, stains to be read today SVC syndrome: better post SVC stent, ing and bone marrow bx's neg, can get treatment started as soon as diagnosis confirmed, IR/radiation oncology/pulm/CTS opinions apprec, on allopurinol to prevent poss TLS once tx is initiated bland thrombus in SVC per imaging: discussed at TB and w/ IR today, likely some bland thrombus, better post stent, but will give full dose AC (w/ lovenox while in house) and likely transition to apix 5 bid at d/c (Rx written for apixaban on dc), may stop AC post chemo complete tachycardia: no beta blockade w/ h/o recent cocaine, w/ sl dec EF (but ok for chemo) (apprec primary assistance) fever: none recent, on Abx Anemia: Consistent with anemia of chronic disease on bone marrow biopsy Shoulder pain: he can follow-up with Ortho as needed B12 deficiency: he can continue oral replacement Polysubstance abuse: Have recommended avoiding all drugs tobacco and alcohol and he would like to be compliant Disposition: today, he will come back in house over the weekend if needing to expedite things after path back, plan to stage prn based on dx, will check ferritin and get port as well when back in Thank you kindly and please don't hesitate to call w/ ?s. OBJECTIVE Vital Signs Vital Signs Date Time Temp Pulse Resp B/P (MAP) Pulse Ox O2 Delivery O2 Flow Rate FiO2 07/30/18 07:00 97.6 105 18 117/83 (94) 94 Room Air 97.6 07/30/18 04:32 93 Room Air 07/30/18 03:24 98.6 96 20 96/63 (74) 93 Room Air 98.6 07/29/18 23:44 98.0 95 20 96/64 (75) 96 Room Air 98.0 07/29/18 20:41 Room Air 07/29/18 19:23 95 Room Air 07/29/18 19:21 98.7 103 20 94/65 (75) 92 Room Air 98.7 07/29/18 15:03 97.8 100 99/67 (78) 93 Room Air 97.8 07/29/18 12:02 Room Air 07/29/18 11:00 98.0 107 16 91/60 (70) 92 Room Air 98.0 I & O Intake and Output 07/30/18 07:00 Intake Total 240 ml Balance 240 ml Intake Oral 240 ml Nutrition Consultation Dietary Evaluation: Recommendations by RD: Increase Calorie Intake, Protein supplementation Comments: Continue w/cardiac/ADA diet as ordered, honor food preferences, and provide snacks as requested Expected Outcomes/Goals: PO intake to meet >75% est needs - met at times, goal ongoing Interpretation of weight loss: >7.5% in 3 months Malnutrition Findings: Food and Nutrition Intake (Mod: <75% est energy req 7days Weight Status: Overweight AYSHA BERRY MD Jul 30, 2018 08:35
[2018-07-30] MEDS ORDERED: APIXABAN 5 MG TABLET. PO SCH (09:00)
[2018-07-30] MEDS ORDERED: ALLO300T PO (09:12)
[2018-07-30] MEDS ORDERED: HYDR-3164 PO (09:12)
[2018-07-30] MEDS ORDERED: APIX5TAB PO (09:12)
[2018-07-30] MEDS ORDERED: DOCU-109 PO (09:12)
[2018-07-30] MEDS ORDERED: DICL100G18 TP (09:12)
--- NOTE | 2018-07-30 09:30 | PDOC ---
Infectious Disease Note Subjective Subjective Feeling ok. Tolerating Cefdinir No N/V Less cough No fevers last 24 hours No BM Vital Sign Vital Signs Vital Signs Date Time Temp Pulse Resp B/P (MAP) Pulse Ox O2 Delivery O2 Flow Rate FiO2 07/30/18 07:00 97.6 105 18 117/83 (94) 94 Room Air 97.6 07/29/18 07:34 3.0 Physical Exam PHYSICAL EXAM GENERAL: Sitting on side of bed, alert, NAD HEENT: oral cavity clear NECK: Supple. LUNGS: Decreased breath sounds at bases. HEART: S1, S2 ABDOMEN: Soft, nontender EXTREMITIES: No edema, no cyanosis. DERMATOLOGIC: Warm, dry, no generalized rash. Biopsy site post right back is clean CENTRAL NERVOUS SYSTEM: Alert and oriented x 3. Grossly nonfocal. PIV Labs Micro Microbiology 07/22/18 Blood Culture - Preliminary, Resulted NO GROWTH AFTER 3 DAYS Objective Assessment Fever ? could be from underlying mediastinal mass, better Large mediastinal mass suspect NHL s/p biopsy 07/27 SVC s/p stent, 07/21 S/P BM bx, 07/22 Polyclonal gammopathy Gastric reflux N/V Transaminitis - better Plan Plan of Care D/c Rocephin (07/22) began Cefdinir 07/28 BC neg so far Monitor temp/labs Awaiting biopsy results and Onc recs Antiemetic and Maalox as directed per primary D/w nursing D/w mother MARIAJOSE OLIVEIRA MD Jul 30, 2018 09:30
[2018-07-30] MEDS: CEFDINIR 300 MG CAPSULE PO SCH (09:47)
[2018-07-30] MEDS: CYANOCOBALAMIN (VITAMIN B-12) 1,000 MCG TABLET. PO SCH (09:47)
[2018-07-30] MEDS: FAMOTIDINE 20 MG TABLET. PO SCH (09:48)
[2018-07-30] MEDS: DICLOFENAC SODIUM 1% TOPICAL GEL 100GM TUBE. TP PRN (09:48)
[2018-07-30] MEDS: DOCUSATE SODIUM 100 MG CAPSULE. PO SCH (09:48)
[2018-07-30] MEDS: ALLOPURINOL 300 MG TABLET. PO SCH (09:48)
--- NOTE | 2018-07-30 10:20 | NUR ---
Discharge: Teaching verbal and written. Reviewed medications, follow-up, chemotherapy, constipation, ect. Patient verbalized understanding. Written prescriptions given to patient. Patient to follow-up with Dr. Alaniz on Thursday next week. IV removed without complications, catheter tip in-tact. All belongings with patient. Patient assisted off of unit via wheelchair accompanied by RN. Family waiting at front door.
--- NOTE | 2018-07-30 13:19 | PDOC3 ---
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 stented on 07/21 mod/severe malnutrition substance abuse, cocaine constipation htn Shoulder pain Problems Medical Problems: (1) Anemia Status: Acute (2) Chest pain Status: Acute (3) Mediastinal mass Status: Acute (4) Shortness of breath Status: Acute (5) Tachycardia Status: Acute (6) Weight loss Status: Acute Brief Hospital Course Allergies Allergies Coded Allergies Type Severity Reaction Last Updated Verified No Known Drug Allergies 10/14/13 No Vital Signs Vital Signs Date Time Temp Pulse Resp B/P (MAP) Pulse Ox O2 Delivery O2 Flow Rate FiO2 07/30/18 08:00 Room Air 07/30/18 07:00 97.6 105 18 117/83 (94) 94 97.6 07/29/18 07:34 3.0 Brief Hospital Course Mr. Currie is a 58 year old male admit with chest pain and worsening chest pain. 3 weeks prior to admission he first noticed a constant pain that gradually getting worse. Also complains of gas pain and constipation, and has not stooled for days, new cough, stable wheezing, Patient states the shortness of breath getting worse with supine position and light activity. Patient denies palpitation, fever and chills, sick contact, recent immobilization or history of DVT and PE, nausea and vomiting patient complaining of constipation and states he did not have any bowel movement for the 5 days preceding his ED visit and usually he has had a bowel movement every day. He was notably positive for cocaine and found with 11.9 CM mediastinal mass on CT chest. See by pulm, CT surgery, IR, Heme/Onc, RadOnc S/P SVC stenting, bone marrow biopsy and left groin biopsy. - the review of the BM biopsy and LN non-diagnostic. some neck swelling, some nausea, vomiting flat affect of adjustment disorder Discharge Information Condition at Discharge: Improved Follow Up: Weeks Disposition/Orders: D/C to Home Scheduled Allopurinol (Allopurinol) 300 Mg Tablet, 300 MG PO DAILY for tumor lysis, #30 Prescribed by: BARRY CARLIN on 07/30/18 0912 Apixaban (Eliquis) 5 Mg Tablet, 5 MG PO BID for prevent blood clots, #60 Ref 1 Prescribed by: BARRY CARLIN on 07/30/18911 Docusate Sodium (Colace) 100 Mg Capsule, 100 MG PO DAILY for constipation, #30 Prescribed by: BARRY CARLIN on 07/30/18911 Lisinopril/Hydrochlorothiazide (Lisinopril-Hctz 10-12.5 Mg Tab) 1 Each Tablet, 1 TAB PO DAILY for , #30 Ref 5 (Reported) Entered as Reported by: TERESSA BENJAMIN RN on 07/19/18 105 Last Taken: Unknown Dose on 07/18/18 Last Action: HELD on 07/19/181439 by BARRY CARLIN Ranitidine Hcl (Ranitidine Hcl) 150 Mg Tablet, 1 TAB PO BID for , #180 Ref 3 (Reported) Entered as Reported by: TERESSA BENJAMIN RN on 07/19/181050 Last Taken: Unknown Dose on 07/18/18 Last Action: Converted on 07/19/181439 by BARRY CARLIN Scheduled PRN Diclofenac Sodium (Voltaren) 100 Gm Gel..gram., 1 DELMA TP PRN BID PRN for PAIN, #1 Ref 1 Prescribed by: BARRY CARLIN on 07/30/18911 Hydrocodone/Apap 5-325 ([place] 5-325 Tablet) 1 Each Tablet, 1 EACH PO PRN Q6HRS PRN for PAIN, #50 as needed for pain Prescribed by: BARRY CARLIN on 07/30/18911 Ibuprofen (Ibuprofen) 400 Mg Tablet, 400 MG PO PRN Q6HRS PRN for PAIN, #20 take with food or milk Prescribed by: JOSEPH COLUNGA MD on 07/03/16 1000 Last Action: Continued on 07/19/181439 by BARRY CARLIN Discontinued Medications Erythromycin Base (Erythromycin) 1 Gm Oint...g., 1 GM OP QID, #1 Ref 0 0.5% 1/2" ribbon to lower eyelid x7 days Prescribed by: XUAN VILCHIS APRN on 01/20/18 0928 Last Action: HELD on 07/19/181439 by BARRY CARLIN Valacyclovir Hcl (Valacyclovir) 1,000 Mg Tablet, 1 TAB PO TID, #21 Prescribed by: JOSEPH COLUNGA MD on 07/03/16 1000 Last Action: HELD on 07/19/18 1440 by BARRY CARLIN Patient Instructions Patient Instructions face to face eval > min 30 f/u Dr. Alaniz next week, for chemo Rad onc following eliquis to BARRY Cronin MD Jul 30, 2018 13:19
--- NOTE | 2018-07-30 15:06 | PATHOLOGY ---
[facility] Accession Number: [id number] . 01 Material submitted: . mediastinum - MEDIASTINAL MASS . 01 Clinical history: . Mediastinal mass . 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 SEE COMMENT. (JPM:trucking manager/eugene; 07/29/2018) MBR/07/30/2018 . 02 Comment: Sections of the mediastinal mass CT-guided needle biopsy reveal a malignant neoplasm. The malignant cells have a relatively large epithelioid appearance and have a solid nested and focal trabecular arrangement. The malignant cells have ample amounts of pale eosinophilic granular cytoplasm and possess enlarged, rounded to ovoid moderately pleomorphic hyperchromatic nuclei containing prominent nucleoli. The neoplasm is associated with a reactive desmoplastic stroma. The tumor shows no evidence of keratinization or obvious glandular differentiation. Mitotic figures are readily demonstrated. There are prominent foci of tumor necrosis. . A portion of the specimen submitted for flow cytometric analysis has a viability of 53.8%. Due to low sample cellularity, all requested markers could not be performed. Granulocytes comprise 68.1% of total cells. Monocytes comprise 1.8% of total cells. Lymphocytes comprise 10.1% of total cells. CD45 dim, CD34 positive cells are not detected. There is no definitive flow immunophenotypic evidence of a lymphoproliferative disorder based on the limited antibody panel. . To confirm flow cytometric findings and characterize the target cells in a tissue architectural context, a panel of immunoperoxidase stains is obtained on block A1 and yields the following results: . AE1/AE3: Tumor cells strongly positive Cytokeratin 7: Tumor cells strongly positive Cytokeratin 20: Tumor cells negative P40: Tumor cells negative CK5/6: Tumor cells negative TTF-1: Tumor cells negative S100: Tumor cells negative CD45: Tumor cells negative; small lymphocytes positive PLAP: Tumor cells negative CD30: Tumor cells negative . The morphologic and immunophenotypic findings are supportive of the diagnosis of a poorly differentiated non-small cell carcinoma. The findings could be consistent with lung origin. Correlate clinically. . The case is also examined by Dr. Bacon, who concurs with the diagnosis. Results are discussed with Dr. Alaniz and Dr. Ray on 07/30/2018 at 12:30 pm. . . (JPM:vandana/eugene; 07/29/2018) . Special stains performed: Immunoperoxidase for AE1/AE3. CK7, CK20, p40, CK5/6, TTF-1, S100, CD45, PLAP. And CD30. . 02 Electronically signed: . Luis Panda MD, Pathologist NPI- [id number] . 01 Gross description: . The specimen is received in formalin, labeled "Ti Hullaby, mediastinal mass". Received are four needle cores of pale kaur soft tissue ranging in length from 0.3 to 0.8 cm, with each measuring 0.1 cm in diameter. The specimen is submitted entirely in cassettes A1 through A3. ([facility]; 07/28/2018) QAC/QAC . 02 Pathologist provided ICD-10: C38.3 . 02 CPT . 413324, P06813, V55169 Specimen Comment: A courtesy copy of this report has been sent to Specimen Comment: [phone], , , . Specimen Comment: Report sent to ,DR RUANO,DR CARLIN / DR URIOSTEGUI Performed at: 01 [facility] [address] [facility] [address], [place] [id number] MD Miguel Kaba MD Phone: [phone] Performed at: 02 [facility] [address] [place], [place] [id number] MD Luis Panda MD Phone: [phone]
== END 2018-07-30 09:58 | disposition home or self-care (01) | DRG 981 ==
LOC: ER 06:50 → 2 NORTH 08:24
PROVIDERS: ADMIT Internal Medicine; ATTEND Internal Medicine
PROC: 027V3DZ Dilation of Superior Vena Cava with Intraluminal Device, Percutaneous Approach (ICD-10-PCS; principal; 2018-07-21)
PROC: 07BJ3ZX Excision of Left Inguinal Lymphatic, Percutaneous Approach, Diagnostic (ICD-10-PCS; 2018-07-21)
PROC: 07DR3ZX Extraction of Iliac Bone Marrow, Percutaneous Approach, Diagnostic (ICD-10-PCS; 2018-07-22)
PROC: 0WBC3ZX Excision of Mediastinum, Percutaneous Approach, Diagnostic (ICD-10-PCS; 2018-07-27)
DX: C78.1 Secondary malignant neoplasm of mediastinum (principal); E43 Unspecified severe protein-calorie malnutrition; I82.210 Acute embolism and thrombosis of superior vena cava; I87.1 Compression of vein; D63.8 Anemia in other chronic diseases classified elsewhere; E11.9 Type 2 diabetes mellitus without complications; E78.5 Hyperlipidemia, unspecified; F14.10 Cocaine abuse, uncomplicated; F17.210 Nicotine dependence, cigarettes, uncomplicated; F43.20 Adjustment disorder, unspecified; G89.29 Other chronic pain; I10 Essential (primary) hypertension; J43.9 Emphysema, unspecified; F41.9 Anxiety disorder, unspecified; M19.90 Unspecified osteoarthritis, unspecified site; K21.9 Gastro-esophageal reflux disease without esophagitis; K59.00 Constipation, unspecified; R13.10 Dysphagia, unspecified; Z53.9 Procedure and treatment not carried out, unspecified reason; Z80.1 Family history of malignant neoplasm of trachea, bronchus and lung; Z80.3 Family history of malignant neoplasm of breast; Z68.25 Body mass index [BMI] 25.0-25.9, adult
CPT/HCPCS: 32405; 36415; 37238; 38222; 38505; 71045; 71275; 74174; 75827; 76937; 76942; 77012; 80048; 80053; 80307; 81001; 82105; 82232; 82550; 82962; 83540; 83550; 83605; 83615; 83690; 83735; 83880; 84484; 84550; 84702; 85025; 85379; 85610; 85730; 86703; 86704; 86706; 86803; 87040; 87340; 88184; 88185; 88237; 88305; 88311; 88313; 88341; 88342; 88364; 88365; 93005; 93306; 94640; 94760; 99152; 99153; A4215; C1769; C1876; C1892; C1894; G0480; J0696; J1644; J1650; J2250; J2405; J2765; J3010; J7030; J7613; Q9967; 84704; 99291-25

== ENCOUNTER 2018-08-02 08:47 | Inpatient (IN) | payer BC ==
[~2018-08-02] VITALS: Ht 175.3 cm; Wt 86.0 kg
[2018-08-02] VITALS (8 sets, daily range): BP systolic 111–128; BP diastolic 70–80
[~2018-08-02 08:47] MED LIST changes: +ALLO300T PO; +APIX5TAB PO; +DICL100G18 TP; +DOCU-109 PO; +LISI1TAB3 PO; +RANI150T2 PO
--- NOTE | 2018-08-02 09:01 | PHYS DOC ---
Past Medical History Past Medical History: No Pertinent History, Hypertension, Other Additional Past Medical Histor: ? diabetes (RADHA SALINAS) Past Surgical History: No Surgical History (RADHA SALINAS) Alcohol Use: None Drug Use: Cocaine (RADHA SALINAS) Chest Tube Chest Tube Indication: [] Consent: The patient provided consent for this procedure. Procedure: The patient was placed in an appropriate position. Local anesthesia over the insertion site was [ANESTHESIA]. An incision was made[]. Blunt dissection up and over the rib was performed until access was obtained into the pleural cavity. A []. Irish chest tube was placed and connected to [HEIMLICH/PLEURIVAC]. Initial output from the tube was [INITIAL OUTPUT]. The tube was sutured in place and the site was covered with an occlusive dressing. All connections were banded. Breath sounds after the procedure were [BREATH SOUNDS]. A chest x-ray was obtained to evaluate placement [X-RAY]. The patient tolerated the procedure [TOLERATED]. Complications: [COMPLICATIONS]. (RADHA SALINAS) Chest Tube Indication: Right side pneumothorax Consent: The patient provided consent for this procedure. Procedure: The patient was placed in an appropriate position. Local anesthesia over the insertion site was right midaxillary line at 5th intercostal space, with 1% lidocaine. A .5 cm incision was made with a scapel. . A 7 Irish chest tube was placed by Seldinger's technique and connected to PLEURIVAC. The tube was sutured in place and the site was covered with an occlusive dressing. All connections were banded. Breath sounds after the procedure were equal. A chest x-ray was obtained to evaluate placement, chest tube was in appropriate position, pneumothorax was resolved about 97%. The patient tolerated the procedure well. Complications:no complication. (ERIC FOREMAN DO) Adult General Chief Complaint Chief Complaint: CHEST PAIN HPI HPI Patient is a 58 year old male with a history of a mediastinal mass and SVC syndrome presents to the ED complaining of chest pain 3 weeks. Patient was admitted on July 19 and diagnosed with a mediastinal mass. Patient is awaiting pathology report. Patient checked himself out of the hospital on July 30 due to things he had to do outside of the hospital. Patient wants to check in again to finish his workup. Denies any new or worsening symptoms. (RADHA SALINAS) Review of Systems Review of Systems Constitutional: Denies fever or chills [] Eyes: Denies change in visual acuity, redness, or eye pain [] HENT: Denies nasal congestion or sore throat [] Respiratory: Denies cough or shortness of breath [] Cardiovascular: No additional information not addressed in HPI [] GI: Denies abdominal pain, nausea, vomiting, bloody stools or diarrhea [] : Denies dysuria or hematuria [] Musculoskeletal: Denies back pain or joint pain [] Integument: Denies rash or skin lesions [] Neurologic: Denies headache, focal weakness or sensory changes [] All other systems were reviewed and found to be within normal limits, except as documented in this note. (RADHA SALINAS) Current Medications Current Medications Current Medications Medications (Trade) Dose Ordered Sig/Sushma Start Time Stop Time Status Last Admin Dose Admin Lidocaine HCl (Lidocaine 1% 20ml Vial) 20 ml 1X ONCE 08/02/18 09:45 08/02/18 09:46 DC 08/02/18 10:24 20 ML Sodium Chloride 1,000 ml @ 1,000 mls/hr 1X ONCE 08/02/18 09:15 08/02/18 10:14 DC 08/02/18 09:23 1,000 MLS/HR (ERIC FOREMAN DO) Allergies Allergies Allergies Coded Allergies Type Severity Reaction Last Updated Verified No Known Drug Allergies 10/14/13 No (ERIC FOREMAN DO) Physical Exam Physical Exam Constitutional: Well developed, well nourished, no acute distress, non-toxic appearance. [] HENT: Normocephalic, atraumatic Eyes: PERRLA, EOMI, conjunctiva normal, no discharge. [] Neck: Normal range of motion, no tenderness, supple, no stridor. [] Cardiovascular:Heart rate regular rhythm, no murmur [] Lungs & Thorax: Bilateral breath sounds clear to auscultation [] Abdomen: Bowel sounds normal, soft, no tenderness, no masses, no pulsatile masses. [] Skin: Warm, dry, no erythema, no rash. [] Back: No tenderness, no CVA tenderness. [] Extremities: No tenderness, no cyanosis, no clubbing, ROM intact, no edema. [] Neurologic: Alert and oriented X 3, normal motor function, normal sensory function, no focal deficits noted. [] Psychologic: Affect normal, judgement normal, mood normal. [] (RADHA SALINAS) Current Patient Data Vital Signs Vital Signs Date Time Temp Pulse Resp B/P (MAP) Pulse Ox O2 Delivery O2 Flow Rate FiO2 08/02/18 09:44 113 22 118/79 (92) 94 Room Air 08/02/18 09:00 97.7 97.7 (ERIC FOREMAN DO) Lab Values Laboratory Tests Test 08/02/18 09:05 08/02/18 09:25 White Blood Count 6.9 x10^3/uL (4.0-11.0) Red Blood Count 3.89 x10^6/uL (4.30-5.70) L Hemoglobin 9.7 g/dL (13.0-17.5) L Hematocrit 29.6 % (39.0-53.0) L Mean Corpuscular Volume 76 fL (79-100) L Mean Corpuscular Hemoglobin 25 pg (25-35) Mean Corpuscular Hemoglobin Concent 33 g/dL (31-37) Red Cell Distribution Width 17.5 % (11.5-14.5) H Platelet Count 494 x10^3/uL (140-400) H Neutrophils (%) (Auto) 68 % (31-73) Lymphocytes (%) (Auto) 16 % (24-48) L Monocytes (%) (Auto) 13 % (0-9) H Eosinophils (%) (Auto) 2 % (0-3) Basophils (%) (Auto) 1 % (0-3) Neutrophils # (Auto) 4.7 x10^3uL (1.8-7.7) Lymphocytes # (Auto) 1.1 x10^3/uL (1.0-4.8) Monocytes # (Auto) 0.9 x10^3/uL (0.0-1.1) Eosinophils # (Auto) 0.2 x10^3/uL (0.0-0.7) Basophils # (Auto) 0.1 x10^3/uL (0.0-0.2) Sodium Level 134 mmol/L (136-145) L Potassium Level 4.3 mmol/L (3.5-5.1) Chloride Level 96 mmol/L (98-107) L Carbon Dioxide Level 29 mmol/L (21-32) Anion Gap 9 (6-14) Blood Urea Nitrogen 11 mg/dL (8-26) Creatinine 0.8 mg/dL (0.7-1.3) Estimated GFR (Cockcroft-Gault) 119.7 BUN/Creatinine Ratio 14 (6-20) Glucose Level 108 mg/dL (70-99) H Calcium Level 8.9 mg/dL (8.5-10.1) Magnesium Level 1.8 mg/dL (1.8-2.4) Total Bilirubin 0.3 mg/dL (0.2-1.0) Aspartate Amino Transferase (AST) 52 U/L (15-37) H Alanine Aminotransferase (ALT) 73 U/L (16-63) H Alkaline Phosphatase 75 U/L (46-116) Troponin I Quantitative < 0.017 ng/mL (0.000-0.055) Total Protein 9.2 g/dL (6.4-8.2) H Albumin 2.4 g/dL (3.4-5.0) L Albumin/Globulin Ratio 0.4 (1.0-1.7) L Urine Collection Type Void Urine Color Yellow Urine Clarity Clear Urine pH 6.0 Urine Specific [place] 1.020 Urine Protein Negative mg/dL (NEG-TRACE) Urine Glucose (UA) Negative mg/dL (NEG) Urine Ketones (Stick) Negative mg/dL (NEG) Urine Blood Negative (NEG) Urine Nitrite Negative (NEG) Urine Bilirubin Negative (NEG) Urine Urobilinogen Dipstick 1.0 mg/dL (0.2 mg/dL) Urine Leukocyte Esterase Trace (NEG) Urine RBC 0 /HPF (0-2) Urine WBC 1-4 /HPF (0-4) Urine Bacteria Few /HPF (0-FEW) Urine Hyaline Casts Moderate /HPF Urine Mucus Mod /LPF Urine Opiates Screen Pos (NEG) Urine Methadone Screen Neg (NEG) Urine Barbiturates Neg (NEG) Urine Phencyclidine Screen Neg (NEG) Urine Amphetamine/Methamphetamine Neg (NEG) Urine Benzodiazepines Screen Neg (NEG) Urine Cocaine Screen Neg (NEG) Urine Cannabinoids Screen Neg (NEG) Urine Ethyl Alcohol Neg (NEG) Laboratory Tests 08/02/18 09:05 Laboratory Tests 08/02/18 09:05 (ERIC FOREMAN DO) Lab Values Laboratory Tests Test 08/02/18 09:05 08/02/18 09:25 White Blood Count 6.9 x10^3/uL (4.0-11.0) Red Blood Count 3.89 x10^6/uL (4.30-5.70) L Hemoglobin 9.7 g/dL (13.0-17.5) L Hematocrit 29.6 % (39.0-53.0) L Mean Corpuscular Volume 76 fL (79-100) L Mean Corpuscular Hemoglobin 25 pg (25-35) Mean Corpuscular Hemoglobin Concent 33 g/dL (31-37) Red Cell Distribution Width 17.5 % (11.5-14.5) H Platelet Count 494 x10^3/uL (140-400) H Neutrophils (%) (Auto) 68 % (31-73) Lymphocytes (%) (Auto) 16 % (24-48) L Monocytes (%) (Auto) 13 % (0-9) H Eosinophils (%) (Auto) 2 % (0-3) Basophils (%) (Auto) 1 % (0-3) Neutrophils # (Auto) 4.7 x10^3uL (1.8-7.7) Lymphocytes # (Auto) 1.1 x10^3/uL (1.0-4.8) Monocytes # (Auto) 0.9 x10^3/uL (0.0-1.1) Eosinophils # (Auto) 0.2 x10^3/uL (0.0-0.7) Basophils # (Auto) 0.1 x10^3/uL (0.0-0.2) Sodium Level 134 mmol/L (136-145) L Potassium Level 4.3 mmol/L (3.5-5.1) Chloride Level 96 mmol/L (98-107) L Carbon Dioxide Level 29 mmol/L (21-32) Anion Gap 9 (6-14) Blood Urea Nitrogen 11 mg/dL (8-26) Creatinine 0.8 mg/dL (0.7-1.3) Estimated GFR (Cockcroft-Gault) 119.7 BUN/Creatinine Ratio 14 (6-20) Glucose Level 108 mg/dL (70-99) H Calcium Level 8.9 mg/dL (8.5-10.1) Magnesium Level 1.8 mg/dL (1.8-2.4) Total Bilirubin 0.3 mg/dL (0.2-1.0) Aspartate Amino Transferase (AST) 52 U/L (15-37) H Alanine Aminotransferase (ALT) 73 U/L (16-63) H Alkaline Phosphatase 75 U/L (46-116) Troponin I Quantitative < 0.017 ng/mL (0.000-0.055) Total Protein 9.2 g/dL (6.4-8.2) H Albumin 2.4 g/dL (3.4-5.0) L Albumin/Globulin Ratio 0.4 (1.0-1.7) L Urine Collection Type Void Urine Color Yellow Urine Clarity Clear Urine pH 6.0 Urine Specific [place] 1.020 Urine Protein Negative mg/dL (NEG-TRACE) Urine Glucose (UA) Negative mg/dL (NEG) Urine Ketones (Stick) Negative mg/dL (NEG) Urine Blood Negative (NEG) Urine Nitrite Negative (NEG) Urine Bilirubin Negative (NEG) Urine Urobilinogen Dipstick 1.0 mg/dL (0.2 mg/dL) Urine Leukocyte Esterase Trace (NEG) Urine RBC 0 /HPF (0-2) Urine WBC 1-4 /HPF (0-4) Urine Bacteria Few /HPF (0-FEW) Urine Hyaline Casts Moderate /HPF Urine Mucus Mod /LPF Urine Opiates Screen Pos (NEG) Urine Methadone Screen Neg (NEG) Urine Barbiturates Neg (NEG) Urine Phencyclidine Screen Neg (NEG) Urine Amphetamine/Methamphetamine Neg (NEG) Urine Benzodiazepines Screen Neg (NEG) Urine Cocaine Screen Neg (NEG) Urine Cannabinoids Screen Neg (NEG) Urine Ethyl Alcohol Neg (NEG) Laboratory Tests 08/02/18 09:05 Laboratory Tests 08/02/18 09:05 (RADHA SALINAS) EKG EKG []EKG Sinus tachycardia at 121 BPM. No STEMI. (RADHA SALINAS) Radiology/Procedures Radiology/Procedures PROCEDURE: PORTABLE CHEST 1V Portable chest, 08/02/2018: HISTORY: Chest pain, mediastinal mass, cough Comparison is made to a study from 07/27/2018. There is now a large right pneumothorax estimated at 50 percent in volume. There is considerable underlying atelectasis with dominant involvement of the right lower lobe. There is no significant shift of the mediastinal structures. Again noted is a large mediastinal mass best seen on the right. An underlying vascular stent is again noted projected over the inferior aspect of the superior vena cava. The heart size is unchanged. The left lung is clear. No pleural fluid is evident. IMPRESSION: 1. A large right pneumothorax has developed with considerable underlying right lower lobe atelectasis. 2. Ongoing mediastinal mass. Note: The findings were called to personnel the [facility] ER at 9:32 AM on 08/02/2018.[] PROCEDURE: CHEST AP ONLY CHEST AP ONLY History: Status post chest tube. Comparison with August 02, 2018 at 9:06 AM. There has been placement of a right chest tube. There has been reexpansion of the right lung with only a small residual right apical pneumothorax. There is opacity in the right lung base compatible with trace/atelectasis. No evidence of large effusion. Large mediastinal mass is again identified. IMPRESSION: Reexpansion of the right lung after chest tube placement with only a small residual right apical pneumothorax. (RADHA SALINAS) Course & Med Decision Making Course & Med Decision Making Pertinent Labs and Imaging studies reviewed. (See chart for details) Patient found to have a large right pneumothorax. Previous imaging on July 27 shows small apical pneumothorax. Dr. Foreman placed cook catheter, see procedure note. Patient states he is feeling much better. Resting comfortably at bedside. Discussed case with PCP, Dr. Hall. Agrees to admission and further management of patient. Patient stable for admission. (RADHA SALINAS) Dragon Disclaimer Dragon Disclaimer This electronic medical record was generated, in whole or in part, using a voice recognition dictation system. (RADHA SALINAS) Departure Departure Impression: Primary Impression: Pneumothorax Additional Impression: Mass of mediastinum Disposition: ADMITTED INPATIENT Admitting Physician: Ayden Hall (RADHA SALINAS) Condition: STABLE Referrals: MORAIMA VERMA (PCP) Problem Qualifiers RADHA SALINAS Aug 02, 2018 09:01 ERIC FOREMAN DO Aug 02, 2018 12:45
[2018-08-02] MEDS ORDERED: IV NORMAL SALINE 1000ML BAG 1,000 ML IV ONE (09:15)
[2018-08-02 09:23] LABS: BASO # 0.1 x10^3/uL (0.0-0.2); BASO % 1 % (0-3); EOS # 0.2 x10^3/uL (0.0-0.7); EOS % 2 % (0-3); HEMATOCRIT 29.6 % (39.0-53.0); HEMOGLOBIN 9.7 g/dL (13.0-17.5); LYMPH # 1.1 x10^3/uL (1.0-4.8); LYMPH % 16 % (24-48); MEAN CORPUSCULAR HEMOGLOBIN 25 pg (25-35); MEAN CORPUSCULAR HGB CONC 33 g/dL (31-37); MEAN CORPUSCULAR VOLUME 76 fL (79-100); MONO # 0.9 x10^3/uL (0.0-1.1); MONO % 13 % (0-9); NEUT # 4.7 x10^3uL (1.8-7.7); NEUT % 68 % (31-73); PLATELET COUNT 494 x10^3/uL (140-400); RED BLOOD COUNT 3.89 x10^6/uL (4.30-5.70); RED CELL DISTRIBUTION WIDTH 17.5 % (11.5-14.5); WHITE BLOOD COUNT 6.9 x10^3/uL (4.0-11.0)
[2018-08-02 09:35] LABS: CALCIUM 8.9 mg/dL (8.5-10.1); CREATININE 0.8 mg/dL (0.7-1.3); GFR 119.7; POTASSIUM 4.3 mmol/L (3.5-5.1)
--- NOTE | 2018-08-02 09:35 | RAD ---
Portable chest, 08/02/2018: HISTORY: Chest pain, mediastinal mass, cough Comparison is made to a study from 07/27/2018. There is now a large right pneumothorax estimated at 50 percent in volume. There is considerable underlying atelectasis with dominant involvement of the right lower lobe. There is no significant shift of the mediastinal structures. Again noted is a large mediastinal mass best seen on the right. An underlying vascular stent is again noted projected over the inferior aspect of the superior vena cava. The heart size is unchanged. The left lung is clear. No pleural fluid is evident. IMPRESSION: 1. A large right pneumothorax has developed with considerable underlying right lower lobe atelectasis. 2. Ongoing mediastinal mass. Note: The findings were called to personnel the [facility] ER at 9:32 AM on 08/02/2018. Electronically signed by: Parrish Garcia MD (08/02/2018 9:33 AM) [facility]
[2018-08-02 09:36] LABS: BILIRUBIN,URINE NEGATIVE (NEG); CLARITY,URINE CLEAR; COLOR,URINE YELLOW; NITRITE,URINE NEGATIVE (NEG); PROTEIN,URINE NEGATIVE (NEG-TRACE)
[2018-08-02 09:40] LABS: ALBUMIN 2.4 g/dL (3.4-5.0); ALBUMIN/GLOBULIN RATIO 0.4 (1.0-1.7); MAGNESIUM 1.8 mg/dL (1.8-2.4); TOTAL BILIRUBIN 0.3 mg/dL (0.2-1.0); TOTAL PROTEIN 9.2 g/dL (6.4-8.2)
[2018-08-02 09:41] LABS: HYALINE CASTS, URINE MODERATE /HPF
[2018-08-02 09:42] LABS: BACTERIA,URINE FEW /HPF (0-FEW); RBC,URINE 0 /HPF (0-2)
[2018-08-02 09:43] LABS: AMPHETAMINE/METHAMPHETAMINE NEG (NEG); BARBITURATES NEG (NEG); BENZODIAZEPINES NEG (NEG); CANNABINOIDS NEG (NEG); COCAINE NEG (NEG); METHADONE NEG (NEG); OPIATES POS (NEG); PHENCYCLIDINE NEG (NEG)
[2018-08-02] MEDS ORDERED: LIDOCAINE 1% Multi-Dose 20 ML VIAL. IJ ONE (09:45)
--- NOTE | 2018-08-02 10:19 | EKG ---
[facility] [address] [place] [address] Test Date: 2018-08-02 Test Time: 08:56:55 Pat Name: TAWNY MEDINA Department: Room: Gender: Physical Ther: : 1960 Requested By: RADHA SALINAS Order Number: [id number] Reading MD: Measurements Intervals [place] Rate: 120 P: -90 TX: 130 QRS: 5 QRSD: 100 T: 84 QT: 322 QTc: 460 Interpretive Statements SUPRAVENTRICULAR RHYTHM ST & T ABNORMALITY, CONSIDER HIGH LATERAL ISCHEMIA OR LEFT VENTRICULAR STRAIN NON SPECIFIC ST-T ABNORMALITY (ELEVATION) ABNORMAL ECG No previous ECG available for comparison
[2018-08-02] MEDS ORDERED: fentaNYL PF VIAL 100 MCG/2 ML VIAL ONE (10:23)
[2018-08-02] MEDS ORDERED: fentaNYL PF VIAL 100 MCG/2 ML VIAL IV ONE (10:30)
--- NOTE | 2018-08-02 10:47 | RAD ---
CHEST AP ONLY History: Status post chest tube. Comparison with August 02, 2018 at 9:06 AM. There has been placement of a right chest tube. There has been reexpansion of the right lung with only a small residual right apical pneumothorax. There is opacity in the right lung base compatible with trace/atelectasis. No evidence of large effusion. Large mediastinal mass is again identified. IMPRESSION: Reexpansion of the right lung after chest tube placement with only a small residual right apical pneumothorax. Electronically signed by: Mirza Zee MD (08/02/2018 10:44 AM) [id number]
[2018-08-02] MEDS ORDERED: ACETAMINOPHEN 325 MG TABLET. PO PRN (11:00)
[2018-08-02] MEDS ORDERED: ONDANSETRON PF 4 MG/2 ML VIAL. IV PRN (11:00)
--- NOTE | 2018-08-02 11:23 | EKG ---
[facility] [address] [place] [address] Test Date: 2018-08-02 Test Time: 09:40:48 Pat Name: TAWNY MEDINA Department: Room: Gender: Spar Machine Operator: : 1960 Requested By: RADHA SALINAS Order Number: [id number] Reading MD: Measurements Intervals [place] Rate: 116 P: -146 VA: 126 QRS: -5 QRSD: 98 T: 96 QT: 342 QTc: 481 Interpretive Statements SINUS TACHYCARDIA LEFTWARD AXIS ST & T ABNORMALITY, CONSIDER HIGH LATERAL ISCHEMIA OR LEFT VENTRICULAR STRAIN NON SPECIFIC ST-T ABNORMALITY (ELEVATION) ABNORMAL ECG No previous ECG available for comparison
[2018-08-02] MEDS ORDERED: IV NORMAL SALINE 500ML BAG 500 ML IV ONE (14:30)
[2018-08-02] MEDS ORDERED: VANCOMYCIN PER PHARMACY MC PRN (14:30)
--- NOTE | 2018-08-02 14:30 | NUR ---
Rapid Response called at 1346. Patient ST, BP stable, SpO2 ~87% on 4LNC. EKG showing ST 130's. Patient a/o x4, able to answer questions appropriately. CT present. No sign of air leak. Patient able to cough-- copious amounts of green, thick secretions excreted. Temp 101.9 axillary-- Tylenol available. RN paged Dr. Shane-- Order received to start NS at 100ml/hr, obtain CXR. Dr. Hall paged-- orders received for Solumedrol 125mg x1, 60 mg daily starting tomorrow, 500 ml NS bolus, consult I.D., Duoneb QID, Vanc per Rx, Zosyn 3.375 Q6, LA, BC's, transfer to ICU for close monitoring. Patient is actively being transferred to ICU at this time. Patient is stable, RN explained transfer, family at bedside.
[2018-08-02] MEDS ORDERED: VANCOMYCIN 2 GM in IV NORMAL SALINE 500ML BAG 500 ML IV ONE (15:00)
--- NOTE | 2018-08-02 15:01 | RAD ---
CHEST AP ONLY History: Chest tube, cough. Comparison with August 02, 2018. Worsening of airspace consolidation in the right lower lung. Small right apical pneumothorax similar to minimally larger, pleural surface is depressed about 1 cm from the right upper lung. Left lung remains relatively clear. Superior mediastinal mass is again seen. IMPRESSION: 1. Small right apical pneumothorax, similar to minimally larger. 2. Worsening of right lung infiltrates in the right lung base. Electronically signed by: Mirza Zee MD (08/02/2018 2:58 PM) [id number]
[2018-08-02] MEDS ORDERED: methylPREDNISolone SOD SUCC PF 125 MG/2 ML VIAL. IV ONE (15:30)
[2018-08-02] MEDS: IPRATRPIUM/ALBUTEROL 0.5/2.5MG 3 ML NEBU. NEB SCH ×2 (15:37→19:50)
[2018-08-02] MEDS: fentaNYL PF VIAL 100 MCG/2 ML VIAL IV PRN ×2 (16:05→23:00)
[2018-08-02] MEDS: IV NORMAL SALINE 1000ML BAG 1,000 ML IV SCH (16:08)
--- NOTE | 2018-08-02 17:29 | PDOC ---
PULMONARY PROGRESS NOTES Vitals Vital Signs Date Time Temp Pulse Resp B/P (MAP) Pulse Ox O2 Delivery O2 Flow Rate FiO2 08/02/18 16:27 101.0 133 24 119/70 (86) 96 Venturi Mask 15.0 101.0 General: Alert, Oriented X4 Lungs: Clear Cardiovascular: S1, S2 Abdomen: Soft Extremities: No Edema Labs Laboratory Tests Test 08/02/18 09:05 08/02/18 09:25 08/02/18 14:35 White Blood Count 6.9 x10^3/uL (4.0-11.0) Red Blood Count 3.89 x10^6/uL (4.30-5.70) Hemoglobin 9.7 g/dL (13.0-17.5) Hematocrit 29.6 % (39.0-53.0) Mean Corpuscular Volume 76 fL (79-100) Mean Corpuscular Hemoglobin 25 pg (25-35) Mean Corpuscular Hemoglobin Concent 33 g/dL (31-37) Red Cell Distribution Width 17.5 % (11.5-14.5) Platelet Count 494 x10^3/uL (140-400) Neutrophils (%) (Auto) 68 % (31-73) Lymphocytes (%) (Auto) 16 % (24-48) Monocytes (%) (Auto) 13 % (0-9) Eosinophils (%) (Auto) 2 % (0-3) Basophils (%) (Auto) 1 % (0-3) Neutrophils # (Auto) 4.7 x10^3uL (1.8-7.7) Lymphocytes # (Auto) 1.1 x10^3/uL (1.0-4.8) Monocytes # (Auto) 0.9 x10^3/uL (0.0-1.1) Eosinophils # (Auto) 0.2 x10^3/uL (0.0-0.7) Basophils # (Auto) 0.1 x10^3/uL (0.0-0.2) Sodium Level 134 mmol/L (136-145) Potassium Level 4.3 mmol/L (3.5-5.1) Chloride Level 96 mmol/L (98-107) Carbon Dioxide Level 29 mmol/L (21-32) Anion Gap 9 (6-14) Blood Urea Nitrogen 11 mg/dL (8-26) Creatinine 0.8 mg/dL (0.7-1.3) Estimated GFR (Cockcroft-Gault) 119.7 BUN/Creatinine Ratio 14 (6-20) Glucose Level 108 mg/dL (70-99) Calcium Level 8.9 mg/dL (8.5-10.1) Magnesium Level 1.8 mg/dL (1.8-2.4) Total Bilirubin 0.3 mg/dL (0.2-1.0) Aspartate Amino Transf (AST/SGOT) 52 U/L (15-37) Alanine Aminotransferase (ALT/SGPT) 73 U/L (16-63) Alkaline Phosphatase 75 U/L (46-116) Troponin I Quantitative < 0.017 ng/mL (0.000-0.055) < 0.017 ng/mL (0.000-0.055) Total Protein 9.2 g/dL (6.4-8.2) Albumin 2.4 g/dL (3.4-5.0) Albumin/Globulin Ratio 0.4 (1.0-1.7) Urine Collection Type Void Urine Color Yellow Urine Clarity Clear Urine pH 6.0 Urine Specific [place] 1.020 Urine Protein Negative mg/dL (NEG-TRACE) Urine Glucose (UA) Negative mg/dL (NEG) Urine Ketones (Stick) Negative mg/dL (NEG) Urine Blood Negative (NEG) Urine Nitrite Negative (NEG) Urine Bilirubin Negative (NEG) Urine Urobilinogen Dipstick 1.0 mg/dL (0.2 mg/dL) Urine Leukocyte Esterase Trace (NEG) Urine RBC 0 /HPF (0-2) Urine WBC 1-4 /HPF (0-4) Urine Bacteria Few /HPF (0-FEW) Urine Hyaline Casts Moderate /HPF Urine Mucus Mod /LPF Urine Opiates Screen Pos (NEG) Urine Methadone Screen Neg (NEG) Urine Barbiturates Neg (NEG) Urine Phencyclidine Screen Neg (NEG) Urine Amphetamine/Methamphetamine Neg (NEG) Urine Benzodiazepines Screen Neg (NEG) Urine Cocaine Screen Neg (NEG) Urine Cannabinoids Screen Neg (NEG) Urine Ethyl Alcohol Neg (NEG) Lactic Acid Level 1.4 mmol/L (0.4-2.0) Laboratory Tests Test 08/02/18 09:05 08/02/18 09:25 08/02/18 14:35 White Blood Count 6.9 x10^3/uL (4.0-11.0) Red Blood Count 3.89 x10^6/uL (4.30-5.70) Hemoglobin 9.7 g/dL (13.0-17.5) Hematocrit 29.6 % (39.0-53.0) Mean Corpuscular Volume 76 fL (79-100) Mean Corpuscular Hemoglobin 25 pg (25-35) Mean Corpuscular Hemoglobin Concent 33 g/dL (31-37) Red Cell Distribution Width 17.5 % (11.5-14.5) Platelet Count 494 x10^3/uL (140-400) Neutrophils (%) (Auto) 68 % (31-73) Lymphocytes (%) (Auto) 16 % (24-48) Monocytes (%) (Auto) 13 % (0-9) Eosinophils (%) (Auto) 2 % (0-3) Basophils (%) (Auto) 1 % (0-3) Neutrophils # (Auto) 4.7 x10^3uL (1.8-7.7) Lymphocytes # (Auto) 1.1 x10^3/uL (1.0-4.8) Monocytes # (Auto) 0.9 x10^3/uL (0.0-1.1) Eosinophils # (Auto) 0.2 x10^3/uL (0.0-0.7) Basophils # (Auto) 0.1 x10^3/uL (0.0-0.2) Sodium Level 134 mmol/L (136-145) Potassium Level 4.3 mmol/L (3.5-5.1) Chloride Level 96 mmol/L (98-107) Carbon Dioxide Level 29 mmol/L (21-32) Anion Gap 9 (6-14) Blood Urea Nitrogen 11 mg/dL (8-26) Creatinine 0.8 mg/dL (0.7-1.3) Estimated GFR (Cockcroft-Gault) 119.7 BUN/Creatinine Ratio 14 (6-20) Glucose Level 108 mg/dL (70-99) Calcium Level 8.9 mg/dL (8.5-10.1) Magnesium Level 1.8 mg/dL (1.8-2.4) Total Bilirubin 0.3 mg/dL (0.2-1.0) Aspartate Amino Transf (AST/SGOT) 52 U/L (15-37) Alanine Aminotransferase (ALT/SGPT) 73 U/L (16-63) Alkaline Phosphatase 75 U/L (46-116) Troponin I Quantitative < 0.017 ng/mL (0.000-0.055) < 0.017 ng/mL (0.000-0.055) Total Protein 9.2 g/dL (6.4-8.2) Albumin 2.4 g/dL (3.4-5.0) Albumin/Globulin Ratio 0.4 (1.0-1.7) Urine Collection Type Void Urine Color Yellow Urine Clarity Clear Urine pH 6.0 Urine Specific [place] 1.020 Urine Protein Negative mg/dL (NEG-TRACE) Urine Glucose (UA) Negative mg/dL (NEG) Urine Ketones (Stick) Negative mg/dL (NEG) Urine Blood Negative (NEG) Urine Nitrite Negative (NEG) Urine Bilirubin Negative (NEG) Urine Urobilinogen Dipstick 1.0 mg/dL (0.2 mg/dL) Urine Leukocyte Esterase Trace (NEG) Urine RBC 0 /HPF (0-2) Urine WBC 1-4 /HPF (0-4) Urine Bacteria Few /HPF (0-FEW) Urine Hyaline Casts Moderate /HPF Urine Mucus Mod /LPF Urine Opiates Screen Pos (NEG) Urine Methadone Screen Neg (NEG) Urine Barbiturates Neg (NEG) Urine Phencyclidine Screen Neg (NEG) Urine Amphetamine/Methamphetamine Neg (NEG) Urine Benzodiazepines Screen Neg (NEG) Urine Cocaine Screen Neg (NEG) Urine Cannabinoids Screen Neg (NEG) Urine Ethyl Alcohol Neg (NEG) Lactic Acid Level 1.4 mmol/L (0.4-2.0) Medications Active Scripts Medications Dose Route/Sig Max Daily Dose Days Date Category Dose Instructions Eliquis (Apixaban) 5 Mg Tablet 5 Mg PO BID 07/30/18 Rx Voltaren (Diclofenac Sodium) 100 Gm Gel..gram. 1 Roby TP PRN BID PRN 07/30/18 Rx Allopurinol 300 Mg Tablet 300 Mg PO DAILY 07/30/18 Rx Colace (Docusate Sodium) 100 Mg Capsule 100 Mg PO DAILY 07/30/18 Rx [place] 5-325 Tablet (Acetaminophen/Hydrocodone Bitart) 1 Each Tablet 1 Each PO PRN Q6HRS PRN 07/30/18 Rx as needed for pain Ranitidine Hcl 150 Mg Tablet 1 Tab PO BID 07/19/18 Reported Lisinopril-Hctz 10-12.5 Mg Tab (Lisinopril/Hydrochlorothiazide) 1 Each Tablet 1 Tab PO DAILY 07/19/18 Reported Ibuprofen 400 Mg Tablet 400 Mg PO PRN Q6HRS PRN 07/03/16 Rx take with food or milk Impression . note dictated WILL ADD ANTIBX CONSULT DR BERRY CHEST TUBE FOR PTX LALO LOZADA MD Aug 02, 2018 17:28
[2018-08-02] MEDS ORDERED: DICLOFENAC SODIUM 1% TOPICAL GEL 100GM TUBE. TP PRN (17:30)
--- NOTE | 2018-08-02 17:32 | PDOC ---
Provider Note Provider Note Pt seen in ICU.H&P dictated.#[id number]. total time spent 43 in coordinating care. PREET PALUMBO MD Aug 02, 2018 17:32
--- NOTE | 2018-08-02 18:05 | HP ---
ADMIT DATE: 08/02/2018 ATTENDING PHYSICIAN: Dr. Hall. PRIMARY CARE PHYSICIAN: Dr. Vazquez. LOCATION: ICU, room 12. REASON FOR ADMISSION: Spontaneous right pneumothorax. HISTORY OF PRESENT ILLNESS: The patient was admitted 10 days ago and was discharged last week. He was found to have mediastinal mass, huge one, 11 cm, had a CT-guided mediastinal biopsy and the patient was discharged. 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 His heart rate was 140, hypotensive, rapid response was called. Once he was admitted to the floor, patient was moved to the ICU, had a fever of 101. Cultures were done, started on broad-spectrum antibiotic, vancomycin and Zosyn. Pulmonary Critical care was consulted and Hematology too. PAST MEDICAL HISTORY: Hypertension, recently found to have mediastinal mass, which is 11 cm. SOCIAL HISTORY: Smoked less than a pack for at least 20-25 years, history of cocaine and marijuana use, recreational, social alcohol. PAST SURGICAL HISTORY: Recently had a mediastinal biopsy and also bone marrow and a lymph node biopsy. ALLERGIES: No known drug allergies. MEDICATIONS AT HOME: The patient is on allopurinol 300 mg daily, Eliquis 5 mg twice a day, Voltaren gel, Colace 100 mg daily, hydrocodone 5/325, ibuprofen p.r.n. REVIEW OF SYMPTOMS: Complains of shortness of breath and coughing up some yellow and green stuff, pain in the right side. PHYSICAL EXAMINATION: GENERAL: The patient looks older than his stated age. VITAL SIGNS: Temperature 101, pulse 133, respirations 24, blood pressure 120/70, 96 on Ventimask 115 liters. HEENT: Head is atraumatic. Pupils equal. Oral cavity, congestion, posterior pharynx, slight. NECK: Supple. Thyroid not enlarged. JVD not elevated. CHEST: Symmetrical, patient has a right-sided chest tube. CARDIOVASCULAR: S1, S2. LUNGS: Diminished breath sounds, few crackles at bases. ABDOMEN: Soft, bowel sounds present, no mass palpable. EXTERNAL GENITALIA: No Flaherty. RECTAL: Deferred. EXTREMITIES: No calf tenderness, no edema. Pulses 1+. NEUROLOGIC: Moving all extremities. No focal deficits noted. LABORATORY DATA: Shows a white count of 6.9, hemoglobin 9.7, platelets 494, INR normal. Sodium 134, potassium 4.3, chloride 96, bicarbonate 29, BUN 11, creatinine 0.8, glucose 108. Lactic acid 1.4. LFTs were normal. Urine was negative. Toxicology positive for opiates. Chest x-ray shows a large right pneumothorax and mediastinal mass. FINAL IMPRESSION: 1. Pneumothorax.Spontaneous rt side, 2. Mediastinal mass, large 11 cm shows a non-small cell, poorly differentiated carcinoma.Had biopsy done4 days ago 3. Hypertension. 4. Smoking. 5. History of drug abuse. 6. Tachycardia. PLAN: At this time, the patient was admitted to the hospital, was transferred to the ICU after rapid response and started on fluid bolus, IV fluids. Blood cultures were done, started on broad-spectrum antibiotic, vancomycin, and Zosyn. ID is consulted. Pulmonary critical care is consulted and the patient's echo shows a decent left ventricular function. The patient is on Eliquis for anticoagulation and the patient is also followed by Oncology and see how the patient improves in the next 24-48 hours. Total time spent in critical care, coordinating the care with other doctors is 43 minutes. PREET HALL MD DR: GLENYS/andie JOB#: [id number] / [id number] MEGHAN
[2018-08-02] MEDS: PIPERACILLIN/TAZOBACTAM 3.375 GM in IV NORMAL SALINE 50ML 50 ML IV SCH (20:57)
[2018-08-02] MEDS: FAMOTIDINE 20 MG TABLET. PO SCH (20:57)
[2018-08-02] MEDS: APIXABAN 5 MG TABLET. PO SCH (20:57)
--- NOTE | 2018-08-02 21:18 | NUR ---
Pharmacy Vancomycin Dosing Note S:Consulted to monitor and dose vancomycin started 08/02/18. O:TAWNY MEDINA is a 58 year old M with Sepsis . Height: 5 feet, 9 inches Weight: 83.054584 kg [place] Body Weight: 70.70 Adjusted Body Weight: 75.62 Dosing Weight: Actual Other Antibiotics: ZOSYN LABS: Last BUN: 11 Last Creatinine: 0.8 Creatinine Clearance: 107 mL/min Last WBC: 6.9 Last Procalcitonin: Tmax (past 24 hours): 101 Microbiology: I/O: Drug Levels: Last level: on at Last dose given at Vancomycin Dosing: Loading Dose: 2000 mg x1 Dosing Weight: Actual Target Trough: 15-20 A: Based on: ht, wt and renal function P: 1. Begin Vancomycin 1000 mg IV q8h 2. Follow up Trough level on 08/03/18 at 1430 3. Pharmacy will continue to monitor, follow and adjust therapy as needed. FUNMILAYO HE, [facility], 08/02/18 [id number]
[2018-08-02] MEDS: ZOLPIDEM 5 MG TABLET. PO PRN (22:59)
[2018-08-02] MEDS: VANCOMYCIN 1 GM in IV NORMAL SALINE 250ML 250 ML IV SCH (22:59)
[2018-08-03] VITALS (22 sets, daily range): BP systolic 93–213; BP diastolic 69–102
--- NOTE | 2018-08-03 00:46 | CONS ---
DATE OF CONSULTATION: 08/02/2018 ATTENDING PHYSICIAN: Ayden Hall M.D. REASON FOR CONSULTATION: The patient is seen in Pulmonary consultation at the request of Dr. Hall for pneumothorax. HISTORY OF PRESENT ILLNESS: The patient is a 58-year-old that presented last week with a large mediastinal mass. At that time, the patient had SVC syndrome. He underwent biopsy along with placement of superior vena cava stent. He subsequently was seen in consultation by Dr. Alaniz for his large lung mass. A biopsy was performed. The patient was ultimately discharged to follow up as an outpatient. Special studies were pending. The patient was discharged home to follow up in the office. He now presents with acute onset of shortness of air, had a large right-sided pneumothorax. He has a chest tube in place. His lung is fully expanded. He does have some possible re-expansion pulmonary edema. His pain is controlled. He does have a cough productive of mucus mixed in with blood. PAST MEDICAL HISTORY: Recent diagnosis of a large mediastinal mass. Biopsy results are pending, with subsequent SVC syndrome. He also has a history of tobacco use, COPD, polysubstance use, polyclonal gammopathy, history of vitamin B12 deficiency and osteoarthritis. PAST SURGICAL HISTORY: As indicated above, he had a superior vena cava filter placement. REVIEW OF SYSTEMS: CONSTITUTIONAL: No fever or chills. EYES: No change in visual acuity. HENT: No nasal congestion or sore throat. PULMONARY: As indicated above. CARDIAC: As indicated above. GASTROINTESTINAL: No nausea, vomiting or diarrhea. GENITOURINARY: No dysuria or frequency. MUSCULOSKELETAL: No localized muscle aches or joint pains. SKIN: No new skin rashes. NEUROLOGIC: No headaches, diplopia or blurred vision. ALLERGIES: No known drug allergies. MEDICATIONS: Current medication list was reviewed. PHYSICAL EXAMINATION: VITAL SIGNS: On examination, the patient had temperature of 101. He is currently on 15 liters of oxygen. HEENT: Eyes, the sclerae were nonicteric. NECK: Jugular venous distention was not elevated. No lymphadenopathy. CHEST: Full expansion. LUNGS: Diminished breath sounds through both lung ramirez. CARDIOVASCULAR EXAMINATION: Regular rate and rhythm with S1, S2. No S3. ABDOMEN: Soft, nontender and nondistended. EXTREMITIES: No clubbing or cyanosis. Some edema of the upper extremity related to SVC syndrome. IMAGING DATA: CT chest from 07/19/2018 once again reveals a mediastinal mass compressing the superior vena cava and the main pulmonary arteries and there was compression of the distal trachea. LABORATORY DATA: Labs were reviewed. White count was not elevated. Hemoglobin and hematocrit were noted. Electrolytes were noted. IMPRESSION: 1. Spontaneous pneumothorax. 2. Large mediastinal mass. 3. Superior vena cava syndrome, status post superior vena cava filter placement. 4. Hemoptysis secondary to re-expansion pulmonary edema. 5. Fever. 6. History of tobacco use. 7. Chronic obstructive pulmonary disease. PLAN: 1. The patient was doing well up on the floor. He then had some respiratory distress. He is transferred to the Intensive Care Unit. 2. We will add empiric antibiotics. 3. Chest x-ray reviewed. Lung is fully expanded at this time. 4. Follow up on the pathology report from previous biopsy. 5. Consult Dr. Alaniz. I do appreciate the privilege in sharing in this patient's care. LALO LOZADA MD DR: TERESA/andie JOB#: [id number] / [id number]
[2018-08-03] MEDS: PIPERACILLIN/TAZOBACTAM 3.375 GM in IV NORMAL SALINE 50ML 50 ML IV SCH ×5 (01:25→23:50)
[2018-08-03 04:56] LABS: BASO % 0 % (0-3); EOS % 0 % (0-3); HEMATOCRIT 29.1 % (39.0-53.0); HEMOGLOBIN 9.1 g/dL (13.0-17.5); LYMPH # 0.5 x10^3/uL (1.0-4.8); LYMPH % 11 % (24-48); MEAN CORPUSCULAR HEMOGLOBIN 24 pg (25-35); MEAN CORPUSCULAR HGB CONC 31 g/dL (31-37); MEAN CORPUSCULAR VOLUME 76 fL (79-100); MONO # 0.2 x10^3/uL (0.0-1.1); MONO % 4 % (0-9); NEUT # 3.9 x10^3uL (1.8-7.7); NEUT % 85 % (31-73); PLATELET COUNT 430 x10^3/uL (140-400); RED BLOOD COUNT 3.84 x10^6/uL (4.30-5.70); RED CELL DISTRIBUTION WIDTH 17.7 % (11.5-14.5); WHITE BLOOD COUNT 4.6 x10^3/uL (4.0-11.0)
[2018-08-03 05:15] LABS: ALBUMIN 1.8 g/dL (3.4-5.0); ALBUMIN/GLOBULIN RATIO 0.3 (1.0-1.7); CALCIUM 8.8 mg/dL (8.5-10.1); CREATININE 0.8 mg/dL (0.7-1.3); GFR 119.7; POTASSIUM 4.4 mmol/L (3.5-5.1); TOTAL BILIRUBIN 0.3 mg/dL (0.2-1.0); TOTAL PROTEIN 8.2 g/dL (6.4-8.2)
[2018-08-03] MEDS: IV NORMAL SALINE 1000ML BAG 1,000 ML IV SCH ×3 (05:32→20:41)
[2018-08-03] MEDS: fentaNYL PF VIAL 100 MCG/2 ML VIAL IV PRN (05:32)
[2018-08-03] MEDS: VANCOMYCIN 1 GM in IV NORMAL SALINE 250ML 250 ML IV SCH (07:53)
--- NOTE | 2018-08-03 08:21 | PDOC2 ---
CONSULT Date of Consult Date of Consult DATE: 08/03/18 TIME: 08:12 Reason for consultation: NSCLC Consult: Hematology oncology, Dr. Aysha Alaniz History of present illness: He is a 58-year-old male who has seen me recently for anemia and polyclonal gammopathy as an outpt, he had shoulder pain in May and had an ortho procedure (injection) which improved the shoulder pain but also had some chest pain w/ further w/u revealing mediastinal mass and SVC syndrome. SVC syndrome is acute, severe, improved post stenting, assoc w/ PTX post bx worsened bringing him back in yesterday. Better now post chest tube placement, but had HEPATOLOGY PHYSICIAN called on the floor yesterday, now in ICU, to begin chemo [place]. 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 Past surgical history: Ortho injection shoulder BMBx ing LN bx mediastinal mass bx chest tube Allergies: No known drug allergies Medications: See attached list Social history: Single, never , one son in [place], cares for parents, works at [employer], quit tobacco February 2018, cocaine positive in the past, history of marijuana, tells me he's done with drugs, and alcohol, brother is [place] Family history: Breast and lung cancer Review of systems: wt loss, improved chest pain and dyspnea, hoarse voice, o/w 10 pt ROS neg Physical exam: Vitals reviewed Gen.: Well-nourished and well-developed AA man, w/ chest tube draining air only, on 6L NC HEENT: mucous membranes moist, head normocephalic atraumatic Neck: Supple, no lymphadenopathy apprec Lymph nodes: No palpable lymphadenopathy neck or axilla apprec Lungs: Breathing comfortably on NC O2, w/o respiratory distress Heart: Regular rhythm, tachy to 130 Abdomen: Soft, nontender, nondistended Extremities: No cyanosis or edema Skin: No obvious rashes or skin breakdown Neuro: Alert and oriented 3 Psych: Pleasant mood and affect Lab reviewed: wbc 4.6, Hb 9.1, plt 430 UDS + for opiates only Cr 0.8 lactate 1.4 AST 67, ALT 83, T bili 0.3 iron sat 8% with recent ferritin of 519 and low TIBC LDH 496 elevated, hCG negative, alpha-fetoprotein ordered Rads reviewed: CXR: sm R apical PTX, worsen inf R lung base CTA c/a/p: no clots, 11.9 cm mediastinal mass Case discussed with: Patient, his nurse, records reviewed in [id number] and [facility] Labs, including labs and radiology, please see note for summary details. Assessment and Plan: He is a 58-year-old man with NSCLC poorly diff causing SVC sx w/ PTX improved post chest tube, and fever x 1 on Abx w/ lower lobe inf fever: ID consulted, apprec their assistance, needs chemo, seems to be doing well on Abx currently SVC syndrome: improved post SVC stent, will plan chemo/XRT now for NSCLC, will give allopurinol for 1st cycle, brain MRI for staging ordered, can get PET after dc to complete staging, getting PICC (on apixaban, can transition to port after C1), pain meds prn, likely start w/ cis/etop XRT for initial tx based, may change based on final stage and once d/c'd, ancillary studies have been ordered Anemia: Consistent with anemia of chronic disease, transfuse prn Hb <7 Shoulder pain: he can follow-up with Ortho as needed B12 deficiency: he can continue oral replacement Polysubstance abuse: Have recommended avoiding all drugs tobacco and alcohol and he is willing Prophylaxis: On apixaban 5 mg bid due to SVC thrombus seen on venogram at last admit Disposition: After chemo and XRT began and improvement from PTX Thank you kindly for this consultation, and please don't hesitate to call with any further questions. Past Medical History Cardiovascular: HTN Pulmonary: No pertinent hx GI: No pertinent hx Psych: Anxiety, Addictions Musculoskeletal: low back pain Rheumatologic: No pertinent hx Infectious disease: No pertinent hx Family History Family History: Cancer Social History ALCOHOL: social Drugs: Cocaine, Marijuana Current Problem List Problem List Problems Medical Problems: (1) Mass of mediastinum Status: Acute (2) Pneumothorax Status: Acute Current Medications Current Medications Current Medications Sodium Chloride 1,000 ml @ 1,000 mls/hr 1X ONCE IV Last administered on 08/02/18at 09:23; Start 08/02/18 at 09:15; Stop 08/02/18 at 10:14; Status DC Lidocaine HCl (Lidocaine 1% 20ml Vial) 20 ml 1X ONCE IJ Last administered on 08/02/18at 10:24; Start 08/02/18 at 09:45; Stop 08/02/18 at 09:46; Status DC Fentanyl Citrate (Fentanyl 2ml Vial) 50 mcg 1X ONCE IV Last administered on 08/02/18at 10:25; Start 08/02/18 at 10:30; Stop 08/02/18 at 10:31; Status DC Fentanyl Citrate (Fentanyl 2ml Vial) 100 mcg STK-MED ONCE .ROUTE ; Start 08/02/18 at 10:23; Stop 08/02/18 at 10:24; Status DC Ondansetron HCl (Zofran) 4 mg PRN Q8HRS PRN IV NAUSEA/VOMITING; Start 08/02/18 at 11:00; Stop 08/03/18 at 10:59 Fentanyl Citrate (Fentanyl 2ml Vial) 50 mcg PRN Q1HR PRN IV PAIN Last administered on 08/03/18at 05:32; Start 08/02/18 at 11:00; Stop 08/03/18 at 10:59 Acetaminophen (Tylenol) 650 mg PRN Q4HRS PRN PO FEVER Last administered on 08/02/18at 16:04; Start 08/02/18 at 11:00; Stop 08/03/18 at 10:59 Vancomycin HCl (Vanco Per Pharmacy) 1 each PRN DAILY PRN MC SEE COMMENTS Last administered on 08/02/18at 21:18; Start 08/02/18 at 14:30 Piperacillin Sod/ Tazobactam Sod 3.375 gm/Sodium Chloride 50 ml @ 100 mls/hr Q6HRS IV Last administered on 08/03/18at 06:12; Start 08/02/18 at 17:00 Methylprednisolone Sodium Succinate (SOLU-Medrol 125MG VIAL) 125 mg 1X ONCE IV Last administered on 08/02/18at 16:05; Start 08/02/18 at 15:30; Stop 08/02/18 at 15:31; Status DC Methylprednisolone Sodium Succinate (SOLU-Medrol 125MG VIAL) 60 mg DAILY IV ; Start 08/03/18 at 09:00 Albuterol/ Ipratropium (Duoneb) 3 ml RTQID NEB Last administered on 08/02/18at 19:50; Start 08/02/18 at 16:00 Sodium Chloride 500 ml @ 500 mls/hr 1X ONCE IV Last administered on 08/02/18at 16:09; Start 08/02/18 at 14:30; Stop 08/02/18 at 15:29; Status DC Sodium Chloride 1,000 ml @ 100 mls/hr Q10H IV Last administered on 08/03/18at 05:32; Start 08/02/18 at 14:30 Vancomycin HCl 2 gm/Sodium Chloride 500 ml @ 250 mls/hr 1X ONCE IV Last administered on 08/02/18at 15:00; Start 08/02/18 at 15:00; Stop 08/02/18 at 16:59; Status DC Allopurinol (Zyloprim) 300 mg DAILY PO ; Start 08/03/18 at 09:00 Apixaban (Eliquis) 5 mg BID PO Last administered on 08/02/18at 20:57; Start 08/02/18 at 21:00 Diclofenac Sodium (Voltaren) 1 roby PRN BID PRN TP PAIN; Start 08/02/18 at 17:30 Docusate Sodium (Colace) 100 mg DAILY PO ; Start 08/03/18 at 09:00 Acetaminophen/ Hydrocodone Bitart (Lortab 5/325) 1 tab PRN Q6HRS PRN PO PAIN; Start 08/02/18 at 17:30 Famotidine (Pepcid) 20 mg BID PO Last administered on 08/02/18at 20:57; Start 08/02/18 at 21:00 Zolpidem Tartrate (Ambien) 5 mg PRN QHS PRN PO INSOMNIA Last administered on 08/02/18at 22:59; Start 08/02/18 at 18:15 Info (Anti-Coagulation Monitoring By Pharmacy) 1 each PRN DAILY PRN MC SEE COMMENTS; Start 08/02/18 at 18:30 Vancomycin HCl (Vancomycin Trough Level) 1 each 1X ONCE MC ; Start 08/03/18 at 14:30; Stop 08/03/18 at 14:31 Vancomycin HCl 1 gm/Sodium Chloride 250 ml @ 250 mls/hr Q8H IV Last administered on 08/03/18at 07:53; Start 08/02/18 at 23:00 Active Scripts Active Eliquis (Apixaban) 5 Mg Tablet 5 Mg PO BID Voltaren (Diclofenac Sodium) 100 Gm Gel..gram. 1 Roby TP PRN BID PRN Allopurinol 300 Mg Tablet 300 Mg PO DAILY Colace (Docusate Sodium) 100 Mg Capsule 100 Mg PO DAILY Ledger 5-325 Tablet (Acetaminophen/Hydrocodone Bitart) 1 Each Tablet 1 Each PO PRN Q6HRS PRN as needed for pain Ibuprofen 400 Mg Tablet 400 Mg PO PRN Q6HRS PRN take with food or milk Reported Ranitidine Hcl 150 Mg Tablet 1 Tab PO BID Lisinopril-Hctz 10-12.5 Mg Tab (Lisinopril/Hydrochlorothiazide) 1 Each Tablet 1 Tab PO DAILY Allergies Allergies: Coded Allergies: No Known Drug Allergies (Unverified , 10/14/13) Vitals VITALS Vital Signs Date Time Temp Pulse Resp B/P (MAP) Pulse Ox O2 Delivery O2 Flow Rate FiO2 08/03/18 06:12 98 Venturi Mask 6.0 08/03/18 06:01 98.7 113 46 131/92 (105) 98.7 Labs Labs Laboratory Tests Test 08/02/18 09:05 08/02/18 09:25 08/02/18 14:35 08/03/18 04:40 White Blood Count 6.9 x10^3/uL (4.0-11.0) 4.6 x10^3/uL (4.0-11.0) Red Blood Count 3.89 x10^6/uL (4.30-5.70) 3.84 x10^6/uL (4.30-5.70) Hemoglobin 9.7 g/dL (13.0-17.5) 9.1 g/dL (13.0-17.5) Hematocrit 29.6 % (39.0-53.0) 29.1 % (39.0-53.0) Mean Corpuscular Volume 76 fL (79-100) 76 fL (79-100) Mean Corpuscular Hemoglobin 25 pg (25-35) 24 pg (25-35) Mean Corpuscular Hemoglobin Concent 33 g/dL (31-37) 31 g/dL (31-37) Red Cell Distribution Width 17.5 % (11.5-14.5) 17.7 % (11.5-14.5) Platelet Count 494 x10^3/uL (140-400) 430 x10^3/uL (140-400) Neutrophils (%) (Auto) 68 % (31-73) 85 % (31-73) Lymphocytes (%) (Auto) 16 % (24-48) 11 % (24-48) Monocytes (%) (Auto) 13 % (0-9) 4 % (0-9) Eosinophils (%) (Auto) 2 % (0-3) 0 % (0-3) Basophils (%) (Auto) 1 % (0-3) 0 % (0-3) Neutrophils # (Auto) 4.7 x10^3uL (1.8-7.7) 3.9 x10^3uL (1.8-7.7) Lymphocytes # (Auto) 1.1 x10^3/uL (1.0-4.8) 0.5 x10^3/uL (1.0-4.8) Monocytes # (Auto) 0.9 x10^3/uL (0.0-1.1) 0.2 x10^3/uL (0.0-1.1) Eosinophils # (Auto) 0.2 x10^3/uL (0.0-0.7) 0.0 x10^3/uL (0.0-0.7) Basophils # (Auto) 0.1 x10^3/uL (0.0-0.2) 0.0 x10^3/uL (0.0-0.2) Sodium Level 134 mmol/L (136-145) 135 mmol/L (136-145) Potassium Level 4.3 mmol/L (3.5-5.1) 4.4 mmol/L (3.5-5.1) Chloride Level 96 mmol/L (98-107) 100 mmol/L (98-107) Carbon Dioxide Level 29 mmol/L (21-32) 25 mmol/L (21-32) Anion Gap 9 (6-14) 10 (6-14) Blood Urea Nitrogen 11 mg/dL (8-26) 15 mg/dL (8-26) Creatinine 0.8 mg/dL (0.7-1.3) 0.8 mg/dL (0.7-1.3) Estimated GFR (Cockcroft-Gault) 119.7 119.7 BUN/Creatinine Ratio 14 (6-20) 19 (6-20) Glucose Level 108 mg/dL (70-99) 138 mg/dL (70-99) Calcium Level 8.9 mg/dL (8.5-10.1) 8.8 mg/dL (8.5-10.1) Magnesium Level 1.8 mg/dL (1.8-2.4) Total Bilirubin 0.3 mg/dL (0.2-1.0) 0.3 mg/dL (0.2-1.0) Aspartate Amino Transf (AST/SGOT) 52 U/L (15-37) 67 U/L (15-37) Alanine Aminotransferase (ALT/SGPT) 73 U/L (16-63) 83 U/L (16-63) Alkaline Phosphatase 75 U/L (46-116) 59 U/L (46-116) Troponin I Quantitative < 0.017 ng/mL (0.000-0.055) < 0.017 ng/mL (0.000-0.055) Total Protein 9.2 g/dL (6.4-8.2) 8.2 g/dL (6.4-8.2) Albumin 2.4 g/dL (3.4-5.0) 1.8 g/dL (3.4-5.0) Albumin/Globulin Ratio 0.4 (1.0-1.7) 0.3 (1.0-1.7) Urine Collection Type Void Urine Color Yellow Urine Clarity Clear Urine pH 6.0 Urine Specific [place] 1.020 Urine Protein Negative mg/dL (NEG-TRACE) Urine Glucose (UA) Negative mg/dL (NEG) Urine Ketones (Stick) Negative mg/dL (NEG) Urine Blood Negative (NEG) Urine Nitrite Negative (NEG) Urine Bilirubin Negative (NEG) Urine Urobilinogen Dipstick 1.0 mg/dL (0.2 mg/dL) Urine Leukocyte Esterase Trace (NEG) Urine RBC 0 /HPF (0-2) Urine WBC 1-4 /HPF (0-4) Urine Bacteria Few /HPF (0-FEW) Urine Hyaline Casts Moderate /HPF Urine Mucus Mod /LPF Urine Opiates Screen Pos (NEG) Urine Methadone Screen Neg (NEG) Urine Barbiturates Neg (NEG) Urine Phencyclidine Screen Neg (NEG) Urine Amphetamine/Methamphetamine Neg (NEG) Urine Benzodiazepines Screen Neg (NEG) Urine Cocaine Screen Neg (NEG) Urine Cannabinoids Screen Neg (NEG) Urine Ethyl Alcohol Neg (NEG) Lactic Acid Level 1.4 mmol/L (0.4-2.0) Laboratory Tests Test 08/02/18 09:05 08/02/18 09:25 08/02/18 14:35 08/03/18 04:40 White Blood Count 6.9 x10^3/uL (4.0-11.0) 4.6 x10^3/uL (4.0-11.0) Red Blood Count 3.89 x10^6/uL (4.30-5.70) 3.84 x10^6/uL (4.30-5.70) Hemoglobin 9.7 g/dL (13.0-17.5) 9.1 g/dL (13.0-17.5) Hematocrit 29.6 % (39.0-53.0) 29.1 % (39.0-53.0) Mean Corpuscular Volume 76 fL (79-100) 76 fL (79-100) Mean Corpuscular Hemoglobin 25 pg (25-35) 24 pg (25-35) Mean Corpuscular Hemoglobin Concent 33 g/dL (31-37) 31 g/dL (31-37) Red Cell Distribution Width 17.5 % (11.5-14.5) 17.7 % (11.5-14.5) Platelet Count 494 x10^3/uL (140-400) 430 x10^3/uL (140-400) Neutrophils (%) (Auto) 68 % (31-73) 85 % (31-73) Lymphocytes (%) (Auto) 16 % (24-48) 11 % (24-48) Monocytes (%) (Auto) 13 % (0-9) 4 % (0-9) Eosinophils (%) (Auto) 2 % (0-3) 0 % (0-3) Basophils (%) (Auto) 1 % (0-3) 0 % (0-3) Neutrophils # (Auto) 4.7 x10^3uL (1.8-7.7) 3.9 x10^3uL (1.8-7.7) Lymphocytes # (Auto) 1.1 x10^3/uL (1.0-4.8) 0.5 x10^3/uL (1.0-4.8) Monocytes # (Auto) 0.9 x10^3/uL (0.0-1.1) 0.2 x10^3/uL (0.0-1.1) Eosinophils # (Auto) 0.2 x10^3/uL (0.0-0.7) 0.0 x10^3/uL (0.0-0.7) Basophils # (Auto) 0.1 x10^3/uL (0.0-0.2) 0.0 x10^3/uL (0.0-0.2) Sodium Level 134 mmol/L (136-145) 135 mmol/L (136-145) Potassium Level 4.3 mmol/L (3.5-5.1) 4.4 mmol/L (3.5-5.1) Chloride Level 96 mmol/L (98-107) 100 mmol/L (98-107) Carbon Dioxide Level 29 mmol/L (21-32) 25 mmol/L (21-32) Anion Gap 9 (6-14) 10 (6-14) Blood Urea Nitrogen 11 mg/dL (8-26) 15 mg/dL (8-26) Creatinine 0.8 mg/dL (0.7-1.3) 0.8 mg/dL (0.7-1.3) Estimated GFR (Cockcroft-Gault) 119.7 119.7 BUN/Creatinine Ratio 14 (6-20) 19 (6-20) Glucose Level 108 mg/dL (70-99) 138 mg/dL (70-99) Calcium Level 8.9 mg/dL (8.5-10.1) 8.8 mg/dL (8.5-10.1) Magnesium Level 1.8 mg/dL (1.8-2.4) Total Bilirubin 0.3 mg/dL (0.2-1.0) 0.3 mg/dL (0.2-1.0) Aspartate Amino Transf (AST/SGOT) 52 U/L (15-37) 67 U/L (15-37) Alanine Aminotransferase (ALT/SGPT) 73 U/L (16-63) 83 U/L (16-63) Alkaline Phosphatase 75 U/L (46-116) 59 U/L (46-116) Troponin I Quantitative < 0.017 ng/mL (0.000-0.055) < 0.017 ng/mL (0.000-0.055) Total Protein 9.2 g/dL (6.4-8.2) 8.2 g/dL (6.4-8.2) Albumin 2.4 g/dL (3.4-5.0) 1.8 g/dL (3.4-5.0) Albumin/Globulin Ratio 0.4 (1.0-1.7) 0.3 (1.0-1.7) Urine Collection Type Void Urine Color Yellow Urine Clarity Clear Urine pH 6.0 Urine Specific [place] 1.020 Urine Protein Negative mg/dL (NEG-TRACE) Urine Glucose (UA) Negative mg/dL (NEG) Urine Ketones (Stick) Negative mg/dL (NEG) Urine Blood Negative (NEG) Urine Nitrite Negative (NEG) Urine Bilirubin Negative (NEG) Urine Urobilinogen Dipstick 1.0 mg/dL (0.2 mg/dL) Urine Leukocyte Esterase Trace (NEG) Urine RBC 0 /HPF (0-2) Urine WBC 1-4 /HPF (0-4) Urine Bacteria Few /HPF (0-FEW) Urine Hyaline Casts Moderate /HPF Urine Mucus Mod /LPF Urine Opiates Screen Pos (NEG) Urine Methadone Screen Neg (NEG) Urine Barbiturates Neg (NEG) Urine Phencyclidine Screen Neg (NEG) Urine Amphetamine/Methamphetamine Neg (NEG) Urine Benzodiazepines Screen Neg (NEG) Urine Cocaine Screen Neg (NEG) Urine Cannabinoids Screen Neg (NEG) Urine Ethyl Alcohol Neg (NEG) Lactic Acid Level 1.4 mmol/L (0.4-2.0) AYSHA ALANIZ MD Aug 03, 2018 08:21
--- NOTE | 2018-08-03 08:27 | PDOC ---
Infectious Disease Note Subjective Subjective pt is known to us, seen by Dr Ni last wk back with sob, pneumothorax, fever ROS ROS no n/v/d/ Vital Sign Vital Signs Vital Signs Date Time Temp Pulse Resp B/P (MAP) Pulse Ox O2 Delivery O2 Flow Rate FiO2 08/03/18 06:12 98 Venturi Mask 6.0 08/03/18 06:01 98.7 113 46 131/92 (105) 98.7 Physical Exam PHYSICAL EXAM GENERAL: comfortable in bed, alert, NAD HEENT: oral cavity clear NECK: Supple. LUNGS: Decreased breath sounds at bases. HEART: S1, S2 ABDOMEN: Soft, nontender EXTREMITIES: No edema, no cyanosis. DERMATOLOGIC: Warm, dry, no generalized rash. Biopsy site post right back is clean CENTRAL NERVOUS SYSTEM: Alert and oriented x 3. Grossly nonfocal. PIV Labs Lab Laboratory Tests Test 08/02/18 09:05 08/02/18 09:25 08/02/18 14:35 08/03/18 04:40 White Blood Count 6.9 x10^3/uL (4.0-11.0) 4.6 x10^3/uL (4.0-11.0) Red Blood Count 3.89 x10^6/uL (4.30-5.70) 3.84 x10^6/uL (4.30-5.70) Hemoglobin 9.7 g/dL (13.0-17.5) 9.1 g/dL (13.0-17.5) Hematocrit 29.6 % (39.0-53.0) 29.1 % (39.0-53.0) Mean Corpuscular Volume 76 fL (79-100) 76 fL (79-100) Mean Corpuscular Hemoglobin 25 pg (25-35) 24 pg (25-35) Mean Corpuscular Hemoglobin Concent 33 g/dL (31-37) 31 g/dL (31-37) Red Cell Distribution Width 17.5 % (11.5-14.5) 17.7 % (11.5-14.5) Platelet Count 494 x10^3/uL (140-400) 430 x10^3/uL (140-400) Neutrophils (%) (Auto) 68 % (31-73) 85 % (31-73) Lymphocytes (%) (Auto) 16 % (24-48) 11 % (24-48) Monocytes (%) (Auto) 13 % (0-9) 4 % (0-9) Eosinophils (%) (Auto) 2 % (0-3) 0 % (0-3) Basophils (%) (Auto) 1 % (0-3) 0 % (0-3) Neutrophils # (Auto) 4.7 x10^3uL (1.8-7.7) 3.9 x10^3uL (1.8-7.7) Lymphocytes # (Auto) 1.1 x10^3/uL (1.0-4.8) 0.5 x10^3/uL (1.0-4.8) Monocytes # (Auto) 0.9 x10^3/uL (0.0-1.1) 0.2 x10^3/uL (0.0-1.1) Eosinophils # (Auto) 0.2 x10^3/uL (0.0-0.7) 0.0 x10^3/uL (0.0-0.7) Basophils # (Auto) 0.1 x10^3/uL (0.0-0.2) 0.0 x10^3/uL (0.0-0.2) Sodium Level 134 mmol/L (136-145) 135 mmol/L (136-145) Potassium Level 4.3 mmol/L (3.5-5.1) 4.4 mmol/L (3.5-5.1) Chloride Level 96 mmol/L (98-107) 100 mmol/L (98-107) Carbon Dioxide Level 29 mmol/L (21-32) 25 mmol/L (21-32) Anion Gap 9 (6-14) 10 (6-14) Blood Urea Nitrogen 11 mg/dL (8-26) 15 mg/dL (8-26) Creatinine 0.8 mg/dL (0.7-1.3) 0.8 mg/dL (0.7-1.3) Estimated GFR (Cockcroft-Gault) 119.7 119.7 BUN/Creatinine Ratio 14 (6-20) 19 (6-20) Glucose Level 108 mg/dL (70-99) 138 mg/dL (70-99) Calcium Level 8.9 mg/dL (8.5-10.1) 8.8 mg/dL (8.5-10.1) Magnesium Level 1.8 mg/dL (1.8-2.4) Total Bilirubin 0.3 mg/dL (0.2-1.0) 0.3 mg/dL (0.2-1.0) Aspartate Amino Transf (AST/SGOT) 52 U/L (15-37) 67 U/L (15-37) Alanine Aminotransferase (ALT/SGPT) 73 U/L (16-63) 83 U/L (16-63) Alkaline Phosphatase 75 U/L (46-116) 59 U/L (46-116) Troponin I Quantitative < 0.017 ng/mL (0.000-0.055) < 0.017 ng/mL (0.000-0.055) Total Protein 9.2 g/dL (6.4-8.2) 8.2 g/dL (6.4-8.2) Albumin 2.4 g/dL (3.4-5.0) 1.8 g/dL (3.4-5.0) Albumin/Globulin Ratio 0.4 (1.0-1.7) 0.3 (1.0-1.7) Urine Collection Type Void Urine Color Yellow Urine Clarity Clear Urine pH 6.0 Urine Specific [place] 1.020 Urine Protein Negative mg/dL (NEG-TRACE) Urine Glucose (UA) Negative mg/dL (NEG) Urine Ketones (Stick) Negative mg/dL (NEG) Urine Blood Negative (NEG) Urine Nitrite Negative (NEG) Urine Bilirubin Negative (NEG) Urine Urobilinogen Dipstick 1.0 mg/dL (0.2 mg/dL) Urine Leukocyte Esterase Trace (NEG) Urine RBC 0 /HPF (0-2) Urine WBC 1-4 /HPF (0-4) Urine Bacteria Few /HPF (0-FEW) Urine Hyaline Casts Moderate /HPF Urine Mucus Mod /LPF Urine Opiates Screen Pos (NEG) Urine Methadone Screen Neg (NEG) Urine Barbiturates Neg (NEG) Urine Phencyclidine Screen Neg (NEG) Urine Amphetamine/Methamphetamine Neg (NEG) Urine Benzodiazepines Screen Neg (NEG) Urine Cocaine Screen Neg (NEG) Urine Cannabinoids Screen Neg (NEG) Urine Ethyl Alcohol Neg (NEG) Lactic Acid Level 1.4 mmol/L (0.4-2.0) Micro BC neg Objective Assessment Fever ? could be from underlying mediastinal mass, or possible sec infection Large mediastinal mass , lung ca SVC s/p stent, 07/21 S/P BM bx, 07/22 Polyclonal gammopathy Gastric reflux Plan Plan of Care cont zosyn d/c vanc soon to d/c antibiotics radiation and chemo planned NOY LEYVA MD Aug 03, 2018 08:27
[2018-08-03] MEDS: IPRATRPIUM/ALBUTEROL 0.5/2.5MG 3 ML NEBU. NEB SCH ×4 (08:28→20:07)
--- NOTE | 2018-08-03 09:01 | PDOC ---
PULMONARY PROGRESS NOTES Subjective PT STILL SOA AT TIMES BECAME SOA ON TABLE FOR XRT DESATURATED Vitals Vital Signs Date Time Temp Pulse Resp B/P (MAP) Pulse Ox O2 Delivery O2 Flow Rate FiO2 08/03/18 08:28 100 Nasal Cannula 6.0 08/03/18 06:01 98.7 113 46 131/92 (105) 98.7 General: Alert Lungs: Crackles Cardiovascular: S1, S2 Abdomen: Soft Neuro Exam: Alert Extremities: No Edema Skin: Warm Labs Laboratory Tests Test 08/02/18 09:05 08/02/18 09:25 08/02/18 14:35 08/03/18 04:40 White Blood Count 6.9 x10^3/uL (4.0-11.0) 4.6 x10^3/uL (4.0-11.0) Red Blood Count 3.89 x10^6/uL (4.30-5.70) 3.84 x10^6/uL (4.30-5.70) Hemoglobin 9.7 g/dL (13.0-17.5) 9.1 g/dL (13.0-17.5) Hematocrit 29.6 % (39.0-53.0) 29.1 % (39.0-53.0) Mean Corpuscular Volume 76 fL (79-100) 76 fL (79-100) Mean Corpuscular Hemoglobin 25 pg (25-35) 24 pg (25-35) Mean Corpuscular Hemoglobin Concent 33 g/dL (31-37) 31 g/dL (31-37) Red Cell Distribution Width 17.5 % (11.5-14.5) 17.7 % (11.5-14.5) Platelet Count 494 x10^3/uL (140-400) 430 x10^3/uL (140-400) Neutrophils (%) (Auto) 68 % (31-73) 85 % (31-73) Lymphocytes (%) (Auto) 16 % (24-48) 11 % (24-48) Monocytes (%) (Auto) 13 % (0-9) 4 % (0-9) Eosinophils (%) (Auto) 2 % (0-3) 0 % (0-3) Basophils (%) (Auto) 1 % (0-3) 0 % (0-3) Neutrophils # (Auto) 4.7 x10^3uL (1.8-7.7) 3.9 x10^3uL (1.8-7.7) Lymphocytes # (Auto) 1.1 x10^3/uL (1.0-4.8) 0.5 x10^3/uL (1.0-4.8) Monocytes # (Auto) 0.9 x10^3/uL (0.0-1.1) 0.2 x10^3/uL (0.0-1.1) Eosinophils # (Auto) 0.2 x10^3/uL (0.0-0.7) 0.0 x10^3/uL (0.0-0.7) Basophils # (Auto) 0.1 x10^3/uL (0.0-0.2) 0.0 x10^3/uL (0.0-0.2) Sodium Level 134 mmol/L (136-145) 135 mmol/L (136-145) Potassium Level 4.3 mmol/L (3.5-5.1) 4.4 mmol/L (3.5-5.1) Chloride Level 96 mmol/L (98-107) 100 mmol/L (98-107) Carbon Dioxide Level 29 mmol/L (21-32) 25 mmol/L (21-32) Anion Gap 9 (6-14) 10 (6-14) Blood Urea Nitrogen 11 mg/dL (8-26) 15 mg/dL (8-26) Creatinine 0.8 mg/dL (0.7-1.3) 0.8 mg/dL (0.7-1.3) Estimated GFR (Cockcroft-Gault) 119.7 119.7 BUN/Creatinine Ratio 14 (6-20) 19 (6-20) Glucose Level 108 mg/dL (70-99) 138 mg/dL (70-99) Calcium Level 8.9 mg/dL (8.5-10.1) 8.8 mg/dL (8.5-10.1) Magnesium Level 1.8 mg/dL (1.8-2.4) Total Bilirubin 0.3 mg/dL (0.2-1.0) 0.3 mg/dL (0.2-1.0) Aspartate Amino Transf (AST/SGOT) 52 U/L (15-37) 67 U/L (15-37) Alanine Aminotransferase (ALT/SGPT) 73 U/L (16-63) 83 U/L (16-63) Alkaline Phosphatase 75 U/L (46-116) 59 U/L (46-116) Troponin I Quantitative < 0.017 ng/mL (0.000-0.055) < 0.017 ng/mL (0.000-0.055) Total Protein 9.2 g/dL (6.4-8.2) 8.2 g/dL (6.4-8.2) Albumin 2.4 g/dL (3.4-5.0) 1.8 g/dL (3.4-5.0) Albumin/Globulin Ratio 0.4 (1.0-1.7) 0.3 (1.0-1.7) Urine Collection Type Void Urine Color Yellow Urine Clarity Clear Urine pH 6.0 Urine Specific [place] 1.020 Urine Protein Negative mg/dL (NEG-TRACE) Urine Glucose (UA) Negative mg/dL (NEG) Urine Ketones (Stick) Negative mg/dL (NEG) Urine Blood Negative (NEG) Urine Nitrite Negative (NEG) Urine Bilirubin Negative (NEG) Urine Urobilinogen Dipstick 1.0 mg/dL (0.2 mg/dL) Urine Leukocyte Esterase Trace (NEG) Urine RBC 0 /HPF (0-2) Urine WBC 1-4 /HPF (0-4) Urine Bacteria Few /HPF (0-FEW) Urine Hyaline Casts Moderate /HPF Urine Mucus Mod /LPF Urine Opiates Screen Pos (NEG) Urine Methadone Screen Neg (NEG) Urine Barbiturates Neg (NEG) Urine Phencyclidine Screen Neg (NEG) Urine Amphetamine/Methamphetamine Neg (NEG) Urine Benzodiazepines Screen Neg (NEG) Urine Cocaine Screen Neg (NEG) Urine Cannabinoids Screen Neg (NEG) Urine Ethyl Alcohol Neg (NEG) Lactic Acid Level 1.4 mmol/L (0.4-2.0) Laboratory Tests Test 08/02/18 09:05 08/02/18 09:25 08/02/18 14:35 08/03/18 04:40 White Blood Count 6.9 x10^3/uL (4.0-11.0) 4.6 x10^3/uL (4.0-11.0) Red Blood Count 3.89 x10^6/uL (4.30-5.70) 3.84 x10^6/uL (4.30-5.70) Hemoglobin 9.7 g/dL (13.0-17.5) 9.1 g/dL (13.0-17.5) Hematocrit 29.6 % (39.0-53.0) 29.1 % (39.0-53.0) Mean Corpuscular Volume 76 fL (79-100) 76 fL (79-100) Mean Corpuscular Hemoglobin 25 pg (25-35) 24 pg (25-35) Mean Corpuscular Hemoglobin Concent 33 g/dL (31-37) 31 g/dL (31-37) Red Cell Distribution Width 17.5 % (11.5-14.5) 17.7 % (11.5-14.5) Platelet Count 494 x10^3/uL (140-400) 430 x10^3/uL (140-400) Neutrophils (%) (Auto) 68 % (31-73) 85 % (31-73) Lymphocytes (%) (Auto) 16 % (24-48) 11 % (24-48) Monocytes (%) (Auto) 13 % (0-9) 4 % (0-9) Eosinophils (%) (Auto) 2 % (0-3) 0 % (0-3) Basophils (%) (Auto) 1 % (0-3) 0 % (0-3) Neutrophils # (Auto) 4.7 x10^3uL (1.8-7.7) 3.9 x10^3uL (1.8-7.7) Lymphocytes # (Auto) 1.1 x10^3/uL (1.0-4.8) 0.5 x10^3/uL (1.0-4.8) Monocytes # (Auto) 0.9 x10^3/uL (0.0-1.1) 0.2 x10^3/uL (0.0-1.1) Eosinophils # (Auto) 0.2 x10^3/uL (0.0-0.7) 0.0 x10^3/uL (0.0-0.7) Basophils # (Auto) 0.1 x10^3/uL (0.0-0.2) 0.0 x10^3/uL (0.0-0.2) Sodium Level 134 mmol/L (136-145) 135 mmol/L (136-145) Potassium Level 4.3 mmol/L (3.5-5.1) 4.4 mmol/L (3.5-5.1) Chloride Level 96 mmol/L (98-107) 100 mmol/L (98-107) Carbon Dioxide Level 29 mmol/L (21-32) 25 mmol/L (21-32) Anion Gap 9 (6-14) 10 (6-14) Blood Urea Nitrogen 11 mg/dL (8-26) 15 mg/dL (8-26) Creatinine 0.8 mg/dL (0.7-1.3) 0.8 mg/dL (0.7-1.3) Estimated GFR (Cockcroft-Gault) 119.7 119.7 BUN/Creatinine Ratio 14 (6-20) 19 (6-20) Glucose Level 108 mg/dL (70-99) 138 mg/dL (70-99) Calcium Level 8.9 mg/dL (8.5-10.1) 8.8 mg/dL (8.5-10.1) Magnesium Level 1.8 mg/dL (1.8-2.4) Total Bilirubin 0.3 mg/dL (0.2-1.0) 0.3 mg/dL (0.2-1.0) Aspartate Amino Transf (AST/SGOT) 52 U/L (15-37) 67 U/L (15-37) Alanine Aminotransferase (ALT/SGPT) 73 U/L (16-63) 83 U/L (16-63) Alkaline Phosphatase 75 U/L (46-116) 59 U/L (46-116) Troponin I Quantitative < 0.017 ng/mL (0.000-0.055) < 0.017 ng/mL (0.000-0.055) Total Protein 9.2 g/dL (6.4-8.2) 8.2 g/dL (6.4-8.2) Albumin 2.4 g/dL (3.4-5.0) 1.8 g/dL (3.4-5.0) Albumin/Globulin Ratio 0.4 (1.0-1.7) 0.3 (1.0-1.7) Urine Collection Type Void Urine Color Yellow Urine Clarity Clear Urine pH 6.0 Urine Specific [place] 1.020 Urine Protein Negative mg/dL (NEG-TRACE) Urine Glucose (UA) Negative mg/dL (NEG) Urine Ketones (Stick) Negative mg/dL (NEG) Urine Blood Negative (NEG) Urine Nitrite Negative (NEG) Urine Bilirubin Negative (NEG) Urine Urobilinogen Dipstick 1.0 mg/dL (0.2 mg/dL) Urine Leukocyte Esterase Trace (NEG) Urine RBC 0 /HPF (0-2) Urine WBC 1-4 /HPF (0-4) Urine Bacteria Few /HPF (0-FEW) Urine Hyaline Casts Moderate /HPF Urine Mucus Mod /LPF Urine Opiates Screen Pos (NEG) Urine Methadone Screen Neg (NEG) Urine Barbiturates Neg (NEG) Urine Phencyclidine Screen Neg (NEG) Urine Amphetamine/Methamphetamine Neg (NEG) Urine Benzodiazepines Screen Neg (NEG) Urine Cocaine Screen Neg (NEG) Urine Cannabinoids Screen Neg (NEG) Urine Ethyl Alcohol Neg (NEG) Lactic Acid Level 1.4 mmol/L (0.4-2.0) Medications Active Scripts Medications Dose Route/Sig Max Daily Dose Days Date Category Dose Instructions Eliquis (Apixaban) 5 Mg Tablet 5 Mg PO BID 07/30/18 Rx Voltaren (Diclofenac Sodium) 100 Gm Gel..gram. 1 Roby TP PRN BID PRN 07/30/18 Rx Allopurinol 300 Mg Tablet 300 Mg PO DAILY 07/30/18 Rx Colace (Docusate Sodium) 100 Mg Capsule 100 Mg PO DAILY 07/30/18 Rx [place] 5-325 Tablet (Acetaminophen/Hydrocodone Bitart) 1 Each Tablet 1 Each PO PRN Q6HRS PRN 07/30/18 Rx as needed for pain Ranitidine Hcl 150 Mg Tablet 1 Tab PO BID 07/19/18 Reported Lisinopril-Hctz 10-12.5 Mg Tab (Lisinopril/Hydrochlorothiazide) 1 Each Tablet 1 Tab PO DAILY 07/19/18 Reported Ibuprofen 400 Mg Tablet 400 Mg PO PRN Q6HRS PRN 07/03/16 Rx take with food or milk Impression . IMPRESSION: 1. Spontaneous pneumothorax. 2. Large mediastinal mass. 3. Superior vena cava syndrome, status post superior vena cava filter placement. 4. Hemoptysis secondary to re-expansion pulmonary edema. 5. Fever. 6. History of tobacco use. 7. Chronic obstructive pulmonary disease. 8. FINAL PATH NON SMALL CELL CA Plan . CXR SMALL PTX WILL CONTINEU THE SAME CASE PRESENTED AT TUMOR CONFERENCE WILL START CHEMO SPOKE WITH LALO ROSE MD Aug 03, 2018 09:01
[2018-08-03] MEDS: ALLOPURINOL 300 MG TABLET. PO SCH (09:34)
[2018-08-03] MEDS: DOCUSATE SODIUM 100 MG CAPSULE. PO SCH (09:34)
[2018-08-03] MEDS: APIXABAN 5 MG TABLET. PO SCH ×2 (09:34→20:41)
[2018-08-03] MEDS: FAMOTIDINE 20 MG TABLET. PO SCH ×2 (09:34→20:41)
[2018-08-03] MEDS: CYANOCOBALAMIN (VITAMIN B-12) 1,000 MCG TABLET. PO SCH (09:34)
[2018-08-03] MEDS: methylPREDNISolone SOD SUCC PF 125 MG/2 ML VIAL. IV SCH (09:35)
--- NOTE | 2018-08-03 09:58 | PDOC ---
PROGRESS NOTES Subjective Subjective feels better today , off oxygen mask Objective Objective Vital Signs Date Time Temp Pulse Resp B/P (MAP) Pulse Ox O2 Delivery O2 Flow Rate FiO2 08/03/18 09:00 130 42 154/102 (119) 97 Nasal Cannula 6.0 08/03/18 08:00 97.8 97.8 Intake and Output 08/03/18 07:00 Intake Total 2450 ml Output Total 550 ml Balance 1900 ml Intake Oral 200 ml IV Total 2250 ml Output Urine Total 550 ml # Voids 1 # Bowel Movements 1 Physical Exam Abdomen: Normal bowel sounds, Soft Heart: Other (tachycardia) Extremities: No clubbing General: Alert HEENT: Atraumatic Lungs: Other (crackes and wheezing bilatrally) MUSCULOSKELETAL: No deformity Neck: No JVD Neuro: Normal speech Psych/Mental Status: Mental status NL Skin: No breakdown Diagnosis Problem List Problems Medical Problems: (1) Mass of mediastinum Status: Acute (2) Pneumothorax Status: Acute Assessment Assessment Problems Medical Problems: (1) Mass of mediastinum Status: Acute (2) Pneumothorax Status: Acute FINAL IMPRESSION: 1. Pneumothorax rt side ,had chest tube placed. 2. Mediastinal mass, large 11 cm shows a non-small cell, poorly differentiated carcinoma of lung. 3. Hypertension. 4. Smoking. 5. History of drug abuse. 6. Tachycardia. 7. Pneumonia post obstructive 8. SVC syndrome with clot mild PLAN: weaned off oxygen mask broad spectrum antibiotics chemo for lung cancer planned getting central line iv steroids spoke with RN and pulmonary. jennifer grover for anticoagulation. At this time, the patient was admitted to the hospital, was transferred to the ICU after rapid response and started on fluid bolus, IV fluids. Blood cultures were done, started on broad-spectrum antibiotic, vancomycin, and Zosyn. ID is consulted. Pulmonary critical care is consulted and the patient's echo shows a decent left ventricular function. The patient is on Eliquis for anticoagulation and the patient is also followed by Oncology and see how the patient improves in the next 24-48 hours. Plan Plan of Care Problems Medical Problems: (1) Mass of mediastinum Status: Acute (2) Pneumothorax Status: Acute Comment Review of Relevant I have reviewed the following items karina (where applicable) has been applied. Labs Laboratory Tests Test 08/02/18 14:35 08/03/18 04:40 Lactic Acid Level 1.4 mmol/L (0.4-2.0) Troponin I Quantitative < 0.017 ng/mL (0.000-0.055) White Blood Count 4.6 x10^3/uL (4.0-11.0) Red Blood Count 3.84 x10^6/uL (4.30-5.70) Hemoglobin 9.1 g/dL (13.0-17.5) Hematocrit 29.1 % (39.0-53.0) Mean Corpuscular Volume 76 fL (79-100) Mean Corpuscular Hemoglobin 24 pg (25-35) Mean Corpuscular Hemoglobin Concent 31 g/dL (31-37) Red Cell Distribution Width 17.7 % (11.5-14.5) Platelet Count 430 x10^3/uL (140-400) Neutrophils (%) (Auto) 85 % (31-73) Lymphocytes (%) (Auto) 11 % (24-48) Monocytes (%) (Auto) 4 % (0-9) Eosinophils (%) (Auto) 0 % (0-3) Basophils (%) (Auto) 0 % (0-3) Neutrophils # (Auto) 3.9 x10^3uL (1.8-7.7) Lymphocytes # (Auto) 0.5 x10^3/uL (1.0-4.8) Monocytes # (Auto) 0.2 x10^3/uL (0.0-1.1) Eosinophils # (Auto) 0.0 x10^3/uL (0.0-0.7) Basophils # (Auto) 0.0 x10^3/uL (0.0-0.2) Sodium Level 135 mmol/L (136-145) Potassium Level 4.4 mmol/L (3.5-5.1) Chloride Level 100 mmol/L (98-107) Carbon Dioxide Level 25 mmol/L (21-32) Anion Gap 10 (6-14) Blood Urea Nitrogen 15 mg/dL (8-26) Creatinine 0.8 mg/dL (0.7-1.3) Estimated GFR (Cockcroft-Gault) 119.7 BUN/Creatinine Ratio 19 (6-20) Glucose Level 138 mg/dL (70-99) Calcium Level 8.8 mg/dL (8.5-10.1) Total Bilirubin 0.3 mg/dL (0.2-1.0) Aspartate Amino Transf (AST/SGOT) 67 U/L (15-37) Alanine Aminotransferase (ALT/SGPT) 83 U/L (16-63) Alkaline Phosphatase 59 U/L (46-116) Total Protein 8.2 g/dL (6.4-8.2) Albumin 1.8 g/dL (3.4-5.0) Albumin/Globulin Ratio 0.3 (1.0-1.7) Medications Current Medications Acetaminophen (Tylenol) 650 mg PRN Q4HRS PRN PO FEVER Last administered on 08/02/18at 16:04; Start 08/02/18 at 11:00; Stop 08/03/18 at 10:59 Acetaminophen/ Hydrocodone Bitart (Lortab 5/325) 1 tab PRN Q6HRS PRN PO PAIN; Start 08/02/18 at 17:30 Albuterol/ Ipratropium (Duoneb) 3 ml RTQID NEB Last administered on 08/03/18at 08:28; Start 08/02/18 at 16:00 Allopurinol (Zyloprim) 300 mg DAILY PO Last administered on 08/03/18at 09:34; Start 08/03/18 at 09:00 Apixaban (Eliquis) 5 mg BID PO Last administered on 08/03/18at 09:34; Start 08/02/18 at 21:00 Cyanocobalamin (Vitamin B-12) 1,000 mcg DAILY PO Last administered on 08/03/18at 09:34; Start 08/03/18 at 09:00 Diclofenac Sodium (Voltaren) 1 estephanie PRN BID PRN TP PAIN; Start 08/02/18 at 17:30 Docusate Sodium (Colace) 100 mg DAILY PO Last administered on 08/03/18at 09:34; Start 08/03/18 at 09:00 Famotidine (Pepcid) 20 mg BID PO Last administered on 08/03/18at 09:34; Start 08/02/18 at 21:00 Fentanyl Citrate (Fentanyl 2ml Vial) 50 mcg 1X ONCE IV Last administered on 08/02/18at 10:25; Start 08/02/18 at 10:30; Stop 08/02/18 at 10:31; Status DC Fentanyl Citrate (Fentanyl 2ml Vial) 50 mcg PRN Q1HR PRN IV PAIN Last administered on 08/03/18at 05:32; Start 08/02/18 at 11:00; Stop 08/03/18 at 10:59 Fentanyl Citrate (Fentanyl 2ml Vial) 100 mcg STK-MED ONCE .ROUTE ; Start 08/02/18 at 10:23; Stop 08/02/18 at 10:24; Status DC Info (Anti-Coagulation Monitoring By Pharmacy) 1 each PRN DAILY PRN MC SEE COMMENTS; Start 08/02/18 at 18:30 Methylprednisolone Sodium Succinate (SOLU-Medrol 125MG VIAL) 60 mg DAILY IV Last administered on 08/03/18at 09:35; Start 08/03/18 at 09:00 Methylprednisolone Sodium Succinate (SOLU-Medrol 125MG VIAL) 125 mg 1X ONCE IV Last administered on 08/02/18at 16:05; Start 08/02/18 at 15:30; Stop 08/02/18 at 15:31; Status DC Ondansetron HCl (Zofran) 4 mg PRN Q8HRS PRN IV NAUSEA/VOMITING; Start 08/02/18 at 11:00; Stop 08/03/18 at 10:59 Piperacillin Sod/ Tazobactam Sod 3.375 gm/Sodium Chloride 50 ml @ 100 mls/hr Q6HRS IV Last administered on 08/03/18at 06:12; Start 08/02/18 at 17:00 Sodium Chloride 500 ml @ 500 mls/hr 1X ONCE IV Last administered on 08/02/18at 16:09; Start 08/02/18 at 14:30; Stop 08/02/18 at 15:29; Status DC Sodium Chloride 1,000 ml @ 100 mls/hr Q10H IV Last administered on 08/03/18at 05:32; Start 08/02/18 at 14:30 Vancomycin HCl (Vanco Per Pharmacy) 1 each PRN DAILY PRN MC SEE COMMENTS Last administered on 08/02/18at 21:18; Start 08/02/18 at 14:30; Stop 08/03/18 at 08:31; Status DC Vancomycin HCl (Vancomycin Trough Level) 1 each 1X ONCE MC ; Start 08/03/18 at 14:30; Stop 08/03/18 at 14:31; Status Cancel Vancomycin HCl 1 gm/Sodium Chloride 250 ml @ 250 mls/hr Q8H IV Last administered on 08/03/18at 07:53; Start 08/02/18 at 23:00; Stop 08/03/18 at 08:27; Status DC Vancomycin HCl 2 gm/Sodium Chloride 500 ml @ 250 mls/hr 1X ONCE IV Last administered on 08/02/18at 15:00; Start 08/02/18 at 15:00; Stop 08/02/18 at 16:59; Status DC Zolpidem Tartrate (Ambien) 5 mg PRN QHS PRN PO INSOMNIA Last administered on 08/02/18at 22:59; Start 08/02/18 at 18:15 Vitals/I & O Vital Sign - Last 24 Hours 08/02/18 08/02/18 08/02/18 08/02/18 10:07 10:09 10:24 10:25 Pulse 127 11 130 Resp 22 B/P (MAP) 151/101 (118) 164/90 (114) 163/90 (114) Pulse Ox 92 88 96 95 O2 Delivery Room Air Room Air Room Air 08/02/18 08/02/18 08/02/18 08/02/18 10:39 10:54 11:12 12:00 Pulse 129 127 127 122 Resp 22 22 B/P (MAP) 151/93 (112) 153/79 (103) 106/73 (84) 122/95 (104) Pulse Ox 95 88 96 96 O2 Delivery Room Air Room Air Nasal Cannula Nasal Cannula O2 Flow Rate 2.0 2.0 08/02/18 08/02/18 08/02/18 08/02/18 13:00 15:00 15:37 16:00 Temp 101.0 101.0 Pulse 133 Resp 24 B/P (MAP) 119/70 (86) Pulse Ox 96 92 O2 Delivery Nasal Cannula Venturi Mask Venturi Mask Nasal Cannula O2 Flow Rate 2.0 15.0 15.0 6.0 08/02/18 08/02/18 08/02/18 08/02/18 16:05 16:27 18:28 19:00 Temp 101.0 99.8 98.3 101.0 99.8 98.3 Pulse 133 119 115 Resp 24 37 B/P (MAP) 119/70 (86) 119/70 (86) 125/79 (94) Pulse Ox 92 96 96 98 O2 Delivery Venturi Mask Nasal Cannula Nasal Cannula O2 Flow Rate 15.0 15.0 6.0 5.0 08/02/18 08/02/18 08/02/18 08/02/18 19:50 20:00 20:00 21:05 Temp 98.5 98.4 98.5 98.4 Pulse 115 114 Resp 30 34 B/P (MAP) 127/80 (96) 111/72 (85) Pulse Ox 96 98 98 O2 Delivery Nasal Cannula Nasal Cannula Nasal Cannula Nasal Cannula O2 Flow Rate 7.0 6.0 6.0 6.0 08/02/18 08/02/18 08/02/18 08/03/18 22:06 23:00 23:00 00:09 Temp 98.6 98.4 98.6 98.6 98.4 98.6 Pulse 107 112 104 Resp 18 25 17 B/P (MAP) 115/75 (88) 128/78 (95) 113/71 (85) Pulse Ox 99 99 90 100 O2 Delivery Nasal Cannula Nasal Cannula Nasal Cannula Nasal Cannula O2 Flow Rate 6.0 6.0 15.0 15.0 08/03/18 08/03/18 08/03/18 08/03/18 00:10 01:00 02:00 03:07 Temp 98.4 98.6 98.6 98.4 98.6 98.6 Pulse 101 99 100 Resp 23 18 29 B/P (MAP) 114/71 (85) 120/70 (87) 113/76 (88) Pulse Ox 100 99 99 O2 Delivery Venturi Mask Venturi Mask Venturi Mask Venturi Mask O2 Flow Rate 15.0 15.0 15.0 15.0 08/03/18 08/03/18 08/03/18 08/03/18 04:00 04:14 05:11 05:32 Temp 98.5 98.6 98.5 98.6 Pulse 108 108 Resp 19 35 B/P (MAP) 116/83 (94) 119/77 (91) Pulse Ox 100 99 100 O2 Delivery Venturi Mask Venturi Mask Nasal Cannula Venturi Mask O2 Flow Rate 15.0 15.0 6.0 6.0 08/03/18 08/03/18 08/03/18 08/03/18 06:01 06:12 07:00 08:00 Temp 98.7 97.8 98.7 97.8 Pulse 113 114 125 Resp 46 42 32 B/P (MAP) 131/92 (105) 141/85 (103) 146/101 (116) Pulse Ox 96 98 99 100 O2 Delivery Nasal Cannula Venturi Mask Nasal Cannula Nasal Cannula O2 Flow Rate 6.0 6.0 6.0 6.0 08/03/18 08/03/18 08:28 09:00 Pulse 130 Resp 42 B/P (MAP) 154/102 (119) Pulse Ox 100 97 O2 Delivery Nasal Cannula Nasal Cannula O2 Flow Rate 6.0 6.0 Intake and Output 08/02/18 08/02/18 08/03/18 15:00 23:00 07:00 Intake Total 1000 ml 1450 ml Output Total 300 ml 250 ml Balance 1000 ml 1150 ml -250 ml PREET PALUMBO MD Aug 03, 2018 09:58
--- NOTE | 2018-08-03 10:59 | PDOC ---
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 2 to 3 mo difficulty with food stuck in central chest and 24 pound weight loss, 1 mo hx of severe constant chest pain. CT chest huge mediastinal mass and right hilar adenopathy. Underwent SVC s tenting with improved facial swelling. Initial inguinal LN bx was non-diagnostic. CT guided bx 07/27/2018 revealed non- small cell lung carcinoma. DC'ed 07/30/2018. Readmitted with increasing SOB and large right pneumothorax. Reexpanded after CT placement. Now anxious and requiring ongoing o2 support at 6 L PICC line planned for systemic chemo. Simulation effort made to initiate combined chest radiation and chemo. He was on venti mask and desaturated to a po2 down to 30% We are not comfortable completing simulation with BiPAP support as our access to patient emergently in the accelerator room with slow shielded door and long corridor to machine is limited vs our simulator CT scanner room. Plan on pursuing chemo alone for one or more cycles and readdress radiation once he is more stable assuming that he does respond to chemo alone. Also for staging we will obtain a CT head with contrast as s substitute for planned MRI head. Discussed with patient and Dr. Alaniz and ICU nursing staff. KAYLA WHEAT MD Aug 03, 2018 10:58
[2018-08-03] MEDS ORDERED: IOHEXOL 300 MG/ML 100ML VIAL. IV ONE (11:00)
--- NOTE | 2018-08-03 11:54 | RAD ---
CT of the head with and without contrast, 08/03/2018: HISTORY: Lung cancer, check for metastatic disease Multidetector CT imaging was performed prior to and following an IV bolus injection of iodinated contrast material. The ventricles are within normal limits in size. There is no shift of the midline structures. There is no evidence of acute intracranial hemorrhage or mass effect. A small left cerebellar lucency is identified. No abnormal postcontrast enhancement is seen in this region or other areas of the brain. No abnormal extra-axial fluid collection or mass is seen. IMPRESSION: 1. Small nonspecific left cerebellar lucency. This may be an old infarct. Edema due to a nonenhancing small metastasis cannot be excluded. MR scanning of the brain would be a more sensitive method of further evaluation, if clinically indicated. 2. No other significant abnormality is detected. PQRS Compliance Statement: One or more of the following individualized dose reduction techniques were utilized for this examination: 1. Automated exposure control 2. Adjustment of the mA and/or kV according to patient size 3. Use of iterative reconstruction technique Electronically signed by: Parrish Garcia MD (08/03/2018 11:51 AM) [facility]
--- NOTE | 2018-08-03 13:07 | NUR ---
Allergies and reactions INR 15 BUN 0.8 Cr Platelets order Verified Consent signed Previous PICC placement Past Medical/Surgical history and current diagnosis reviewed Patient Medical /Surgical History Related to PICC line placement Cancer Chemotherapy History of bleeding, bruising, clotting disorder Infectious Disease consult Irradiation Problems breathing lying flat Pulmonary Embolism (PE) Radiation Special considerations for PICC line placement None Anticoagulation therapy Arm contractures/ Compromised arm PICC placement indication Caustic medication class drug usage, snf antibiotic usage, Multiple/ Frequent blood draws, Need for Central Venous Pressure (CVP) monitoring, Poor peripheral intravenous access Sujatha Paredes name of PICC Nurse
--- NOTE | 2018-08-03 13:12 | NUR ---
SS following for discharge planning. SS reviewed pt chart. Pt is from home and is currently requiring oxygen. No discharge needs noted at this time. SS will continue to follow for discharge planning.
[2018-08-03] MEDS: ANTI-COAG MONITOR BY PHARMACY. MC PRN (14:26)
--- NOTE | 2018-08-03 14:58 | NUR ---
Allergies and reactions INR 15BUN 0.8 Cr 430 Platelets Blood culture done blood culture results Order Verified Consent signed Previous PICC placement Past Medical/Surgical history and current diagnosis reviewed Patient Medical /Surgical History Related to PICC line placement None Arrhythmias AICD) Cancer Chemotherapy Irradiation Problems breathing lying flat Pulmonary Embolism (PE) Radiation Renal consult Septicemia/Bacteremia Suspected device related infection Special considerations for PICC line placement None Anticoagulation therapy Arm contractures/ Compromised arm PICC placement indication Caustic medication class drug usage, ad terminal makeup operator antibiotic usage, Multiple/ Frequent blood draws, name of PICC Nurse Sujatha Paredes
--- NOTE | 2018-08-03 15:01 | NUR ---
Procedure: Following complete explanation of the PICC procedure including the indications, risks, and potential complications, informed consent was obtained. The possibility for infection was discussed along with signs, symptoms, and prevention. All the questions were answered. Written and verbal patient education was provided. Hand hygiene performed. Standardized central line checklist was utilized. The patient was placed in the supine position, the arm was prepped with chlorhexidine and patient draped with maximum sterile barrier. 2 mL 1% lidocaine was infiltrated into the skin to provide local anesthesia. A thorough assessment of right upper extremity completed. Using real-time ultrasound guidance and standardized micro puncture set, the basilic vein was punctured and a peel away sheath was placed using the modified Seldinger technique. A tip location device was used to ensure adequate catheter placement. The catheter was secured using a securement device and an antimicrobial patch was applied directly on the insertion site followed by a transparent dressing. All ports withdraw blood and flush without resistance. Patient tolerated the procedure without apparent complication(s). Triple Lumen Power PICC placement successful and uncomplicated. Placement verified by EKG tip confirmation system and/or chest x-ray. Tip located in the SVC Complications: []
[2018-08-03] MEDS ORDERED: ONDANSETRON ODT 4 MG TAB.RAPDIS. PO PRN (15:15)
--- NOTE | 2018-08-03 15:41 | RAD ---
Portable chest, 08/03/2018, 2:50 PM: HISTORY: Check PICC placement Comparison is made to a study from earlier the same day at 2:16 PM. A right PICC has been inserted. It extends through a superior vena cava stent into the inferior aspect of the right atrium. Its tip is not clearly defined. A small caliber right pleural tube remains in place. The previously seen small right pneumothorax appears to have resolved. There is moderate ongoing atelectasis/infiltrate in the right lower chest. The patient's large mediastinal mass is again noted. The left lung remains clear. IMPRESSION: 1. The right PICC extends into the inferior aspect of the right atrium. 2. Interval resolution of the small right pneumothorax. 3. Unchanged moderate right lower chest infiltrate. Electronically signed by: Parrish Garcia MD (08/03/2018 3:38 PM) [facility]
[2018-08-03] MEDS: HYDROcodone/APAP 5/325MG 1 TAB TABLET PO PRN ×2 (16:51→22:33)
[2018-08-03] MEDS: ALPRAZolam 0.25 MG TABLET PO PRN ×2 (18:09→22:51)
[2018-08-03] MEDS: ZOLPIDEM 5 MG TABLET. PO PRN (22:33)
[2018-08-04] VITALS (25 sets, daily range): BP systolic 93–136; BP diastolic 68–97
[2018-08-04] MEDS: ONDANSETRON PF 4 MG/2 ML VIAL. IV PRN ×2 (01:47→14:43)
[2018-08-04] MEDS: HYDROcodone/APAP 5/325MG 1 TAB TABLET PO PRN ×3 (04:40→19:51)
[2018-08-04] MEDS: ALPRAZolam 0.25 MG TABLET PO PRN ×3 (04:40→20:12)
[2018-08-04] MEDS: PIPERACILLIN/TAZOBACTAM 3.375 GM in IV NORMAL SALINE 50ML 50 ML IV SCH ×4 (06:05→23:55)
[2018-08-04 06:37] LABS: CREATININE 0.7 mg/dL (0.7-1.3); GFR 139.7; POTASSIUM 4.2 mmol/L (3.5-5.1)
[2018-08-04 06:41] LABS: BASO # 0.1 x10^3/uL (0.0-0.2); BASO % 1 % (0-3); EOS % 0 % (0-3); HEMATOCRIT 27.5 % (39.0-53.0); HEMOGLOBIN 8.9 g/dL (13.0-17.5); LYMPH % 14 % (24-48); MEAN CORPUSCULAR HEMOGLOBIN 25 pg (25-35); MEAN CORPUSCULAR HGB CONC 32 g/dL (31-37); MEAN CORPUSCULAR VOLUME 76 fL (79-100); MONO # 0.5 x10^3/uL (0.0-1.1); MONO % 7 % (0-9); NEUT # 5.4 x10^3uL (1.8-7.7); NEUT % 78 % (31-73); PLATELET COUNT 371 x10^3/uL (140-400); RED BLOOD COUNT 3.61 x10^6/uL (4.30-5.70); RED CELL DISTRIBUTION WIDTH 17.7 % (11.5-14.5)
--- NOTE | 2018-08-04 07:49 | PDOC ---
Infectious Disease Note Subjective Subjective pt is feeling ok, up in chair, sob ROS ROS no n/v/d/ Vital Sign Vital Signs Vital Signs Date Time Temp Pulse Resp B/P (MAP) Pulse Ox O2 Delivery O2 Flow Rate FiO2 08/04/18 06:08 114 20 110/78 (89) 99 Nasal Cannula 6.0 08/04/18 04:00 97.8 97.8 Physical Exam PHYSICAL EXAM GENERAL: comfortable in chair, alert, NAD HEENT: oral cavity clear NECK: Supple. LUNGS: Decreased breath sounds at bases. HEART: S1, S2 ABDOMEN: Soft, nontender EXTREMITIES: No edema, no cyanosis. DERMATOLOGIC: Warm, dry, no generalized rash. Biopsy site post right back is clean CENTRAL NERVOUS SYSTEM: Alert and oriented x 3. Grossly nonfocal. PIV Labs Lab Laboratory Tests Test 08/03/18 20:41 08/04/18 06:00 Glucose (Fingerstick) 151 mg/dL (70-99) White Blood Count 7.0 x10^3/uL (4.0-11.0) Red Blood Count 3.61 x10^6/uL (4.30-5.70) Hemoglobin 8.9 g/dL (13.0-17.5) Hematocrit 27.5 % (39.0-53.0) Mean Corpuscular Volume 76 fL (79-100) Mean Corpuscular Hemoglobin 25 pg (25-35) Mean Corpuscular Hemoglobin Concent 32 g/dL (31-37) Red Cell Distribution Width 17.7 % (11.5-14.5) Platelet Count 371 x10^3/uL (140-400) Neutrophils (%) (Auto) 78 % (31-73) Lymphocytes (%) (Auto) 14 % (24-48) Monocytes (%) (Auto) 7 % (0-9) Eosinophils (%) (Auto) 0 % (0-3) Basophils (%) (Auto) 1 % (0-3) Neutrophils # (Auto) 5.4 x10^3uL (1.8-7.7) Lymphocytes # (Auto) 1.0 x10^3/uL (1.0-4.8) Monocytes # (Auto) 0.5 x10^3/uL (0.0-1.1) Eosinophils # (Auto) 0.0 x10^3/uL (0.0-0.7) Basophils # (Auto) 0.1 x10^3/uL (0.0-0.2) Sodium Level 134 mmol/L (136-145) Potassium Level 4.2 mmol/L (3.5-5.1) Chloride Level 100 mmol/L (98-107) Carbon Dioxide Level 25 mmol/L (21-32) Anion Gap 9 (6-14) Blood Urea Nitrogen 15 mg/dL (8-26) Creatinine 0.7 mg/dL (0.7-1.3) Estimated GFR (Cockcroft-Gault) 139.7 Glucose Level 119 mg/dL (70-99) Calcium Level 9.0 mg/dL (8.5-10.1) Micro BC neg Objective Assessment Fever ? could be from underlying mediastinal mass, or possible sec infection Large mediastinal mass , lung ca SVC s/p stent, 07/21 S/P BM bx, 07/22 Polyclonal gammopathy Gastric reflux Plan Plan of Care cont zosyn soon to d/c antibiotics radiation and chemo planned NOY LEYVA MD Aug 04, 2018 07:49
[2018-08-04] MEDS: FAMOTIDINE 20 MG TABLET. PO SCH ×2 (07:57→20:59)
[2018-08-04] MEDS: APIXABAN 5 MG TABLET. PO SCH ×2 (07:57→20:59)
[2018-08-04] MEDS: CYANOCOBALAMIN (VITAMIN B-12) 1,000 MCG TABLET. PO SCH (07:57)
[2018-08-04] MEDS: DOCUSATE SODIUM 100 MG CAPSULE. PO SCH (07:57)
[2018-08-04] MEDS: methylPREDNISolone SOD SUCC PF 125 MG/2 ML VIAL. IV SCH (07:58)
[2018-08-04] MEDS ORDERED: SODIUM CHLORIDE 0.9% IV ONE (08:00)
[2018-08-04] MEDS ORDERED: DEXAMETHASONE 4 MG TABLET PO ONE (08:00)
[2018-08-04] MEDS: ALLOPURINOL 300 MG TABLET. PO SCH (08:00)
[2018-08-04] MEDS ORDERED: APREPITANT IV ONE ×2 (08:00→09:30)
[2018-08-04] MEDS ORDERED: IV NORMAL SALINE 1000ML BAG 1,000 ML IV SCH (08:00)
[2018-08-04] MEDS: IPRATRPIUM/ALBUTEROL 0.5/2.5MG 3 ML NEBU. NEB SCH ×4 (08:17→20:42)
--- NOTE | 2018-08-04 08:48 | NUR ---
08/[address] Alaniz in w detailed explanation of CT findings. Informed will not be going for MRI till after breathing status improved and that radiation also postponed for same reason. Will do chemo this first week and he will remain hospitalized during his first round. Assist to chair just prior to shift change, able to bear weight but lacks endurance/strength. Comfort level voiced as "better" when sitting up. Communication w Chemo nurse ANNMARIE Black. NS 500/H x 2 H started w ordered pre meds to be given 0930. Refused breakfast. AM meds refused at this time.
--- NOTE | 2018-08-04 08:58 | PDOC ---
SUBJECTIVE Subjective S: Getting a breathing treatment today, could not tolerate simulation for RT O: Physical exam: Gen.: Well-developed AA middle aged man in chair, getting resp tx Psychiatric: Pleasant mood and affect Labs: White count 7, hemoglobin 8.9, platelets 371 Rads: Chest x-ray with right PICC, no pneumothorax, right lower infiltrate CT head showed small left cerebellar lucency versus edema from metastasis, recommend MRI Assessment and Plan: He is a 58-year-old man with NSCLC poorly diff causing SVC sx w/ PTX resolved on CXR after chest tube placed, and fever x 1 on Abx w/ lower lobe inf fever: Appreciate ID assistance, on antibiotics, last temp to 101 on 02 August during [facility] NSCLC: C1Day1 cis/etop SVC syndrome: improved post SVC stent, getting chemotherapy today for NSCLC, will give allopurinol for 1st cycle, brain MRI can be done once he's able to lie supine, as well can add radiotherapy once he's able to lie supine, can consider PET after dc, has a PICC (on apixaban, can transition to port after C1), pain meds prn, ancillary studies on bx have been ordered Anemia: Consistent with anemia of chronic disease, transfuse prn Hb <7 Shoulder pain: he can follow-up with Ortho as needed B12 deficiency: he can continue oral replacement Polysubstance abuse: Have recommended avoiding all drugs tobacco and alcohol and he is willing Prophylaxis: On apixaban 5 mg bid due to SVC thrombus seen on venogram at last admit Disposition: Can transition chemotherapy (given days 1 through 5 and 8 q28 days) to outpatient once his respiratory status improves for safe discharge Thank you kindly and please do not hesitate to call with questions. OBJECTIVE Vital Signs Vital Signs Date Time Temp Pulse Resp B/P (MAP) Pulse Ox O2 Delivery O2 Flow Rate FiO2 08/04/18 08:17 100 High Flow Nasal Cannula 6.0 08/04/18 06:08 114 20 110/78 (89) 99 Nasal Cannula 6.0 08/04/18 06:06 20 100 Nasal Cannula 6.0 08/04/18 05:00 119 30 93/74 (80) 100 Nasal Cannula 6.0 08/04/18 04:40 12 98 Nasal Cannula 15.0 08/04/18 04:00 97.8 117 22 108/76 (87) 98 Venturi Mask 15.0 97.8 08/04/18 04:00 Nasal Cannula 6.0 08/04/18 03:00 117 25 100/69 (79) 100 Nasal Cannula 6.0 08/04/18 02:00 112 28 106/75 (85) 98 Nasal Cannula 6.0 08/04/18 01:00 108 22 107/76 (86) 98 Venturi Mask 15.0 08/03/18 23:59 Nasal Cannula 6.0 08/03/18 23:59 98.4 112 17 98/69 (79) 98 Venturi Mask 15.0 98.4 08/03/18 23:00 115 17 103/75 (84) 98 Nasal Cannula 6.0 08/03/18 22:33 33 98 Nasal Cannula 6.0 08/03/18 22:00 119 17 106/80 (89) 98 Nasal Cannula 6.0 08/03/18 21:00 113 20 96/72 (80) 100 Nasal Cannula 6.0 08/03/18 20:07 100 High Flow Nasal Cannula 15.0 08/03/18 20:00 98.2 112 33 111/86 (94) 99 Nasal Cannula 6.0 98.2 08/03/18 20:00 Nasal Cannula 6.0 08/03/18 19:00 121 33 93/69 (77) 99 Nasal Cannula 6.0 08/03/18 18:00 125 33 103/77 (86) 99 Nasal Cannula 6.0 08/03/18 17:00 125 6 131/92 (105) 99 Nasal Cannula 6.0 08/03/18 16:51 100 Venturi Mask 15.0 08/03/18 16:47 100 Venturi Mask 15.0 08/03/18 16:00 97.5 124 39 136/95 (109) 98 Nasal Cannula 6.0 97.5 08/03/18 16:00 Nasal Cannula 6.0 08/03/18 15:00 131 36 120/87 (98) 100 Nasal Cannula 6.0 08/03/18 14:00 116 28 100 Nasal Cannula 6.0 08/03/18 13:00 97.8 114 30 143/98 (113) 100 Nasal Cannula 6.0 97.8 08/03/18 12:23 99 Nasal Cannula 4.0 08/03/18 12:00 Venturi Mask 15.0 08/03/18 12:00 112 28 144/89 (107) 98 Nasal Cannula 6.0 08/03/18 09:00 130 42 154/102 (119) 97 Nasal Cannula 6.0 I & O Intake and Output 08/04/18 07:00 Intake Total 3786 ml Output Total 2100 ml Balance 1686 ml Intake Oral 950 ml IV Total 2836 ml Output Urine Total 2100 ml COMMENT Lab Laboratory Tests Test 08/03/18 20:41 08/04/18 06:00 Glucose (Fingerstick) 151 mg/dL (70-99) White Blood Count 7.0 x10^3/uL (4.0-11.0) Red Blood Count 3.61 x10^6/uL (4.30-5.70) Hemoglobin 8.9 g/dL (13.0-17.5) Hematocrit 27.5 % (39.0-53.0) Mean Corpuscular Volume 76 fL (79-100) Mean Corpuscular Hemoglobin 25 pg (25-35) Mean Corpuscular Hemoglobin Concent 32 g/dL (31-37) Red Cell Distribution Width 17.7 % (11.5-14.5) Platelet Count 371 x10^3/uL (140-400) Neutrophils (%) (Auto) 78 % (31-73) Lymphocytes (%) (Auto) 14 % (24-48) Monocytes (%) (Auto) 7 % (0-9) Eosinophils (%) (Auto) 0 % (0-3) Basophils (%) (Auto) 1 % (0-3) Neutrophils # (Auto) 5.4 x10^3uL (1.8-7.7) Lymphocytes # (Auto) 1.0 x10^3/uL (1.0-4.8) Monocytes # (Auto) 0.5 x10^3/uL (0.0-1.1) Eosinophils # (Auto) 0.0 x10^3/uL (0.0-0.7) Basophils # (Auto) 0.1 x10^3/uL (0.0-0.2) Sodium Level 134 mmol/L (136-145) Potassium Level 4.2 mmol/L (3.5-5.1) Chloride Level 100 mmol/L (98-107) Carbon Dioxide Level 25 mmol/L (21-32) Anion Gap 9 (6-14) Blood Urea Nitrogen 15 mg/dL (8-26) Creatinine 0.7 mg/dL (0.7-1.3) Estimated GFR (Cockcroft-Gault) 139.7 Glucose Level 119 mg/dL (70-99) Calcium Level 9.0 mg/dL (8.5-10.1) Nutrition Consultation Dietary Evaluation: Recommendations by RD: Increase Calorie Intake, Protein supplementation Comments: REC liberalize diet to regular to promote adequate/improved PO intake [place] food preferences and provide snacks as requested Expected Outcomes/Goals: PO intake to meet >75% est needs Interpretation of weight loss: >7.5% in 3 months Malnutrition Findings: Food and Nutrition Intake (Mod: <75% est energy req 7days Weight Status: Overweight AYSHA BERRY MD Aug 04, 2018 08:58
[2018-08-04] MEDS: SUCRALFATE 1 GM TABLET. PO SCH ×2 (09:30→21:00)
--- NOTE | 2018-08-04 09:36 | PDOC ---
PROGRESS NOTES Subjective Subjective sitting in chair comfortable Objective Objective Vital Signs Date Time Temp Pulse Resp B/P (MAP) Pulse Ox O2 Delivery O2 Flow Rate FiO2 08/04/18 08:17 100 High Flow Nasal Cannula 6.0 08/04/18 06:08 114 20 110/78 (89) 08/04/18 04:00 97.8 97.8 Intake and Output 08/04/18 07:00 Intake Total 3786 ml Output Total 2100 ml Balance 1686 ml Intake Oral 950 ml IV Total 2836 ml Output Urine Total 2100 ml Physical Exam Abdomen: Normal bowel sounds, Soft Heart: Other (tachycardia) Extremities: No clubbing General: Alert HEENT: Atraumatic Lungs: Other (crackes and wheezing bilatrally) MUSCULOSKELETAL: No deformity Neck: No JVD Neuro: Normal speech Psych/Mental Status: Mental status NL Skin: No breakdown COMMENT rt chest tube Diagnosis Problem List Problems Medical Problems: (1) Mass of mediastinum Status: Acute (2) Pneumothorax Status: Acute Assessment Assessment Problems Medical Problems: (1) Mass of mediastinum Status: Acute (2) Pneumothorax Status: Acute FINAL IMPRESSION: 1. Pneumothorax rt side ,had chest tube placed expanded nicely. 2. Mediastinal mass, large 11 cm shows a non-small cell, poorly differentiated carcinoma of lung. 3. Hypertension. 4. Smoking. 5. History of drug abuse. 6. Tachycardia. 7. Pneumonia post obstructive 8. SVC syndrome with clot .s/p stent placement PLAN: spoke with oncology start chemo today. had picc line placed ct head cerebellar lucency?old cva. weaned off oxygen mask broad spectrum antibiotics chest tube present Eliquis for svc clot iv steroids spoke with ANNMARIE rodriguez qid Plan Plan of Care Problems Medical Problems: (1) Mass of mediastinum Status: Acute (2) Pneumothorax Status: Acute Comment Review of Relevant I have reviewed the following items karina (where applicable) has been applied. Labs Laboratory Tests Test 08/03/18 20:41 08/04/18 06:00 Glucose (Fingerstick) 151 mg/dL (70-99) White Blood Count 7.0 x10^3/uL (4.0-11.0) Red Blood Count 3.61 x10^6/uL (4.30-5.70) Hemoglobin 8.9 g/dL (13.0-17.5) Hematocrit 27.5 % (39.0-53.0) Mean Corpuscular Volume 76 fL (79-100) Mean Corpuscular Hemoglobin 25 pg (25-35) Mean Corpuscular Hemoglobin Concent 32 g/dL (31-37) Red Cell Distribution Width 17.7 % (11.5-14.5) Platelet Count 371 x10^3/uL (140-400) Neutrophils (%) (Auto) 78 % (31-73) Lymphocytes (%) (Auto) 14 % (24-48) Monocytes (%) (Auto) 7 % (0-9) Eosinophils (%) (Auto) 0 % (0-3) Basophils (%) (Auto) 1 % (0-3) Neutrophils # (Auto) 5.4 x10^3uL (1.8-7.7) Lymphocytes # (Auto) 1.0 x10^3/uL (1.0-4.8) Monocytes # (Auto) 0.5 x10^3/uL (0.0-1.1) Eosinophils # (Auto) 0.0 x10^3/uL (0.0-0.7) Basophils # (Auto) 0.1 x10^3/uL (0.0-0.2) Sodium Level 134 mmol/L (136-145) Potassium Level 4.2 mmol/L (3.5-5.1) Chloride Level 100 mmol/L (98-107) Carbon Dioxide Level 25 mmol/L (21-32) Anion Gap 9 (6-14) Blood Urea Nitrogen 15 mg/dL (8-26) Creatinine 0.7 mg/dL (0.7-1.3) Estimated GFR (Cockcroft-Gault) 139.7 Glucose Level 119 mg/dL (70-99) Calcium Level 9.0 mg/dL (8.5-10.1) Microbiology 08/02/18 Blood Culture - Preliminary, Resulted NO GROWTH AFTER 1 DAY Medications Current Medications Alprazolam (Xanax) 0.25 mg PRN Q6HRS PRN PO ANXIETY / AGITATION Last administered on 08/04/18at 04:40; Start 08/03/18 at 18:00 Aprepitant (Cinvanti) 130 mg 1X ONCE IV ; Start 08/04/18 at 09:30; Stop 08/04/18 at 09:30; Status DC Aprepitant 130 mg/ Sodium Chloride 148 ml @ 296 mls/hr 1X ONCE IV ; Start 08/04/18 at 08:00; Stop 08/04/18 at 08:29; Status DC Cisplatin 100 mg/ Sodium Chloride 350 ml @ 350 mls/hr 1X ONCE IV ; Start 08/04/18 at 10:00; Stop 08/04/18 at 10:59 Dexamethasone (Decadron) 8 mg DAILY PO ; Start 08/05/18 at 09:00; Stop 08/06/18 at 09:01 Dexamethasone (Decadron) 8 mg DAILYWBKFT PO ; Start 08/12/18 at 08:00; Stop 08/14/18 at 08:01; Status Cancel Dexamethasone (Decadron) 12 mg 1X ONCE PO ; Start 08/04/18 at 08:00; Stop 08/04/18 at 08:01; Status DC Etoposide 100 mg/ Sodium Chloride 505 ml @ 505 mls/hr Q24H IV ; Start 08/04/18 at 11:00; Stop 08/06/18 at 11:59 Iohexol (Omnipaque 300 Mg/ml) 70 ml 1X ONCE IV Last administered on 08/03/18at 11:25; Start 08/03/18 at 11:00; Stop 08/03/18 at 11:01; Status DC Ondansetron HCl (Zofran Odt) 8 mg PRN Q8HRS PRN PO NAUSEA/VOMITING; Start 08/03/18 at 15:15 Ondansetron HCl (Zofran Odt) 16 mg DAILY PO ; Start 08/04/18 at 08:00; Stop 08/06/18 at 09:01 Ondansetron HCl (Zofran) 4 mg PRN Q6HRS PRN IV NAUSEA/VOMITING Last administered on 08/04/18at 01:47; Start 08/03/18 at 12:45 Potassium Chloride 20 meq/ Magnesium Sulfate 2 gm/Sodium Chloride 1,014 ml @ 500 mls/hr 1X ONCE IV ; Start 08/04/18 at 12:00; Stop 08/04/18 at 14:01 Sodium Chloride 1,000 ml @ 500 mls/hr Q2H IV ; Start 08/04/18 at 08:00; Stop 08/04/18 at 09:59 Vancomycin HCl (Vancomycin Trough Level) 1 each 1X ONCE MC ; Start 08/03/18 at 14:30; Stop 08/03/18 at 14:31; Status Cancel Vitals/I & O Vital Sign - Last 24 Hours 08/03/18 08/03/18 08/03/18 08/03/18 12:00 12:00 12:23 13:00 Temp 97.8 97.8 Pulse 112 114 Resp 28 30 B/P (MAP) 144/89 (107) 143/98 (113) Pulse Ox 98 99 100 O2 Delivery Nasal Cannula Venturi Mask Nasal Cannula Nasal Cannula O2 Flow Rate 6.0 15.0 4.0 6.0 08/03/18 08/03/18 08/03/18 08/03/18 14:00 15:00 16:00 16:00 Temp 97.5 97.5 Pulse 116 131 124 Resp 28 36 39 B/P (MAP) 120/87 (98) 136/95 (109) Pulse Ox 100 100 98 O2 Delivery Nasal Cannula Nasal Cannula Nasal Cannula Nasal Cannula O2 Flow Rate 6.0 6.0 6.0 6.0 08/03/18 08/03/18 08/03/18 08/03/18 16:47 16:51 17:00 18:00 Pulse 125 125 Resp 6 33 B/P (MAP) 131/92 (105) 103/77 (86) Pulse Ox 100 100 99 99 O2 Delivery Venturi Mask Venturi Mask Nasal Cannula Nasal Cannula O2 Flow Rate 15.0 15.0 6.0 6.0 08/03/18 08/03/18 08/03/18 08/03/18 19:00 20:00 20:00 20:07 Temp 98.2 98.2 Pulse 121 112 Resp 33 33 B/P (MAP) 93/69 (77) 111/86 (94) Pulse Ox 99 99 100 O2 Delivery Nasal Cannula Nasal Cannula Nasal Cannula High Flow Nasal Cannula O2 Flow Rate 6.0 6.0 6.0 15.0 08/03/18 08/03/18 08/03/18 08/03/18 21:00 22:00 22:33 23:00 Pulse 113 119 115 Resp 20 17 33 17 B/P (MAP) 96/72 (80) 106/80 (89) 103/75 (84) Pulse Ox 100 98 98 98 O2 Delivery Nasal Cannula Nasal Cannula Nasal Cannula Nasal Cannula O2 Flow Rate 6.0 6.0 6.0 6.0 08/03/18 08/03/18 08/04/18 08/04/18 23:59 23:59 01:00 02:00 Temp 98.4 98.4 Pulse 112 108 112 Resp 17 22 28 B/P (MAP) 98/69 (79) 107/76 (86) 106/75 (85) Pulse Ox 98 98 98 O2 Delivery Venturi Mask Nasal Cannula Venturi Mask Nasal Cannula O2 Flow Rate 15.0 6.0 15.0 6.0 08/04/18 08/04/18 08/04/18 08/04/18 03:00 04:00 04:00 04:40 Temp 97.8 97.8 Pulse 117 117 Resp 25 22 12 B/P (MAP) 100/69 (79) 108/76 (87) Pulse Ox 100 98 98 O2 Delivery Nasal Cannula Nasal Cannula Venturi Mask Nasal Cannula O2 Flow Rate 6.0 6.0 15.0 15.0 08/04/18 08/04/18 08/04/18 08/04/18 05:00 06:06 06:08 08:17 Pulse 119 114 Resp 30 20 20 B/P (MAP) 93/74 (80) 110/78 (89) Pulse Ox 100 100 99 100 O2 Delivery Nasal Cannula Nasal Cannula Nasal Cannula High Flow Nasal Cannula O2 Flow Rate 6.0 6.0 6.0 6.0 Intake and Output 08/03/18 08/03/18 08/04/18 15:00 23:00 07:00 Intake Total 300 ml 2209 ml 1277 ml Output Total 1150 ml 950 ml 0 ml Balance -850 ml 1259 ml 1277 ml Nutrition Consultation Dietary Evaluation: Recommendations by RD: Increase Calorie Intake, Protein supplementation Comments: REC liberalize diet to regular to promote adequate/improved PO intake [place] food preferences and provide snacks as requested Expected Outcomes/Goals: PO intake to meet >75% est needs Interpretation of weight loss: >7.5% in 3 months Malnutrition Findings: Food and Nutrition Intake (Mod: <75% est energy req 7days Weight Status: Overweight PREET PALUMBO MD Aug 04, 2018 09:36
[2018-08-04] MEDS: ONDANSETRON ODT 4 MG TAB.RAPDIS. PO SCH (09:43)
[2018-08-04] MEDS ORDERED: NORMAL SALINE IV ONE (10:00)
[2018-08-04] MEDS ORDERED: CISPLATIN IV ONE (10:00)
--- NOTE | 2018-08-04 10:08 | PDOC ---
PULMONARY PROGRESS NOTES Subjective PT NOT MORE SOA RECEIVING CHEMO Vitals Vital Signs Date Time Temp Pulse Resp B/P (MAP) Pulse Ox O2 Delivery O2 Flow Rate FiO2 08/04/18 08:17 100 High Flow Nasal Cannula 6.0 08/04/18 06:08 114 20 110/78 (89) 08/04/18 04:00 97.8 97.8 General: Alert Lungs: Crackles Cardiovascular: S1, S2 Abdomen: Soft Neuro Exam: Alert Extremities: No Edema Skin: Warm Labs Laboratory Tests Test 08/02/18 14:35 08/03/18 04:40 08/03/18 20:41 08/04/18 06:00 Lactic Acid Level 1.4 mmol/L (0.4-2.0) Troponin I Quantitative < 0.017 ng/mL (0.000-0.055) White Blood Count 4.6 x10^3/uL (4.0-11.0) 7.0 x10^3/uL (4.0-11.0) Red Blood Count 3.84 x10^6/uL (4.30-5.70) 3.61 x10^6/uL (4.30-5.70) Hemoglobin 9.1 g/dL (13.0-17.5) 8.9 g/dL (13.0-17.5) Hematocrit 29.1 % (39.0-53.0) 27.5 % (39.0-53.0) Mean Corpuscular Volume 76 fL (79-100) 76 fL (79-100) Mean Corpuscular Hemoglobin 24 pg (25-35) 25 pg (25-35) Mean Corpuscular Hemoglobin Concent 31 g/dL (31-37) 32 g/dL (31-37) Red Cell Distribution Width 17.7 % (11.5-14.5) 17.7 % (11.5-14.5) Platelet Count 430 x10^3/uL (140-400) 371 x10^3/uL (140-400) Neutrophils (%) (Auto) 85 % (31-73) 78 % (31-73) Lymphocytes (%) (Auto) 11 % (24-48) 14 % (24-48) Monocytes (%) (Auto) 4 % (0-9) 7 % (0-9) Eosinophils (%) (Auto) 0 % (0-3) 0 % (0-3) Basophils (%) (Auto) 0 % (0-3) 1 % (0-3) Neutrophils # (Auto) 3.9 x10^3uL (1.8-7.7) 5.4 x10^3uL (1.8-7.7) Lymphocytes # (Auto) 0.5 x10^3/uL (1.0-4.8) 1.0 x10^3/uL (1.0-4.8) Monocytes # (Auto) 0.2 x10^3/uL (0.0-1.1) 0.5 x10^3/uL (0.0-1.1) Eosinophils # (Auto) 0.0 x10^3/uL (0.0-0.7) 0.0 x10^3/uL (0.0-0.7) Basophils # (Auto) 0.0 x10^3/uL (0.0-0.2) 0.1 x10^3/uL (0.0-0.2) Sodium Level 135 mmol/L (136-145) 134 mmol/L (136-145) Potassium Level 4.4 mmol/L (3.5-5.1) 4.2 mmol/L (3.5-5.1) Chloride Level 100 mmol/L (98-107) 100 mmol/L (98-107) Carbon Dioxide Level 25 mmol/L (21-32) 25 mmol/L (21-32) Anion Gap 10 (6-14) 9 (6-14) Blood Urea Nitrogen 15 mg/dL (8-26) 15 mg/dL (8-26) Creatinine 0.8 mg/dL (0.7-1.3) 0.7 mg/dL (0.7-1.3) Estimated GFR (Cockcroft-Gault) 119.7 139.7 BUN/Creatinine Ratio 19 (6-20) Glucose Level 138 mg/dL (70-99) 119 mg/dL (70-99) Calcium Level 8.8 mg/dL (8.5-10.1) 9.0 mg/dL (8.5-10.1) Total Bilirubin 0.3 mg/dL (0.2-1.0) Aspartate Amino Transf (AST/SGOT) 67 U/L (15-37) Alanine Aminotransferase (ALT/SGPT) 83 U/L (16-63) Alkaline Phosphatase 59 U/L (46-116) Total Protein 8.2 g/dL (6.4-8.2) Albumin 1.8 g/dL (3.4-5.0) Albumin/Globulin Ratio 0.3 (1.0-1.7) Glucose (Fingerstick) 151 mg/dL (70-99) Laboratory Tests Test 08/03/18 20:41 08/04/18 06:00 Glucose (Fingerstick) 151 mg/dL (70-99) White Blood Count 7.0 x10^3/uL (4.0-11.0) Red Blood Count 3.61 x10^6/uL (4.30-5.70) Hemoglobin 8.9 g/dL (13.0-17.5) Hematocrit 27.5 % (39.0-53.0) Mean Corpuscular Volume 76 fL (79-100) Mean Corpuscular Hemoglobin 25 pg (25-35) Mean Corpuscular Hemoglobin Concent 32 g/dL (31-37) Red Cell Distribution Width 17.7 % (11.5-14.5) Platelet Count 371 x10^3/uL (140-400) Neutrophils (%) (Auto) 78 % (31-73) Lymphocytes (%) (Auto) 14 % (24-48) Monocytes (%) (Auto) 7 % (0-9) Eosinophils (%) (Auto) 0 % (0-3) Basophils (%) (Auto) 1 % (0-3) Neutrophils # (Auto) 5.4 x10^3uL (1.8-7.7) Lymphocytes # (Auto) 1.0 x10^3/uL (1.0-4.8) Monocytes # (Auto) 0.5 x10^3/uL (0.0-1.1) Eosinophils # (Auto) 0.0 x10^3/uL (0.0-0.7) Basophils # (Auto) 0.1 x10^3/uL (0.0-0.2) Sodium Level 134 mmol/L (136-145) Potassium Level 4.2 mmol/L (3.5-5.1) Chloride Level 100 mmol/L (98-107) Carbon Dioxide Level 25 mmol/L (21-32) Anion Gap 9 (6-14) Blood Urea Nitrogen 15 mg/dL (8-26) Creatinine 0.7 mg/dL (0.7-1.3) Estimated GFR (Cockcroft-Gault) 139.7 Glucose Level 119 mg/dL (70-99) Calcium Level 9.0 mg/dL (8.5-10.1) Medications Active Scripts Medications Dose Route/Sig Max Daily Dose Days Date Category Dose Instructions Eliquis (Apixaban) 5 Mg Tablet 5 Mg PO BID 07/30/18 Rx Voltaren (Diclofenac Sodium) 100 Gm Gel..gram. 1 Roby TP PRN BID PRN 07/30/18 Rx Allopurinol 300 Mg Tablet 300 Mg PO DAILY 07/30/18 Rx Colace (Docusate Sodium) 100 Mg Capsule 100 Mg PO DAILY 07/30/18 Rx [place] 5-325 Tablet (Acetaminophen/Hydrocodone Bitart) 1 Each Tablet 1 Each PO PRN Q6HRS PRN 07/30/18 Rx as needed for pain Ranitidine Hcl 150 Mg Tablet 1 Tab PO BID 07/19/18 Reported Lisinopril-Hctz 10-12.5 Mg Tab (Lisinopril/Hydrochlorothiazide) 1 Each Tablet 1 Tab PO DAILY 07/19/18 Reported Ibuprofen 400 Mg Tablet 400 Mg PO PRN Q6HRS PRN 07/03/16 Rx take with food or milk Impression . IMPRESSION: 1. Spontaneous pneumothorax. 2. Large mediastinal mass. 3. Superior vena cava syndrome, status post superior vena cava filter placement. 4. Hemoptysis secondary to re-expansion pulmonary edema. 5. Fever. 6. History of tobacco use. 7. Chronic obstructive pulmonary disease. 8. FINAL PATH NON SMALL CELL CA Plan . NO PTX ON CXR NO AIR LEAK WILL D/C WALL SUCTION AND REPEAT CXR CHEMO PER ONCO D/W FAMILY ANTIBX D/W LALO ESCALERA MD Aug 04, 2018 10:08
[2018-08-04] MEDS: ANTI-COAG MONITOR BY PHARMACY. MC PRN (10:30)
--- NOTE | 2018-08-04 11:11 | NUR ---
PT in earlier. Amb around unit x1 w good tolernce. Denies SOA. Hr w slight increase [id number],no change in SBP,RR from 20-24 w/o observed increased RR. Sofia ANGUIANO at bedside w ordered meds administered. 1000ml bolus over 2 H as ordered. Assist back to bed prior to Rx. No N?V . Requested and restarted venti -mask. Difficult assessing pulse ox...warm covering over finger helpful.
[2018-08-04] MEDS ORDERED: POTASSIUM CHLORIDE IV ONE (12:00)
[2018-08-04] MEDS ORDERED: MAGNESIUM SULFATE IV ONE (12:00)
[2018-08-04] MEDS ORDERED: [UNRECOGNIZED DRUG - OTHER] IV ONE (12:00)
[2018-08-04] MEDS: NORMAL SALINE IV SCH (12:05)
[2018-08-04] MEDS: ETOPOSIDE IV SCH (12:05)
--- NOTE | 2018-08-04 14:59 | NUR ---
1500 Fluids w e-lytes infusing per order. NS at 100/h held at this time. Intermittent episodes nausea -retching w expectoration clear 'spit' in emesis basin. Noted sats 88-92 w left side lying position/95-100 % w upright sitting. Comfort measures as needed. Remains on O2 5LNC. Pain relievd w earlier po analgesic
--- NOTE | 2018-08-04 15:30 | RAD ---
PORTABLE CHEST 1V History: Respiratory failure Comparison: August 03, 2018 Findings: Single view of the chest is submitted. There is increased patchy airspace opacity of the left lung base, also residual right base opacity somewhat less prominent. There is again right upper extremity PICC, tip near the cavoatrial junction right atrium somewhat limited evaluation due to patient positioning. There is prominence of the mediastinal width as seen previously. There is tortuosity of thoracic aorta, could be ectatic. There is no pneumothorax. There is possible very small left pleural effusion more apparent on this exam. Impression: 1. There is some increased left base airspace opacity which may be due to infiltrate, also likely small left pleural effusion. There is residual right base airspace opacity, somewhat decreased. Electronically signed by: Ronny Leonard MD (08/04/2018 3:27 PM) [place] [id number]
--- NOTE | 2018-08-04 15:56 | PDOC ---
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 2 to 3 mo difficulty with food stuck in central chest and 24 pound weight loss, 1 mo hx of severe constant chest pain. CT chest huge mediastinal mass and right hilar adenopathy. Underwent SVC s tenting with improved facial swelling. Initial inguinal LN bx was non-diagnostic. CT guided bx 07/27/2018 revealed non- small cell lung carcinoma. DC'ed 07/30/2018. Readmitted with increasing SOB and large right pneumothorax. Reexpanded after CT placement. Simulation effort made to initiate combined chest radiation and chemo. He was on venti mask and desaturated to a po2 down to 30% We were not comfortable completing simulation with BiPAP support as our access to patient emergently in the accelerator room with slow shielded door and long corridor to machine is limited (vs our simulator CT scanner room which has more immediate patient access.) Underwent PICC line placement with BiPAP support while supine and experienced significant O2 desaturation during this procedure. CT head with contrast revealed no evidence for occult metastatic disease. He has just begun chemo this afternoon and experiencing some level of nausea. Currently on Venti-mask for O2 support. If he has a favorable response to one or more cycles of chemo and can lay supine, we will then reconsider chest radiation. KAYLA WHEAT MD Aug 04, 2018 15:56
--- NOTE | 2018-08-04 16:43 | NUR ---
1600 CXR completed,detilas to Dr Shane. Episodes intermittent nausea diminished after antiemetic. Able to doze if left undisturbed.
[2018-08-04] MEDS: IV NORMAL SALINE 1000ML BAG 1,000 ML IV SCH ×3 (17:26→23:55)
--- NOTE | 2018-08-04 18:18 | NUR ---
[id number] Shane,CT jamesed w ordered CXR for am
[2018-08-04] MEDS: ZOLPIDEM 5 MG TABLET. PO PRN ×2 (20:59→23:15)
[2018-08-05] VITALS (21 sets, daily range): BP systolic 97–129; BP diastolic 66–91
[2018-08-05] MEDS: HYDROcodone/APAP 5/325MG 1 TAB TABLET PO PRN ×2 (04:03→17:15)
[2018-08-05 04:12] LABS: BASO % 0 % (0-3); EOS % 0 % (0-3); HEMATOCRIT 28.7 % (39.0-53.0); HEMOGLOBIN 9.2 g/dL (13.0-17.5); LYMPH # 0.6 x10^3/uL (1.0-4.8); LYMPH % 9 % (24-48); MEAN CORPUSCULAR HEMOGLOBIN 24 pg (25-35); MEAN CORPUSCULAR HGB CONC 32 g/dL (31-37); MEAN CORPUSCULAR VOLUME 76 fL (79-100); MONO # 0.4 x10^3/uL (0.0-1.1); MONO % 6 % (0-9); NEUT # 6.1 x10^3uL (1.8-7.7); NEUT % 85 % (31-73); PLATELET COUNT 383 x10^3/uL (140-400); RED BLOOD COUNT 3.75 x10^6/uL (4.30-5.70); WHITE BLOOD COUNT 7.2 x10^3/uL (4.0-11.0)
[2018-08-05 04:38] LABS: CREATININE 0.8 mg/dL (0.7-1.3); GFR 119.7; POTASSIUM 4.7 mmol/L (3.5-5.1)
[2018-08-05 05:01] LABS: % LYMPHS 7 % (24-48); % MONOS 3 % (0-10); % SEGS 90 % (35-66); ANISOCYTOSIS SLIGHT; HYPOCHROMIA SLIGHT; NUCLEATED RBC 2; PLT ESTIMATE ADEQUATE (ADEQUATE); POLYCHROMASIA SLIGHT; TEAR DROP CELLS OCC
[2018-08-05] MEDS: PIPERACILLIN/TAZOBACTAM 3.375 GM in IV NORMAL SALINE 50ML 50 ML IV SCH ×3 (06:24→20:30)
--- NOTE | 2018-08-05 07:54 | PDOC ---
Infectious Disease Note Subjective Subjective pt is feeling ok, up in chair, sob ROS ROS no n/v/d/ Vital Sign Vital Signs Vital Signs Date Time Temp Pulse Resp B/P (MAP) Pulse Ox O2 Delivery O2 Flow Rate FiO2 08/05/18 06:00 112 31 100 Nasal Cannula 4.0 08/05/18 05:00 117/83 (94) 08/05/18 04:00 97.4 97.4 Physical Exam PHYSICAL EXAM GENERAL: comfortable in chair, alert, NAD HEENT: oral cavity clear NECK: Supple. LUNGS: Decreased breath sounds at bases. HEART: S1, S2 ABDOMEN: Soft, nontender EXTREMITIES: No edema, no cyanosis. DERMATOLOGIC: Warm, dry, no generalized rash. Biopsy site post right back is clean CENTRAL NERVOUS SYSTEM: Alert and oriented x 3. Grossly nonfocal. PIV Labs Lab Laboratory Tests Test 08/04/18 12:46 08/04/18 17:56 08/04/18 20:59 08/05/18 04:00 Glucose (Fingerstick) 95 mg/dL (70-99) 137 mg/dL (70-99) 122 mg/dL (70-99) White Blood Count 7.2 x10^3/uL (4.0-11.0) Red Blood Count 3.75 x10^6/uL (4.30-5.70) Hemoglobin 9.2 g/dL (13.0-17.5) Hematocrit 28.7 % (39.0-53.0) Mean Corpuscular Volume 76 fL (79-100) Mean Corpuscular Hemoglobin 24 pg (25-35) Mean Corpuscular Hemoglobin Concent 32 g/dL (31-37) Red Cell Distribution Width 18.0 % (11.5-14.5) Platelet Count 383 x10^3/uL (140-400) Neutrophils (%) (Auto) 85 % (31-73) Lymphocytes (%) (Auto) 9 % (24-48) Monocytes (%) (Auto) 6 % (0-9) Eosinophils (%) (Auto) 0 % (0-3) Basophils (%) (Auto) 0 % (0-3) Neutrophils # (Auto) 6.1 x10^3uL (1.8-7.7) Lymphocytes # (Auto) 0.6 x10^3/uL (1.0-4.8) Monocytes # (Auto) 0.4 x10^3/uL (0.0-1.1) Eosinophils # (Auto) 0.0 x10^3/uL (0.0-0.7) Basophils # (Auto) 0.0 x10^3/uL (0.0-0.2) Segmented Neutrophils % 90 % (35-66) Lymphocytes % 7 % (24-48) Monocytes % 3 % (0-10) Nucleated Red Blood Cells 2 Platelet Estimate Adequate (ADEQUATE) Polychromasia Slight Hypochromasia Slight Anisocytosis Slight Tear Drop Cells Occ Sodium Level 137 mmol/L (136-145) Potassium Level 4.7 mmol/L (3.5-5.1) Chloride Level 102 mmol/L (98-107) Carbon Dioxide Level 26 mmol/L (21-32) Anion Gap 9 (6-14) Blood Urea Nitrogen 16 mg/dL (8-26) Creatinine 0.8 mg/dL (0.7-1.3) Estimated GFR (Cockcroft-Gault) 119.7 Glucose Level 118 mg/dL (70-99) Calcium Level 9.0 mg/dL (8.5-10.1) Micro BC neg Objective Assessment Fever ? could be from underlying mediastinal mass, or possible sec infection Large mediastinal mass , lung ca SVC s/p stent, 07/21 S/P BM bx, 07/22 Polyclonal gammopathy Gastric reflux Plan Plan of Care cont zosyn soon to d/c antibiotics radiation and chemo planned NOY LEYVA MD Aug 05, 2018 07:54
--- NOTE | 2018-08-05 07:56 | RAD ---
Portable chest, 08/05/2018: HISTORY: Follow-up pneumothorax after chest tube clamping Comparison is made to yesterday's study. A small caliber right pleural drain remains in place. A right PICC extends into the right atrium, although its tip is not clearly visualized. A superior vena cava stent remains in place. The heart is enlarged. No significant recurrent pneumothorax is identified on the right. There are mild ongoing right basilar infiltrates. No large right pleural effusion is evident. Left basilar opacities have improved slightly with better definition of the hemidiaphragm. This may represent a combination of infiltrate and pleural fluid. IMPRESSION: 1. No evidence of recurrent right pneumothorax. 2. Ongoing bibasilar infiltrates. Electronically signed by: Parrish Garcia MD (08/05/2018 7:53 AM) [facility]
[2018-08-05] MEDS: FAMOTIDINE 20 MG TABLET. PO SCH ×2 (07:58→20:30)
[2018-08-05] MEDS: CYANOCOBALAMIN (VITAMIN B-12) 1,000 MCG TABLET. PO SCH (07:59)
[2018-08-05] MEDS: SUCRALFATE 1 GM TABLET. PO SCH ×2 (07:59→20:30)
[2018-08-05] MEDS: APIXABAN 5 MG TABLET. PO SCH ×2 (07:59→20:30)
[2018-08-05] MEDS: ALPRAZolam 0.25 MG TABLET PO PRN ×3 (07:59→17:15)
[2018-08-05] MEDS: DOCUSATE SODIUM 100 MG CAPSULE. PO SCH (08:00)
[2018-08-05] MEDS: IPRATRPIUM/ALBUTEROL 0.5/2.5MG 3 ML NEBU. NEB SCH ×4 (08:14→19:56)
[2018-08-05] MEDS: ALLOPURINOL 300 MG TABLET. PO SCH (08:34)
--- NOTE | 2018-08-05 08:41 | PDOC ---
SUBJECTIVE Subjective S: doing "fantastic", on 3L O: Physical exam: Gen.: Well-developed AA middle aged man in chair, NAD, on NCO2 Psychiatric: Pleasant mood and affect Labs: White count 7.2, hemoglobin 9.2, platelets 383 Rads: Chest x-ray with right PICC, no pneumothorax, right lower infiltrate CT head showed small left cerebellar lucency versus edema from metastasis, recommend MRI Assessment and Plan: He is a 58-year-old man with NSCLC poorly diff causing SVC sx w/ PTX resolved after chest tube, on chemo w/ Abx for RLL inf RLL inf: Appreciate ID assistance, on antibiotics NSCLC: C1Day2 cis/etop SVC syndrome: improved post SVC stent, getting chemotherapy for NSCLC, will give allopurinol for 1st cycle, brain MRI can be done once he's able to lie supine, as well can add radiotherapy once he's able to lie supine, can consider PET after dc, has a PICC (on apixaban, can transition to port after C1), pain meds prn, ancillary studies on bx have been ordered Anemia: Consistent with anemia of chronic disease, transfuse prn Hb <7 Shoulder pain: he can follow-up with Ortho as needed B12 deficiency: he can continue oral replacement Polysubstance abuse: Have recommended avoiding all drugs tobacco and alcohol and he is willing Prophylaxis: On apixaban 5 mg bid due to SVC thrombus seen on venogram at last admit Disposition: Can transition chemotherapy (given days 1 through 5 and 8 q28 days) to outpatient once his respiratory status improves for safe discharge Thank you kindly and please do not hesitate to call with questions. OBJECTIVE Vital Signs Vital Signs Date Time Temp Pulse Resp B/P (MAP) Pulse Ox O2 Delivery O2 Flow Rate FiO2 08/05/18 08:14 98 Nasal Cannula 3.0 08/05/18 08:00 118 124/88 (100) 100 Nasal Cannula 4.0 08/05/18 07:00 97.9 112 118/89 (99) 100 Nasal Cannula 4.0 97.9 08/05/18 07:00 15 100 Nasal Cannula 4.0 08/05/18 06:00 112 31 100 Nasal Cannula 4.0 08/05/18 05:00 106 15 117/83 (94) 100 Nasal Cannula 4.0 6/13/19 04:03 32 100 Nasal Cannula 4.0 08/05/18 04:00 Nasal Cannula 4.0 08/05/18 04:00 97.4 111 20 129/90 (103) 100 Nasal Cannula 4.0 97.4 08/05/18 03:00 107 18 112/77 (89) 100 Nasal Cannula 4.0 08/05/18 02:00 108 17 107/75 (86) 100 Nasal Cannula 4.0 08/05/18 01:00 106 14 109/70 (83) 100 Nasal Cannula 4.0 08/05/18 00:00 113 23 118/84 (95) 100 Nasal Cannula 4.0 08/05/18 00:00 Nasal Cannula 4.0 08/04/18 23:00 115 17 111/75 (87) 92 Venturi Mask 15.0 08/04/18 22:00 114 26 136/97 (110) 100 Nasal Cannula 4.0 08/04/18 21:00 117 20 122/88 (99) 99 Nasal Cannula 4.0 08/04/18 20:44 100 Nasal Cannula 4.0 08/04/18 20:00 120 33 123/83 (96) 100 Venturi Mask 15.0 08/04/18 20:00 Nasal Cannula 4.0 08/04/18 19:51 36 95 Nasal Cannula 4.0 08/04/18 19:00 97.4 116 23 113/73 (86) 100 Nasal Cannula 4.0 97.4 08/04/18 18:00 31 107/76 (86) 95 Nasal Cannula 4.0 08/04/18 17:00 97.9 118 21 106/81 (89) 100 Venturi Mask 15.0 97.9 08/04/18 17:00 Venturi Mask 15.0 08/04/18 16:00 120 30 112/79 (90) 100 Venturi Mask 15.0 08/04/18 16:00 Venturi Mask 15.0 08/04/18 15:00 120 27 106/76 (86) 100 Nasal Cannula 6.0 08/04/18 14:05 87 Nasal Cannula 6.0 08/04/18 14:00 119 30 98/78 (85) 93 Nasal Cannula 6.0 08/04/18 13:00 118 29 103/80 (88) 91 Nasal Cannula 6.0 08/04/18 12:00 Nasal Cannula 6.0 08/04/18 12:00 117 32 115/75 (88) Nasal Cannula 6.0 08/04/18 11:53 97.4 114 94/69 (77) 87 Nasal Cannula 15.0 97.4 08/04/18 11:37 87 Venturi Mask 15.0 08/04/18 11:00 114 29 94/69 (77) 93 Venturi Mask 15.0 08/04/18 10:12 97.4 118 20 120/92 (101) 96 5.0 97.4 08/04/18 10:00 114 26 116/86 (96) 96 Nasal Cannula 6.0 08/04/18 09:00 114 18 121/84 (96) 100 Nasal Cannula 6.0 I & O Intake and Output 08/05/18 07:00 Intake Total 5208 ml Output Total 1895 ml Balance 3313 ml Intake Oral 955 ml IV Total 4253 ml Output Urine Total 1895 ml Chest Tube Drainage Total 0 ml COMMENT Lab Laboratory Tests Test 08/04/18 12:46 08/04/18 17:56 08/04/18 20:59 08/05/18 04:00 Glucose (Fingerstick) 95 mg/dL (70-99) 137 mg/dL (70-99) 122 mg/dL (70-99) White Blood Count 7.2 x10^3/uL (4.0-11.0) Red Blood Count 3.75 x10^6/uL (4.30-5.70) Hemoglobin 9.2 g/dL (13.0-17.5) Hematocrit 28.7 % (39.0-53.0) Mean Corpuscular Volume 76 fL (79-100) Mean Corpuscular Hemoglobin 24 pg (25-35) Mean Corpuscular Hemoglobin Concent 32 g/dL (31-37) Red Cell Distribution Width 18.0 % (11.5-14.5) Platelet Count 383 x10^3/uL (140-400) Neutrophils (%) (Auto) 85 % (31-73) Lymphocytes (%) (Auto) 9 % (24-48) Monocytes (%) (Auto) 6 % (0-9) Eosinophils (%) (Auto) 0 % (0-3) Basophils (%) (Auto) 0 % (0-3) Neutrophils # (Auto) 6.1 x10^3uL (1.8-7.7) Lymphocytes # (Auto) 0.6 x10^3/uL (1.0-4.8) Monocytes # (Auto) 0.4 x10^3/uL (0.0-1.1) Eosinophils # (Auto) 0.0 x10^3/uL (0.0-0.7) Basophils # (Auto) 0.0 x10^3/uL (0.0-0.2) Segmented Neutrophils % 90 % (35-66) Lymphocytes % 7 % (24-48) Monocytes % 3 % (0-10) Nucleated Red Blood Cells 2 Platelet Estimate Adequate (ADEQUATE) Polychromasia Slight Hypochromasia Slight Anisocytosis Slight Tear Drop Cells Occ Sodium Level 137 mmol/L (136-145) Potassium Level 4.7 mmol/L (3.5-5.1) Chloride Level 102 mmol/L (98-107) Carbon Dioxide Level 26 mmol/L (21-32) Anion Gap 9 (6-14) Blood Urea Nitrogen 16 mg/dL (8-26) Creatinine 0.8 mg/dL (0.7-1.3) Estimated GFR (Cockcroft-Gault) 119.7 Glucose Level 118 mg/dL (70-99) Calcium Level 9.0 mg/dL (8.5-10.1) Nutrition Consultation Dietary Evaluation: Recommendations by RD: Increase Calorie Intake, Protein supplementation Comments: REC liberalize diet to regular to promote adequate/improved PO intake [place] food preferences and provide snacks as requested Expected Outcomes/Goals: PO intake to meet >75% est needs Interpretation of weight loss: >7.5% in 3 months Malnutrition Findings: Food and Nutrition Intake (Mod: <75% est energy req 7days Weight Status: Overweight AYSHA BERRY MD Aug 05, 2018 08:41
[2018-08-05] MEDS ORDERED: DEXAMETHASONE 4 MG TABLET PO SCH (09:00)
[2018-08-05] MEDS: ONDANSETRON ODT 4 MG TAB.RAPDIS. PO SCH (09:43)
--- NOTE | 2018-08-05 09:59 | PDOC ---
PROGRESS NOTES Subjective Subjective feels better slightly today Objective Objective Vital Signs Date Time Temp Pulse Resp B/P (MAP) Pulse Ox O2 Delivery O2 Flow Rate FiO2 08/05/18 08:14 98 Nasal Cannula 3.0 08/05/18 08:00 118 124/88 (100) 08/05/18 07:00 97.9 97.9 08/05/18 07:00 15 Intake and Output 08/05/18 07:00 Intake Total 5208 ml Output Total 1895 ml Balance 3313 ml Intake Oral 955 ml IV Total 4253 ml Output Urine Total 1895 ml Chest Tube Drainage Total 0 ml Physical Exam Abdomen: Normal bowel sounds, Soft Heart: Other (tachycardia) Extremities: No clubbing General: Alert HEENT: Atraumatic Lungs: Other (crackes and wheezing improved) MUSCULOSKELETAL: No deformity Neck: No JVD Neuro: Normal speech Psych/Mental Status: Mental status NL Skin: No breakdown COMMENT rt chest tube Diagnosis Problem List Problems Medical Problems: (1) Mass of mediastinum Status: Acute (2) Pneumothorax Status: Acute Assessment Assessment Problems Medical Problems: (1) Mass of mediastinum Status: Acute (2) Pneumothorax Status: Acute FINAL IMPRESSION: 1. Pneumothorax rt side ,had chest tube placed expanded nicely. 2. Mediastinal mass, large 11 cm shows a non-small cell, poorly differentiated carcinoma of lung. 3. Hypertension. 4. Smoking. 5. History of drug abuse. 6. Tachycardia. 7. Pneumonia post obstructive 8. SVC syndrome with clot .s/p stent placement PLAN:started on Chemo, NSCLC: C1Day2 cis/etop spoke with Radiation oncology planning for simulation for radiation treatment, when pt can lie down flat had picc line placed ct head cerebellar lucency?old cva. weaned off oxygen mask broad spectrum antibiotics chest tube present Eliquis for svc clot po steroids spoke with ANNMARIE peters for depression Plan Plan of Care Problems Medical Problems: (1) Mass of mediastinum Status: Acute (2) Pneumothorax Status: Acute Comment Review of Relevant I have reviewed the following items karina (where applicable) has been applied. Labs Laboratory Tests Test 08/04/18 12:46 08/04/18 17:56 08/04/18 20:59 08/05/18 04:00 Glucose (Fingerstick) 95 mg/dL (70-99) 137 mg/dL (70-99) 122 mg/dL (70-99) White Blood Count 7.2 x10^3/uL (4.0-11.0) Red Blood Count 3.75 x10^6/uL (4.30-5.70) Hemoglobin 9.2 g/dL (13.0-17.5) Hematocrit 28.7 % (39.0-53.0) Mean Corpuscular Volume 76 fL (79-100) Mean Corpuscular Hemoglobin 24 pg (25-35) Mean Corpuscular Hemoglobin Concent 32 g/dL (31-37) Red Cell Distribution Width 18.0 % (11.5-14.5) Platelet Count 383 x10^3/uL (140-400) Neutrophils (%) (Auto) 85 % (31-73) Lymphocytes (%) (Auto) 9 % (24-48) Monocytes (%) (Auto) 6 % (0-9) Eosinophils (%) (Auto) 0 % (0-3) Basophils (%) (Auto) 0 % (0-3) Neutrophils # (Auto) 6.1 x10^3uL (1.8-7.7) Lymphocytes # (Auto) 0.6 x10^3/uL (1.0-4.8) Monocytes # (Auto) 0.4 x10^3/uL (0.0-1.1) Eosinophils # (Auto) 0.0 x10^3/uL (0.0-0.7) Basophils # (Auto) 0.0 x10^3/uL (0.0-0.2) Segmented Neutrophils % 90 % (35-66) Lymphocytes % 7 % (24-48) Monocytes % 3 % (0-10) Nucleated Red Blood Cells 2 Platelet Estimate Adequate (ADEQUATE) Polychromasia Slight Hypochromasia Slight Anisocytosis Slight Tear Drop Cells Occ Sodium Level 137 mmol/L (136-145) Potassium Level 4.7 mmol/L (3.5-5.1) Chloride Level 102 mmol/L (98-107) Carbon Dioxide Level 26 mmol/L (21-32) Anion Gap 9 (6-14) Blood Urea Nitrogen 16 mg/dL (8-26) Creatinine 0.8 mg/dL (0.7-1.3) Estimated GFR (Cockcroft-Gault) 119.7 Glucose Level 118 mg/dL (70-99) Calcium Level 9.0 mg/dL (8.5-10.1) Microbiology 08/02/18 Blood Culture - Preliminary, Resulted NO GROWTH AFTER 2 DAYS Medications Current Medications Cisplatin 100 mg/ Sodium Chloride 350 ml @ 350 mls/hr 1X ONCE IV Last administered on 08/04/18at 10:52; Start 08/04/18 at 10:00; Stop 08/04/18 at 10:59; Status DC Dexamethasone (Decadron) 8 mg DAILY PO Last administered on 08/05/18at 09:43; Start 08/05/18 at 09:00; Stop 08/06/18 at 09:31 Dexamethasone (Decadron) 8 mg [id number] PO ; Start 08/12/18 at 08:00; Stop 08/14/18 at 08:01; Status Cancel Etoposide 100 mg/ Sodium Chloride 505 ml @ 505 mls/hr Q24H IV Last administered on 08/04/18at 12:05; Start 08/04/18 at 11:00; Stop 08/06/18 at 10:59 Potassium Chloride 20 meq/ Magnesium Sulfate 2 gm/Sodium Chloride 1,014 ml @ 500 mls/hr 1X ONCE IV Last administered on 08/04/18at 13:15; Start 08/04/18 at 12:00; Stop 08/04/18 at 14:01; Status DC Vitals/I & O Vital Sign - Last 24 Hours 08/04/18 08/04/18 08/04/18 08/04/18 10:00 10:12 11:00 11:37 Temp 97.4 97.4 Pulse 114 118 114 Resp 26 20 29 B/P (MAP) 116/86 (96) 120/92 (101) 94/69 (77) Pulse Ox 96 96 93 87 O2 Delivery Nasal Cannula Venturi Mask Venturi Mask O2 Flow Rate 6.0 5.0 15.0 15.0 08/04/18 08/04/18 08/04/18 08/04/18 11:53 12:00 12:00 13:00 Temp 97.4 97.4 Pulse 114 117 118 Resp 32 29 B/P (MAP) 94/69 (77) 115/75 (88) 103/80 (88) Pulse Ox 87 91 O2 Delivery Nasal Cannula Nasal Cannula Nasal Cannula Nasal Cannula O2 Flow Rate 15.0 6.0 6.0 6.0 6/12/19 6/12/19 6/12/19 6/12/19 14:00 14:05 15:00 16:00 Pulse 119 120 Resp 30 27 B/P (MAP) 98/78 (85) 106/76 (86) Pulse Ox 93 87 100 O2 Delivery Nasal Cannula Nasal Cannula Nasal Cannula Venturi Mask O2 Flow Rate 6.0 6.0 6.0 15.0 08/04/18 08/04/18 08/04/18 08/04/18 16:00 17:00 17:00 18:00 Temp 97.9 97.9 Pulse 120 118 Resp 30 21 31 B/P (MAP) 112/79 (90) 106/81 (89) 107/76 (86) Pulse Ox 100 100 95 O2 Delivery Venturi Mask Venturi Mask Venturi Mask Nasal Cannula O2 Flow Rate 15.0 15.0 15.0 4.0 08/04/18 08/04/18 08/04/18 08/04/18 19:00 19:51 20:00 20:00 Temp 97.4 97.4 Pulse 116 120 Resp 23 36 33 B/P (MAP) 113/73 (86) 123/83 (96) Pulse Ox 100 95 100 O2 Delivery Nasal Cannula Nasal Cannula Nasal Cannula Venturi Mask O2 Flow Rate 4.0 4.0 4.0 15.0 08/04/18 08/04/18 08/04/18 08/04/18 20:44 21:00 22:00 23:00 Pulse 117 114 115 Resp 20 26 17 B/P (MAP) 122/88 (99) 136/97 (110) 111/75 (87) Pulse Ox 100 99 100 92 O2 Delivery Nasal Cannula Nasal Cannula Nasal Cannula Venturi Mask O2 Flow Rate 4.0 4.0 4.0 15.0 08/05/18 08/05/18 08/05/18 08/05/18 00:00 00:00 01:00 02:00 Pulse 113 106 108 Resp 23 14 17 B/P (MAP) 118/84 (95) 109/70 (83) 107/75 (86) Pulse Ox 100 100 100 O2 Delivery Nasal Cannula Nasal Cannula Nasal Cannula Nasal Cannula O2 Flow Rate 4.0 4.0 4.0 4.0 08/05/18 08/05/18 08/05/18 08/05/18 03:00 04:00 04:00 04:03 Temp 97.4 97.4 Pulse 107 111 Resp 18 20 32 B/P (MAP) 112/77 (89) 129/90 (103) Pulse Ox 100 100 100 O2 Delivery Nasal Cannula Nasal Cannula Nasal Cannula Nasal Cannula O2 Flow Rate 4.0 4.0 4.0 4.0 08/05/18 08/05/18 08/05/18 08/05/18 05:00 06:00 07:00 07:00 Temp 97.9 97.9 Pulse 106 112 112 Resp 15 31 15 B/P (MAP) 117/83 (94) 118/89 (99) Pulse Ox 100 100 100 100 O2 Delivery Nasal Cannula Nasal Cannula Nasal Cannula Nasal Cannula O2 Flow Rate 4.0 4.0 4.0 4.0 08/05/18 08/05/18 08/05/18 08:00 08:00 08:14 Pulse 118 B/P (MAP) 124/88 (100) Pulse Ox 100 98 O2 Delivery Nasal Cannula Nasal Cannula Nasal Cannula O2 Flow Rate 4.0 4.0 3.0 Intake and Output 08/04/18 08/04/18 08/05/18 15:00 23:00 07:00 Intake Total 3348 ml 1560 ml 300 ml Output Total 820 ml 575 ml 500 ml Balance 2528 ml 985 ml -200 ml Nutrition Consultation Dietary Evaluation: Recommendations by RD: Increase Calorie Intake, Protein supplementation Comments: REC liberalize diet to regular to promote adequate/improved PO intake [place] food preferences and provide snacks as requested Expected Outcomes/Goals: PO intake to meet >75% est needs Interpretation of weight loss: >7.5% in 3 months Malnutrition Findings: Food and Nutrition Intake (Mod: <75% est energy req 7days Weight Status: Overweight PREET PALUMBO MD Aug 05, 2018 09:59
[2018-08-05] MEDS: ETOPOSIDE IV SCH (10:27)
[2018-08-05] MEDS: NORMAL SALINE IV SCH (10:27)
[2018-08-05] MEDS ORDERED: CITALOPRAM 10 MG TABLET. PO SCH (12:00)
[2018-08-05] MEDS: IV NORMAL SALINE 1000ML BAG 1,000 ML IV SCH (12:30)
--- NOTE | 2018-08-05 12:47 | PDOC ---
Provider Note Provider Note 8 yo man with hx of anemia and polyclonal gammopathy now with large mediastinal mass with partially compensated SVC syndrome. 2 to 3 mo difficulty with food stuck in central chest and 24 pound weight loss, 1 mo hx of severe constant chest pain. CT chest huge mediastinal mass and right hilar adenopathy. Underwent SVC st enting with improved facial swelling. Initial inguinal LN bx was non-diagnostic. CT guided bx 07/27/2018 revealed non- small cell lung carcinoma. DC'ed 07/30/2018. Readmitted with increasing SOB and large right pneumothorax. Reexpanded after CT placement. Simulation effort made to initiate combined chest radiation and chemo. He was on venti mask and desaturated to a po2 down to 30% We were not comfortable completing simulation with BiPAP support as our access to patient emergently in the accelerator room with slow shielded door and long corridor to machine is limited (vs our simulator CT scanner room which has more immediate patient access.) Underwent PICC line placement with BiPAP support while supine and experienced significant O2 desaturation during this procedure. CT head with contrast revealed no clear evidence for occult metastatic disease. Small left cerebellar low density lesion most consistent with old CVA Non-enhancing met could not be fully excluded. He began chemo yesterday and experiencing some level of nausea. Breathing better now on 3 L NC O2. Still not able to lay supine without desaturation as noted by ICU nurse. If he continues to improve after the first cycle of chemo and can lay supine without significant desaturation, we will then reconsider chest radiation with second cycle of chemo. We will readdress simulation next week. KAYLA WHEAT MD Aug 05, 2018 12:47
--- NOTE | 2018-08-05 15:31 | PDOC ---
PULMONARY PROGRESS NOTES Subjective PT DEPRESSED NO N/V PT NOT MORE SOA RECEIVING CHEMO Vitals Vital Signs Date Time Temp Pulse Resp B/P (MAP) Pulse Ox O2 Delivery O2 Flow Rate FiO2 08/05/18 13:00 109 29 116/80 (92) 99 Nasal Cannula 3.0 08/05/18 11:38 97.9 97.9 ROS: No Nausea, No Chest Pain, No Abdominal Pain, No Increase Cough General: Alert Lungs: Crackles Cardiovascular: S1, S2 Abdomen: Soft Neuro Exam: Alert Extremities: No Edema Skin: Warm Labs Laboratory Tests Test 08/03/18 20:41 08/04/18 06:00 08/04/18 07:42 08/04/18 12:46 Glucose (Fingerstick) 151 mg/dL (70-99) 104 mg/dL (70-99) 95 mg/dL (70-99) White Blood Count 7.0 x10^3/uL (4.0-11.0) Red Blood Count 3.61 x10^6/uL (4.30-5.70) Hemoglobin 8.9 g/dL (13.0-17.5) Hematocrit 27.5 % (39.0-53.0) Mean Corpuscular Volume 76 fL (79-100) Mean Corpuscular Hemoglobin 25 pg (25-35) Mean Corpuscular Hemoglobin Concent 32 g/dL (31-37) Red Cell Distribution Width 17.7 % (11.5-14.5) Platelet Count 371 x10^3/uL (140-400) Neutrophils (%) (Auto) 78 % (31-73) Lymphocytes (%) (Auto) 14 % (24-48) Monocytes (%) (Auto) 7 % (0-9) Eosinophils (%) (Auto) 0 % (0-3) Basophils (%) (Auto) 1 % (0-3) Neutrophils # (Auto) 5.4 x10^3uL (1.8-7.7) Lymphocytes # (Auto) 1.0 x10^3/uL (1.0-4.8) Monocytes # (Auto) 0.5 x10^3/uL (0.0-1.1) Eosinophils # (Auto) 0.0 x10^3/uL (0.0-0.7) Basophils # (Auto) 0.1 x10^3/uL (0.0-0.2) Sodium Level 134 mmol/L (136-145) Potassium Level 4.2 mmol/L (3.5-5.1) Chloride Level 100 mmol/L (98-107) Carbon Dioxide Level 25 mmol/L (21-32) Anion Gap 9 (6-14) Blood Urea Nitrogen 15 mg/dL (8-26) Creatinine 0.7 mg/dL (0.7-1.3) Estimated GFR (Cockcroft-Gault) 139.7 Glucose Level 119 mg/dL (70-99) Calcium Level 9.0 mg/dL (8.5-10.1) Test 08/04/18 17:56 08/04/18 20:59 08/05/18 04:00 Glucose (Fingerstick) 137 mg/dL (70-99) 122 mg/dL (70-99) White Blood Count 7.2 x10^3/uL (4.0-11.0) Red Blood Count 3.75 x10^6/uL (4.30-5.70) Hemoglobin 9.2 g/dL (13.0-17.5) Hematocrit 28.7 % (39.0-53.0) Mean Corpuscular Volume 76 fL (79-100) Mean Corpuscular Hemoglobin 24 pg (25-35) Mean Corpuscular Hemoglobin Concent 32 g/dL (31-37) Red Cell Distribution Width 18.0 % (11.5-14.5) Platelet Count 383 x10^3/uL (140-400) Neutrophils (%) (Auto) 85 % (31-73) Lymphocytes (%) (Auto) 9 % (24-48) Monocytes (%) (Auto) 6 % (0-9) Eosinophils (%) (Auto) 0 % (0-3) Basophils (%) (Auto) 0 % (0-3) Neutrophils # (Auto) 6.1 x10^3uL (1.8-7.7) Lymphocytes # (Auto) 0.6 x10^3/uL (1.0-4.8) Monocytes # (Auto) 0.4 x10^3/uL (0.0-1.1) Eosinophils # (Auto) 0.0 x10^3/uL (0.0-0.7) Basophils # (Auto) 0.0 x10^3/uL (0.0-0.2) Segmented Neutrophils % 90 % (35-66) Lymphocytes % 7 % (24-48) Monocytes % 3 % (0-10) Nucleated Red Blood Cells 2 Platelet Estimate Adequate (ADEQUATE) Polychromasia Slight Hypochromasia Slight Anisocytosis Slight Tear Drop Cells Occ Sodium Level 137 mmol/L (136-145) Potassium Level 4.7 mmol/L (3.5-5.1) Chloride Level 102 mmol/L (98-107) Carbon Dioxide Level 26 mmol/L (21-32) Anion Gap 9 (6-14) Blood Urea Nitrogen 16 mg/dL (8-26) Creatinine 0.8 mg/dL (0.7-1.3) Estimated GFR (Cockcroft-Gault) 119.7 Glucose Level 118 mg/dL (70-99) Calcium Level 9.0 mg/dL (8.5-10.1) Laboratory Tests Test 08/04/18 17:56 08/04/18 20:59 08/05/18 04:00 Glucose (Fingerstick) 137 mg/dL (70-99) 122 mg/dL (70-99) White Blood Count 7.2 x10^3/uL (4.0-11.0) Red Blood Count 3.75 x10^6/uL (4.30-5.70) Hemoglobin 9.2 g/dL (13.0-17.5) Hematocrit 28.7 % (39.0-53.0) Mean Corpuscular Volume 76 fL (79-100) Mean Corpuscular Hemoglobin 24 pg (25-35) Mean Corpuscular Hemoglobin Concent 32 g/dL (31-37) Red Cell Distribution Width 18.0 % (11.5-14.5) Platelet Count 383 x10^3/uL (140-400) Neutrophils (%) (Auto) 85 % (31-73) Lymphocytes (%) (Auto) 9 % (24-48) Monocytes (%) (Auto) 6 % (0-9) Eosinophils (%) (Auto) 0 % (0-3) Basophils (%) (Auto) 0 % (0-3) Neutrophils # (Auto) 6.1 x10^3uL (1.8-7.7) Lymphocytes # (Auto) 0.6 x10^3/uL (1.0-4.8) Monocytes # (Auto) 0.4 x10^3/uL (0.0-1.1) Eosinophils # (Auto) 0.0 x10^3/uL (0.0-0.7) Basophils # (Auto) 0.0 x10^3/uL (0.0-0.2) Segmented Neutrophils % 90 % (35-66) Lymphocytes % 7 % (24-48) Monocytes % 3 % (0-10) Nucleated Red Blood Cells 2 Platelet Estimate Adequate (ADEQUATE) Polychromasia Slight Hypochromasia Slight Anisocytosis Slight Tear Drop Cells Occ Sodium Level 137 mmol/L (136-145) Potassium Level 4.7 mmol/L (3.5-5.1) Chloride Level 102 mmol/L (98-107) Carbon Dioxide Level 26 mmol/L (21-32) Anion Gap 9 (6-14) Blood Urea Nitrogen 16 mg/dL (8-26) Creatinine 0.8 mg/dL (0.7-1.3) Estimated GFR (Cockcroft-Gault) 119.7 Glucose Level 118 mg/dL (70-99) Calcium Level 9.0 mg/dL (8.5-10.1) Medications Active Scripts Medications Dose Route/Sig Max Daily Dose Days Date Category Dose Instructions Eliquis (Apixaban) 5 Mg Tablet 5 Mg PO BID 07/30/18 Rx Voltaren (Diclofenac Sodium) 100 Gm Gel..gram. 1 Roby TP PRN BID PRN 07/30/18 Rx Allopurinol 300 Mg Tablet 300 Mg PO DAILY 07/30/18 Rx Colace (Docusate Sodium) 100 Mg Capsule 100 Mg PO DAILY 07/30/18 Rx [place] 5-325 Tablet (Acetaminophen/Hydrocodone Bitart) 1 Each Tablet 1 Each PO PRN Q6HRS PRN 07/30/18 Rx as needed for pain Ranitidine Hcl 150 Mg Tablet 1 Tab PO BID 07/19/18 Reported Lisinopril-Hctz 10-12.5 Mg Tab (Lisinopril/Hydrochlorothiazide) 1 Each Tablet 1 Tab PO DAILY 07/19/18 Reported Ibuprofen 400 Mg Tablet 400 Mg PO PRN Q6HRS PRN 07/03/16 Rx take with food or milk Impression . IMPRESSION: 1. Spontaneous pneumothorax RESOLVED 2. Large mediastinal mass. 3. Superior vena cava syndrome, status post superior vena cava filter placement. 4. Hemoptysis secondary to re-expansion pulmonary edema. 5. Fever. 6. History of tobacco use. 7. Chronic obstructive pulmonary disease. 8. FINAL PATH NON SMALL CELL CA 9. DEPRESSION Plan . STARTED ON CELEXA NO PTX ON CXR WILL D/C CHEST TUBE PT NOT ABLE TO LIE IN SUPINE POSITION CHEMO PER ONCO, IF OK WITH DR WHEAT MAY BE ABLE TO D/C IN AM AND FOLLOW UP OUTPT D/W FAMILY ANTIBX D/W LALO ESCALERA MD Aug 05, 2018 15:31
--- NOTE | 2018-08-05 16:35 | NUR ---
NN 7A Chair 75 % shift w overt dependent edema lower extremities. Elevation as tolerated but torso has to remain in upright position for resp purposes. #2 chemo this am w fair tolerance. Extremely depressed/sad. Communication w MD- orders noted. Meds per order w explanation of 7 day time frame to feel changes med may make. Remains unable to lie down for more than 30 sec max. .Dangling at bedside after return to bed. Xanax,tung med as needed. cont POC
[2018-08-05] MEDS: ONDANSETRON PF 4 MG/2 ML VIAL. IV PRN ×2 (17:15→23:00)
[2018-08-05] MEDS: ZOLPIDEM 5 MG TABLET. PO PRN (20:34)
[2018-08-05] MEDS ORDERED: AMIODARONE 150 MG/3 ML VIAL ONE (23:00)
[2018-08-05] MEDS ORDERED: SODIUM BICARB ADULT 8.4% 50 MEQ/50 ML DISP.SYRIN. ONE (23:00)
[2018-08-05] MEDS ORDERED: DOPamine 400MG/250ML PREMIX 400 MG/250 ML BAG IV ONE (23:00)
[2018-08-05] MEDS ORDERED: EPINEPHrine SYRINGE 1 MG/10 ML SYRINGE ONE (23:00)
[2018-08-05] MEDS ORDERED: ATROPINE 0.5 MG/5 ML DISP.SYRINGE. ONE (23:00)
[2018-08-05] MEDS ORDERED: EPINEPHrine 1 MG/ML VIAL ONE ×2 (23:31→23:32)
[2018-08-06] MEDS ORDERED: ETOMIDATE 20 MG/10 ML VIAL. IV ONE (00:11)
[2018-08-06] MEDS ORDERED: ROCURONIUM 50 MG/5 ML VIAL. ONE (00:11)
--- NOTE | 2018-08-06 00:14 | PDOC5 ---
CODE REPORT CODE REPORT CODE BLUE REPORT: Called by ICU staff for Code blue. Patient with history of metastatic mass in chest. Patient is a FULL CODE. CODE BLUE called at 2307. Initial rhythm PEA with runs of VTach. ACLS protocol initiated.. Blood sugar 108. Epinephrine x 18 provided. Bicarb x 1 given. Patient would initially get pulse back after CPR and epi. Subsequently as epi would wear off, patient HR would drop and patient would again arrest. 2 rounds of atropine 1mg provided as bradycardia started. CPR continued. During an initial time when patient had spontaneous HR, int ubation was performed under RSI with 50mg of Rocuronium and 20mg of Etomidate with Castro with 8.0 cuffed ETT placed over bougie and marked 22cm at teeth. Decision for dopamine gtt. Patient continued to lose pulse. 3 episodes of VTach with defibrillation at 200J and 5 more episodes of Vtach with defibrillation at 300J. 1 round of Amiodarone 300mg provided. CPR continued. Epinephrine gtt initiated. Patient continue to be labile. Discussed case with family regarding grave situation and patient's limited response to medications and interventions. At 1 hour karina, discussion by mother to discontinue further efforts. TIME OF called at 0024. Dr. Li (covering for PCP-Rafael) notified by [facility]ANDARDS ENGINEERstaff counsel. PE: @ [phone] upon arrival to Unit Constitutional: Ill appearing HENT: Normocephalic, atraumatic, oropharynx moist, thick white secretions in pharynx Eyes: Pupils fixed and dilated L>R, conjunctiva normal Neck: Supple full passive ROM Cardiovascular: NO spontaneous pulse noted, CR > 2 sec to periphery Lungs & Thorax: Course breath sounds with bag valve mask Abdomen: Soft, mild distention Skin: Cool, dry, no erythema Extremities: No deformity, no edema Neurologic: GCS 3, unresponsive Psychologic: Unable to obtain DX: 1) Cardiopulmonary arrest Disposition: Intubation Intubation : Intubation Method: orotracheal Tube Size (cm): 8.0 Breath Sounds after Intubation: equal Intubation Complications: no complications Post Intubation Xray: No Progress Emergent consent utilized. Time out performed. Hand hygiene utilized. RSI utilized with 20mg of Etomidate and 50mg of Rocuronium. Copious thick clear white discharge noted in pharynx. Cleared with suction. Castro laryngoscope utilized with view of epiglottis and then vocal cords. Secretions suctioned from vocal cords concerning for aspiration. Bougie placed followed by 8.0 cuffed ETT without difficulty. Fogging of the tube, CO2 color change, and bilateral breath sounds noted. BVM respirations continued. Critical Care Time Critical care time was 60 minutes which includes time at bedside, spent in discussion of patient's care with specialists and/or family members, with interpretation of laboratory and/or radiological studies and is exclusive of procedures. BEAR CHRISTIANSON DO Aug 06, 2018 00:14
--- NOTE | 2018-08-06 00:43 | NUR ---
At 2307 a code blue was called. CPR was initiated and code team arrived. patients family was notified. Code continued for over one hour until family agreed to stop the code. Time of was 230. [facility] notified.
[2018-08-06] MEDS ORDERED: EPINEPHrine 1 MG/ML VIAL INJ ONE (01:00)
[2018-08-06] MEDS ORDERED: EPINEPHrine SYRINGE 1 MG/10 ML SYRINGE IV ONE (01:00)
[2018-08-12] MEDS ORDERED: DEXAMETHASONE 4 MG TABLET PO SCH (08:00)
== END 2018-08-06 01:00 | disposition expired | DRG 199 ==
LOC: ER 08:47 → 6 SOUTH 09:46 → 1 WEST ICU 11:57
PROVIDERS: ADMIT Internal Medicine; ATTEND Internal Medicine
PROC: 0W9930Z Drainage of Right Pleural Cavity with Drainage Device, Percutaneous Approach (ICD-10-PCS; principal; 2018-08-02)
PROC: 02HV33Z Insertion of Infusion Device into Superior Vena Cava, Percutaneous Approach (ICD-10-PCS; 2018-08-03)
PROC: B548ZZA Ultrasonography of Superior Vena Cava, Guidance (ICD-10-PCS; 2018-08-03)
PROC: 0BH17EZ Insertion of Endotracheal Airway into Trachea, Via Natural or Artificial Opening (ICD-10-PCS; 2018-08-06)
PROC: 5A12012 Performance of Cardiac Output, Single, Manual (ICD-10-PCS; 2018-08-06)
DX: J93.83 Other pneumothorax (principal); J18.9 Pneumonia, unspecified organism; C34.90 Malignant neoplasm of unspecified part of unspecified bronchus or lung; I87.1 Compression of vein; J44.0 Chronic obstructive pulmonary disease with (acute) lower respiratory infection; J81.1 Chronic pulmonary edema; J98.11 Atelectasis; I47.2 Ventricular tachycardia; C78.1 Secondary malignant neoplasm of mediastinum; D63.8 Anemia in other chronic diseases classified elsewhere; D89.0 Polyclonal hypergammaglobulinemia; E11.9 Type 2 diabetes mellitus without complications; F41.9 Anxiety disorder, unspecified; I46.9 Cardiac arrest, cause unspecified; M19.90 Unspecified osteoarthritis, unspecified site; M54.5 Low back pain; E53.8 Deficiency of other specified B group vitamins; F17.210 Nicotine dependence, cigarettes, uncomplicated; E78.5 Hyperlipidemia, unspecified; F32.9 Major depressive disorder, single episode, unspecified; I10 Essential (primary) hypertension; K21.9 Gastro-esophageal reflux disease without esophagitis; Z79.01 Long term (current) use of anticoagulants; Z80.1 Family history of malignant neoplasm of trachea, bronchus and lung; Z85.118 Personal history of other malignant neoplasm of bronchus and lung; Z86.718 Personal history of other venous thrombosis and embolism
CPT/HCPCS: 36415; 36569; 70470; 71045; 80048; 80053; 80307; 81001; 82962; 83605; 83735; 84484; 85007; 85025; 87040; 93005; 94640; 94660; 94760; 96360; J0171; J0282; J0461; J1265; J2405; J2543; J2930; J3010; J3370; J3475; J3480; J3490; J7030; J7040; J7050; J7620; J8540; J9181; Q0162; Q9967; 99285-25